=== PATIENT | male | born 1960 | race Caucasian/White ===

== ENCOUNTER 2020-05-15 07:49 | Emergency (ER) | payer BC, SELFPAY ==
[2020-05-15 09:09] VITALS: BP 201/106; PULSE 83; RESP 16; TEMP 37; O2SAT 97; BMI 38.0
--- NOTE | 2020-05-15 09:09 | ED.GENADULT ---
HPI - General Adult General Chief complaint: Extremity Problem <Santa Martínez NP - Last Filed: 05/15/20 09:14> Stated complaint: swollen feet <Santa Martínez NP - Last Filed: 05/15/20 09:14> Time Seen by Provider: 05/15/20 09:08 <Santa Martínez NP - Last Filed: 05/15/20 09:14> Source: patient <SHILA Swan - Last Filed: 05/15/20 12:17> Mode of arrival: ambulatory <SHILA Swan - Last Filed: 05/15/20 12:17> History of Present Illness HPI narrative: 59-year-old male with a past medical history of hypertension, diabetes, peripheral neuropathy presenting to the ED complaining of bilateral LE edema greater on the left since Thursday with left foot wound for unknown period of time. Denies fever, chills, shortness of breath, chest pain, recent travel, smoking, history of blood clots <SHILA Swan - Last Filed: 05/15/20 12:17> Related Data Home medications: Home Medications Medication Instructions Recorded Confirmed atenolol 50 mg tablet 50 mg PO DAILY 05/14/20 insulin glargine 100 unit/mL (3 0 - 20 unit SUBCUT DAILY 05/14/20 mL) subcutaneous pen lisinopril 20 mg tablet 20 mg PO DAILY 05/14/20 Previous Rx's Medication Instructions Recorded atorvastatin 20 mg tablet 20 mg PO QPM 90 Days #90 tab 03/09/20 glipizide 10 mg tablet 10 mg PO BID 90 Days #180 tab 03/09/20 amoxicillin 875 mg-potassium 1 tab PO Q12H 10 Days #20 tab 03/19/20 clavulanate 125 mg tablet gabapentin 300 mg capsule 300 mg PO TID 30 Days #90 cap 04/09/20 metformin 1,000 mg tablet 1,000 mg PO BID 30 Days #60 tab 05/10/20 levofloxacin 750 mg PO DAILY 7 Days #7 tab 05/15/20 <Santa Martínez NP - Last Filed: 05/15/20 09:14> Allergies/adverse reactions: Allergies Allergy/AdvReac Type Severity Reaction Status Date / Time No Known Allergies Allergy Verified 05/14/20 15:53 <Santa Martínez NP - Last Filed: 05/15/20 09:14> Review of Systems Review of Systems: Constitutional: No Weight loss, No Fever, No Chills Cardiovascular: No Chest Pain, No SOB, No Dyspnea on Exertion, No Orthopnea, + Edema> LLE Respiratory: No Cough, No Sputum, No Wheezing, No Smoke Exposure, No Dyspnea Gastrointestinal: No Nausea, No Vomiting, No Diarrhea, No Constipation, No Abdominal pain Musculoskeletal: No joint pain, No Myalgias, No Joint Swelling Skin: + wound, No rash <SHILA Swan - Last Filed: 05/15/20 12:17> Yes all other systems are reviewed and are negative <SHILA Swan - Last Filed: 05/15/20 12:17> FORMERLY [facility] Past Medical History Attestation statement: The following information was validated with the patient. <SHILA Swan - Last Filed: 05/15/20 12:17> Medical History: Medical History (Updated 05/16/20 @ 00:00 by José Barone) Diabetes mellitus, type 2 Hypertension <Santa Martínez NP - Last Filed: 05/15/20 09:14> Surgical History: Surgical History (Updated 05/15/20 @ 09:14 by Reji Pierce) Total knee replacement status <Santa Martínez NP - Last Filed: 05/15/20 09:14> Social History Social History: Social History Advance Directives: No Advance Directives Information Provided: No <Santa Martínez NP - Last Filed: 05/15/20 09:14> Physical Exam Vital Signs: Vital Signs: Last Vital Signs Temp 98.6 F 05/15/20 09:09 Pulse 83 05/15/20 09:09 Resp 16 05/15/20 09:09 BP 201/106 H 05/15/20 09:09 Pulse Ox 97 05/15/20 09:09 Body Mass Index 38.0 <Santa Martínez NP - Last Filed: 05/15/20 09:14> Vital Signs: Last Vital Signs Temp 98.6 F 05/15/20 09:09 Pulse 83 05/15/20 09:09 Resp 16 05/15/20 09:09 BP 201/106 H 05/15/20 09:09 Pulse Ox 97 05/15/20 09:09 Body Mass Index 38.0 <Ghassan Guerrero MD - Last Filed: 05/18/20 15:41> Vital Signs: Last Vital Signs Temp 98.6 F 05/15/20 09:09 Pulse 83 05/15/20 09:09 Resp 16 05/15/20 09:09 BP 201/106 H 05/15/20 09:09 Pulse Ox 97 05/15/20 09:09 Body Mass Index 38.0 <Brook Wang PA - Last Filed: 05/15/20 12:17> Const: General: cooperative and healthy appearing <SHILA Swan - Last Filed: 05/15/20 12:17> Limitations: no limitations <SHILA Swan - Last Filed: 05/15/20 12:17> HENMT: Head: Yes normal to inspection <SHILA Swan - Last Filed: 05/15/20 12:17> Ears: hearing grossly normal bilaterally <SHILA Swan - Last Filed: 05/15/20 12:17> General nose exam: Normal external nose present <Brook Wang PA - Last Filed: 05/15/20 12:17> Face and sinus: Yes normal facial exam <SHILA Swan - Last Filed: 05/15/20 12:17> Eyes: General: appearance normal, both eyes and all related structures <SHILA Swan - Last Filed: 05/15/20 12:17> EOM: EOMs intact bilaterally <SHILA Swan - Last Filed: 05/15/20 12:17> Neck: Neck: Yes normal visual inspection <SHILA Swan - Last Filed: 05/15/20 12:17> Resp: Effort & Inspection: normal respiratory effort <SHILA Swan - Last Filed: 05/15/20 12:17> Auscultation: clear to auscultation bilaterally, no rales, no rhonchi and no wheezes <SHILA Swan - Last Filed: 05/15/20 12:17> Cardio: Rate: regular rate <SHILA Swan - Last Filed: 05/15/20 12:17> Heart sounds: S1 normal heart sound present and S2 normal heart sound present <Brook Wang PA - Last Filed: 05/15/20 12:17> GI: Inspection: Yes normal to inspection <Brook Wang PA - Last Filed: 05/15/20 12:17> Palpation (GI): Soft to palpation <Brook Wang PA - Last Filed: 05/15/20 12:17> Skin: Other: + punctate ulcer noted to plantar aspect of left foot. No surrounding erythema/cellulitis, no fluctuance or induration. No expressible drainage <Brook Adamsbrenton PA - Last Filed: 05/15/20 12:17> Rashes: no rashes <Brook Kathleen PA - Last Filed: 05/15/20 12:17> Neuro: Gait exam (Neuro): Normal gait present <Brook Adamsbrenton PA - Last Filed: 05/15/20 12:17> Extrem: Other: + bilateral LE edema greater on the left. No calf tenderness elicited <Brook SHILA Wang - Last Filed: 05/15/20 12:17> General: Yes normal to inspection <Brook Adamsbrenton PA - Last Filed: 05/15/20 12:17> Course Course Course Narrative: 0900-This serves as rapid medical exam. 59 yo male with a past medical history of IDDM, HTN here with LLE swelling and pain since thursday. Has known wound to the bottom of his left foot. Will need labs including blood cultures, x-ray to eval for osteo, US to r/o DVT. Deferred additional HPI, ROS and PE to primary provider. <Santa Martínez NP - Last Filed: 05/15/20 09:14> I have discussed the case and management with the KRYS <Ghassan Guerrero MD - Last Filed: 05/18/20 15:41> 1158--no leukocytosis, H&H at baseline. Labs notable for elevated lactic acidosis of 3.3 likely from metformin. Low concern for severe sepsis -CXR unremarkable, venous duplex negative for DVT -XR foot LT 2VIMPRESSION: Air in the soft tissues of the plantar foot overlying the toes. No fracture or x-ray evidence of osteomyelitis. Degenerative change at the first MTP joint and plantar calcaneal spur >> results discussed with patient including worrisome signs and symptoms and strict return precautions. Will DC patient with Levaquin, Podiatry, and Wound Clinic follow-up <SHILA Swan - Last Filed: 05/15/20 12:17> Medical Decision Making MDM Narrative Medical decision making narrative: 59-year-old male with a past medical history of hypertension, diabetes, peripheral neuropathy presenting to the ED complaining of bilateral LE edema greater on the left since Thursday with left foot wound for unknown period of time. On exam hypertensive, NAD/nontoxic appearing, lungs CTA. Bilateral LE edema noted greater on the left with diabetic foot ulcer that appears not infected. Concern for CHF versus DVT versus osteo. Exam not consistent with active cellulitis at this time Plan: Labs, CXR, venous duplex, re-evaluate <SHILA Swan - Last Filed: 05/15/20 12:17> Lab Data Result diagrams: : 05/15/20 09:34 05/15/20 09:34 <Santa Martínez NP - Last Filed: 05/15/20 09:14> Labs: Lab Results 05/15/20 05/15/20 05/15/20 Range/Units 09:34 09:34 09:34 WBC 6.9 (4.8-10.8) X10*3/uL RBC 4.33 L (4.60-5.80) X10*6/uL Hgb 11.8 L (14.0-18.0) g/dl Hct 37.2 L (42-52) % MCV 85.9 (80-98) fL MCH 27.3 (27.0-33.0) pg MCHC 31.7 (31.0-36.0) g/dl RDW 13.8 (11.0-16.0) % Plt Count 219 (160-400) X10*3/uL MPV 10.5 (9.4-12.4) fL Immature Gran % (Auto) 0.3 (0.0-0.4) % Neut % (Auto) 63.5 (45-73) % Lymph % (Auto) 26.5 (20-40) % Hooker % (Auto) 7.4 (2-11) % Eos % (Auto) 2.0 (0-4) % Baso % (Auto) 0.3 (0-2) % Lymph # (Auto) 1.8 (1.2-4.9) X10*3/uL Hooker # (Auto) 0.5 (0.1-1.2) X10*3/uL Eos # (Auto) 0.1 (0.0-0.4) X10*3/uL Baso # (Auto) 0.0 (0.0-0.2) X10*3/uL Abs Immat Gran (auto) 0.02 (0.00-0.03) X10*3/uL Absolute Neuts (auto) 4.4 (2.0-8.3) X10*3/uL Absolute Nucleated RBC 0.000 (0.0-0.012) X10*3/uL Nucleated RBC % (auto) 0.0 (0.0-0.2) /100WBC Hold Blue Top SEE NOTE Sodium 135 (135-145) mmol/L Potassium 4.4 (3.3-5.1) mmol/l Chloride 96 (96-108) mmol/L Carbon Dioxide 28 (22-29) mmol/L Anion Gap 15 (12-20) BUN 7 L (9-16) mg/dL Creatinine 0.83 (0.5-1.4) mg/dL Estim Creat Clear Calc 133.5 Estimated GFR > 60 Random Glucose 307 H (60-115) mg/dL Lactic Acid (0.5-2.0) mmol/L Lactic Acid Fup @ 2Hr (0.5-2.0) mmol/L Calcium 9.3 (8.4-10.2) mg/dL Total Bilirubin 0.2 (0.0-1.0) mg/dL Direct Bilirubin 0.2 (0.0-0.5) mg/dL AST 27 (5-37) U/L ALT 18 (0-40) U/L Alkaline Phosphatase 110 (39-117) U/L B-Natriuretic Peptide (<100) pg/mL Total Protein 7.5 (6.5-8.0) g/dL Albumin 4.2 (3.5-5.0) g/dL 05/15/20 05/15/20 05/15/20 Range/Units 09:34 09:34 11:51 WBC (4.8-10.8) X10*3/uL RBC (4.60-5.80) X10*6/uL Hgb (14.0-18.0) g/dl Hct (42-52) % MCV (80-98) fL MCH (27.0-33.0) pg MCHC (31.0-36.0) g/dl RDW (11.0-16.0) % Plt Count (160-400) X10*3/uL MPV (9.4-12.4) fL Immature Gran % (Auto) (0.0-0.4) % Neut % (Auto) (45-73) % Lymph % (Auto) (20-40) % Hooker % (Auto) (2-11) % Eos % (Auto) (0-4) % Baso % (Auto) (0-2) % Lymph # (Auto) (1.2-4.9) X10*3/uL Hooker # (Auto) (0.1-1.2) X10*3/uL Eos # (Auto) (0.0-0.4) X10*3/uL Baso # (Auto) (0.0-0.2) X10*3/uL Abs Immat Gran (auto) (0.00-0.03) X10*3/uL Absolute Neuts (auto) (2.0-8.3) X10*3/uL Absolute Nucleated RBC (0.0-0.012) X10*3/uL Nucleated RBC % (auto) (0.0-0.2) /100WBC Hold Blue Top Sodium (135-145) mmol/L Potassium (3.3-5.1) mmol/l Chloride (96-108) mmol/L Carbon Dioxide (22-29) mmol/L Anion Gap (12-20) BUN (9-16) mg/dL Creatinine (0.5-1.4) mg/dL Estim Creat Clear Calc Estimated GFR Random Glucose (60-115) mg/dL Lactic Acid 3.3 H* (0.5-2.0) mmol/L Lactic Acid Fup @ 2Hr 1.9 (0.5-2.0) mmol/L Calcium (8.4-10.2) mg/dL Total Bilirubin (0.0-1.0) mg/dL Direct Bilirubin (0.0-0.5) mg/dL AST (5-37) U/L ALT (0-40) U/L Alkaline Phosphatase (39-117) U/L B-Natriuretic Peptide 123 H (<100) pg/mL Total Protein (6.5-8.0) g/dL Albumin (3.5-5.0) g/dL <Santa Martínez NP - Last Filed: 05/15/20 09:14> Lab Results 05/15/20 05/15/20 05/15/20 Range/Units 09:34 09:34 09:34 WBC 6.9 (4.8-10.8) X10*3/uL RBC 4.33 L (4.60-5.80) X10*6/uL Hgb 11.8 L (14.0-18.0) g/dl Hct 37.2 L (42-52) % MCV 85.9 (80-98) fL MCH 27.3 (27.0-33.0) pg MCHC 31.7 (31.0-36.0) g/dl RDW 13.8 (11.0-16.0) % Plt Count 219 (160-400) X10*3/uL MPV 10.5 (9.4-12.4) fL Immature Gran % (Auto) 0.3 (0.0-0.4) % Neut % (Auto) 63.5 (45-73) % Lymph % (Auto) 26.5 (20-40) % Hooker % (Auto) 7.4 (2-11) % Eos % (Auto) 2.0 (0-4) % Baso % (Auto) 0.3 (0-2) % Lymph # (Auto) 1.8 (1.2-4.9) X10*3/uL Hooker # (Auto) 0.5 (0.1-1.2) X10*3/uL Eos # (Auto) 0.1 (0.0-0.4) X10*3/uL Baso # (Auto) 0.0 (0.0-0.2) X10*3/uL Abs Immat Gran (auto) 0.02 (0.00-0.03) X10*3/uL Absolute Neuts (auto) 4.4 (2.0-8.3) X10*3/uL Absolute Nucleated RBC 0.000 (0.0-0.012) X10*3/uL Nucleated RBC % (auto) 0.0 (0.0-0.2) /100WBC Hold Blue Top SEE NOTE Sodium 135 (135-145) mmol/L Potassium 4.4 (3.3-5.1) mmol/l Chloride 96 (96-108) mmol/L Carbon Dioxide 28 (22-29) mmol/L Anion Gap 15 (12-20) BUN 7 L (9-16) mg/dL Creatinine 0.83 (0.5-1.4) mg/dL Estim Creat Clear Calc 133.5 Estimated GFR > 60 Random Glucose 307 H (60-115) mg/dL Lactic Acid (0.5-2.0) mmol/L Lactic Acid Fup @ 2Hr (0.5-2.0) mmol/L Calcium 9.3 (8.4-10.2) mg/dL Total Bilirubin 0.2 (0.0-1.0) mg/dL Direct Bilirubin 0.2 (0.0-0.5) mg/dL AST 27 (5-37) U/L ALT 18 (0-40) U/L Alkaline Phosphatase 110 (39-117) U/L B-Natriuretic Peptide (<100) pg/mL Total Protein 7.5 (6.5-8.0) g/dL Albumin 4.2 (3.5-5.0) g/dL 05/15/20 05/15/20 05/15/20 Range/Units 09:34 09:34 11:51 WBC (4.8-10.8) X10*3/uL RBC (4.60-5.80) X10*6/uL Hgb (14.0-18.0) g/dl Hct (42-52) % MCV (80-98) fL MCH (27.0-33.0) pg MCHC (31.0-36.0) g/dl RDW (11.0-16.0) % Plt Count (160-400) X10*3/uL MPV (9.4-12.4) fL Immature Gran % (Auto) (0.0-0.4) % Neut % (Auto) (45-73) % Lymph % (Auto) (20-40) % Hooker % (Auto) (2-11) % Eos % (Auto) (0-4) % Baso % (Auto) (0-2) % Lymph # (Auto) (1.2-4.9) X10*3/uL Hooker # (Auto) (0.1-1.2) X10*3/uL Eos # (Auto) (0.0-0.4) X10*3/uL Baso # (Auto) (0.0-0.2) X10*3/uL Abs Immat Gran (auto) (0.00-0.03) X10*3/uL Absolute Neuts (auto) (2.0-8.3) X10*3/uL Absolute Nucleated RBC (0.0-0.012) X10*3/uL Nucleated RBC % (auto) (0.0-0.2) /100WBC Hold Blue Top Sodium (135-145) mmol/L Potassium (3.3-5.1) mmol/l Chloride (96-108) mmol/L Carbon Dioxide (22-29) mmol/L Anion Gap (12-20) BUN (9-16) mg/dL Creatinine (0.5-1.4) mg/dL Estim Creat Clear Calc Estimated GFR Random Glucose (60-115) mg/dL Lactic Acid 3.3 H* (0.5-2.0) mmol/L Lactic Acid Fup @ 2Hr 1.9 (0.5-2.0) mmol/L Calcium (8.4-10.2) mg/dL Total Bilirubin (0.0-1.0) mg/dL Direct Bilirubin (0.0-0.5) mg/dL AST (5-37) U/L ALT (0-40) U/L Alkaline Phosphatase (39-117) U/L B-Natriuretic Peptide 123 H (<100) pg/mL Total Protein (6.5-8.0) g/dL Albumin (3.5-5.0) g/dL <Ghassan Guerrero MD - Last Filed: 05/18/20 15:41> Lab Results 05/15/20 05/15/20 05/15/20 Range/Units 09:34 09:34 09:34 WBC 6.9 (4.8-10.8) X10*3/uL RBC 4.33 L (4.60-5.80) X10*6/uL Hgb 11.8 L (14.0-18.0) g/dl Hct 37.2 L (42-52) % MCV 85.9 (80-98) fL MCH 27.3 (27.0-33.0) pg MCHC 31.7 (31.0-36.0) g/dl RDW 13.8 (11.0-16.0) % Plt Count 219 (160-400) X10*3/uL MPV 10.5 (9.4-12.4) fL Immature Gran % (Auto) 0.3 (0.0-0.4) % Neut % (Auto) 63.5 (45-73) % Lymph % (Auto) 26.5 (20-40) % Hooker % (Auto) 7.4 (2-11) % Eos % (Auto) 2.0 (0-4) % Baso % (Auto) 0.3 (0-2) % Lymph # (Auto) 1.8 (1.2-4.9) X10*3/uL Hooker # (Auto) 0.5 (0.1-1.2) X10*3/uL Eos # (Auto) 0.1 (0.0-0.4) X10*3/uL Baso # (Auto) 0.0 (0.0-0.2) X10*3/uL Abs Immat Gran (auto) 0.02 (0.00-0.03) X10*3/uL Absolute Neuts (auto) 4.4 (2.0-8.3) X10*3/uL Absolute Nucleated RBC 0.000 (0.0-0.012) X10*3/uL Nucleated RBC % (auto) 0.0 (0.0-0.2) /100WBC Hold Blue Top SEE NOTE Sodium 135 (135-145) mmol/L Potassium 4.4 (3.3-5.1) mmol/l Chloride 96 (96-108) mmol/L Carbon Dioxide 28 (22-29) mmol/L Anion Gap 15 (12-20) BUN 7 L (9-16) mg/dL Creatinine 0.83 (0.5-1.4) mg/dL Estim Creat Clear Calc 133.5 Estimated GFR > 60 Random Glucose 307 H (60-115) mg/dL Lactic Acid (0.5-2.0) mmol/L Lactic Acid Fup @ 2Hr (0.5-2.0) mmol/L Calcium 9.3 (8.4-10.2) mg/dL Total Bilirubin 0.2 (0.0-1.0) mg/dL Direct Bilirubin 0.2 (0.0-0.5) mg/dL AST 27 (5-37) U/L ALT 18 (0-40) U/L Alkaline Phosphatase 110 (39-117) U/L B-Natriuretic Peptide (<100) pg/mL Total Protein 7.5 (6.5-8.0) g/dL Albumin 4.2 (3.5-5.0) g/dL 05/15/20 05/15/20 05/15/20 Range/Units 09:34 09:34 11:51 WBC (4.8-10.8) X10*3/uL RBC (4.60-5.80) X10*6/uL Hgb (14.0-18.0) g/dl Hct (42-52) % MCV (80-98) fL MCH (27.0-33.0) pg MCHC (31.0-36.0) g/dl RDW (11.0-16.0) % Plt Count (160-400) X10*3/uL MPV (9.4-12.4) fL Immature Gran % (Auto) (0.0-0.4) % Neut % (Auto) (45-73) % Lymph % (Auto) (20-40) % Hooker % (Auto) (2-11) % Eos % (Auto) (0-4) % Baso % (Auto) (0-2) % Lymph # (Auto) (1.2-4.9) X10*3/uL Hooker # (Auto) (0.1-1.2) X10*3/uL Eos # (Auto) (0.0-0.4) X10*3/uL Baso # (Auto) (0.0-0.2) X10*3/uL Abs Immat Gran (auto) (0.00-0.03) X10*3/uL Absolute Neuts (auto) (2.0-8.3) X10*3/uL Absolute Nucleated RBC (0.0-0.012) X10*3/uL Nucleated RBC % (auto) (0.0-0.2) /100WBC Hold Blue Top Sodium (135-145) mmol/L Potassium (3.3-5.1) mmol/l Chloride (96-108) mmol/L Carbon Dioxide (22-29) mmol/L Anion Gap (12-20) BUN (9-16) mg/dL Creatinine (0.5-1.4) mg/dL Estim Creat Clear Calc Estimated GFR Random Glucose (60-115) mg/dL Lactic Acid 3.3 H* (0.5-2.0) mmol/L Lactic Acid Fup @ 2Hr 1.9 (0.5-2.0) mmol/L Calcium (8.4-10.2) mg/dL Total Bilirubin (0.0-1.0) mg/dL Direct Bilirubin (0.0-0.5) mg/dL AST (5-37) U/L ALT (0-40) U/L Alkaline Phosphatase (39-117) U/L B-Natriuretic Peptide 123 H (<100) pg/mL Total Protein (6.5-8.0) g/dL Albumin (3.5-5.0) g/dL <SHILA Swan - Last Filed: 05/15/20 12:17> Discharge Plan Discharge Clinical Impression: Diabetic foot ulcer, Bilateral edema of lower extremity <Santa Martínez NP - Last Filed: 05/15/20 09:14> Patient Disposition: Home, Self-Care <Santa Martínez NP - Last Filed: 05/15/20 09:14> Instructions: Diabetic Foot Ulcers (ED) <Santa Martínez NP - Last Filed: 05/15/20 09:14> Additional Instructions: You have a diabetic foot ulcer which shows air in the soft tissues of your foot. Levaquin is an antibiotic, take as prescribed You need to follow-up closely with a employee placement specialist and Wound Clinic Keep a very close eye on the area, if it is growing, looks red or infected, has drainage, you have fever return to the emergency department Of the swelling in her legs worsens return to the ED <Santa Martínez NP - Last Filed: 05/15/20 09:14> Prescriptions: New levofloxacin 750 mg tablet 750 mg PO DAILY 7 Days Qty: 7 RF: 0 No Action glipizide 10 mg tablet 10 mg PO BID 90 Days Qty: 180 RF: 0 atorvastatin 20 mg tablet 20 mg PO QPM 90 Days Qty: 90 RF: 0 amoxicillin-pot clavulanate [Augmentin] 875-125 mg tablet 1 tab PO Q12H 10 Days Qty: 20 RF: 0 gabapentin 300 mg capsule 300 mg PO TID 30 Days Qty: 90 RF: 1 metformin 1,000 mg tablet 1,000 mg PO BID 30 Days Qty: 60 RF: 3 <Santa Martínez NP - Last Filed: 05/15/20 09:14> Referrals: [facility] [place] [facility] [Provider Group] - 2 days Lorenzo Fang [Physician] - 2 days <Santa Martínez NP - Last Filed: 05/15/20 09:14> Interventions: ED Discharge Assessment Last Done: 05/15/20 12:23 <Santa Martínez NP - Last Filed: 05/15/20 09:14> Discharge Date/Time: 05/15/20 12:25 <Santa Martínez NP - Last Filed: 05/15/20 09:14>
--- NOTE | 2020-05-15 09:24 | XR_ITS ---
EXAMINATION: XR FOOT, LEFT CLINICAL INFORMATION: Soft tissue infection. Evaluate for osteomyelitis. COMPARISON: None TECHNIQUE: AP, lateral, and oblique views of the left foot. FINDINGS: No fracture or dislocation is seen. There are mild degenerative changes at the first MTP joint. There is a plantar calcaneal spur. There is air in the soft tissues seen over the plantar foot overlying the toes. On the oblique view this appears to be in between the base of the third and fourth toes. No radiopaque soft tissue foreign body is seen. XR/XR foot LT 2V IMPRESSION: Air in the soft tissues of the plantar foot overlying the toes. No fracture or x-ray evidence of osteomyelitis. Degenerative change at the first MTP joint and plantar calcaneal spur.
--- NOTE | 2020-05-15 09:25 | US_ITS ---
EXAMINATION: US VENOUS ULTRASOUND WITH DOPPLER LOWER EXTREMITY, LEFT CLINICAL INFORMATION: Pain and swelling COMPARISON: None TECHNIQUE: Ultrasound of the deep veins is performed from the hip to the calf with compression sonography and color and pulse Doppler assessment. Spectral analysis with color-flow imaging is performed. FINDINGS: There is normal venous compression and respiratory variation and augmented flow. The visualized common femoral vein, superficial femoral vein, profunda femoral vein, popliteal vein, and the trifurcation region shows no evidence of deep venous thrombosis. There is no significant popliteal fossa cyst. There is is left inguinal lymphadenopathy. The largest lymph node is enlarged measuring 2.3 cm in transverse dimension and demonstrates abnormal ultrasound morphology. This demonstrates cortical thickening and a slitlike hilum. This demonstrates normal hilar flow. Additional smaller left inguinal lymph nodes are seen. US/US venous duplex LE LT IMPRESSION: No DVT demonstrated in the left lower extremity. Left inguinal lymphadenopathy.
[2020-05-15 09:44] LABS: MANUAL DIFF FLAG NO
[2020-05-15 09:45] LABS: Basophils Percent Auto 0.3 % (0-2); Eosinophils Absolute Auto 0.1 X10*3/uL (0.0-0.4); Hematocrit 37.2 % (42-52); Hemoglobin 11.8 g/dl (14.0-18.0); Imm Gran Abs Auto 0.02 X10*3/uL (0.00-0.03); Imm Gran Pct Auto 0.3 % (0.0-0.4); Lymphocytes Absolute Auto 1.8 X10*3/uL (1.2-4.9); Lymphocytes Percent Auto 26.5 % (20-40); Mean Corpuscular HGB Conc 31.7 g/dl (31.0-36.0); Mean Corpuscular Hemoglobin 27.3 pg (27.0-33.0); Mean Corpuscular Volume 85.9 fL (80-98); Mean Platelet Volume 10.5 fL (9.4-12.4); Monocytes Absolute Auto 0.5 X10*3/uL (0.1-1.2); Monocytes Percent Auto 7.4 % (2-11); Neutrophils Absolute Auto 4.4 X10*3/uL (2.0-8.3); Neutrophils Percent Auto 63.5 % (45-73); Platelet Count 219 X10*3/uL (160-400); Red Blood Count 4.33 X10*6/uL (4.60-5.80); Red Cell Distribution Width 13.8 % (11.0-16.0); White Blood Count 6.9 X10*3/uL (4.8-10.8)
--- NOTE | 2020-05-15 10:05 | XR_ITS ---
EXAMINATION: XR CHEST CLINICAL INFORMATION: Chest pain. COMPARISON: Chest 03/02/2018 TECHNIQUE: Frontal view of the chest was obtained. FINDINGS: The lungs are well-expanded and clear of acute process. The heart size and pulmonary vascularity is normal. There is moderate spondylosis throughout dorsal spine. XR/XR chest 1V IMPRESSION: Unremarkable chest exam.
--- NOTE | 2020-05-15 10:12 | ED_ITS ---
HPI - Extremity Problem General Chief complaint: Extremity Problem Stated complaint: swollen feet Time Seen by Provider: 05/15/20 09:08 Source: patient Mode of arrival: ambulatory Related Data Home Medications Medication Instructions Recorded Confirmed atenolol 50 mg tablet 50 mg PO DAILY 05/14/20 insulin glargine 100 unit/mL (3 0 - 20 unit SUBCUT DAILY 05/14/20 mL) subcutaneous pen lisinopril 20 mg tablet 20 mg PO DAILY 05/14/20 Previous Rx's Medication Instructions Recorded atorvastatin 20 mg tablet 20 mg PO QPM 90 Days #90 tab 03/09/20 glipizide 10 mg tablet 10 mg PO BID 90 Days #180 tab 03/09/20 amoxicillin 875 mg-potassium 1 tab PO Q12H 10 Days #20 tab 03/19/20 clavulanate 125 mg tablet gabapentin 300 mg capsule 300 mg PO TID 30 Days #90 cap 04/09/20 metformin 1,000 mg tablet 1,000 mg PO BID 30 Days #60 tab 05/10/20 Allergies Allergy/AdvReac Type Severity Reaction Status Date / Time No Known Allergies Allergy Verified 05/14/20 15:53 [facility] Past Medical History Medical History (Updated 05/15/20 @ 09:14 by Reji Pierce) Diabetes mellitus, type 2 Hypertension Surgical History (Updated 05/15/20 @ 09:14 by Reji Pierce) Total knee replacement status Social History Social History Advance Directives: No Advance Directives Information Provided: No Physical Exam Vital Signs: Vital Signs: Last Vital Signs Temp 98.6 F 05/15/20 09:09 Pulse 83 05/15/20 09:09 Resp 16 05/15/20 09:09 BP 201/106 H 05/15/20 09:09 Pulse Ox 97 05/15/20 09:09 Body Mass Index 38.0 MDM - Extremity (Nontraumatic) Lab Data Result diagrams: 05/15/20 09:34 05/15/20 09:34 Labs: Lab Results 05/15/20 05/15/20 Range/Units 09:34 09:34 WBC 6.9 (4.8-10.8) X10*3/uL RBC 4.33 L (4.60-5.80) X10*6/uL Hgb 11.8 L (14.0-18.0) g/dl Hct 37.2 L (42-52) % MCV 85.9 (80-98) fL MCH 27.3 (27.0-33.0) pg MCHC 31.7 (31.0-36.0) g/dl RDW 13.8 (11.0-16.0) % Plt Count 219 (160-400) X10*3/uL MPV 10.5 (9.4-12.4) fL Immature Gran % (Auto) 0.3 (0.0-0.4) % Neut % (Auto) 63.5 (45-73) % Lymph % (Auto) 26.5 (20-40) % [place] % (Auto) 7.4 (2-11) % Eos % (Auto) 2.0 (0-4) % Baso % (Auto) 0.3 (0-2) % Lymph # (Auto) 1.8 (1.2-4.9) X10*3/uL [place] # (Auto) 0.5 (0.1-1.2) X10*3/uL Eos # (Auto) 0.1 (0.0-0.4) X10*3/uL Baso # (Auto) 0.0 (0.0-0.2) X10*3/uL Abs Immat Gran (auto) 0.02 (0.00-0.03) X10*3/uL Absolute Neuts (auto) 4.4 (2.0-8.3) X10*3/uL Absolute Nucleated RBC 0.000 (0.0-0.012) X10*3/uL Nucleated RBC % (auto) 0.0 (0.0-0.2) /100WBC Hold Blue Top SEE NOTE Discharge Plan Discharge Prescriptions: No Action glipizide 10 mg tablet 10 mg PO BID 90 Days Qty: 180 RF: 0 atorvastatin 20 mg tablet 20 mg PO QPM 90 Days Qty: 90 RF: 0 amoxicillin-pot clavulanate [Augmentin] 875-125 mg tablet 1 tab PO Q12H 10 Days Qty: 20 RF: 0 gabapentin 300 mg capsule 300 mg PO TID 30 Days Qty: 90 RF: 1 metformin 1,000 mg tablet 1,000 mg PO BID 30 Days Qty: 60 RF: 3
[2020-05-15 10:17] LABS: Lactic Acid 3.3 mmol/L (0.5-2.0)
[2020-05-15 10:20] LABS: Alanine Aminotransferase 18 U/L (0-40); Albumin Level 4.2 g/dL (3.5-5.0); Alkaline Phosphatase 110 U/L (39-117); Anion Gap 15 (12-20); Aspartate Amino Transferase 27 U/L (5-37); Bilirubin Direct 0.2 mg/dL (0.0-0.5); Bilirubin Total 0.2 mg/dL (0.0-1.0); Blood Urea Nitrogen 7 mg/dL (9-16); Calcium 9.3 mg/dL (8.4-10.2); Carbon Dioxide 28 mmol/L (22-29); Chloride 96 mmol/L (96-108); Creatinine Clr Calc Pharmacy 133.5; Estimated Glomerular Filt Rate > 60; Glucose Random 307 mg/dL (60-115); Potassium 4.4 mmol/l (3.3-5.1); Sodium 135 mmol/L (135-145); Total Protein 7.5 g/dL (6.5-8.0)
[2020-05-15 11:09] LABS: B Type Natriuretic Peptide 123 pg/mL (<100)
[2020-05-15 11:41] LABS: Reflex Lactate? Lactic Acid Added
[2020-05-15 12:11] LABS: ~Lactic Acid-LAB USE ONLY 1.9 mmol/L (0.5-2.0)
== END 2020-05-15 12:25 | disposition home or self-care (01) ==
PROVIDERS: Nurse Practitioner Family; Emergency Provider Emergency Medicine; PCP Nurse Practitioner Family
DX: E11.621 Type 2 diabetes mellitus with foot ulcer (principal); R60.0 Localized edema; M79.662 Pain in left lower leg; I10 Essential (primary) hypertension; E11.42 Type 2 diabetes mellitus with diabetic polyneuropathy; Z79.4 Long term (current) use of insulin; Z86.718 Personal history of other venous thrombosis and embolism
CPT/HCPCS: 36415; 71045; 73620; 80048; 80076; 83605; 83880; 85025; 87040; 93971; 99283; 99284

== ENCOUNTER 2020-05-28 14:00 | Outpatient (REF) | payer BC, SELFPAY | END 2020-05-28 14:01 | disposition home or self-care (01) | LOC: HO.LNP 14:00 | PROVIDERS: Visit Provider Podiatrist | DX: E11.621 Type 2 diabetes mellitus with foot ulcer (principal); L03.119 Cellulitis of unspecified part of limb | CPT/HCPCS: 87071; 87147; 87186; 87205 ==

== ENCOUNTER 2020-06-04 09:13 | Outpatient (RCR) | payer BC, SELFPAY | END 2021-02-13 13:29 | disposition home or self-care (01) | LOC: HO.WCC 09:13 | PROVIDERS: PCP Nurse Practitioner Family; Visit Provider Physician Assistant | DX: E11.621 Type 2 diabetes mellitus with foot ulcer (principal); L97.525 Non-pressure chronic ulcer of other part of left foot with muscle involvement without evidence of necrosis; L97.512 Non-pressure chronic ulcer of other part of right foot with fat layer exposed; E11.51 Type 2 diabetes mellitus with diabetic peripheral angiopathy without gangrene; Z79.4 Long term (current) use of insulin; Z79.2 Long term (current) use of antibiotics | CPT/HCPCS: 11042; 11043; 29445; 99213 ==

== ENCOUNTER 2020-06-21 09:59 | Outpatient (REF) | payer BC, SELFPAY ==
--- NOTE | ~2020-06-21 | US_ITS ---
EXAMINATION: US LEFT LOWER EXTREMITY DUPLEX ARTERIAL EXAMINATION CLINICAL INFORMATION: PVD. COMPARISON: None TECHNIQUE: Real-time ultrasound and Doppler techniques (integrating B-mode 2D vascular images, Doppler spectral analysis and color flow Doppler imaging) were utilized to interrogate the left lower extremity arterial system. FINDINGS: There are prominent left inguinal lymph nodes present, but which contain fatty clefts. There is some cortical thickening seen up to approximately 4 mm in diameter. Calcified plaque is seen from the common femoral artery to the upper calf. Left Common Femoral Artery: Triphasic waveform with peak systolic velocity of 139 cm/s. Profunda Femoral Artery: Triphasic waveform with peak systolic velocity of 136 cm/s. Proximal Superficial Femoral Artery: Monophasic waveform with peak systolic velocity of 153 cm/s. Mid Superficial Femoral Artery: Monophasic waveform with peak systolic velocity of 177 cm/s. Distal Superficial Femoral Artery: Monophasic waveform with peak systolic velocity of 243 cm/s. Popliteal Artery: Monophasic waveform with peak systolic velocity of 192 cm/s. Distal Posterior Tibial Artery: Monophasic waveform with peak systolic velocity of 107 cm/s. US/US arterial duplex LE LT IMPRESSION: Hemodynamically significant arterial disease within the left lower extremity from proximal superficial femoral artery through popliteal artery with transition to monophasic waveform within the proximal superficial femoral artery and with elevated velocities within the distal superficial femoral artery and popliteal artery.
== END 2020-06-21 10:00 | disposition home or self-care (01) ==
LOC: HO.US 09:59
PROVIDERS: PCP Nurse Practitioner Family; Visit Provider Physician Assistant
DX: I73.9 Peripheral vascular disease, unspecified (principal)
CPT/HCPCS: 93926

== ENCOUNTER → 2020-07-12 09:03 | Outpatient (BNVA) | payer BC, SELFPAY | PROVIDERS: PCP Nurse Practitioner Family; Visit Provider Surgery Vascular Surgery ==

== ENCOUNTER 2020-08-27 07:32 | Outpatient (REF) | payer BC, SELFPAY ==
[2020-08-27 12:02] LABS: Alanine Aminotransferase 22 U/L (0-40); Albumin Level 4.4 g/dL (3.5-5.0); Alkaline Phosphatase 90 U/L (39-117); Anion Gap 16 (12-20); Aspartate Amino Transferase 24 U/L (5-37); Bilirubin Total 0.4 mg/dL (0.0-1.0); Blood Urea Nitrogen 11 mg/dL (9-16); Calcium 9.6 mg/dL (8.4-10.2); Carbon Dioxide 27 mmol/L (22-29); Chloride 98 mmol/L (96-108); Cholesterol 194 mg/dL; Estimated Glomerular Filt Rate > 60; Glucose Fasting 194 mg/dL (60-99); HDL Cholesterol 69 mg/dL; LDL Cholesterol Calculated 105 mg/dl; Potassium 4.8 mmol/L (3.3-5.1); Sodium 136 mmol/L (135-145); Total Protein 7.4 g/dL (6.5-8.0); Triglycerides 103 mg/dL
[2020-08-27 12:07] LABS: TSH reflex Free T4 0.92 uIU/mL (0.32-4.0)
[2020-08-27 12:36] LABS: Estimated Average Glucose 194 mg/dL; Hemoglobin A1c % 8.4 %
[2020-08-27 12:46] LABS: Creatinine Urine 33.19 mg/dL; Microalbumin Urine < 5.0 mg/L
[2020-08-27 15:33] LABS: Prostate Specific Antigen 0.26 ng/mL (<0.05-4.0)
== END 2020-08-27 07:33 | disposition home or self-care (01) ==
LOC: HO.HMGCLDS 07:32
PROVIDERS: PCP Nurse Practitioner Family; Visit Provider Nurse Practitioner Family
DX: E11.9 Type 2 diabetes mellitus without complications (principal); Z12.5 Encounter for screening for malignant neoplasm of prostate
CPT/HCPCS: 36415; 80053; 80061; 82043; 83036; 84153; 84443

== ENCOUNTER 2020-09-11 12:49 | Outpatient (REF) | payer BC, SELFPAY ==
--- NOTE | ~2020-09-11 | XR_ITS ---
EXAMINATION: LEFT RIBS. CHEST. CLINICAL INFORMATION: Unspecified fall. Initial encounter. COMPARISON: None TECHNIQUE: Chest 2 views. Left RIBS 4 views. FINDINGS: CHEST: Both lungs are fairly well-expanded and clear. The heart size and pulmonary vascularity is normal. There is mild spondylosis mid dorsal spine. LEFT RIBS: Multiple views left ribs reveal no visible rib fracture or bony abnormality. The soft tissues are normal. XR/XR ribs LT 2V IMPRESSION: No visible left rib fractures seen. The lungs are well-expanded and clear. There is no evidence of pneumothorax or pleural effusion.
--- NOTE | ~2020-09-11 | XR_ITS ---
EXAMINATION: LEFT RIBS. CHEST. CLINICAL INFORMATION: Unspecified fall. Initial encounter. COMPARISON: None TECHNIQUE: Chest 2 views. Left RIBS 4 views. FINDINGS: CHEST: Both lungs are fairly well-expanded and clear. The heart size and pulmonary vascularity is normal. There is mild spondylosis mid dorsal spine. LEFT RIBS: Multiple views left ribs reveal no visible rib fracture or bony abnormality. The soft tissues are normal. XR/XR chest 2V IMPRESSION: No visible left rib fractures seen. The lungs are well-expanded and clear. There is no evidence of pneumothorax or pleural effusion.
== END 2020-09-11 12:50 | disposition home or self-care (01) ==
LOC: HO.HMGCX 12:49
PROVIDERS: PCP Nurse Practitioner Family; Visit Provider Nurse Practitioner Family
DX: Z91.81 History of falling (principal)
CPT/HCPCS: 71046; 71100

== ENCOUNTER 2020-10-01 14:32 | Outpatient (REF) | payer BC, SELFPAY ==
--- NOTE | ~2020-10-01 | FL_ITS ---
PROCEDURE: XR BARIUM SWALLOW CLINICAL INFORMATION: Dysphagia. COMPARISON: None TECHNIQUE: Routine modified barium swallow was performed in lateral projection under fluoroscopy in presence of speech therapist. FINDINGS: Following oral administration of thin, thick barium, puree, pudding, chicken salad, barium-coated cookie there is normal propagation of bolus from the oral mastication with advancement of the bolus from the oral cavity, pharynx into the upper esophagus without laryngeal aspiration. There is trace laryngeal penetration seen with thin barium not seen subsequently. There is no major retention in the piriform sinuses or the valleculae. Incidentally noted is ventral plate and screws for fusion from C4 through C6 vertebra. FLUOROSCOPY TIME: 1.5 minutes. DOSE AREA PRODUCT: 3.958 uGy-m2 (microgray-meter squared). FL/FL barium swallow modified IMPRESSION: Unremarkable modified barium swallow. Correlate with speech therapy results.
--- NOTE | 2020-10-02 18:21 | MHC.SL.IMP ---
Date of Plan of Treatment: 10/01/20 Onset of Symptoms/Illness: 10/01/18 Date Treatment Started: 10/01/20 Admitting Diagnosis: Primary (admitting) Diagnosis: Diabetes mellitus type 2 Comorbidities: GERD Hypertension Neuropathy Obstructive sleep apnea Past Surgical History: Total knee replacement surgery Primary Speech & Language Diagnosis: R13.12 Oropharyngeal Phase Dysphagia Reason for Today's Visit: 76778 Modified Barium Swallow Study Pre-evaluation Dietary Consistencies: Regular Pre-evaluation Liquid Consistency: Thin Pre-evaluation Medication Administration: Whole with Liquid Medical History: Modified Barium Swallow Study Fluoroscopic Evaluation of Swallowing Function CPT Code 79536 Evaluation Year: 2020 Reason for Study: Patient reports globus sensation. Referring Physician: Lorenzo Roberts NP-BC Evaluating Clinician: Lamar Quintanilla M.A., CCC-ORTHOTIC/PROSTHETIC CLINICIAN Study Number: 1 Patient Name: Colton Saini Status: Outpatient, Ambulatory Age: 60 Gender: Male MEDICAL HISTORY: Primary (admitting) Diagnosis: Diabetes mellitus type 2 Comorbidities: GERD Hypertension Neuropathy Obstructive sleep apnea Past Surgical History: Total knee replacement surgery Current (pre-evaluation) Intake/Diet: Route: PO Diet Grade: Regular Liquid Consistencies: Thin Pre-Study Functional Oral Intake Scale (FOIS): 7- Total oral intake with no restrictions Pain: None reported at time of study Oral Motor Exam Facial Symmetry: Symmetrical Mouth Occlusion: Normal Oral-Facial Teeth Characteristics: Dentures Oral-Facial Lip Pucker Description: Normal Oral-Facial Smile (Lips) Description: Normal Oral-Facial Puff Cheeks Description: Normal Tongue Size: Normal Tongue Frenum Length: Normal Is patient able to manage secretions?: Yes Is patient able to produce volitional cough?: Yes Food and Liquid Trials: Oral Impairment: Lip Closure: Did not test Oral Impairment: Tongue Control During Bolus Hold: 2=Posterior escape of less than half of bolus Oral Impairment: Bolus Preparation/Mastication: 0=Timely and efficient chewing and mashing Oral Impairment: Bolus Transport/Lingual Motion: 2=Slowed tongue motion Oral Impairment: Oral Residue: 2=Residue collection on oral structures Oral Impairment:Initiation of Pharyngeal Swallow: 3=Bolus head in pyriforms Pharyngeal Impairment: Soft Palate Elevation: 0=No bolus between soft palate (SP)/pharyngeal wall (PW) Pharyngeal Impairment: Laryngeal Elevation: 1=Partial thyroid cartilage/arytenoids to epiglottic petiole movement Pharyngeal Impairment: Anterior Hyoid Excursion: 0=Complete anterior movement Pharyngeal Impairment: Epiglottic Movement: 0=Complete inversion Pharyngeal Impairment: Laryngeal Vestibular Closure:: 1=Incomplete: narrow column air/contrast in laryngeal vestibule Pharyngeal Impairment: Pharyngeal Stripping Wave: 0=Present: complete Pharyngeal Impairment: Pharyngeal Contraction: Did not test Pharyngeal Impairment: Pharyngoesophageal Segment Openin=Partial distention/partial duration: partial obstruction of flow Pharyngeal Impairment: Tongue Base (TB) Retraction: 1=Trace column of contrast/air between TB and posterior PW Pharyngeal Impairment: Pharyngeal Residue: 2=Collection of residue within or on pharyngeal structures Pharyngeal Impairment: Esophageal Clearance Upright Position: 0=Complete clearance: esophageal coating Impressions and Recommendations Clinical Observations: OBJECTIVE: Time-out: performed at 02:45 Evaluation Start: 02:30; Stop: 02:40 Patient Positioning: Standing Viewing Planes: LATERAL ONLY Contrast: MBSImP? Standardized Protocol using commercially prepared, standardized Barium viscosities, including: Varibar? THIN LIQUID (40% w/v, <15 cps) , 1/2 Shortbread Cookie (1 x1 x.25 ) [facility]: [id number] [facility] Results: Lip closure for intraoral bolus containment could not be assessed due to logistical reasons not related to physiologic impairment. Tongue control during bolus hold resulted in posterior escape of less than half of the bolus. Bolus preparation and mastication resulted in timely and efficient chewing and mashing. Bolus transport/lingual motion was with slowed tongue motion. Oral residue was a collection on oral structures. Initiation of the pharyngeal swallow occurred when the bolus head was in the pyriform sinuses. Soft palate elevation resulted in no bolus between the soft palate and the pharyngeal wall. Laryngeal elevation was decreased, with partial superior movement of the thyroid cartilage/partial approximation of the arytenoids to the epiglottic petiole. Anterior hyoid excursion demonstrated complete anterior movement. Epiglottic movement resulted in complete inversion. Laryngeal vestibular closure was incomplete, with a narrow column of air/contrast noted within the laryngeal vestibule at the height of the swallow. Pharyngeal stripping wave was present and complete. Pharyngeal contraction could not be determined due to logistical reasons not related to physiologic impairment. Pharyngoesophageal segment opening demonstrated partial distension/partial duration, with partial obstruction of bolus flow. Tongue base retraction allowed a trace column of contrast or air between the retracted tongue base and the posterior pharyngeal wall. Pharyngeal residue was a collection of residue within or on pharyngeal structures. Esophageal clearance in the upright position was complete, with only a coating of contrast, if any. Oral Impairment Score: 9 (absence of score, component 1) Pharyngeal Impairment Score: 5 (absence of score, component 13) Esophageal Impairment Score: 0 Laryngeal Penetration and Aspiration: Penetration was observed in today's study. Thin Contrast entered the airway, remained above the vocal folds, and was ejected from the airway. ASSESSMENT: Clinician Assessment: This exam was conducted by a radiologist and speech language pathologist with patient standing for lateral view only. Patient was able to feed himself without difficulty. He trialed the following liquid and solid consistencies: -5 mL thin liquid barium -bolus hold individual sip thin liquid barium -consecutive sip thin liquid barium -pureed solid (applesauce mixed with barium paste) -ground solid (chicken salad mixed with barium paste) -regular solid (Nancy Doone cookie coated with barium paste) -barium tablet Patient displayed mild oropharyngeal dysphagia characterized by impairments in the following components of swallow physiology: ORAL PHASE: -posterior escape of trace material before initiation of swallow trigger -slowed posterior tongue motion -mild oral residue -delayed pharyngeal swallow trigger when bolus head reached pyriforms PHARYNGEAL PHASE: -partial superior movement of thyroid cartilage -incomplete laryngeal vestibular closure resulting in episode of flash penetration with thin liquid -reduced tongue base retraction -mild pharyngeal retention in valleculae and pyriforms, which cleared with multiple swallow strategy Noted timely and efficient mastication. Posterior escape of bolus. Trace material collected in valleculae and pyriforms before initiation of swallow trigger. Delayed pharyngeal swallow trigger. Partial laryngeal elevation and incomplete laryngeal vestibular closure. Noted one episode of flash penetration during the swallow. Trace amount contrast momentarily entered the airway above the vocal folds and immediately and spontaneously ejected. No evidence of aspiration. Mild pharyngeal residue cleared with dry swallow. noted: ?Incidentally noted is ventral plate and screws for fusion from C4 through C6 vertebra.? Intake Recommendations: Route: PO Diet Grade: Regular Liquid Consistencies: Thin Post-Study Functional Oral Intake Scale (FOIS): 7- Total oral intake with no restrictions Further ST intervention is not warranted. Patient is recommended to resume unmodified diet regular solids/thin liquids. Per preference, patient may consider chopped diet (Please refer to CHOPPED/ADVANCED NATIONAL DYSPHAGIA DIET LEVEL 3), cutting food into bite size pieces and serving with sauce or gravy. Recommend aspiration precautions and strategies to promote oropharyngeal clearance: -small bites -chew food well -double swallow -alternate bite of food with sip of liquid -one sip at a time -upright 90 degree position when eating and/or drinking Liquid Intake Recommendation: Thin Liquid Intake Strategies: Small Sips Dietary Recommendations: Regular Medication Administration: Whole with Liquid Compensatory Strategies Recommended: Upright (90 deg) Double Swallow Small Bites and Sips Alternate Liquids/Solids Rate of Ingestion Change Supervision during eating and or drinking: None Needed Recommended Treatments: Recommendation for Speech Therapy: NA:Typical Evaluation Text Comment: Suggested Referrals: The patient might benefit from a referral to: Gastroenterology Indication for Referral: ongoing care Otolaryngology Indication for Referral: reports of globus sensation Therapy Recommendations: Therapy will be discontinued Clinician - Supplemental, Miscellaneous Communication: It is important to note that MBSS objective studies are snapshots in time and patient function might vary with factors such as time of day or concomitant medical conditions. For this reason, the final treatment plan for this patient should rest with their medical care team. Additional recommendations should be considered with the totality of the patient in mind. Thank you for the opportunity to participate in the care of this patient. If you have any questions about the content of this report, please contact the [facility]. Education: Education regarding findings from today's study and plans for therapy were provided to Patient only through Verbal Instruction. Understanding was expressed by the Patient only. Compliance Field Technician Clinician/Clinical Fellow: No Supervisory Statement: N/A Speech Language Pathologist: Lamar Quintanilla M.A., [facility]-ORTHOTIC/PROSTHETIC CLINICIAN
== END 2020-10-01 14:33 | disposition home or self-care (01) ==
LOC: HO.XRAY 14:32
PROVIDERS: Visit Provider Nurse Practitioner Family
DX: R13.10 Dysphagia, unspecified (principal)
CPT/HCPCS: 74230; 92611

== ENCOUNTER 2020-10-12 14:01 | Outpatient (REF) | payer BC, SELFPAY ==
--- NOTE | ~2020-10-12 | CT_ITS ---
EXAMINATION: CT CHEST SCREENING CLINICAL INFORMATION: Lung cancer screening COMPARISON: None. TECHNIQUE: Multidetector volumetric CT imaging of the chest is performed without contrast using low dose technique. Additional 2D coronal and sagittal reformatted images and axial 3D maximum intensity projection (MIP) images are generated on the CT workstation. This CT examination was performed using dose optimization techniques as appropriate, variously including the following: *Automated exposure control *Adjustment of mA and/or kV according to patient size (this includes techniques or standardized protocols for targeted exams where dose is matched to indication/reason for exam; i.e. extremities or head) *Use of iterative reconstruction technique DLP: 94 mGy-cm FINDINGS: LUNGS: There is a 0.6 x 1.3 cm heterogeneous semisolid peripheral or subpleural left lower lobe nodule axial image 445 series 5. This is not seen on previous chest CT from 2009. There is evidence of mild paraseptal emphysema.. MEDIASTINUM: There is a right precarinal lymph node is a slightly prominent measuring 1.3 cm in short axis. There are other smaller normal size mediastinal lymph nodes. The heart does not appear enlarged. There is mild coronary artery calcification. There is no pericardial thoracic aorta is normal in caliber. PLEURA: There is no pleural effusion. No pleural mass or thickening. AXILLA: There are small bilateral axillary lymph nodes. No enlarged lymph nodes or chest wall mass is seen. UPPER ABDOMEN: There is fatty infiltration of the liver. There is diverticulosis of the colon. There is a 2.5 cm low-attenuation lesion exophytic to the upper pole of the right kidney that is partially visualized. This probably represents a cyst. OSSEOUS STRUCTURES: There are degenerative changes of the thoracic spine. There are postsurgical changes to the cervical spine. CT/CT lung screening IMPRESSION: 0.6 x 1.3 cm heterogeneous or semisolid subpleural left lower lobe nodule. Mild paraseptal emphysema. Prominent right precarinal mediastinal node. Mild coronary artery calcification. ASSESSMENT: Lung-RADS category 4 a: Suspicious RECOMMENDATION: Low-dose chest CT in 3 months recommended.
== END 2020-10-12 14:02 | disposition home or self-care (01) ==
LOC: HO.CT 14:01
PROVIDERS: PCP Nurse Practitioner Family; Visit Provider Physician Assistant Medical
DX: Z12.2 Encounter for screening for malignant neoplasm of respiratory organs (principal); F17.210 Nicotine dependence, cigarettes, uncomplicated
CPT/HCPCS: 71271

== ENCOUNTER → 2020-10-18 14:07 | Outpatient (REF) | payer BC, SELFPAY ==
--- NOTE | 2020-10-18 14:09 | CA_ITS ---
Transthoracic Echocardiogram Patient (Last, First, Middle): Colton Saini C Gender: Male Date of : 1960 Age: 60 Procedure Date: 10/18/2020 Procedure Type: Transthoracic Echocardiogram Location: OP Height: 182.88 cm Weight: 136.08 kg BSA: 2.53 m2 Heart Rate: bpm BP: 150 / 70 mmHg Sole Molder: BELKYS Turner MD: Lorenzo Roberts [facility] Nut Process Helper: Rodney Anderson MD Symptoms: R60.0 - Localized edema Study Quality: Technically Difficult/Contrast ECG Rhythm: Sinus Conclusions: - 1. Normal LV systolic function with mild LVH with grade 1 diastolic dysfunction 2. Moderate left atrial enlargement 3. Normal cardiac valvular Doppler 4. Normal RV systolic pressure 5. No gross pericardial effusion 6. Mildly dilated ascending aorta Findings Procedure Information Contrast agent, definity, is being given per protocol without apparent complications. Left Ventricle Normal left ventricular size and systolic function. There is mildly increased left ventricular wall thickness. The visually estimated ejection fraction is between 65-70%. Spectral Doppler is indicative of an impaired relaxation filling pattern. E/E prime ratio is <8, consistent with normal filling pressures. Evidence suggests grade I (mild) diastolic dysfunction. Right Ventricle There is normal right ventricular systolic function. Atria The left atrium is moderately dilated. Interatrial shunt cannot be excluded. The right atrium was not well visualized. Aortic Valve The aortic valve was not well visualized. There is no aortic valve stenosis. There is no aortic valve regurgitation. Mitral Valve Likely normal mitral valve structure and function. There is trace mitral valve regurgitation. There is no mitral valve stenosis. Pulmonic Valve The pulmonic valve was not well visualized. Tricuspid Valve The tricuspid valve was not well visualized. There is trace tricuspid valve regurgitation. The right ventricular systolic pressure is normal. The right ventricular systolic pressure is 19 mmHg. Normal right atrial pressure. There is no evidence of pulmonary hypertension. Great Vessels The pulmonary artery was not well visualized. There is mild dilatation of the ascending aorta measuring 4.20 cm. Venous The inferior vena cava is normal in size and collapses greater than 50% with inspiration. Pericardium/Pleural There is no evidence of pericardial effusion. Prior Study Comparison Changes noted compared to prior study dated: 09/29/2018. Left atrium is further enlarged. RV systolic pressure measured on this study within normal limits. Right ventricle on certain view appears to be enlarged. Ascending aorta is measured to be mildly dilated at 4.2 cm on this study Measurements 2D Linear Measurements IVSd: 1.27 0.6-0.9/0.6-1.0 cm LVIDd: 5.90 3.9-5.3/4.2-5.9 cm LVIDd Index: 2.33 2.4-3.2/2.2-3.1 cm/m2 LVIDs: 3.92 2.0-3.6 cm LVPWd: 1.22 0.7-1.1 cm Ao Root: 3.80 2.1-3.5 cm LA Diam: 4.80 2.7-3.8/3.0-4.0 cm LAIDs Index: 1.90 1.5-2.3 cm/m2 LV Mass: 447.90 67-162/88-224 g LV Mass Index: 177.04 43-95/49-115 g/m2 LVOT Diam: 2.30 3.0+(-)1.3 cm 2D Systolic Function EF 4C: 78.10 >55% EF 2C: 69.60 >55% EF BiP: 75.90 >55% Mitral Valve MV Pk E: 0.62 MV PK A: 0.71 MV Decel Time: 334.00 E/A: 0.90 E'Lateral: 7.18 E'Medial: 6.09 E/E' Med: 10.10 E/E' Lat: 8.60 PHT: 98.00 MVA PHT: 2.24 Decel Zapata: 1.85 Aortic Valve AoV Pk Aakash: 1.98 AoV Mn Aakash: 1.40 AoV VTI: 0.35 AoV Pk Grad: 16.00 Aov Mn Grad: 9.00 ADALID Cont.VTI: 2.77 LVOT LVOT Pk Aakash: 1.30 LVOT Mn Aakash: 0.99 LVOT VTI: 0.23 LVOT Pk Grad: 7.00 LVOT Mn Grad: 4.00 LVOT Diam: 2.30 LVOT Area: 4.15 Diastolic Function MV Pk E: 0.62 MV Pk A: 0.71 E/A: 0.90 E'Medial: 6.09 E/E' Med: 10.10 E' Laterial: 7.18 E/E' Lat: 8.60 Tricuspid Valve TR Pk Aakash: 2.02 TR Pk Grad: 16.00 RA Press: 3.00 RVSP: 19.00 Great Vessels Aorta Ao Root-2D: 3.80 2.0-3.7 cm Ao Asc: 4.20 2.1-3.4 cm Ao Arch: 3.20 Updated in Other Vendor System with Status of Final Rodney Anderson MD electronically signed on 10/19/2020 12:47:52 PM with status of Final
== END ==
LOC: HO.CARD 14:07
PROVIDERS: Visit Provider Nurse Practitioner Family
DX: R60.0 Localized edema (principal)
CPT/HCPCS: 93306; Q9957

== ENCOUNTER 2020-10-26 15:11 | Outpatient (REF) | payer BC, SELFPAY ==
--- NOTE | ~2020-10-26 | US_ITS ---
EXAMINATION: US THYROID CLINICAL INFORMATION: Dysphagia, unspecified. COMPARISON: None TECHNIQUE: Linear transducer grayscale and color Doppler examination with attention to the region of the thyroid. FINDINGS: SIZE: Measurements of the thyroid lobes and nodules are given in sagittal, anteroposterior and transverse dimensions respectively. Right Thyroid Lobe: 5.5 x 2.4 x 2.5 cm, volume 17.5 mL. Parenchyma: The gland echotexture is homogeneous. Thyroid vascularity is normal. Left Thyroid Lobe: 5.5 x 2.2 x 2.5 cm, volume 15.9 mL. Parenchyma: The gland echotexture is homogeneous. Thyroid vascularity is normal. Isthmus: 0.3 cm in maximum AP dimension. No focal thyroid nodule is seen. NODES: No lymphadenopathy is seen in the tissue surrounding the thyroid gland. US/US thyroid IMPRESSION: Enlarged thyroid gland. No nodule seen.
== END 2020-10-26 15:12 | disposition home or self-care (01) ==
LOC: HO.HMGCX 15:11
PROVIDERS: PCP Nurse Practitioner Family; Visit Provider Nurse Practitioner Family
DX: R13.10 Dysphagia, unspecified (principal); F17.200 Nicotine dependence, unspecified, uncomplicated
CPT/HCPCS: 76536

== ENCOUNTER 2021-01-18 09:25 | Outpatient (REF) | payer BC, SELFPAY ==
--- NOTE | ~2021-01-18 | CT_ITS ---
EXAMINATION: CT CHEST SCREENING CLINICAL INFORMATION: Current smoker. One pack per day for 40 years. COMPARISON: Previous chest CT September 2020 and September 2008. TECHNIQUE: Multidetector volumetric CT imaging of the chest is performed without contrast using low dose technique. Additional 2D coronal and sagittal reformatted images and axial 3D maximum intensity projection (MIP) images are generated on the CT workstation. This CT examination was performed using dose optimization techniques as appropriate, variously including the following: *Automated exposure control *Adjustment of mA and/or kV according to patient size (this includes techniques or standardized protocols for targeted exams where dose is matched to indication/reason for exam; i.e. extremities or head) *Use of iterative reconstruction technique DLP: 94 mGy-cm FINDINGS: LUNGS: There is evidence of mild paraseptal emphysema. The previously identified 0.6 x 1.3 cm heterogeneous or semisolid peripheral or subpleural left lower lobe nodule axial image 460 series 6 is stable from September 2020 exam. Again this is new from older exam from 2008. MEDIASTINUM: Mediastinal lymphadenopathy appears unchanged. There is a right precarinal lymph node that is slightly prominent measuring 1.3 cm in short axis. There are other smaller mediastinal lymph nodes. No hilar adenopathy is seen. The heart does not appear enlarged. There is minimal coronary artery calcification. There is no pericardial effusion. The thoracic aorta is normal in caliber. PLEURA: There is no pleural effusion. No pleural mass or thickening. There is a small left posterior medial diaphragmatic hernia containing fat. AXILLA: No lymphadenopathy. UPPER ABDOMEN: The liver is low in attenuation suggestive of fatty infiltration. There is a 2 cm low-attenuation lesion exophytic to the upper pole of the right kidney that is stable and probably represents a cyst. There may be mild diverticulosis of the colon. OSSEOUS STRUCTURES: There are degenerative changes of the thoracic spine. There are postsurgical changes of the lower cervical spine. CT/CT lung screen follow up IMPRESSION: Mild paraseptal emphysema. Stable 0.6 x 1.3 cm heterogeneous semisolid peripheral or subpleural left lower lobe nodule from September 2020 exam. ASSESSMENT: Lung-RADS category 2: Benign RECOMMENDATION: Annual low-dose chest CT followup recommended.
== END 2021-01-18 09:26 | disposition home or self-care (01) ==
LOC: HO.CT 09:25
PROVIDERS: PCP Nurse Practitioner Family; Visit Provider Physician Assistant Medical
DX: Z12.2 Encounter for screening for malignant neoplasm of respiratory organs (principal); Z87.891 Personal history of nicotine dependence
CPT/HCPCS: 71250

== ENCOUNTER 2021-02-07 10:03 | Outpatient (REF) | payer BC, SELFPAY ==
--- NOTE | ~2021-02-07 | US_ITS ---
EXAMINATION: US VENOUS ULTRASOUND WITH DOPPLER LOWER EXTREMITY, BILATERAL CLINICAL INFORMATION: Bilateral lower extremity swelling. COMPARISON: Left lower extremity venous ultrasound dated 05/15/2020. TECHNIQUE: Ultrasound of the deep veins is performed from the hip to the calf with compression sonography and color and pulse Doppler assessment. Spectral analysis with color-flow imaging is performed. FINDINGS: RIGHT: There is normal venous compression and respiratory variation and augmented flow. The visualized common femoral vein, superficial femoral vein, profunda femoral vein, popliteal vein, and the trifurcation region shows no evidence of deep venous thrombosis. There is no significant popliteal fossa cyst. LEFT: There is normal venous compression and respiratory variation and augmented flow. The visualized common femoral vein, superficial femoral vein, profunda femoral vein, popliteal vein, and the trifurcation region shows no evidence of deep venous thrombosis. There is no significant popliteal fossa cyst. If the patient's symptoms persist, follow-up ultrasound in 5 days 7 days might be of value to exclude proximal propagation from a nonvisualized calf vein. Prominent bilateral inguinal lymph nodes measuring up to 2 cm on the right and 2.7 cm on the left, similar when compared to the prior ultrasound. US/US venous duplex LE BI IMPRESSION: No DVT demonstrated in the bilateral lower extremity. Prominent bilateral inguinal lymph nodes.
== END 2021-02-07 10:04 | disposition home or self-care (01) ==
LOC: HO.HMGCX 10:03
PROVIDERS: PCP Nurse Practitioner Family; Visit Provider Nurse Practitioner Family
DX: M79.89 Other specified soft tissue disorders (principal); E11.9 Type 2 diabetes mellitus without complications
CPT/HCPCS: 93970

== ENCOUNTER → 2021-02-08 09:37 | Outpatient (BNVA) | payer BC, SELFPAY | PROVIDERS: PCP Nurse Practitioner Family; Visit Provider Surgery | DX: R91.1 Solitary pulmonary nodule (principal); G47.33 Obstructive sleep apnea (adult) (pediatric); F17.210 Nicotine dependence, cigarettes, uncomplicated; Z79.84 Long term (current) use of oral hypoglycemic drugs; Z79.4 Long term (current) use of insulin | CPT/HCPCS: 99212 ==

== ENCOUNTER → 2021-02-11 13:41 | Outpatient (BNVA) | payer BC, SELFPAY | PROVIDERS: PCP Nurse Practitioner Family; Visit Provider Internal Medicine Pulmonary Disease ==

== ENCOUNTER 2021-02-28 07:35 | Day surgery (SDC) | payer BC, SELFPAY ==
[2021-02-15 13:10] VITALS: BMI 40.2
--- NOTE | 2021-02-27 11:54 | HO.ANESPROP2 ---
Documented by User: Lety Garcia NP 02/27/21 11:56 HPI - Anesthesia Eval Consult details Narrative: 60yo M for Endoscopic Bronchial Ultrasound PMFSH Active Problems Active Problems: All Active Problems (Updated 02/15/21 @ 12:57 by Ana Rosa Cortez, RN) Diabetes (Acute) Pedal edema (Acute) Foot infection (Acute) Varicose veins of left lower extremity with inflammation (Acute) Foot ulcer, left (Acute) Fall (Acute) Dilatation of aorta (Acute) Enlarged thyroid (Acute) Paresthesia (Acute) Numbness (Acute) Swelling of both lower extremities (Acute) Mediastinal lymphadenopathy (Acute) COPD (chronic obstructive pulmonary disease) (Acute) MAHAD (obstructive sleep apnea) (Acute) Pulmonary nodule (Acute) Personal history of nicotine dependence (Acute) Diabetes mellitus, type 2 (Acute) Essential hypertension (Acute) Dysphagia (Acute) PAD (peripheral artery disease) (Acute) Obesity (Acute) Past Medical History Medical History Diabetes mellitus, type 2 Diabetic foot ulcer Dysphagia Essential hypertension GERD (gastroesophageal reflux disease) History of cervical fracture Neuropathy Obesity On beta roney at home MAHAD (obstructive sleep apnea) PAD (peripheral artery disease) Personal history of nicotine dependence Pulmonary nodule Surgical History Surgical History History of colonoscopy History of endoscopy History of fusion of cervical spine History of left knee surgery History of tonsillectomy History of total left knee replacement History of total right knee replacement (TKR) Social History Social History Housing: House Are you a primary account executive healthcare to a significant other at home: No Do you presently have visiting nurse or other home services: No Alcohol intake: current Alcohol intake frequency: a few times a week Alcohol type: hard liquor Patient Tobacco Use Status: Current everyday Tobacco user Tobacco use type: Cigarette Cigarette Packs Per Day: 1 Cigarettes Per Day: 20 Years Smoked: 25 Smoked in Last 30 Days: Yes e-Cigarette/Vaping Use: Never Used Patient Given Instructions on How to Stop Smoking: Yes (mailed) Date Education Initiated: 02/15/21 Second Hand Smoke Exposure: Yes Use of substances other than those prescribed or required for medical reasons: No Have you been hit, kicked, punched, or otherwise hurt by someone within the past year? If so, by whom?: No Are you DNR?: No Advance Directives: No Advance Directives Information Provided: No Advance Directives on File: No Recently lost weight without trying: No Eating poorly because of decreased appetite: No Nutrition Risks: No Nutritional Risk service: No Current occupational status: employed Current occupation: [employer] Current occupational exposures/hazards: Yes Meds Allergies Allergy/AdvReac Type Severity Reaction Status Date / Time No Known Allergies Allergy Verified 02/28/21 07:45 Home Medications Medication Instructions Recorded Confirmed Last Taken Type insulin glargine 100 unit/mL (3 22 unit SUBCUT QPM 02/15/21 02/15/21 Unknown History mL) subcutaneous pen (Basaglar KwikPen U-100 Insulin) Exam Exam Date and Time: February 27, 2021 1154 Height,Weight and Vital Signs: Height 6 ft Weight 134.717 kg Narrative Narrative: ECHO Conclusions: - ? 1. Normal LV systolic function with mild LVH with grade 1? ? diastolic dysfunction? 2. Moderate left atrial enlargement? 3. Normal cardiac valvular Doppler ? 4. Normal RV systolic pressure ? 5. No gross pericardial effusion ? 6. Mildly dilated ascending aorta? ? Assessment and Plan Assessment Anesthesia Assessment: Chart Reviewed Documented by User: Hong Milton MD 02/28/21 08:20 [facility] Past Medical History Medical History Diabetes mellitus, type 2 Diabetic foot ulcer Dysphagia Essential hypertension GERD (gastroesophageal reflux disease) History of cervical fracture Neuropathy Obesity On beta roney at home MAHAD (obstructive sleep apnea) PAD (peripheral artery disease) Personal history of nicotine dependence Pulmonary nodule Surgical History Surgical History History of colonoscopy History of endoscopy History of fusion of cervical spine History of left knee surgery History of tonsillectomy History of total left knee replacement History of total right knee replacement (TKR) Social History Social History Housing: House Are you a primary account executive healthcare to a significant other at home: No Do you presently have visiting nurse or other home services: No Alcohol intake: current Alcohol intake frequency: a few times a week Alcohol type: hard liquor Patient Tobacco Use Status: Current everyday Tobacco user Tobacco use type: Cigarette Cigarette Packs Per Day: 1 Cigarettes Per Day: 20 Years Smoked: 25 Smoked in Last 30 Days: Yes e-Cigarette/Vaping Use: Never Used Patient Given Instructions on How to Stop Smoking: Yes (mailed) Date Education Initiated: 02/15/21 Second Hand Smoke Exposure: Yes Use of substances other than those prescribed or required for medical reasons: No Have you been hit, kicked, punched, or otherwise hurt by someone within the past year? If so, by whom?: No Are you DNR?: No Advance Directives: No Advance Directives Information Provided: No Advance Directives on File: No Recently lost weight without trying: No Eating poorly because of decreased appetite: No Nutrition Risks: No Nutritional Risk service: No Current occupational status: employed Current occupation: [employer] Current occupational exposures/hazards: Yes Meds Allergies Allergy/AdvReac Type Severity Reaction Status Date / Time No Known Allergies Allergy Verified 02/28/21 07:45 Home Medications Medication Instructions Recorded Confirmed Last Taken Type insulin glargine 100 unit/mL (3 22 unit SUBCUT QPM 02/15/21 02/15/21 Unknown History mL) subcutaneous pen (Basaglar KwikPen U-100 Insulin) Exam Airway Mallampati Class: IV TM Dist: >3cm Neck ROM: Full
[2021-02-28 08:05] VITALS: BP 151/73; PULSE 62; RESP 18; TEMP 36.7; O2SAT 96
[2021-02-28 08:25] LABS: Glucose, Whole Blood 271 mg/dL (60-115)
--- NOTE | 2021-02-28 08:29 | MHC.SHP ---
Pre-Procedural Eval Section A Date of Service: 02/28/21 The patient is an INPATIENT: No The History & Physical has been completed within 30 days and I have reviewed it.: Yes Section B Chief Complaint: pulmonary nodules Allergies: Allergies Allergy/AdvReac Type Severity Reaction Status Date / Time No Known Allergies Allergy Verified 02/28/21 07:45 Plan Diagnosis/Plan: Unchanged I have reviewed the history and physical and performed a pertinent physical examination on my patient. No changes have occurred unless specified.
[2021-02-28] MEDS: Insulin Lispro 100 UNIT/ML 3 ML VIAL SUBCUT (08:32)
[2021-02-28] MEDS: Lactated Ringers 1,000 ML 100 ML IVCONT (08:33)
[2021-02-28] MEDS: Albuterol Sulfate (0.083%) 2.5 MG/3 ML VIAL.NEB INHALE (08:33)
[2021-02-28 09:03] LABS: Glucose, Whole Blood 289 mg/dL (60-115)
[2021-02-28 10:30] VITALS: BP 115/49; PULSE 69; RESP 20; TEMP 36.6; O2SAT 97
[2021-02-28 10:35] VITALS: BP 115/50; PULSE 64; RESP 20; O2SAT 97
[2021-02-28 10:40] VITALS: BP 134/98; PULSE 64; RESP 20; O2SAT 97
[2021-02-28 10:45] VITALS: BP 115/52; PULSE 63; RESP 20; O2SAT 97
[2021-02-28 11:00] VITALS: BP 116/68; PULSE 64; RESP 20; TEMP 36.2; O2SAT 95
--- NOTE | 2021-02-28 12:49 | PM.OP ---
Brief Operative Note Date of Service: 02/28/21 Pre-op diagnosis: Mediastinal lymphadenopathy Post-op diagnosis: same Procedure: EBUS guided biopsy of mediastinal lymph node stations 4R and 7 performed with EBUS bronchoscope advanced through the ET tube with patient intubated for the procedure through the tracheobronchial tree with no endobronchial lesions visualized. Station 4R biopsy with 6 passes an station 7 biopsy with 4 passes per from it with slides/cytology sent for pathology review. Thereafter, endobronchial mucosa reinspected with no active bleeding noted. Patient returned to PACU in stable condition. Surgeon: Eugene Abel MD Anesthesia: GETA Was an Head Sulfide Operator used for this Procedure?: No Estimated blood loss (mL): 0 Pathology: other (Cytology/pathology) Condition: stable Disposition: PACU
--- NOTE | 2021-02-28 13:05 | PC.NURSE ---
NOTE: PT EXTREMELY ANXIOUS AND WORRIED ABOUT HIS RIDE HOME. PATIENT VOICED HIS CONCERNS IN THE DISCHARGE AREA. PT TOLD THAT HIS , NIXON, HAD BEEN CALLED AND THAT SHE WAS SUPPOSED TO GET A HOLD OF HIS FRIEND, PAYAL, WHO WAS COMING TO PICK HIM UP. PT STATES HIS FRIEND PAYAL HAD HIS TRUCK AND THAT HE HAD LEFT HIS CELL PHONE IN THE TRUCK AND DIDN 'T KNOW HIS PHONE NUMBER. PATIENT'S WAS SUPPOSED TO CALL US BACK. PT JUST GOT MORE ANXIOUS, SO THIS RN BROUGHT THE PATIENT DOWN TO THE FRONT HOSIPITAL ENTRANCE TO WATCH FOR HIS FRIEND. THIS RN CALLED HI FIRST TO EXPLAIN WHAT WAS GOING ON. PT GOT MORE ANXIOUS DOWNSTAIRS. THIS RN CALLED HIS , NIXON, AND GOT VOICEMAIL AND LEFT A MESSAGE. PT STATED HE WAS GOING TO LEAVE AND WALK TO ANOTHER FRIENDS HOME DOWN THE STREET. THIS RN RE-EXPLAINED ABOUT THE MEDICATIONS PATIENT RECEIVED FROM ANESTHESIA AND HOW HE SHOULD NOT BE WALKING ABOUT, [place] ON A BUSY STREET AFTER HIS PROCEDURE. THIS RN CALLED HI AGAIN TO UPDATE HER AND ASK HOW TO PROCEED. THIS RN WAS TOLD BY HI TO LET PATIENT GO IF HE INSISTED AND TO DOCUMENT. PT GOT UP TO LEAVE AND WENT OUTSIDE AND FORTUNATELY. THE PATIENT'S FRIEND PAYAL WAS THEIR TO DATA NETWORK ARCHITECT PT, SO PATIENT DID GET A RIDE HOME.
== END 2021-02-28 11:49 | disposition home or self-care (01) ==
PROVIDERS: PCP Nurse Practitioner Family; Visit Provider Internal Medicine Pulmonary Disease
PROC: (CPT 31652; principal; 2021-02-28 09:00)
DX: R91.1 Solitary pulmonary nodule (principal); R59.0 Localized enlarged lymph nodes; J44.9 Chronic obstructive pulmonary disease, unspecified; G47.33 Obstructive sleep apnea (adult) (pediatric); I10 Essential (primary) hypertension; E11.40 Type 2 diabetes mellitus with diabetic neuropathy, unspecified; E11.621 Type 2 diabetes mellitus with foot ulcer; Z79.4 Long term (current) use of insulin; I73.9 Peripheral vascular disease, unspecified; E66.9 Obesity, unspecified; F17.210 Nicotine dependence, cigarettes, uncomplicated
CPT/HCPCS: 31652; 36415; 82947; 88172; 88173; 88177; 88184; 88185; 88300; 88305; J0171; J1100; J2250; J2405; J3010

== ENCOUNTER → 2021-03-04 09:18 | Outpatient (BNVA) | payer BC, SELFPAY | PROVIDERS: PCP Nurse Practitioner Family; Visit Provider Internal Medicine Pulmonary Disease ==

== ENCOUNTER 2021-03-05 08:24 | Outpatient (RCR) | payer BC, SELFPAY | END 2021-05-14 13:34 | disposition home or self-care (01) | LOC: HO.WCC 08:24 | PROVIDERS: PCP Nurse Practitioner Family; Visit Provider Physician Assistant | DX: E11.621 Type 2 diabetes mellitus with foot ulcer (principal); L97.512 Non-pressure chronic ulcer of other part of right foot with fat layer exposed; E11.40 Type 2 diabetes mellitus with diabetic neuropathy, unspecified; R60.0 Localized edema; L84 Corns and callosities; I10 Essential (primary) hypertension; F17.210 Nicotine dependence, cigarettes, uncomplicated; F12.90 Cannabis use, unspecified, uncomplicated; Z71.6 Tobacco abuse counseling | CPT/HCPCS: 11042 ==

== ENCOUNTER 2021-05-14 08:40 | Outpatient (REF) | payer BC, SELFPAY ==
[2021-05-14 11:35] LABS: Appearance Urine CLEAR; Color Urine YELLOW; Glucose Urine UA NEG (NEG); Leukocyte Esterase Urine NEG (NEG); Nitrite Urine NEG (NEG); Specific Gravity - Urine 1.015 (1.005-1.025); Urine Blood NEG (NEG); Urine Ketones NEG (NEG); Urine Protein TRACE MG/DL (NEG-TRACE)
[2021-05-14 11:37] LABS: Estimated Average Glucose 246 mg/dL; Hemoglobin A1c % 10.2 %
[2021-05-14 11:55] LABS: Alanine Aminotransferase 18 U/L (0-40); Albumin Level 3.9 g/dL (3.5-5.0); Alkaline Phosphatase 104 U/L (39-117); Anion Gap 15 (12-20); Aspartate Amino Transferase 29 U/L (5-37); Bilirubin Total 0.5 mg/dL (0.0-1.0); Blood Urea Nitrogen 11 mg/dL (9-16); Calcium 9.6 mg/dL (8.4-10.2); Carbon Dioxide 30 mmol/L (22-29); Chloride 100 mmol/L (96-108); Cholesterol 159 mg/dL; Estimated Glomerular Filt Rate > 60; Glucose Fasting 215 mg/dL (60-99); HDL Cholesterol 45 mg/dL; LDL Cholesterol Calculated 96 mg/dl; Potassium 4.9 mmol/L (3.3-5.1); Sodium 140 mmol/L (135-145); Total Protein 7.1 g/dL (6.5-8.0); Triglycerides 93 mg/dL
[2021-05-14 12:17] LABS: Prostate Specific Antigen Scr 0.17 ng/mL (<0.05-4.0); TSH reflex Free T4 1.41 uIU/mL (0.32-4.0)
== END 2021-05-14 08:41 | disposition home or self-care (01) ==
LOC: HO.HMGCLDS 08:40
PROVIDERS: Visit Provider Nurse Practitioner Family
DX: E11.9 Type 2 diabetes mellitus without complications (principal); Z12.5 Encounter for screening for malignant neoplasm of prostate
CPT/HCPCS: 36415; 80053; 80061; 81003; 83036; 84153; 84443

== ENCOUNTER 2021-06-10 09:57 | Outpatient (RCR) | payer BC, SELFPAY | END 2021-06-27 09:14 | disposition home or self-care (01) | LOC: HO.WCC 09:57 | PROVIDERS: PCP Nurse Practitioner Family; Visit Provider Physician Assistant | DX: E11.40 Type 2 diabetes mellitus with diabetic neuropathy, unspecified (principal); I10 Essential (primary) hypertension; Z79.4 Long term (current) use of insulin; Z79.84 Long term (current) use of oral hypoglycemic drugs; E53.9 Vitamin B deficiency, unspecified | CPT/HCPCS: 99212 ==

== ENCOUNTER 2021-07-04 08:02 | Outpatient (REF) | payer BC, SELFPAY ==
--- NOTE | 2021-07-04 13:21 | PFT_ITS ---
Forced vital capacity 98%, FEV1 101%. FEV1/FVC ratio is 78. FEF 25-75 108% and MVV 84%. Post bronchodilator therapy, there is no significant change. Total lung capacity is 101% and residual volume 108%. Diffusion capacity 61%. CONCLUSION: 1. Normal pulmonary function test and there is no evidence of obstructive or restrictive pulmonary disorder. 2. There is a slight decrease in diffusion capacity. This may be due to technical reason or non-pulmonary factors. 3. Clinical correlation recommended. MD TERI Cunningham/MODL / [id number]
== END 2021-07-04 08:03 | disposition home or self-care (01) ==
LOC: HO.RESP 08:02
PROVIDERS: PCP Nurse Practitioner Family; Visit Provider Internal Medicine Pulmonary Disease
DX: G47.33 Obstructive sleep apnea (adult) (pediatric) (principal); J44.9 Chronic obstructive pulmonary disease, unspecified
CPT/HCPCS: 94060; 94727; 94729; 95806

== ENCOUNTER → 2021-08-15 10:28 | Outpatient (BNVA) | payer BC, SELFPAY | PROVIDERS: PCP Nurse Practitioner Family; Visit Provider Internal Medicine Pulmonary Disease | DX: Z13.89 Encounter for screening for other disorder (principal) ==

== ENCOUNTER → 2022-04-25 13:12 | Outpatient (BNVA) | payer BC, SELFPAY | PROVIDERS: PCP Nurse Practitioner Family; Visit Provider Urology | DX: E11.69 Type 2 diabetes mellitus with other specified complication (principal) ==

== ENCOUNTER 2022-04-30 10:20 | Outpatient (RCR) | payer BC, SELFPAY | END 2022-08-22 13:41 | disposition home or self-care (01) | LOC: HO.WCC 10:20 | PROVIDERS: Visit Provider Surgery | DX: E11.621 Type 2 diabetes mellitus with foot ulcer (principal); L97.522 Non-pressure chronic ulcer of other part of left foot with fat layer exposed; E11.40 Type 2 diabetes mellitus with diabetic neuropathy, unspecified; I10 Essential (primary) hypertension; F17.210 Nicotine dependence, cigarettes, uncomplicated; F12.90 Cannabis use, unspecified, uncomplicated | CPT/HCPCS: 11042; 15275; 99212; Q4187 ==

== ENCOUNTER 2022-05-19 07:30 | Outpatient (REF) | payer BC, SELFPAY ==
--- NOTE | ~2022-05-19 | CT_ITS ---
EXAMINATION: CT CHEST WITHOUT CONTRAST CLINICAL INFORMATION: Solitary pulmonary nodule. COMPARISON: CT chest 01/18/2021 TECHNIQUE: Multidetector volumetric CT imaging of the chest was done. Axial MIP volume rendering provided. Sagittal and coronal reformatted images were obtained. This CT examination was performed using dose optimization techniques as appropriate, variously including the following: *Automated exposure control *Adjustment of mA and/or kV according to patient size (this includes techniques or standardized protocols for targeted exams where dose is matched to indication/reason for exam; i.e. extremities or head) *Use of iterative reconstruction technique DLP: 290 mGy-cm. FINDINGS: GRADES 9 12 TUTOR: Well-expanded lungs. LUNGS: The lungs are hyperinflated with paraseptal emphysema and clear of acute pneumonic process. There is 9 mm subpleural nodule left lower lobe lateral basal segment axial image 581/5. Previously it measured 1.3 x 0.6 cm. No additional appearing nodules seen. MEDIASTINUM: Thyroid lobes are symmetric and normal. The central trachea and the bronchi are widely patent. Numerous small pretracheal and right precarinal lymph node seen. The largest pretracheal lymph node measures 1.7 x 2.3 cm. There is no pericardial effusion. CORONARY ARTERY CALCIFICATION: Mild sclerotic calcification of coronary arteries is noted.. PLEURA: There is no pleural effusion. No pleural mass or thickening. AXILLA: Small shotty lymph nodes are seen in bilateral axilla. UPPER ABDOMEN: Visualized liver, spleen, pancreas and bilateral adrenal glands are unremarkable. There is a 3 cm exophytic cyst upper pole right kidney. OSSEOUS STRUCTURES: Unremarkable. CT/CT chest wo IV con IMPRESSION: Paraseptal emphysema with 9 mm subpleural nodule left lower lobe lateral basal segment is stable however the measurements show improvement. No additional abnormality seen. Fleischner guidelines were followed.
== END 2022-05-19 07:31 | disposition home or self-care (01) ==
LOC: HO.CT 07:30
PROVIDERS: Visit Provider Internal Medicine Pulmonary Disease
DX: R91.1 Solitary pulmonary nodule (principal)
CPT/HCPCS: 71250

== ENCOUNTER 2022-06-23 09:21 | Outpatient (REF) | payer BC, SELFPAY ==
[2022-06-23 11:51] LABS: Appearance Urine Clear; Color Urine Yellow; Glucose Urine UA Negative (Negative); Leukocyte Esterase Urine Negative (Negative); Nitrite Urine Negative (Negative); PH 5.5 (5.0-9.0); Urine Blood Negative (Negative); Urine Ketones Trace mg/dL (Negative); Urine Protein Trace mg/dL (Neg-Trace)
[2022-06-23 11:59] LABS: MANUAL DIFF FLAG NO
[2022-06-23 12:06] LABS: Microalbum/Creatinine Ratio Ur 14.4 ug/mg cr
[2022-06-23 12:10] LABS: Basophils Percent Auto 0.8 % (0-2); Eosinophils Absolute Auto 0.1 X10*3/uL (0.0-0.4); Eosinophils Percent Auto 2.5 % (0-4); Hematocrit 34.3 % (42.0-52.0); Imm Gran Abs Auto 0.01 X10*3/uL (0.00-0.03); Imm Gran Pct Auto 0.3 % (0.0-0.4); Lymphocytes Absolute Auto 1.4 X10*3/uL (1.2-4.9); Lymphocytes Percent Auto 35.3 % (20-40); Mean Corpuscular HGB Conc 32.1 g/dl (31.0-36.0); Mean Corpuscular Hemoglobin 28.1 pg (27.0-33.0); Mean Corpuscular Volume 87.5 fL (80.0-98.0); Mean Platelet Volume 10.5 fL (9.4-12.4); Monocytes Absolute Auto 0.4 X10*3/uL (0.1-1.2); Monocytes Percent Auto 10.3 % (2-11); Neutrophils Percent Auto 50.8 % (45-73); Platelet Count 155 X10*3/uL (160-400); Red Blood Count 3.92 X10*6/uL (4.60-5.80); Red Cell Distribution Width 13.4 % (11.0-16.0)
[2022-06-23 12:40] LABS: Estimated Average Glucose 180 mg/dL; Hemoglobin A1c % 7.9 %
[2022-06-23 12:41] LABS: Alanine Aminotransferase 27 U/L (0-40); Albumin Level 3.8 g/dL (3.5-5.0); Alkaline Phosphatase 131 U/L (39-117); Anion Gap 11 (12-20); Aspartate Amino Transferase 41 U/L (5-37); Bilirubin Total 0.4 mg/dL (0.0-1.0); Blood Urea Nitrogen 11 mg/dL (9-16); Calcium 8.5 mg/dL (8.4-10.2); Carbon Dioxide 26 mmol/L (22-29); Chloride 106 mmol/L (96-108); Cholesterol 163 mg/dL; Estimated Glomerular Filt Rate > 60; Glucose Fasting 218 mg/dL (60-99); HDL Cholesterol 68 mg/dL; LDL Cholesterol Calculated 79 mg/dl; Potassium 3.9 mmol/L (3.3-5.1); Sodium 139 mmol/L (135-145); Total Protein 6.9 g/dL (6.5-8.0); Triglycerides 84 mg/dL
[2022-06-23 12:45] LABS: Prostate Specific Antigen Scr 0.14 ng/mL (<0.05-4.0)
== END 2022-06-23 09:22 | disposition home or self-care (01) ==
LOC: HO.HMGCLDS 09:21
PROVIDERS: PCP Nurse Practitioner Family; Visit Provider Nurse Practitioner Family
DX: Z12.5 Encounter for screening for malignant neoplasm of prostate (principal); E11.40 Type 2 diabetes mellitus with diabetic neuropathy, unspecified
CPT/HCPCS: 36415; 80053; 80061; 81003; 82043; 83036; 84153; 84443; 85025

== ENCOUNTER → 2022-07-25 09:58 | Outpatient (BNVA) | payer BC, SELFPAY | PROVIDERS: PCP Nurse Practitioner Family; Visit Provider Urology | DX: Z13.89 Encounter for screening for other disorder (principal) ==

== ENCOUNTER → 2022-08-01 11:54 | Outpatient (BNVA) | payer BC, SELFPAY | PROVIDERS: PCP Nurse Practitioner Family; Visit Provider Nurse Practitioner Family | DX: Z13.89 Encounter for screening for other disorder (principal) ==

== ENCOUNTER → 2022-08-12 14:02 | Outpatient (BNVA) | payer BC, SELFPAY | PROVIDERS: PCP Nurse Practitioner Family; Visit Provider Physician Assistant | DX: Z13.89 Encounter for screening for other disorder (principal) ==

== ENCOUNTER 2022-10-08 07:27 | Outpatient (REF) | payer BC, SELFPAY ==
[2022-10-08 11:42] LABS: Immature Retic Fraction 20.7 % (2.3-13.4); Retic HGB Equivalent 34.1 pg (30.0-35.0); Reticulocyte Percent 1.7 % (0.5-1.8)
[2022-10-08 11:49] LABS: Estimated Average Glucose 126 mg/dL
[2022-10-08 11:56] LABS: Alanine Aminotransferase 13 U/L (0-40); Albumin Level 3.9 g/dL (3.5-5.0); Alkaline Phosphatase 124 U/L (39-117); Anion Gap 13 (12-20); Aspartate Amino Transferase 26 U/L (5-37); Bilirubin Total 0.6 mg/dL (0.0-1.0); Blood Urea Nitrogen 13 mg/dL (9-16); Calcium 9.3 mg/dL (8.4-10.2); Carbon Dioxide 26 mmol/L (22-29); Chloride 106 mmol/L (96-108); Cholesterol 155 mg/dL; Estimated Glomerular Filt Rate > 60; Gamma Glutamyl Transpeptidase 226 U/L (11-51); Glucose Fasting 99 mg/dL (60-99); HDL Cholesterol 50 mg/dL; Iron 28 mcg/dL (45-160); LDL Cholesterol Calculated 85 mg/dl; Percent Iron Saturation 8 % (15-50); Potassium 4.2 mmol/L (3.3-5.1); Sodium 141 mmol/L (135-145); Total Iron Binding Capacity 341 mcg/dL (228-428); Total Protein 7.5 g/dL (6.5-8.0); Triglycerides 101 mg/dL; Unsaturated Iron Binding 313 ug/dL
[2022-10-08 12:08] LABS: Appearance Urine Clear; Color Urine Yellow; Glucose Urine UA Negative (Negative); Leukocyte Esterase Urine Negative (Negative); Nitrite Urine Negative (Negative); Specific Gravity - Urine 1.015 (1.005-1.025); Urine Blood Negative (Negative); Urine Ketones Negative (Negative); Urine Protein Negative (Neg-Trace)
[2022-10-08 12:18] LABS: Ethanol < 10 mg/dL
[2022-10-08 12:21] LABS: Ferritin 35 ng/mL (20-250); Prostate Specific Antigen Scr 0.15 ng/mL (<0.05-4.0); TSH reflex Free T4 1.28 uIU/mL (0.32-4.0)
[2022-10-08 12:39] LABS: Folate 6.2 ng/mL (> or = 4.0); Vitamin B12 440 pg/mL (200-900)
[2022-10-08 12:52] LABS: Creatinine Urine 114.81 mg/dL
[2022-10-15 05:58] LABS: Alk.Phos Iso. Macrohepatic 0 % (<=0); Alk.Phos Isoenzymes Bone 33 % (28-66); Alk.Phos Isoenzymes Intest 0 % (1-24); Alk.Phos Isoenzymes Liver 67 % (25-69); Alk.Phos Isoenzymes Placental 0 % (<=0); Alk.Phos Isoenzymes Total 116 U/L (35-144)
== END 2022-10-08 07:28 | disposition home or self-care (01) ==
LOC: HO.HMGCLDS 07:27
PROVIDERS: PCP Nurse Practitioner Family; Visit Provider Nurse Practitioner Family
DX: Z12.5 Encounter for screening for malignant neoplasm of prostate (principal); E11.40 Type 2 diabetes mellitus with diabetic neuropathy, unspecified; D64.9 Anemia, unspecified; R74.8 Abnormal levels of other serum enzymes; F10.20 Alcohol dependence, uncomplicated
CPT/HCPCS: 36415; 80053; 80061; 80307; 81003; 82043; 82607; 82728; 82746; 82977; 83036; 83540; 84080; 84153; 84443; 85045

== ENCOUNTER 2022-10-30 10:18 | Outpatient (AMB) | payer BC, SELFPAY ==
--- NOTE | 2022-10-30 08:37 | A.OFFVIS_ITS ---
Intake Intake Visit Reasons: 3m follow up Intake Note: Patient presents today for 3mo follow up Erectile Dysfunction, patient states minimal improvement tadalafil, also states that blood sugars have been high (last A1C 6.0) Meds: Tadalafil Antibiotic: None Blood Thinner: None Mail Distribution Scheme Examiner Required: No Accompanied by: Self / Same As Patient Allergies No Known Allergies Allergy (Verified 12/02/22 22:11) HPI HPI Comments History of Present Illness Details 10/30/22-- Colton is a 62-year-old male who presents to the office for erectile dysfunction follow-up. The patient has been taking tadafil 20 mg without benefits. Discussed trial of injectable treatment option to treat erectile dysfunction with the patient. The patient agreed for the treatment. PSA results reviewed--10/08/22--0.15. OeX0e--7/14/23--6.0. Review of chart: LV?07/25/22--with Dr Montero--Colton is a pleasant male. He is seen for the following urologic conditions.- erectile dysfunction Did have some effect with 5 mg daily in 20 mg on demand Will bump up to 10 mg daily Has considered penile prosthetic If fails to progress on oral medication would like to move to penile prosthetic Erectile Dysfunction in setting of diabetes Progressive Concurrent diagnoses include diabetes with neuropathy, hypertension, dyslipidemia - insulin and glipizide Failed on demand therapy Trial of daily 5 mg tadalafil with 20 mg on demand 3 month follow-up 10/30/22--Plan: Follow-up with nurse practitioner for instructions on injectible meds for ED. [facility] Medical History Diabetes mellitus with neuropathy Diabetes mellitus, type 2 Diabetic foot ulcer Dysphagia Essential hypertension GERD (gastroesophageal reflux disease) History of cervical fracture Neuropathy Obesity On beta roney at home MAHAD (obstructive sleep apnea) PAD (peripheral artery disease) Personal history of nicotine dependence Pulmonary nodule Surgical History History of colonoscopy History of endoscopy History of fusion of cervical spine History of left knee surgery History of tonsillectomy History of total left knee replacement History of total right knee replacement (TKR) Social History Housing: House Are you a primary home care and home health aides teacher to a significant other at home: No Do you presently have visiting nurse or other home services: No Alcohol intake: current Alcohol intake frequency: a few times a week Alcohol type: hard liquor Patient Tobacco Use Status: Current everyday Tobacco user Tobacco use type: Cigarette Cigarette Packs Per Day: 1 Cigarettes Per Day: 20 Years Smoked: 25 e-Cigarette/Vaping Use: Never Used Second Hand Smoke Exposure: Yes service: No Current occupational status: employed Current occupation: [employer], right handed Current occupational exposures/hazards: Yes Cognitive needs: No Hearing needs: No Vision needs: No Review of Systems Const All systems reviewed & are unremarkable except as noted in HPI and below Reports no additional complaints Eyes Reports no additional complaints ENT Reports no additional complaints Card Denies dyspnea Resp Denies cough and Denies dyspnea GI Reports no additional complaints Musc Reports no additional complaints Skin/Breast Denies rash and Denies unusual bruising Neuro Reports no additional complaints Psych Reports no additional complaints Endo Reports no additional complaints Pepito/Lymph Reports no additional complaints Aller/Immun Reports no additional complaints Physical Exam Const General: healthy appearing, no acute distress and well developed Orientation/consciousness: patient oriented x3 HEENT Head: Yes normocephalic and Yes atraumatic Eyes Conjunctivae: conjunctivae normal Neck Neck: Yes normal visual inspection Chest Chest palpation & inspection: normal inspection of the chest Resp Effort & Inspection: normal respiratory effort Cardio Rate: regular rate GI Inspection: Yes normal to inspection Skin General skin exam: no rashes or lesions noted Neuro General: patient oriented x3 Psych Appearance: grossly normal Affect: normal affect Results AMB Urinalysis, Automated UA Leukoctes 0 Kimberley/uL Last Edit by Carlos Lino on 10/30/22 10:47 UA Nitrite Negative Last Edit by GordianTec Zoie on 10/30/22 10:47 UA Urobilinogen 0.2 mg/dL Last Edit by GordianT[employer] Zoie on 10/30/22 10:47 UA Protein 0 mg/dL Last Edit by MentiNovaadrianna Lino on 10/30/22 10:47 UA pH 6.0 Last Edit by [employer] Innovations[employer]ose m Lino on 10/30/22 10:47 UA Blood 0 Rocky/uL Last Edit by Sparksjose m Lino on 10/30/22 10:47 UA Specific [place] 1.015 Last Edit by GordianTec Madhavinoemí on 10/30/22 10:47 UA Ketone Negative Last Edit by Carlos Madhavinoemí on 10/30/22 10:47 UA Bilirubin 0 mg/dL Last Edit by Carlos Madhavinoemí on 10/30/22 10:47 UA Glucose 0 mg/dL Last Edit by Carlos Madhavinoemí on 10/30/22 10:47 Results Reviewed Results Reviewed: Laboratory Last Values Urine pH (Auto) 6.0 10/30/22 10:30 Specific [place] (Auto) 1.015 10/30/22 10:30 Urine Protein (Auto) 0 mg/dL 10/30/22 10:30 Glucose (UA)(Auto) 0 mg/dL 10/30/22 10:30 Urine Ketones (Auto) Negative 10/30/22 10:30 Urine Blood (Auto) 0 Rocky/uL 10/30/22 10:30 Urine Nitrite (Auto) Negative 10/30/22 10:30 Urine Bilirubin (Auto) 0 mg/dL 10/30/22 10:30 Urine Urobilinogen (Auto) 0.2 mg/dL 10/30/22 10:30 Leukocyte Esterase (Auto) 0 Kimberley/uL 10/30/22 10:30 Assessment & Plan Assessment & Plan (1) Erectile dysfunction associated with type 2 diabetes mellitus: Code(s): E11.69 - Type 2 diabetes mellitus with other specified complication; N52.1 - Erectile dysfunction due to diseases classified elsewhere Plan Follow-up with nurse practitioner for instructions on injectible meds for ED. Orders: Orders AMB Urinalysis Automated 10/30/22 Z13.9 - Encounter for screening, unspecified Patient Instructions: The patient had an opportunity to ask questions regarding treatment plan. All questions were answered. Imaging, Laboratory studies and physical exam results were discussed and reviewed in detail. No major barriers to understanding were identified. The patient expressed understanding and agreement with the above treatment plan. The patient is aware they should contact our office by phone for worsening of their current condition or the appearance of new symptoms. Compliance is encouraged with any medications and followup testing that is ordered. It is a privilege to be allowed the opportunity to participate in the urologic care of your patient. If you have any questions or concerns regarding treatment for the above conditions please do not hesitate to contact me. The office telephone contact is [phone]. This note is constructed in part using voice recognition software. While every effort has been made to ensure accuracy polo coach errors may have been inclu ded. Yours sincerely, Hai Jackson MD Coding Level of Care Code Est Pt Level 3 (22135) Diagnoses Erectile dysfunction associated with type 2 diabetes mellitus E11.69; N52.1
== END 2022-10-30 11:06 | disposition home or self-care (01) ==
PROVIDERS: Visit Provider Urology
DX: E11.69 Type 2 diabetes mellitus with other specified complication (principal); N52.1 Erectile dysfunction due to diseases classified elsewhere
CPT/HCPCS: 99213

== ENCOUNTER → 2022-10-30 10:18 | Outpatient (BNVA) | payer BC, SELFPAY | PROVIDERS: Visit Provider Urology ==

== ENCOUNTER 2022-12-02 09:49 | Outpatient (AMB) | payer BC, SELFPAY ==
--- NOTE | 2022-12-02 09:49 | A.OFFVIS_ITS ---
Intake Intake Visit Reasons: follow up injection Intake Note: Patient presents today for follow up Erectile Dysfunction Urology Medications: Tadalafil Blood Thinner: None Stack Yield Engineer Required: No Accompanied by: Self / Same As Patient Allergies No Known Allergies Allergy (Verified 12/02/22 22:11) Medication List - Last Reconciled 12/02/22 by PITO Aguiar amlodipine 10 mg PO DAILY atorvastatin 20 mg PO BEDTIME bisacodyl (Dulcolax (bisacodyl)) 10 mg (2 x 5 mg) PO ONCE 1 day blood sugar diagnostic ([employer] Verio test strips) test blood sugar TID flash glucose scanning reader (TaecanetStyle Michael 2 [place]) tid testing flash glucose sensor (FreeStyle Michael 2 Sensor kit) TID testing gabapentin 600 mg PO QID 30 days glipizide 10 mg PO BID hydrochlorothiazide 12.5 mg PO DAILY insulin glargine (Basaglar KwikPen U-100 Insulin) 25 units (0.25 mL) subcut QPM lisinopril 40 mg PO DAILY metoprolol succinate ER 100 mg PO DAILY 90 days omeprazole 20 mg PO DAILY polyethylene glycol 3350 (Miralax) 238 grams PO ONCE tadalafil 20 mg PO DAILY PRN 30 days tadalafil 10 mg (2 x 5 mg) PO DAILY 90 days vitamin B complex (Vitamins B Complex capsule) 1 cap PO DAILY HPI HPI Comments History of Present Illness Details Colton is a pleasant 62-year-old male patient of Dr. Roberts. He has a past medical history of diabetes mellitus type 2, diabetic foot ulcer, essential hypertension, GERD, neuropathy, obesity, MAAHD, PAD, and history of nicotine dependence. He presents to the office today for follow-up of his erectile dysfunction. In discussion with the patient today he reports to be doing and feeling well. He discusses his upcoming camping trip with his this week. In review of patient's chart it appears patient was seen by Dr. Marmolejo approximately 1 month ago at which time patient was reporting oral agents for erectile dysfunction have not been affective for him. He discusses have trialed daily as well as p.r.n. on demand Cialis with increase in dosage is as prescribed with no improvement. Discussion regarding penile injection verses penile prosthesis were discussed. At this time given patient has failed oral medication for erectile dysfunction he would like to trial injection therapy. This was discussed at length with the patient today. He otherwise denies any urinary issues or concerns at this time. He reports to be happy with current voiding parameters. When asked he denies urinary urgency, urinary frequency, incontinence, nocturia, hematuria, dysuria, foul smelling urine, changes to urinary stream, flank pain, fever, and or chills. PREVIOUS OFFICE VISIT WITH DR. VICTOR Did have some effect with 5 mg daily in 20 mg on demand Will bump up to 10 mg daily Has considered penile prosthetic If fails to progress on oral medication would like to move to penile prosthetic Erectile Dysfunction in setting of diabetes Progressive Concurrent diagnoses include diabetes with neuropathy, hypertension, dyslipidemia - insulin and glipizide Failed on demand therapy Trial of daily 5 mg tadalafil with 20 mg on demand PSA results reviewed--10/08/22--0.15. JeI6v--6/14/23--6.0. [facility] Medical History Diabetes mellitus with neuropathy Diabetes mellitus, type 2 Diabetic foot ulcer Dysphagia Essential hypertension GERD (gastroesophageal reflux disease) History of cervical fracture Neuropathy Obesity On beta roney at home MAHAD (obstructive sleep apnea) PAD (peripheral artery disease) Personal history of nicotine dependence Pulmonary nodule Surgical History History of colonoscopy History of endoscopy History of fusion of cervical spine History of left knee surgery History of tonsillectomy History of total left knee replacement History of total right knee replacement (TKR) Social History Housing: House Are you a primary healthcare administrator to a significant other at home: No Do you presently have visiting nurse or other home services: No Alcohol intake: current Alcohol intake frequency: a few times a week Alcohol type: hard liquor Patient Tobacco Use Status: Current everyday Tobacco user Tobacco use type: Cigarette Cigarette Packs Per Day: 1 Cigarettes Per Day: 20 Years Smoked: 25 e-Cigarette/Vaping Use: Never Used Second Hand Smoke Exposure: Yes service: No Current occupational status: employed Current occupation: [employer]ing, right handed Current occupational exposures/hazards: Yes Cognitive needs: No Hearing needs: No Vision needs: No Review of Systems Const Reports as per HPI Eyes Reports no additional complaints ENT Reports no additional complaints Card Reports as per HPI Resp Reports as per HPI GI Reports as per HPI Reports as per HPI Musc Reports no additional complaints Neuro Reports no additional complaints Psych Reports no additional complaints Endo Reports as per HPI Physical Exam Const General: cooperative, healthy appearing, comfortable, no acute distress, well developed, alert and awake Nutritional Appearance: overweight Orientation/consciousness: patient oriented x3 Limitations: no limitations HEENT Head: Yes normal to inspection, Yes normocephalic and Yes atraumatic Ears: hearing grossly normal bilaterally Eyes General: appearance normal, both eyes and all related structures Neck Neck: Yes normal visual inspection and Yes trachea midline Chest Chest palpation & inspection: normal inspection of the chest Resp Effort & Inspection: normal respiratory effort and able to speak in complete sentences Cardio Rate: regular rate GI Inspection: Yes normal to inspection General: Yes no CVA tenderness Back/Spine/Pelvis Back: no CVA tenderness Skin General skin exam: no rashes or lesions noted Neuro General: patient oriented x3 Extrem General: Yes normal to inspection Psych Appearance: grossly normal and well kempt Mental Status: mental status grossly normal Speech and movement: Normal speech and movement present and Clear speech present Affect: normal affect Attitude: cooperative Thought process: Normal thought process present Thought content: Normal thought content present Insight: Fair insight present (Psych) Judgement: Fair judgement present (Psych) Results AMB Urinalysis, Automated UA Leukoctes 0 Kimberley/uL Last Edit by LAUREN Waters on 12/02/22 09:58 UA Nitrite Negative Last Edit by LAUREN Waters on 12/02/22 09:58 UA Urobilinogen 0.2 mg/dL Last Edit by LAUREN Waters on 12/02/22 09:5 8 UA Protein 0 mg/dL Last Edit by LAUREN Waters on 12/02/22 09:58 UA pH 6.0 Last Edit by Landy Vang A on 12/02/22 09:58 UA Blood 0 Rocky/uL Last Edit by Landy Vang A on 12/02/22 09:58 UA Specific Leonore 1.010 Last Edit by Landy Vang A on 12/02/22 09: 58 UA Ketone Negative Last Edit by Landy Vang A on 12/02/22 09:58 UA Bilirubin 0 mg/dL Last Edit by Landy Vang A on 12/02/22 09:58 UA Glucose 0 mg/dL Last Edit by Landy Vang A on 12/02/22 09:58 Results Reviewed Results Reviewed: Laboratory Last Values Urine pH (Auto) 6.0 12/02/22 09:53 Specific Leonore (Auto) 1.010 12/02/22 09:53 Urine Protein (Auto) 0 mg/dL 12/02/22 09:53 Glucose (UA)(Auto) 0 mg/dL 12/02/22 09:53 Urine Ketones (Auto) Negative 12/02/22 09:53 Urine Blood (Auto) 0 Rocky/uL 12/02/22 09:53 Urine Nitrite (Auto) Negative 12/02/22 09:53 Urine Bilirubin (Auto) 0 mg/dL 12/02/22 09:53 Urine Urobilinogen (Auto) 0.2 mg/dL 12/02/22 09:53 Leukocyte Esterase (Auto) 0 Kimberley/uL 12/02/22 09:53 Assessment & Plan Assessment & Plan (1) Erectile dysfunction associated with type 2 diabetes mellitus: Code(s): E11.69 - Type 2 diabetes mellitus with other specified complication; N52.1 - Erectile dysfunction due to diseases classified elsewhere Plan In office urinalysis results reviewed with the patient today; as noted above. Discussed at length importance of adequate sleep, compliance with sleep apnea machine, managing diabetes, and weight loss to assist with erectile dysfunction as well as overall health and well-being. Prescriptions sent for next injectable therapy Patient denies any bothersome urinary issues or concerns at this time. He is happy with his current voiding parameters. Patient will call office to schedule appointment once he has received medications for injection teaching. Orders: Orders AMB Urinalysis Automated Today Z13.9 - Encounter for screening, unspecified Medications: Refilled tadalafil 10 mg (2 x 5 mg) PO DAILY 90 days 180 tabs 0RF sexual activity E11.69 - Type 2 diabetes mellitus with other specified complication, N52.1 - Erectile dysfunction due to diseases classified elsewhere tadalafil 20 mg PO DAILY 30 days PRN 30 tabs 0RF sexual activity E11.69 - Type 2 diabetes mellitus with other specified complication, N52.1 - Erectile dysfunction due to diseases classified elsewhere Patient Instructions: The patient had an opportunity to ask questions regarding the treatment plan. All questions were answered. Physical exam, labs, and imaging were discussed and reviewed in detail. As well as risks, benefits, and discussion of treatment choices. No major barriers to understanding were identified. The patient expressed understanding and agreement with the above treatment plan. The patient was made aware they should contact our office by phone for worsening of their current condition, the appearance of new symptoms, or with any questions or concerns. Compliance is encouraged with any medications and follow up testing that is ordered. It is a privilege to be allowed the opportunity to participate in? your urological care.? Again, if you have any questions or concerns If you have any questions or concerns please do not hesitate to contact me. The office is [phone]. This note is constructed using voice recognition software. While every effort has been made to ensure accuracy refrigeration mechanic helper errors may have been included. Yours sincerely, PITO Aguiar Coding Level of Care Code Est Pt Level 3 (24479) Diagnoses Erectile dysfunction associated with type 2 diabetes mellitus E11.69; N52.1
== END 2022-12-02 10:37 | disposition home or self-care (01) ==
PROVIDERS: PCP Nurse Practitioner Family; Visit Provider Nurse Practitioner Family
DX: E11.69 Type 2 diabetes mellitus with other specified complication (principal); N52.1 Erectile dysfunction due to diseases classified elsewhere
CPT/HCPCS: 99213

== ENCOUNTER → 2022-12-02 09:49 | Outpatient (BNVA) | payer BC, SELFPAY | PROVIDERS: PCP Nurse Practitioner Family; Visit Provider Nurse Practitioner Family ==

== ENCOUNTER 2023-01-06 12:37 | Outpatient (RCR) | payer BC, SELFPAY ==
--- NOTE | ~2023-01-06 | XR_ITS ---
EXAMINATION: XR FOOT, LEFT CLINICAL INFORMATION: New healing wound in the left foot COMPARISON: April 2020 TECHNIQUE: AP, lateral, and oblique views of the left foot. FINDINGS: There is no evidence of fractures or dislocations. There are changes of osteoarthritis at the first metatarsophalangeal joint with hallux valgus deformity. There is small plantar calcaneal spur. There is soft tissue swelling seen surrounding left foot. XR/XR foot LT min 3V IMPRESSION: No evidence of osteomyelitis. 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
[2023-02-17 09:06] LABS: MANUAL DIFF FLAG NO
[2023-02-17 09:25] LABS: Basophils Percent Auto 0.4 % (0-2); Eosinophils Absolute Auto 0.2 X10*3/uL (0.0-0.4); Hematocrit 39.9 % (42.0-52.0); Imm Gran Abs Auto 0.02 X10*3/uL (0.00-0.03); Imm Gran Pct Auto 0.3 % (0.0-0.4); Lymphocytes Absolute Auto 2.5 X10*3/uL (1.2-4.9); Lymphocytes Percent Auto 33.6 % (20-40); Mean Corpuscular HGB Conc 32.6 g/dl (31.0-36.0); Mean Corpuscular Hemoglobin 29.7 pg (27.0-33.0); Mean Corpuscular Volume 91.3 fL (80.0-98.0); Mean Platelet Volume 9.4 fL (9.4-12.4); Monocytes Percent Auto 13.9 % (2-11); Neutrophils Absolute Auto 3.6 x10*3/uL (2.0-8.3); Neutrophils Percent Auto 48.8 % (45-73); Platelet Count 181 X10*3/uL (160-400); Red Blood Count 4.37 X10*6/uL (4.60-5.80); Red Cell Distribution Width 13.2 % (11.0-16.0); White Blood Count 7.3 X10*3/uL (4.8-10.8)
[2023-02-17 09:56] LABS: Anion Gap 15 (12-20); Blood Urea Nitrogen 14 mg/dL (9-16); C Reactive Protein 1.03 mg/dL (< or = 0.50); Calcium 9.6 mg/dL (8.4-10.2); Carbon Dioxide 25 mmol/L (22-29); Chloride 102 mmol/L (96-108); Estimated Glomerular Filt Rate > 60; Glucose Random 173 mg/dL (60-115); Potassium 4.2 mmol/L (3.3-5.1); Sodium 138 mmol/L (135-145)
[2023-02-17 10:02] LABS: Estimated Average Glucose 131 mg/dL; Hemoglobin A1c % 6.2 % (<6.0)
[2023-02-17 10:05] LABS: Erythrocyte Sedimentation Rate 43 MM/HR (0-15)
== END 2023-04-28 17:00 | disposition home or self-care (01) ==
LOC: HO.WCC 12:37
PROVIDERS: PCP Nurse Practitioner Family; Visit Provider Physician Assistant
DX: E11.621 Type 2 diabetes mellitus with foot ulcer (principal); L97.522 Non-pressure chronic ulcer of other part of left foot with fat layer exposed; E11.69 Type 2 diabetes mellitus with other specified complication; M86.472 Chronic osteomyelitis with draining sinus, left ankle and foot; E11.40 Type 2 diabetes mellitus with diabetic neuropathy, unspecified; L84 Corns and callosities; I10 Essential (primary) hypertension; F17.210 Nicotine dependence, cigarettes, uncomplicated; F12.90 Cannabis use, unspecified, uncomplicated; Z91.199 Patient's noncompliance with other medical treatment and regimen due to unspecified reason
CPT/HCPCS: 11042; 11043; 11044; 36415; 73630; 80048; 83036; 85025; 85652; 86140; 87070; 87073; 87147; 87205; 99212

== ENCOUNTER 2023-01-06 14:20 | Outpatient (AMB) | payer BC, SELFPAY ==
--- NOTE | 2023-01-06 14:44 | MHC.OFFVIS ---
Intake Intake Visit Reasons: Injection teaching Intake Note: Patient presents today for follow up Erectile Dysfunction/injection teaching Urology Medications: Tadalafil Blood Thinner: None Lathe Scalper Operator Required: No Accompanied by: Self / Same As Patient Allergies No Known Allergies Allergy (Verified 01/06/23 20:20) Medication List - Last Reconciled 01/06/23 by JUAN LUIS Aguiar- amlodipine 10 mg PO DAILY atorvastatin 20 mg PO BEDTIME bisacodyl (Dulcolax (bisacodyl)) 10 mg (2 x 5 mg) PO ONCE 1 day blood sugar diagnostic ([employer] Verio test strips) test blood sugar TID flash glucose scanning reader (FreeStyle Michael 2 [place]) tid testing flash glucose sensor (FreeStyle Michael 2 Sensor kit) TID testing gabapentin 600 mg PO QID 30 days glipizide 10 mg PO BID hydrochlorothiazide 12.5 mg PO DAILY insulin glargine (Basaglar KwikPen U-100 Insulin) 25 units (0.25 mL) subcut QPM lisinopril 40 mg PO DAILY metoprolol succinate ER 100 mg PO DAILY 90 days omeprazole 20 mg PO DAILY polyethylene glycol 3350 (Miralax) 238 grams PO ONCE tadalafil 20 mg PO DAILY PRN 30 days tadalafil 10 mg (2 x 5 mg) PO DAILY 90 days vitamin B complex (Vitamins B Complex capsule) 1 cap PO DAILY HPI HPI Comments History of Present Illness Details Colton is a pleasant 62-year-old male patient of Dr. Roberts. He has a past medical history of diabetes mellitus type 2, diabetic foot ulcer, essential hypertension, GERD, neuropathy, obesity, MAHAD, PAD, and history of nicotine dependence. He presents to the office today for follow-up of his erectile dysfunction. Of note, patient was seen approximately 1 month ago at which time prescription was provided for TriMix therapy in injectable medication for erectile dysfunction. The patient presents to the office today for penile injection teaching. Penile injection performed in the office Patient provided medication Good response to TriMix initial 35 units. Suggested 50 units of TriMix initial Sterile technique used Teaching provided for identification of injection sites CPT 47817 Education provided and discussed at length Failed oral therapy He otherwise denies any urinary issues or concerns at this time. He reports to be happy with current voiding parameters. When asked he denies urinary urgency, urinary frequency, incontinence, nocturia, hematuria, dysuria, foul smelling urine, changes to urinary stream, flank pain, fever, and or chills. [facility] Medical History Diabetes mellitus with neuropathy Diabetes mellitus, type 2 Diabetic foot ulcer Dysphagia Essential hypertension GERD (gastroesophageal reflux disease) History of cervical fracture Neuropathy Obesity On beta roney at home MAHAD (obstructive sleep apnea) PAD (peripheral artery disease) Personal history of nicotine dependence Pulmonary nodule Surgical History History of colonoscopy History of endoscopy History of fusion of cervical spine History of left knee surgery History of tonsillectomy History of total left knee replacement History of total right knee replacement (TKR) Social History Housing: House Are you a primary care aid to a significant other at home: No Do you presently have visiting nurse or other home services: No Alcohol intake: current Alcohol intake frequency: a few times a week Alcohol type: hard liquor Patient Tobacco Use Status: Current everyday Tobacco user Tobacco use type: Cigarette Cigarette Packs Per Day: 1 Cigarettes Per Day: 20 Years Smoked: 25 e-Cigarette/Vaping Use: Never Used Second Hand Smoke Exposure: Yes service: No Current occupational status: employed Current occupation: [employer], right handed Current occupational exposures/hazards: Yes Cognitive needs: No Hearing needs: No Vision needs: No Review of Systems Const Reports as per [facility] Eyes Reports no additional complaints ENT Reports no additional complaints Card Reports as per [facility] Resp Reports as per [facility] GI Reports as per [facility] Reports as per HPI Musc Reports no additional complaints Neuro Reports no additional complaints Psych Reports no additional complaints Endo Reports as per HPI Physical Exam Const General: cooperative, healthy appearing, comfortable, no acute distress, well developed, alert and awake Nutritional Appearance: overweight Orientation/consciousness: patient oriented x3 Limitations: no limitations HEENT Head: Yes normal to inspection, Yes normocephalic and Yes atraumatic Ears: hearing grossly normal bilaterally Eyes General: appearance normal, both eyes and all related structures Neck Neck: Yes normal visual inspection and Yes trachea midline Chest Chest palpation & inspection: normal inspection of the chest Resp Effort & Inspection: normal respiratory effort and able to speak in complete sentences Cardio Rate: regular rate GI Inspection: Yes normal to inspection General: Yes no CVA tenderness Penis: normal penis and circumcised Meatus: meatus normal Scrotum: scrotum normal Testes: Testes normal Back/Spine/Pelvis Back: no CVA tenderness Skin General skin exam: no rashes or lesions noted Neuro General: patient oriented x3 Extrem General: Yes normal to inspection Psych Appearance: grossly normal and well kempt Mental Status: mental status grossly normal Speech and movement: Normal speech and movement present and Clear speech present Affect: normal affect Attitude: cooperative Thought process: Normal thought process present Thought content: Normal thought content present Insight: Fair insight present (Psych) Judgement: Fair judgement present (Psych) Assessment & Plan Assessment & Plan (1) Erectile dysfunction associated with type 2 diabetes mellitus: Code(s): E11.69 - Type 2 diabetes mellitus with other specified complication; N52.1 - Erectile dysfunction due to diseases classified elsewhere Plan Penile injection therapy performed in office; as noted above Discussed and educated at length regarding TriMix and injectable therapy for erectile dysfunction. Educational packet provided. Discussed at length importance of continuing to manage diabetes, adequate sleep, weight loss, and daily activity for improvement in erectile dysfunction as well as overall health and well-being. Patient denies any bothersome urinary issues or concerns at this time. Follow-up in 6 months; or sooner with any issues, concerns, and or questions. Patient Instructions: The patient had an opportunity to ask questions regarding the treatment plan. All questions were answered. Physical exam, labs, and imaging were discussed and reviewed in detail. As well as risks, benefits, and discussion of treatment choices. No major barriers to understanding were identified. The patient expressed understanding and agreement with the above treatment plan. The patient was made aware they should contact our office by phone for worsening of their current condition, the appearance of new symptoms, or with any questions or concerns. Compliance is encouraged with any medications and follow up testing that is ordered. It is a privilege to be allowed the opportunity to participate in? your urological care.? Again, if you have any questions or concerns If you have any questions or concerns please do not hesitate to contact me. The office is [phone]. This note is constructed using voice recognition software. While every effort has been made to ensure accuracy business relationship manager errors may have been included. Yours sincerely, PITO Aguiar Coding Level of Care Code Est Pt Level 3 (33431) Diagnoses Erectile dysfunction associated with type 2 diabetes mellitus E11.69; N52.1
== END 2023-01-06 15:48 | disposition home or self-care (01) ==
PROVIDERS: PCP Nurse Practitioner Family; Visit Provider Nurse Practitioner Family
DX: E11.69 Type 2 diabetes mellitus with other specified complication (principal); N52.1 Erectile dysfunction due to diseases classified elsewhere
CPT/HCPCS: 99213

== ENCOUNTER → 2023-01-06 14:20 | Outpatient (BNVA) | payer BC, SELFPAY | PROVIDERS: PCP Nurse Practitioner Family; Visit Provider Nurse Practitioner Family ==

== ENCOUNTER 2023-02-11 07:33 | Day surgery (SDC) | payer BC, SELFPAY ==
[2023-02-09 14:26] VITALS: BMI 38.0
--- NOTE | 2023-02-10 08:30 | P.CONAN_ITS ---
HPI - Anesthesia Eval Consult details Narrative: 62yo M for Colonoscopy [facility] Active Problems Active Problems: All Active Problems (Updated 02/09/23 @ 14:25 by Lenora Sargent RN) Low iron (Acute) HTN (hypertension) (Acute) ETOH abuse (Acute) Olecranon bursitis of right elbow (Acute) Anemia (Acute) Elevated alkaline phosphatase level (Acute) Screen for colon cancer (Acute) Erectile dysfunction associated with type 2 diabetes mellitus (Acute) Foot ulceration (Acute) Screening PSA (prostate specific antigen) (Acute) COPD (chronic obstructive pulmonary disease) (Acute) Mediastinal lymphadenopathy (Acute) Swelling of both lower extremities (Acute) Numbness (Acute) Paresthesia (Acute) Enlarged thyroid (Acute) Dilatation of aorta (Acute) Fall (Acute) Foot ulcer, left (Acute) Varicose veins of left lower extremity with inflammation (Acute) Foot infection (Acute) Pedal edema (Acute) Diabetes (Acute) Diabetes mellitus with neuropathy (Acute) MAHAD (obstructive sleep apnea) (Acute) Pulmonary nodule (Acute) Personal history of nicotine dependence (Acute) Diabetes mellitus, type 2 (Acute) Essential hypertension (Acute) Dysphagia (Acute) PAD (peripheral artery disease) (Acute) Obesity (Acute) Past Medical History Medical History (Updated 02/09/23 @ 14:25 by Lenora Sargent RN) Diabetes mellitus with neuropathy On beta roney at home Pulmonary nodule Diabetic foot ulcer Essential hypertension Obesity History of cervical fracture Personal history of nicotine dependence Dysphagia Neuropathy MAHAD (obstructive sleep apnea) GERD (gastroesophageal reflux disease) PAD (peripheral artery disease) Diabetes mellitus, type 2 Surgical History Surgical History History of tonsillectomy History of total left knee replacement History of fusion of cervical spine History of total right knee replacement (TKR) History of endoscopy History of colonoscopy History of left knee surgery Social History Social History Housing: House Are you a primary healthcare insurance sales agent to a significant other at home: No Do you presently have visiting nurse or other home services: No Alcohol intake: current Alcohol intake frequency: a few times a week Alcohol t ype: hard liquor Patient Tobacco Use Status: Current everyday Tobacco user Tobacco use type: Cigarette Cigarette Packs Per Day: 1 Cigarettes Per Day: 20 Years Smoked: 25 e-Cigarette/Vaping Use: Never Used Second Hand Smoke Exposure: Yes service: No Current occupational status: employed Current occupation: [employer], right handed Current occupational exposures/hazards: Yes Cognitive needs: No Hearing needs: No Vision needs: No Meds Allergies Allergy/AdvReac Type Severity Reaction Status Date / Time No Known Allergies Allergy Verified 01/06/23 20:20 Exam Exam Date and Time: February 10, 2023 0830 Height,Weight and Vital Signs: Height 6 ft Weight 127.006 kg Pertinent Lab Results Pertinent Lab Results: Laboratory Tests 06/23/22 10/08/22 09:30 07:33 WBC 4.0 L Hgb 11.0 L Hct 34.3 L Plt Count 155 L Sodium 141 Potassium 4.2 Chloride 106 Carbon Dioxide 26 BUN 13 Creatinine 0.91 Narrative Narrative: ECHO 2020 Conclusions: - 1. Normal LV systolic function with mild LVH with grade 1 diastolic dysfunction 2. Moderate left atrial enlargement 3. Normal cardiac valvular Doppler 4. Normal RV systolic pressure 5. No gross pericardial effusion 6. Mildly dilated ascending aorta Assessment and Plan Assessment Anesthesia Assessment: Chart Reviewed
[2023-02-11 07:37] VITALS: BP 159/65; PULSE 54; RESP 20; TEMP 36.6; O2SAT 95
--- NOTE | 2023-02-11 07:52 | MHC.SHP ---
Pre-Procedural Eval Section A Date of Service: 02/11/23 Section B Chief Complaint: Encounter for screening for malignant neoplasm Details of Present Illness: GERD Relevant Family History (Specify if Yes): No Relevant Social History: Tobacco Use Present Medications: see Short Stay Collaborative assessment Medical History: Significant History (Diabetes mellitus with neuropathy On beta roney at home Pulmonary nodule Diabetic foot ulcer Essential hypertension Obesity History of cervical fracture Personal history of nicotine dependence Dysphagia Neuropathy MAHAD (obstructive sleep apnea) GERD (gastroesophageal reflux disease) PAD (peripheral) History of Previous Operations: Relevant previous surgery/procedure and date(s) (History of tonsillectomy History of total left knee replacement History of fusion of cervical spine History of total right knee replacement (TKR) History of endoscopy History of colonoscopy History of left knee surgery) Allergies: Allergies Allergy/AdvReac Type Severity Reaction Status Date / Time No Known Allergies Allergy Verified 01/06/23 20:20 Review of Systems Sugical H&P ROS: Negative: Constitution, Cardiovascular, Respiratory, Neurological, Psychiatric, Hem-Onc, Allergic/Immunologic, Gastrointestinal, Genitourinary, Musculoskeletal, Integumentary, Endocrine and Eyes/Ears/Nose/Throat Exam Surgical H&P Exam: Normal: HEENT, Normal: Heart, Normal: Lungs, Normal: Extremities, Normal: Abdomen, Normal: Skin and Normal: Neurological Plan Diagnosis/Plan: Unchanged I have reviewed the history and physical and performed a pertinent physical examination on my patient. No changes have occurred unless specified. Time Spent With Patient Time: Total time managing care of this patient today ____ minutes.
[2023-02-11] MEDS: Lactated Ringers 1,000 ML 100 ML IVCONT (07:58)
--- NOTE | 2023-02-11 08:07 | P.CONAN_ITS ---
[facility] Active Problems Active Problems: All Active Problems (Updated 02/09/23 @ 14:25 by Lenora Sargent RN) Low iron (Acute) HTN (hypertension) (Acute) ETOH abuse (Acute) Olecranon bursitis of right elbow (Acute) Anemia (Acute) Elevated alkaline phosphatase level (Acute) Screen for colon cancer (Acute) Erectile dysfunction associated with type 2 diabetes mellitus (Acute) Foot ulceration (Acute) Screening PSA (prostate specific antigen) (Acute) COPD (chronic obstructive pulmonary disease) (Acute) Mediastinal lymphadenopathy (Acute) Swelling of both lower extremities (Acute) Numbness (Acute) Paresthesia (Acute) Enlarged thyroid (Acute) Dilatation of aorta (Acute) Fall (Acute) Foot ulcer, left (Acute) Varicose veins of left lower extremity with inflammation (Acute) Foot infection (Acute) Pedal edema (Acute) Diabetes (Acute) Diabetes mellitus with neuropathy (Acute) MAHAD (obstructive sleep apnea) (Acute) Pulmonary nodule (Acute) Personal history of nicotine dependence (Acute) Diabetes mellitus, type 2 (Acute) Essential hypertension (Acute) Dysphagia (Acute) PAD (peripheral artery disease) (Acute) Obesity (Acute) Past Medical History Medical History (Updated 02/09/23 @ 14:25 by Lenora Sargent RN) Diabetes mellitus with neuropathy On beta roney at home Pulmonary nodule Diabetic foot ulcer Essential hypertension Obesity History of cervical fracture Personal history of nicotine dependence Dysphagia Neuropathy MAHAD (obstructive sleep apnea) GERD (gastroesophageal reflux disease) PAD (peripheral artery disease) Diabetes mellitus, type 2 Functional capacity: independent ambulation Family History Family history of problems with anesthesia: No Surgical History Surgical History History of tonsillectomy History of total left knee replacement History of fusion of cervical spine History of total right knee replacement (TKR) History of endoscopy History of colonoscopy History of left knee surgery Social History Social History Housing: House Are you a primary housekeeper child care to a significant other at home: No Do you presently have visiting nurse or other home services: No Alcohol intake: current Alcohol intake frequency: holidays/special occasions only Alcohol type: hard liquor Patient Tobacco Use Status: Current everyday Tobacco user Tobacco use type: Cigarette Cigarette Packs Per Day: 1 Cigarettes Per Day: 20 Years Smoked: 25 e-Cigarette/Vaping Use: Never Used Second Hand Smoke Exposure: Yes Are you DNR?: No Advance Directives: No Advance Directives Information Provided: Yes service: No Current occupational status: employed Current occupation: [employer], right handed Current occupational exposures/hazards: Yes Cognitive needs: No Hearing needs: No Vision needs: No Meds Allergies Allergy/AdvReac Type Severity Reaction Status Date / Time No Known Allergies Allergy Verified 01/06/23 20:20 Active Medications: Current Medications Albuterol Sulfate (Albuterol Sulfate (0.083%) 2.5 Mg/3 Ml Vial.Neb) 2.5 mg INHALE ONCE PRN PRN Reason: Shortness of Breath/Wheezing Lactated Ringer's (Lr) 1,000 mls @ 100 mls/hr IVCONT .Q10H LEONOR Last Admin: 02/11/23 07:58 Dose: 100 mls/hr Exam Exam Date and Time: February 11, 2023 0807 Height,Weight and Vital Signs: Height 6 ft Weight 127.006 kg Last Vital Signs Temp 98 F 02/11/23 07:37 Pulse 54 02/11/23 07:37 Resp 20 02/11/23 07:37 BP 159/65 H 02/11/23 07:37 Pulse Ox 95 02/11/23 07:37 O2 Del Method Room Air 02/11/23 07:37 Airway Mallampati Class: IV TM Dist: >3cm Neck ROM: Full Denture: Upper Heart: RRR Lungs: CTA Assessment and Plan Assessment Anesthesia Assessment: Anesthesia Plan Discussed and Smoking Cess. Discussed Final Anesthetic Review Family History of Problems with Anesthesia: No ASA Class: III Final Preanesthetic Review: Meds/Allgs Chart Reviewed, Consent Obtained/Reviewed and Anes Risks/Benef Reviewed Patient Risk: Intermediate Procedure Risk: Low Anesthetic Plan Anesthetic Plan: MAC: Disposition: Standard PACU
[2023-02-11 09:03] LABS: Glucose, Whole Blood 129 mg/dL (60-115)
--- NOTE | 2023-02-11 09:23 | P.OP_ITS ---
Operative Note Operative Note Date of Service: 02/11/23 Narrative: Operative Information Procedure Description: EGD, Colonoscopy Indication: GERD, screening Anesthesia: MAC FLEXIBLE TRANSORAL UPPER GASTROINTESTINAL ENDOSCOPY AND COLONOSCOPY PROCEDURE NOTE UPPER ENDOSCOPY Consent: Indications for the procedure and potential complications of bleeding, perforation, reaction to medications and missed diagnosis were discussed with the patient and informed consent was obtained. Instrument: Olympus GIF H 190 J mid size upper endoscope Monitoring: Vital signs and clinical assessment, continuous EKG monitoring, Pulse oximetry, Carbon Dioxide monitoring and blood pressure monitoring were done throughout the procedure. Procedure: The patient was placed in the left lateral decubitis position and pre-procedure medications were administered and a bite block was placed. The endoscope was inserted into the mouth and advanced under direct vision to the third part of duodenum. A careful inspection was made as the upper endoscope was withdrawn including a retroflexed examination of the proximal stomach; Findings and interventions are described below. Findings: Larynx:normal Esophagus: GE junction at 45 cm, diaphragm hiatus at 45 cm, no varices seen, possible small island of Barretts mucosa, bx taken, with mild esophagitis Stomach: mosaic pattern with erythema and patchy atrophy consistent with portal hypertensive gastropathy. Biopsies were obtained. Grade 2 flap valve on retroflexed examination of the cardia. No gastric varices seen Duodenum: Normal bulb and descending duodenum, Intervention: Biopsies as noted above COLONOSCOPY Instrument: Olympus variable stiffness pediatric scope 190L Colonoscopy Monitoring: Vital signs and clinical assessment, continuous EKG monitoring, Pulse oximetry, Carbon Dioxide monitoring and blood pressure monitoring were done throughout the procedure. Colon withdrawal time was 23 minutes. Procedure: The patient was placed in the left lateral decubitis position and pre-procedure medications were administered. After a digital rectal examination of the ano-rectum, the video colonoscope was inserted into the rectum and advanced through the colon to the cecum/TI. The colonoscope was slowly withdrawn in a retrograde panoramic fashion and the colon mucosa was carefully examined including a retroflexed view of the rectum. Findings and interventions are described below. Procedure Difficulty: moderate Findings: Terminal Ileum-not intubated Cecum: 6-8 mm sessile polyp removed with cold forceps, the colonic mucosa appeared edematous Ascending Colon: x 7 sessile polyps 8-11mm removed with cold snare, one was ret rieved with net. Scattered tics seen Transverse Colon -x3 sessile polyps 6-8 mm removed with cold snare Descending Colon:normal Sigmoid Colon: moderate severe diverticulosis Rectum: Retroflexion with large internal hemorrhoids with skin tags, grade I Anorectum - normal Colon preparation: [place] Bowel Preparation Scale Right colon; 1-2 Transverse colon: 1-2 Left colon; 1-2 (0 = Unprepared colon segment with mucosa not seen due to solid stool that cannot be cleared. 1 = Portion of mucosa of the colon segment seen, but other areas of the colon segment not well seen due to staining, residual stool and/or opaque liquid. 2 = Minor amount of residual staining, small fragments of stool and/or opaque liquid, but mucosa of colon segment seen well. 3 = Entire mucosa of colon segment seen well with no residual staining, small fragments of stool or opaque liquid) Impression and Post Procedure Diagnosis: Endoscopy Findings: portal hypertensive gastropathy esophagitis, gastritis possible barretts Colonoscopy Findings: polyps internal hemorrhoids diverticular disease colonic congestion Plan: Await Pathology results Repeat Colonoscopy in 6-12 months or earlier if clinically indicated High fiber diet leaflet avoid straining at stool, epsom salts and sitz bath, anusol supps or cream consider doppler portal vein and US to check for cirrhosis or PVT. if cirrhosis is confirmed then rept EGD 1-2 yrs Above findings were reviewed with the patient and relevant handouts were provided if indicated.
--- NOTE | 2023-02-11 09:52 | HO.ANESPROP2 ---
[facility] Active Problems Active Problems: All Active Problems (Updated 02/09/23 @ 14:25 by Lenora Sargent RN) Low iron (Acute) HTN (hypertension) (Acute) ETOH abuse (Acute) Olecranon bursitis of right elbow (Acute) Anemia (Acute) Elevated alkaline phosphatase level (Acute) Screen for colon cancer (Acute) Erectile dysfunction associated with type 2 diabetes mellitus (Acute) Foot ulceration (Acute) Screening PSA (prostate specific antigen) (Acute) COPD (chronic obstructive pulmonary disease) (Acute) Mediastinal lymphadenopathy (Acute) Swelling of both lower extremities (Acute) Numbness (Acute) Paresthesia (Acute) Enlarged thyroid (Acute) Dilatation of aorta (Acute) Fall (Acute) Foot ulcer, left (Acute) Varicose veins of left lower extremity with inflammation (Acute) Foot infection (Acute) Pedal edema (Acute) Diabetes (Acute) Diabetes mellitus with neuropathy (Acute) MAHAD (obstructive sleep apnea) (Acute) Pulmonary nodule (Acute) Personal history of nicotine dependence (Acute) Diabetes mellitus, type 2 (Acute) Essential hypertension (Acute) Dysphagia (Acute) PAD (peripheral artery disease) (Acute) Obesity (Acute) Past Medical History Medical History Diabetes mellitus with neuropathy On beta roney at home Pulmonary nodule Diabetic foot ulcer Essential hypertension Obesity History of cervical fracture Personal history of nicotine dependence Dysphagia Neuropathy MAHAD (obstructive sleep apnea) GERD (gastroesophageal reflux disease) PAD (peripheral artery disease) Diabetes mellitus, type 2 Functional capacity: independent ambulation Family History Family history of problems with anesthesia: No Surgical History Surgical History History of tonsillectomy History of total left knee replacement History of fusion of cervical spine History of total right knee replacement (TKR) History of endoscopy History of colonoscopy History of left knee surgery History of Problems with Anesthesia: No Social History Social History Housing: House Are you a primary home child care provider to a significant other at home: No Do you presently have visiting nurse or other home services: No Alcohol intake: current Alcohol intake frequency: holidays/special occasions only Alcohol type: hard liquor Patient Tobacco Use Status: Current everyday Tobacco user Tobacco use type: Cigarette Cigarette Packs Per Day: 1 Cigarettes Per Day: 20 Years Smoked: 25 e-Cigarette/Vaping Use: Never Used Second Hand Smoke Exposure: Yes Are you DNR?: No Advance Directives: No Advance Directives Information Provided: Yes service: No Current occupational status: employed Current occupation: [employer], right handed Current occupational exposures/hazards: Yes Cognitive needs: No Hearing needs: No Vision needs: No Meds Allergies Allergy/AdvReac Type Severity Reaction Status Date / Time No Known Allergies Allergy Verified 01/06/23 20:20 Active Medications: Current Medications Albuterol Sulfate (Albuterol Sulfate (0.083%) 2.5 Mg/3 Ml Vial.Neb) 2.5 mg INHALE ONCE PRN PRN Reason: Shortness of Breath/Wheezing Lactated Ringer's (Lr) 1,000 mls @ 100 mls/hr IVCONT .Q10H LEONOR Last Admin: 02/11/23 07:58 Dose: 100 mls/hr Exam Exam Date and Time: February 11, 2023 0952 Height,Weight and Vital Signs: Height 6 ft Weight 127.006 kg Last Vital Signs Temp 98 F 02/11/23 07:37 Pulse 54 02/11/23 07:37 Resp 20 02/11/23 07:37 BP 159/65 H 02/11/23 07:37 Pulse Ox 95 02/11/23 07:37 O2 Del Method Room Air 02/11/23 07:37 Pertinent Lab Results Pertinent Lab Results: Laboratory Tests 02/11/23 07:54 POC Glucose 129 H Airway Mallampati Class: III TM Dist: >3cm Neck ROM: Full Denture: Upper Heart: RRR Lungs: CTA Assessment and Plan Assessment Anesthesia Assessment: Anesthesia Plan Discussed and Smoking Cess. Discussed Final Anesthetic Review Family History of Problems with Anesthesia: No History of Problems with Anesthesia: No NPO: Yes ASA Class: III Final Preanesthetic Review: Meds/Allgs Chart Reviewed, Consent Obtained/Reviewed and Anes Risks/Benef Reviewed Patient Risk: Intermediate Procedure Risk: Low Anesthetic Plan Anesthetic Plan: MAC: Disposition: Standard PACU
[2023-02-11 10:26] VITALS: BP 107/57; PULSE 69; RESP 16; TEMP 36.2; O2SAT 93
[2023-02-11 10:41] VITALS: BP 116/64; PULSE 48; RESP 16; O2SAT 93
[2023-02-11 10:52] VITALS: BP 121/64; PULSE 56; RESP 18; TEMP 36.4; O2SAT 93
--- NOTE | 2023-02-11 10:58 | HO.POSTANES ---
Post Anesthesia Evaluation Post Anesthesia Evaluation Date of Service: 02/11/23 Vital Signs: Vital Signs Temp Pulse Resp BP Pulse Ox O2 Del Method 02/11/23 10:52 97.6 F 56 18 121/64 93 Room Air 02/11/23 10:41 48 L 16 116/64 93 Room Air 02/11/23 10:26 97.1 F 69 16 107/57 L 93 Room Air 02/11/23 07:37 98 F 54 20 159/65 H 95 Room Air Anesthesia: Monitored Mental Status: Awake Pain Control: Satisfactory Nausea/Vomiting: None Hydration: Adequate Anesthesia-Related Issues: No Anes. Related Issues
== END 2023-02-11 11:18 | disposition home or self-care (01) ==
PROVIDERS: PCP Nurse Practitioner Family; Visit Provider Internal Medicine Gastroenterology
PROC: 0DJD8ZZ Inspection of Lower Intestinal Tract, Via Natural or Artificial Opening Endoscopic (ICD-10-PCS; CPT 45378; principal; 2023-02-11 08:30)
DX: Z12.11 Encounter for screening for malignant neoplasm of colon (principal); D12.0 Benign neoplasm of cecum; D12.2 Benign neoplasm of ascending colon; D12.3 Benign neoplasm of transverse colon; K57.30 Diverticulosis of large intestine without perforation or abscess without bleeding; K64.0 First degree hemorrhoids; K64.4 Residual hemorrhoidal skin tags; K21.9 Gastro-esophageal reflux disease without esophagitis; K76.6 Portal hypertension; K31.89 Other diseases of stomach and duodenum; K29.50 Unspecified chronic gastritis without bleeding; K63.89 Other specified diseases of intestine; K20.80 Other esophagitis without bleeding; K44.9 Diaphragmatic hernia without obstruction or gangrene; I10 Essential (primary) hypertension; E11.40 Type 2 diabetes mellitus with diabetic neuropathy, unspecified; E11.621 Type 2 diabetes mellitus with foot ulcer; L97.509 Non-pressure chronic ulcer of other part of unspecified foot with unspecified severity; G47.33 Obstructive sleep apnea (adult) (pediatric); I73.9 Peripheral vascular disease, unspecified; Z79.899 Other long term (current) drug therapy; Z98.890 Other specified postprocedural states; F17.210 Nicotine dependence, cigarettes, uncomplicated
CPT/HCPCS: 45385; 45380; 43239; 82947; 88305; 88342

== ENCOUNTER → 2023-02-11 07:33 | Outpatient (BNV) | payer BC, SELFPAY | PROVIDERS: PCP Nurse Practitioner Family; Visit Provider Internal Medicine Gastroenterology | DX: Z12.11 Encounter for screening for malignant neoplasm of colon (principal); D12.2 Benign neoplasm of ascending colon; D12.3 Benign neoplasm of transverse colon; K57.90 Diverticulosis of intestine, part unspecified, without perforation or abscess without bleeding; K21.00 Gastro-esophageal reflux disease with esophagitis, without bleeding; K29.70 Gastritis, unspecified, without bleeding; K31.89 Other diseases of stomach and duodenum | CPT/HCPCS: 43239; 45380; 45385 ==

== ENCOUNTER 2023-03-26 13:27 | Outpatient (AMB) | payer BC, SELFPAY ==
--- NOTE | 2023-03-26 13:31 | A.OFFVIS_ITS ---
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 Accompanied by: Self / Same As Patient Allergies No Known Allergies Allergy (Verified 03/26/23 13:37) Medication List - Last Reconciled 03/26/23 by Lorenzo Barakat MD amlodipine 10 mg PO DAILY atorvastatin 20 mg PO BEDTIME blood sugar diagnostic ([employer] Verio test strips) test blood sugar TID doxycycline monohydrate 100 mg PO BID flash glucose scanning reader ([employer] PrepStyle Michael 2 [place]) tid testing flash glucose sensor (FreeStyle Michael 2 Sensor kit) TID testing gabapentin 600 mg PO QID 30 days glipizide 10 mg PO BID hydrochlorothiazide 12.5 mg PO DAILY insulin glargine (Basaglar KwikPen U-100 Insulin) 25 units (0.25 mL) subcut QPM lisinopril 40 mg PO DAILY metoprolol succinate ER 100 mg PO DAILY 90 days omeprazole 20 mg PO DAILY HPI HPI Comments History of Present Illness Details 62-year-old male patient with history of diabetes presenting with a left 2nd toe ulcer located at the metatarsal head plantar surface. This was present for several months and he has been [facility]. 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 He denies any particular injury that started the ulceration. Recent workup with an MRI of the foot revealed osteomyelitis involving the distal metatarsal head and distal metatarsal corresponding to the site of ulceration. He presents today to discuss possible amputation of the 2nd toe. [facility] Medical History Diabetes mellitus with neuropathy On beta roney at home Pulmonary nodule Diabetic foot ulcer Essential hypertension Obesity History of cervical fracture Personal history of nicotine dependence Dysphagia Neuropathy MAHAD (obstructive sleep apnea) GERD (gastroesophageal reflux disease) PAD (peripheral artery disease) Diabetes mellitus, type 2 Surgical History History of tonsillectomy History of total left knee replacement History of fusion of cervical spine History of total right knee replacement (TKR) History of endoscopy History of colonoscopy History of left knee surgery Social History Housing: House Are you a primary housekeeper child care to a significant other at home: No Do you presently have visiting nurse or other home services: No Alcohol intake: current Alcohol intake frequency: holidays/special occasions only Alcohol type: hard liquor Patient Tobacco Use Status: Current everyday Tobacco user Tobacco use type: Cigarette Cigarette Packs Per Day: 1 Cigarettes Per Day: 20 Years Smoked: 25 e-Cigarette/Vaping Use: Never Used Second Hand Smoke Exposure: Yes service: No Current occupational status: employed Current occupation: [employer], right handed Current occupational exposures/hazards: Yes Cognitive needs: No Hearing needs: No Vision needs: No Review of Systems Const All systems reviewed & are unremarkable except as noted in HPI and below Denies chills, Denies fever(s), Denies headache(s), Denies poor appetite and Denies weakness ENT Denies headache(s) Card Denies chest pain, Denies irregular heart rhythm, Denies palpitations and Denies dyspnea Resp Denies cough, Denies excessive phlegm production and Denies dyspnea GI Denies abdominal pain, Denies bloating, Denies change in bowel habits, Denies constipation, Denies heartburn, Denies diarrhea, Denies nausea and Denies vomiting Denies difficulty urinating and Denies urinary frequency Musc Reports as per HPI, Denies back pain, Denies muscle weakness and Reports numbness Skin/Breast Denies changing lesions and Denies unusual bruising Neuro Denies headache(s), Reports numbness, Denies paresthesias and Denies weakness Psych Denies anxiety and Denies depression Endo Denies palpitations Pepito/Lymph Denies lymphadenopathy Physical Exam Const General: cooperative and no acute distress Nutritional Appearance: well nourished Orientation/consciousness: patient oriented x3 Limitations: no limitations HEENT Head: Yes normocephalic and Yes atraumatic Ears: hearing grossly normal bilaterally Resp Effort & Inspection: normal respiratory effort, no audible wheezes, no cough and no respiratory distress Cardio Jugular venous distension: no JVD GI Inspection: Yes normal to inspection Skin Other: Warm, dry, no rash Neuro General: patient oriented x3 Extrem Other: Left 2nd toe is markedly swollen with yellowish discoloration along the medial surface. plantar surface is marked by an ulceration at the distal metatarsal head measuring approximately 1.5 cm in diameter extending down to the metatarsal. There is no apparent erythema or fluctuance. Wounds were covered with dry sterile dressings. General: Yes no clubbing, cyanosis or edema Assessment & Plan Assessment & Plan (1) Foot ulcer, left: Code(s): L97.529 - Non-pressure chronic ulcer of other part of left foot with unspecified severity Qualifiers: Non-pressure ulcer stage: with necrosis of bone Qualified Code(s): L97.524 - Non-pressure chronic ulcer of other part of left foot with necrosis of bone (2) Osteomyelitis of foot: Code(s): M86.9 - Osteomyelitis, unspecified Qualifiers: Laterality: left Osteomyelitis type: chronic, with draining sinus Qualified Code(s): M86.472 - Chronic osteomyelitis with draining sinus, left ankle and foot Plan 62-year-old male patient with history of diabetes mellitus, peripheral vascul ar disease, hypertension and high cholesterol presenting with a nonhealing ulceration of the left 2nd toe found to have underlying osteomyelitis of the metatarsal. He is currently on antibiotics but may benefit from amputation of the left 2nd toe down to the metatarsal. After discussion of the procedure, risks, and alternatives, he consents to the surgery. He will be scheduled as a short-stay surgery at his earliest convenience. Coding Level of Care Code New Pt Level 4 (89286) Diagnoses Ulcer of left foot with necrosis of bone L97.524 Non-pressure ulcer stage: with necrosis of bone Chronic osteomyelitis of left foot with draining sinus M86.472 Laterality: left Osteomyelitis type: chronic, with draining sinus
[2023-03-26 13:40] VITALS: BP 120/80; BMI 39.1
== END 2023-03-26 13:58 | disposition home or self-care (01) ==
PROVIDERS: PCP Nurse Practitioner Family; Referring Provider Physician Assistant; Visit Provider Surgery
DX: L97.524 Non-pressure chronic ulcer of other part of left foot with necrosis of bone (principal); M86.472 Chronic osteomyelitis with draining sinus, left ankle and foot
CPT/HCPCS: 99204

== ENCOUNTER → 2023-03-26 13:27 | Outpatient (BNVA) | payer BC, SELFPAY | PROVIDERS: PCP Nurse Practitioner Family; Referring Provider Physician Assistant; Visit Provider Surgery ==

== ENCOUNTER → 2023-03-30 12:42 | Outpatient (REF) | payer BC, SELFPAY ==
--- NOTE | 2023-03-30 12:46 | CA_ITS ---
Transthoracic Echocardiogram Patient (Last, First, Middle): Colton Saini C Gender: Male Date of : 1960 Age: 62 Procedure Date: 03/30/2023 Procedure Type: Transthoracic Echocardiogram Location: OP Height: 182.88 cm Weight: 127.01 kg BSA: 2.46 m2 Heart Rate: 60 bpm BP: 120 / 80 mmHg Continuous Improvement Black Belt: SB Referring MD: Lorenzo Roberts [facility]- Symptoms: I77.819 - Aortic ectasia, unspecified site Study Quality: Adequate w contrast ECG Rhythm: Sinus Conclusions: - The left ventricular systolic function is normal. The calculated ejection fraction is 68% by biplane method. - Evidence suggests grade III (severe) diastolic dysfunction. - Right ventricular size moderate to severely increased. - Severe biatrial enlargement. - No obvious valvular pathology seen on this study. - Mild pulmonary hypertension is present. - There is mild dilatation of the ascending aorta measuring 4.30 cm. Findings Procedure Information Contrast agent, definity, is being given per protocol without apparent complications. The quality of the study was technically difficult. The study quality is limited by patients body habitus. Left Ventricle Normal left ventricular cavity size. The left ventricular systolic function is normal. The calculated ejection fraction is 68% by biplane method. There is no evidence of regional wall motion abnormalities. Evidence suggests grade III (severe) diastolic dysfunction. There is mild septal asymmetric hypertrophy. Right Ventricle There is normal right ventricular systolic function. Right ventricular size moderate to severely increased. Atria Severe biatrial enlargement. Aortic Valve There is mild calcification of the aortic valve. There is no aortic valve stenosis. There is no aortic valve regurgitation. Mitral Valve The mitral valve appears normal. There is trace mitral valve regurgitation. There is no mitral valve stenosis. Pulmonic Valve The pulmonic valve is likely normal. Tricuspid Valve There is mild tricuspid valve regurgitation. Mild pulmonary hypertension is present. Great Vessels There is mild dilatation of the ascending aorta measuring 4.30 cm. Venous The inferior vena cava is normal in size and collapses greater than 50% with inspiration. Pericardium/Pleural There is no evidence of pericardial effusion. Prior Study Comparison Changes noted compared to prior study dated: 10/18/2020. Diastolic function appears worse. Prior images reviewed. Recommendations, Care & Conclusions No obvious valvular pathology seen on this study. Measurements 2D Linear Measurements IVSd: 1.11 0.6-0.9/0.6-1.0 cm LVIDd: 7.12 3.9-5.3/4.2-5.9 cm LVIDd Index: 2.89 2.4-3.2/2.2-3.1 cm/m2 LVIDs: 4.73 2.0-3.6 cm LVPWd: 0.81 0.7-1.1 cm LA Diam: 5.80 2.7-3.8/3.0-4.0 cm LAIDs Index: 2.36 1.5-2.3 cm/m2 LV Mass: 392.42 67-162/88-224 g LV Mass Index: 159.52 43-95/49-115 g/m2 LVOT Diam: 2.40 3.0+(-)1.3 cm 2D Systolic Function EF 4C: 70.00 >55% EF 2C: 66.90 >55% EF BiP: 68.40 >55% Mitral Valve MV Pk E: 0.93 MV PK A: 0.19 MV Decel Time: 273.00 E/A: 4.80 E'Lateral: 13.60 E'Medial: 4.81 E/E' Med: 19.40 E/E' Lat: 6.90 PHT: 80.00 MVA PHT: 2.75 Decel [place]: 3.39 Aortic Valve AoV Pk Aakash: 1.91 AoV Pk Grad: 15.00 ADALID: 2.80 LVOT LVOT Pk Aakash: 1.22 LVOT Mn Aakash: 0.91 LVOT VTI: 0.28 LVOT Pk Grad: 6.00 LVOT Mn Grad: 4.00 LVOT Diam: 2.40 LVOT Area: 4.52 Diastolic Function MV Pk E: 0.93 MV Pk A: 0.19 E/A: 4.80 E'Medial: 4.81 E/E' Med: 19.40 E' Laterial: 13.60 E/E' Lat: 6.90 Right Ventricle TAPSE (mm): 22.60 TVS' Aakash: 15.20 Tricuspid Valve TR Pk Aakash: 3.03 TR Pk Grad: 37.00 RA Press: 3.00 RVSP: 40.00 Great Vessels Aorta Sinus of Valsalva: 3.50 2.0-3.5 cm Ao Asc: 4.30 2.1-3.4 cm Ao Arch: 3.40 Pulmonary Veins Pulm Vein S/D 0.50 Pulmonary Valve PV Pk Aakash: 1.02 Peak PV Grad: 4.00 Updated in Other Vendor System with Status of Final Tushar Blevins MD electronically signed on 03/30/2023 1:57:25 PM with status of Final
== END ==
LOC: HO.CARD 12:42
PROVIDERS: PCP Nurse Practitioner Family; Visit Provider Nurse Practitioner Family
DX: Z01.818 Encounter for other preprocedural examination (principal); I77.819 Aortic ectasia, unspecified site
CPT/HCPCS: 93306; Q9957

== ENCOUNTER → 2023-03-30 12:46 | Outpatient (BNV) | payer BC, SELFPAY | PROVIDERS: PCP Nurse Practitioner Family; Visit Provider Internal Medicine | DX: I35.8 Other nonrheumatic aortic valve disorders (principal); I36.1 Nonrheumatic tricuspid (valve) insufficiency | CPT/HCPCS: 93306 ==

== ENCOUNTER 2023-04-02 10:17 | Outpatient (AMB) | payer BC, SELFPAY ==
--- NOTE | 2023-04-02 10:36 | MHC.PC.OV ---
Vital Signs 04/02/23 10:38 Height 6 ft Weight 283 lb BMI 38.4 BP 130/72 Blood Pressure Location Rt brachial Position Sitting Pulse 55 Pulse Source Pulse Oximeter Pulse Oximetry (%) 98 Oxygen Delivery Method Room Air Intake Visit Reasons: discuss toe amputation Allergies No Known Allergies Allergy (Verified 04/02/23 10:38) Tobacco use date assessed: 07/08/22 HPI discuss toe amputation HPI Details Pt is here for a pre-op evaluation. He is scheduled for a right 2nd toe amputation on 04/06. Pt had a recent echo, compared to prior study dated 10/18/2020 diastolic function appears worse. Pt will need cardiac clearance prior to surgery. Contacted cardiology office, he has an appointment today at 1:00. Pt is clear for surgery from my standpoint as long as he is cleared by cardiology. [facility] Medical History Diabetes mellitus with neuropathy On beta roney at home Pulmonary nodule Diabetic foot ulcer Essential hypertension Obesity History of cervical fracture Personal history of nicotine dependence Dysphagia Neuropathy MAHAD (obstructive sleep apnea) GERD (gastroesophageal reflux disease) PAD (peripheral artery disease) Diabetes mellitus, type 2 Surgical History History of tonsillectomy History of total left knee replacement History of fusion of cervical spine History of total right knee replacement (TKR) History of endoscopy History of colonoscopy History of left knee surgery Social History Housing: House Are you a primary clinical care manager to a significant other at home: No Do you presently have visiting nurse or other home services: No Alcohol intake: current Alcohol intake frequency: holidays/special occasions only Alcohol type: hard liquor Patient Tobacco Use Status: Current everyday Tobacco user Tobacco use type: Cigarette Cigarette Packs Per Day: 1 Cigarettes Per Day: 20 Years Smoked: 25 e-Cigarette/Vaping Use: Never Used Second Hand Smoke Exposure: Yes service: No Current occupational status: employed Current occupation: [employer], right handed Current occupational exposures/hazards: Yes Cognitive needs: No Hearing needs: No Vision needs: No Questionnaire Thrive Questionnaire Date Thrive assessed: 05/07/21 LIO-7 AMB Questionnaire LIO-7 Date LIO - 7 assessed: 05/07/21 Source: Developed by Drs. Milton Flores, Jillian Pickard, Fazal Rubalcava and colleagues, with an educational jones from [employer]. Review of Systems Const Denies chills and Denies fever(s) Eyes Denies blurry vision ENT Denies vertigo, Denies dizziness and Denies sore throat Card Denies chest pain at rest, Denies chest pain with activity, Denies diaphoresis, Denies dyspnea and Denies dyspnea on exertion Resp Denies cough, Denies dyspnea, Denies dyspnea on exertion and Denies wheezing GI Denies abdominal pain, Denies melena, Denies hematochezia, Denies constipation, Denies diarrhea and Denies loose stools Denies hematuria Musc Denies numbness and Denies tingling Skin/Breast Denies lesions Neuro Denies vertigo, Denies dizziness, Denies numbness and Denies tingling Psych Denies anxiety, Denies depression, Denies homicidal ideation, Denies suicidal ideation and Denies other (substance abuse) Aller/Immun Denies wheezing Physical exam (Primary Care) Vital Signs: Last Vital Signs Pulse 55 04/02/23 10:38 BP 130/72 04/02/23 10:38 Pulse Ox 98 04/02/23 10:38 Oxygen Delivery Method Room Air 04/02/23 10:38 BMI result Body Mass Index 38.4 Tobacco/Smoking Status: Tobacco use Status Tobacco use date assessed 07/08/22 04/02/23 10:37 Patient Tobacco Use Status Current everyday Tobacco 04/02/23 10:37 Tobacco use type Cigarette 04/02/23 10:37 e-Cigarette/Vaping Use Never Used 04/02/23 10:37 Thrive Assessment: Date of Thrive Assessment Date Thrive assessed 05/07/21 04/02/23 10:37 Const General: cooperative Nutritional Appearance: obese Orientation/consciousness: patient oriented x3 Neck Neck: Yes no lymphadenopathy Resp Effort & Inspection: normal respiratory effort Auscultation: clear to auscultation bilaterally Cardio Rate: regular rate Rhythm: regular rhythm Heart sounds: S1 normal heart sound present, S2 normal heart sound present and Murmur heart sound present systolic (faint) Neuro General: patient oriented x3 Extrem Left lower extremity: edema Details: pitting and 1+ Psych Appearance: grossly normal Mental Status: mental status grossly normal Speech and movement: Normal speech and movement present Affect: normal affect Attitude: cooperative Thought process: Normal thought process present Thought content: Normal thought content present Insight: Good insight present (Psych) Judgement: Good judgement present (Psych) Assessment and Plan Assessment & Plan (1) Grade III diastolic dysfunction: Code(s): I51.89 - Other ill-defined heart diseases (2) Preop testing: Code(s): Z01.818 - Encounter for other preprocedural examination Plan: referred to cardiology Plan The patient agreed to the use of a medical accountant for this encounter. Scribed for JUAN LUIS Amanda-ANGIE by Brittnee Torres medical accountant, on 04/02/2023 at 10:45 EST. Coding Level of Care Code Est Pt Prev Care 40-64y(83482) Diagnoses Grade III diastolic dysfunction I51.89 Preop testing Z01.818
[2023-04-02 10:38] VITALS: BP 130/72; PULSE 55; O2SAT 98; BMI 38.4
== END 2023-04-02 11:54 | disposition home or self-care (01) ==
PROVIDERS: PCP Nurse Practitioner Family; Visit Provider Nurse Practitioner Family
DX: I51.89 Other ill-defined heart diseases (principal); Z01.818 Encounter for other preprocedural examination
CPT/HCPCS: 99213

== ENCOUNTER 2023-04-02 13:00 | Outpatient (AMB) | payer BC, SELFPAY ==
[2023-04-02 13:04] VITALS: BP 124/76; PULSE 56; BMI 38.3
--- NOTE | 2023-04-02 13:04 | A.OFFVIS_ITS ---
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/ abn echo- toe amputation Intake Note: NPV w/ EKG Lockstitch Pocket Setter Required: No Accompanied by: Self / Same As Patient Allergies No Known Allergies Allergy (Verified 04/02/23 13:05) Medication List - Last Reconciled 04/02/23 by Tushar Blevins MD amlodipine 10 mg PO DAILY atorvastatin 20 mg PO BEDTIME blood sugar diagnostic (Quotient Biodiagnosticsuch Verio test strips) test blood sugar TID doxycycline monohydrate 100 mg PO BID flash glucose scanning reader (FightersStyle Michael 2 Maddock) tid testing flash glucose sensor (FreeStyle Michael 2 Sensor kit) TID testing gabapentin 600 mg PO QID 30 days glipizide 10 mg PO BID hydrochlorothiazide 12.5 mg PO DAILY insulin glargine (Basaglar KwikPen U-100 Insulin) 25 units (0.25 mL) subcut QPM lisinopril 40 mg PO DAILY metoprolol succinate ER 100 mg PO DAILY 90 days omeprazole 20 mg PO DAILY HPI HPI Comments History of Present Illness Details Colton is here for consultation regarding preoperative risk stratification for toe surgery. He apparently has infection in the toes including osteomyelitis and hence that needs to amputation. Patient himself does not have any known cardiac disease including coronary disease or myocardial infarction or cardiomyopathy. 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 He is essentially doing something physical all day including lifting heavy things as much as 100 lb or so and he gets no symptoms like angina. However, has multiple cardiovascular risk factors including diabetes, hypertension, dyslipidemia and smoking. [facility] Medical History Diabetes mellitus with neuropathy On beta roney at home Pulmonary nodule Diabetic foot ulcer Essential hypertension Obesity History of cervical fracture Personal history of nicotine dependence Dysphagia Neuropathy MAHAD (obstructive sleep apnea) GERD (gastroesophageal reflux disease) PAD (peripheral artery disease) Diabetes mellitus, type 2 Surgical History History of tonsillectomy History of total left knee replacement History of fusion of cervical spine History of total right knee replacement (TKR) History of endoscopy History of colonoscopy History of left knee surgery Family History (Updated 04/02/23 @ 13:05 by Stephanie Ahumada) Mother No problems noted. Father No problems noted. Social History Housing: House Are you a primary senior care assistant to a significant other at home: No Do you presently have visiting nurse or other home services: No Alcohol intake: current Alcohol intake frequency: holidays/special occasions only Alcohol type: hard liquor Patient Tobacco Use Status: Current everyday Tobacco user Tobacco use type: Cigarette Cigarette Packs Per Day: 1 Cigarettes Per Day: 20 Years Smoked: 25 e-Cigarette/Vaping Use: Never Used Second Hand Smoke Exposure: Yes service: No Current occupational status: employed Current occupation: [employer], right handed Current occupational exposures/hazards: Yes Cognitive needs: No Hearing needs: No Vision needs: No Review of Systems Const Denies chills, Denies daytime sleepiness, Denies fatigue, Denies fever(s), Denies frequent falls, Denies night sweats, Denies snoring, Denies weakness, Denies weight gain and Denies weight loss Eyes Denies loss of vision ENT Denies dizziness and Denies hearing loss Card Denies chest pain, Denies chest pain with activity, Denies syncope, Denies rapid heart rate, Denies edema, Denies claudication, Denies leg edema, Denies lightheadedness, Denies palpitations, Denies dyspnea, Denies dyspnea on exertion and Denies orthopnea Resp Denies cough, Denies excessive phlegm production, Denies dyspnea, Denies dyspnea on exertion, Denies snoring and Denies wheezing GI Denies abdominal pain, Denies hematochezia, Denies change in bowel habits, Denies change in stool character, Denies heartburn, Denies nausea and Denies vomiting Denies hematuria, Denies dysuria and Denies urinary frequency Musc Denies arthralgias, Denies muscle weakness, Denies numbness and Denies tingling Skin/Breast Denies nail changes and Denies rash Neuro Denies Abnormal speech present, Denies dizziness, Denies syncope, Denies frequent falls, Denies loss of vision, Denies memory loss, Denies numbness, Denies tingling and Denies weakness Psych Denies depression and Denies memory loss Endo Denies fatigue and Denies palpitations Aller/Immun Denies wheezing Physical Exam Vital Signs: Last Vital Signs Pulse 56 04/02/23 13:04 BP 124/76 04/02/23 13:04 BMI result Body Mass Index 38.3 Const General: comfortable and no acute distress Orientation/consciousness: patient oriented x3 HEENT Other: Unremarkable Head: Yes normal to inspection Neck Neck: Yes normal visual inspection Chest Chest palpation & inspection: normal inspection of the chest Resp Auscultation: clear to auscultation bilaterally Cardio Palpation: normal PMI Heart sounds: S1 normal heart sound present, S2 normal heart sound present, no gallops, Murmur heart sound present systolic II/ and no rubs GI Palpation (GI): Soft to palpation Back/Spine/Pelvis Other: unremarkable Skin General skin exam: no rashes or lesions noted Neuro General: patient oriented x3 Speech: No Abnormal speech present Extrem General: Yes normal to inspection Psych Mental Status: mental status grossly normal Office Procedures EKG Details: EKG with sinus bradycardia at 56/Min; [place] prolongation to 218 millisecond; nonspecific ST-T changes. [id number], Complete Assessment & Plan Assessment & Plan (1) Preoperative cardiovascular examination: Code(s): Z01.810 - Encounter for preprocedural cardiovascular examination (2) HTN (hypertension): Code(s): I10 - Essential (primary) hypertension (3) Diabetes: Comment: (with neuropathy, last A1C 8.4 on 08/27/20, referred for eye exam 08/2020) Code(s): E11.9 - Type 2 diabetes mellitus without complications (4) Other and unspecified hyperlipidemia: Code(s): E78.5 - Hyperlipidemia, unspecified (5) Diastolic dysfunction: Code(s): I51.89 - Other ill-defined heart diseases (6) Ascending aorta dilatation: Code(s): I77.810 - Thoracic aortic ectasia Plan Echocardiogram reviewed. LVEF 68%. No wall motion abnormalities. Advanced diastolic dysfunction. Increased right ventricular size. Severe biatrial enlargement. Mild pulmonary hypertension. Ascending aortic size 4.3 cm, mildly enlarged but he also has a large body surface area. Echocardiogram findings discussed with patient. He understands. Overall, he does have a lot of cardiac risk factors but seems to have a high level of physical activity as his job involves strenuous physical work in concrete. He reports absolutely no symptoms from cardiac. Hence we can plan to proceed with toe amputation scheduled for Thursday. Intermediate cardiac risk. If able, try MAC/local but if not then general. Discussed with Dr. Gray. Once he is able to walk, then we can plan an elective stress perfusion study. Follow-up will be arranged. Coding Level of Care Code New Pt Level 4 (56819) Diagnoses Preoperative cardiovascular examination Z01.810 HTN (hypertension) I10 Diabetes E11.9 Other and unspecified hyperlipidemia E78.5 Diastolic dysfunction I51.89 Ascending aorta dilatation I77.810 CPT Codes EKG - CPT: [id number], Complete ([id number])
== END 2023-04-02 16:44 | disposition home or self-care (01) ==
PROVIDERS: PCP Nurse Practitioner Family; Visit Provider Internal Medicine
DX: Z01.810 Encounter for preprocedural cardiovascular examination (principal); I10 Essential (primary) hypertension; E11.9 Type 2 diabetes mellitus without complications; E78.5 Hyperlipidemia, unspecified; I51.89 Other ill-defined heart diseases; I77.810 Thoracic aortic ectasia
CPT/HCPCS: 93010; 99214

== ENCOUNTER → 2023-04-02 13:00 | Outpatient (BNVA) | payer BC, SELFPAY | PROVIDERS: PCP Nurse Practitioner Family; Visit Provider Internal Medicine | DX: Z01.810 Encounter for preprocedural cardiovascular examination (principal); I11.0 Hypertensive heart disease with heart failure; I77.810 Thoracic aortic ectasia | CPT/HCPCS: 93005 ==

== ENCOUNTER 2023-04-06 08:55 | Day surgery (SDC) | payer BC, SELFPAY ==
[2023-04-02 10:02] VITALS: BMI 39.1
--- NOTE | 2023-04-03 09:11 | HO.ANESPROP2 ---
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 He reports absolutely no symptoms from cardiac. Hence we can plan to proceed with toe amputation scheduled for Thursday. Intermediate cardiac risk. If able, try MAC/local but if not then general. Discussed with Dr. Gray. Once he is able to walk, then we can plan an elective stress perfusion study. Medically cleared s/p colo 01/2023 with [facility] PMFSH Active Problems Active Problems: All Active Problems (Updated 04/02/23 @ 13:36 by Tushar Blevins MD) Ascending aorta dilatation (Acute) Diastolic dysfunction (Acute) Other and unspecified hyperlipidemia (Acute) Preoperative cardiovascular examination (Acute) Grade III diastolic dysfunction (Acute) Preop testing (Acute) Osteomyelitis of foot (Acute) Low iron (Acute) HTN (hypertension) (Acute) ETOH abuse (Acute) Olecranon bursitis of right elbow (Acute) Anemia (Acute) Elevated alkaline phosphatase level (Acute) Screen for colon cancer (Acute) Erectile dysfunction associated with type 2 diabetes mellitus (Acute) Foot ulceration (Acute) Screening PSA (prostate specific antigen) (Acute) COPD (chronic obstructive pulmonary disease) (Acute) Mediastinal lymphadenopathy (Acute) Swelling of both lower extremities (Acute) Numbness (Acute) Paresthesia (Acute) Enlarged thyroid (Acute) Dilatation of aorta (Acute) Fall (Acute) Foot ulcer, left (Acute) Varicose veins of left lower extremity with inflammation (Acute) Foot infection (Acute) Pedal edema (Acute) Diabetes (Acute) Diabetes mellitus with neuropathy (Acute) MAHAD (obstructive sleep apnea) (Acute) Pulmonary nodule (Acute) Personal history of nicotine dependence (Acute) Diabetes mellitus, type 2 (Acute) Essential hypertension (Acute) Dysphagia (Acute) PAD (peripheral artery disease) (Acute) Obesity (Acute) Past Medical History Medical History Diabetes mellitus with neuropathy On beta roney at home Pulmonary nodule Diabetic foot ulcer Essential hypertension Obesity History of cervical fracture Personal history of nicotine dependence Dysphagia Neuropathy MAHAD (obstructive sleep apnea) GERD (gastroesophageal reflux disease) PAD (peripheral artery disease) Diabetes mellitus, type 2 Family History Family History (Updated 04/02/23 @ 13:05 by Stephanie Ahumada) Mother No problems noted. Father No problems noted. Family history of problems with anesthesia: No Surgical History Surgical History History of tonsillectomy History of total left knee replacement History of fusion of cervical spine History of total right knee replacement (TKR) History of endoscopy History of colonoscopy History of left knee surgery History of Problems with Anesthesia: No Social History Social History Housing: House Are you a primary healthcare administration internship to a significant other at home: No Do you presently have visiting nurse or other home services: No Alcohol intake: current Alcohol intake frequency: 0-2 drinks per day Alcohol type: hard liquor Patient Tobacco Use Status: Current everyday Tobacco user Tobacco use type: Cigarette Cigarette Packs Per Day: 1 Cigarettes Per Day: 20.0 Years Smoked: 25 e-Cigarette/Vaping Use: Never Used Second Hand Smoke Exposure: No Use of substances other than those prescribed or required for medical reasons: Yes Substance Use Frequency: Occasionally Are you DNR?: No Advance Directives: No Advance Directives Information Provided: Yes Advance Directives on File: No service: No Current occupational status: employed Current occupation: [employer], right handed Current occupational exposures/hazards: Yes Cognitive needs: No Hearing needs: No Vision needs: No Meds Allergies Allergy/AdvReac Type Severity Reaction Status Date / Time No Known Allergies Allergy Verified 04/02/23 13:05 Home Medications Medication Instructions Recorded Confirmed Last Taken Type doxycycline monohydrate 100 mg 100 mg PO BID 03/26/23 04/02/23 Unknown History capsule Exam Height,Weight and Vital Signs: Height 6 ft Weight 130.635 kg Pertinent Lab Results Pertinent Lab Results: Laboratory Tests 02/17/23 09:05 WBC 7.3 Hgb 13.0 L Hct 39.9 L Plt Count 181 Sodium 138 Potassium 4.2 Chloride 102 Carbon Dioxide 25 BUN 14 Creatinine 0.81 Narrative Narrative: EKG 03/2023 sinus bradycardia at 56/Min; [place] prolongation to 218 millisecond; nonspecific ST-T changes ECHO 2022 Conclusions: - The left ventricular systolic function is normal. The calculated ejection fraction is 68% by biplane method. - Evidence suggests grade III (severe) diastolic dysfunction. - Right ventricular size moderate to severely increased. - Severe biatrial enlargement. - No obvious valvular pathology seen on this study. - Mild pulmonary hypertension is present. - There is mild dilatation of the ascending aorta measuring 4.30 cm. Assessment and Plan Assessment Anesthesia Assessment: Chart Reviewed Final Anesthetic Review Family History of Problems with Anesthesia: No History of Problems with Anesthesia: No Documented by User: Perla Mendez MD 04/06/23 09:46 [facility] Past Medical History Medical History Diabetes mellitus with neuropathy On beta roney at home Pulmonary nodule Diabetic foot ulcer Essential hypertension Obesity History of cervical fracture Personal history of nicotine dependence Dysphagia Neuropathy MAHAD (obstructive sleep apnea) GERD (gastroesophageal reflux disease) PAD (peripheral artery disease) Diabetes mellitus, type 2 Family History Family History (Updated 04/02/23 @ 13:05 by Stephanie Ahumada) Mother No problems noted. Father No problems noted. Surgical History Surgical History History of tonsillectomy History of total left knee replacement History of fusion of cervical spine History of total right knee replacement (TKR) History of endoscopy History of colonoscopy History of left knee surgery Social History Social History Housing: House Are you a primary healthcare administration internship to a significant other at home: No Do you presently have visiting nurse or other home services: No Alcohol intake: current Alcohol intake frequency: 0-2 drinks per day Alcohol type: hard liquor Patient Tobacco Use Status: Current everyday Tobacco user Tobacco use type: Cigarette Cigarette Packs Per Day: 1 Cigarettes Per Day: 20.0 Years Smoked: 25 e-Cigarette/Vaping Use: Never Used Second Hand Smoke Exposure: No Use of substances other than those prescribed or required for medical reasons: Yes Substance Use Frequency: Occasionally Are you DNR?: No Advance Directives: No Advance Directives Information Provided: Yes Advance Directives on File: No service: No Current occupational status: employed Current occupation: [employer], right handed Current occupational exposures/hazards: Yes Cognitive needs: No Hearing needs: No Vision needs: No Meds Allergies Allergy/AdvReac Type Severity Reaction Status Date / Time No Known Allergies Allergy Verified 04/02/23 13:05 Home Medications Medication Instructions Recorded Confirmed Last Taken Type doxycycline monohydrate 100 mg 100 mg PO BID 03/26/23 04/02/23 Unknown History capsule Exam Airway Mallampati Class: II TM Dist: >3cm Neck ROM: Full Denture: Upper Heart: rrr Lungs: cta Assessment and Plan Assessment Anesthesia Assessment: Anesthesia Plan Discussed Final Anesthetic Review NPO: Yes ASA Class: III Final Preanesthetic Review: No Changes in Pt Med Stat, Meds/Allgs Chart Reviewed and Consent Obtained/Reviewed Patient Risk: Intermediate Procedure Risk: Intermediate Anesthetic Plan Anesthetic Plan: MAC: Disposition: Standard PACU
[2023-04-06] VITALS (8 sets, daily range): BP systolic 126–166; BP diastolic 63–91; PULSE 47–58; RESP 14–17; TEMP 36.3–36.7; O2SAT 94–97; BMI 39.0
[2023-04-06] MEDS: Lactated Ringers 1,000 ML 50 ML IVCONT (09:35)
[2023-04-06 09:36] LABS: Glucose, Whole Blood 146 mg/dL (60-115)
--- NOTE | 2023-04-06 09:52 | MHC.SHP ---
Pre-Procedural Eval Section A Date of Service: 04/06/23 The patient is an INPATIENT: No Changes since office visit: Yes Patient answered all questions; No Cold of Flu in the past 2 weeks, No New Medical Problems and No Changes in Medication The History & Physical has been completed within 30 days and I have reviewed it.: Yes Section B Chief Complaint: Chronic osteomyelitis with draining sinus, left an Allergies: Allergies Allergy/AdvReac Type Severity Reaction Status Date / Time No Known Allergies Allergy Verified 04/02/23 13:05 Plan Diagnosis/Plan: Unchanged I have reviewed the history and physical and performed a pertinent physical examination on my patient. No changes have occurred unless specified. Time Spent With Patient Time: Total time managing care of this patient today ____ minutes.
--- NOTE | 2023-04-06 11:26 | P.OP_ITS ---
Operative Note Operative Note Date of Service: 04/06/23 Narrative: Preoperative diagnosis: Osteomyelitis left 2nd toe Postoperative diagnosis: same Procedure: amputation left 2nd toe including metatarsal head Surgeon: Lorenzo Barakat MD Mechanic General Operational Test: none Anesthesia: mac plus local block Indications for procedure: 62-year-old male patient found on MRI to have osteomyelitis of the left 2nd toe with a nonhealing ulcer at the plantar surface. Operative findings: obvious osteomyelitis left 2nd toe at the distal metatarsal head Specimen: left 2nd toe Estimated blood loss: 30 mL Complications: none Procedure details: patient was brought to the OR placed in a supine position. The patient was administered light anesthesia and a ankle block performed by Anesthesia. Patient's left foot was then prepped with Betadine and draped in a fashion. A surgical time-out was called the consent confirmed. Patient received preoperative antibiotics and Venodyne boots were not in place. Additional local was placed as a digital block By the surgeon. An elliptical incision was then created around the left 2nd toe using a scalpel. This carried out through subcutaneous tissue down to the digit. Electrocautery was used to maintain hemostasis and dissect down to metatarsal head. Obvious osteomyelitis was noted at the distal metatarsal head. the toe was completely amputated and sent to pathology for further examination. Rongeur was then used to further trim the distal metatarsal further proximally. Wounds were then checked for hemostasis. Wounds were irrigated with saline solution and suctioned dry. Deep subcutaneous tissue was then reapproximated using interrupted 3-0 Polysorb sutures. Skin was then closed using interrupted 2-0 nylon sutures in a mattress formation. Sterile dressings consisting of fluff gauze between the toes, ABD pad, Kaylin wrap, and Tomasz bandage was then applied. The patient tolerated the procedure well. Sponge, instrument, needle counts reported as correct. The patient was transferred to PACU in stable condition.
== END 2023-04-06 13:01 | disposition home or self-care (01) ==
PROVIDERS: PCP Nurse Practitioner Family; Visit Provider Surgery
PROC: (CPT 28810; principal; 2023-04-06 10:20)
DX: E11.51 Type 2 diabetes mellitus with diabetic peripheral angiopathy without gangrene (principal); E11.69 Type 2 diabetes mellitus with other specified complication; L97.524 Non-pressure chronic ulcer of other part of left foot with necrosis of bone; M86.472 Chronic osteomyelitis with draining sinus, left ankle and foot; E11.40 Type 2 diabetes mellitus with diabetic neuropathy, unspecified; I10 Essential (primary) hypertension; E78.00 Pure hypercholesterolemia, unspecified; G47.33 Obstructive sleep apnea (adult) (pediatric); Z79.4 Long term (current) use of insulin; Z79.84 Long term (current) use of oral hypoglycemic drugs; Z79.899 Other long term (current) drug therapy; F17.210 Nicotine dependence, cigarettes, uncomplicated; Z96.653 Presence of artificial knee joint, bilateral
CPT/HCPCS: 28810; 82947; 88305; 88311; J0665; J0690; J2250; J2704

== ENCOUNTER → 2023-04-06 08:55 | Outpatient (BNV) | payer BC, SELFPAY | PROVIDERS: PCP Nurse Practitioner Family; Visit Provider Surgery | DX: M86.472 Chronic osteomyelitis with draining sinus, left ankle and foot (principal) | CPT/HCPCS: 28810 ==

== ENCOUNTER → 2023-04-07 13:38 | Outpatient (BNVA) | payer BC, SELFPAY | PROVIDERS: PCP Nurse Practitioner Family; Visit Provider Surgery | DX: Z48.01 Encounter for change or removal of surgical wound dressing (principal) | CPT/HCPCS: 99211 ==

== ENCOUNTER → 2023-04-09 10:53 | Outpatient (BNVA) | payer BC, SELFPAY | PROVIDERS: PCP Nurse Practitioner Family; Visit Provider Surgery ==

== ENCOUNTER → 2023-04-13 14:04 | Outpatient (BNVA) | payer BC, SELFPAY | PROVIDERS: PCP Nurse Practitioner Family; Visit Provider Surgery | DX: Z48.00 Encounter for change or removal of nonsurgical wound dressing (principal) | CPT/HCPCS: 99211 ==

== ENCOUNTER → 2023-04-15 09:10 | Outpatient (BNVA) | payer BC, SELFPAY | PROVIDERS: PCP Nurse Practitioner Family; Visit Provider Surgery | DX: Z48.00 Encounter for change or removal of nonsurgical wound dressing (principal) | CPT/HCPCS: 99211 ==

== ENCOUNTER 2023-04-16 11:24 | Outpatient (AMB) | payer BC, SELFPAY ==
--- NOTE | 2023-04-16 11:24 | A.OFFVIS_ITS ---
Intake Intake Visit Reasons: S/p left 2nd toe amputation (Damian pt) Intake Note: This patient presents for a post-op assessment status post amputation left second toe including metatarsal head. *JJM Pt * 04/06/2023 Patient c/o; reports no changes at this time. 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 Barakat for osteomyelitis last 04/06/2023. He tolerated the procedure well. He currently denies significant complaints. [facility] Medical History Diabetes mellitus with neuropathy On beta roney at home Pulmonary nodule Diabetic foot ulcer Essential hypertension Obesity History of cervical fracture Personal history of nicotine dependence Dysphagia Neuropathy MAHAD (obstructive sleep apnea) GERD (gastroesophageal reflux disease) PAD (peripheral artery disease) Diabetes mellitus, type 2 Surgical History History of tonsillectomy History of total left knee replacement History of fusion of cervical spine History of total right knee replacement (TKR) History of endoscopy History of colonoscopy History of left knee surgery Family History Mother No problems noted. Father No problems noted. Social History Housing: House Are you a primary animal care technician to a significant other at home: No Do you presently have visiting nurse or other home services: No Alcohol intake: current Alcohol intake frequency: 0-2 drinks per day Alcohol type: hard liquor Patient Tobacco Use Status: Current everyday Tobacco user Tobacco use type: Cigarette Cigarette Packs Per Day: 1 Cigarettes Per Day: 20.0 Years Smoked: 25 e-Cigarette/Vaping Use: Never Used Second Hand Smoke Exposure: No service: No Current occupational status: employed Current occupation: [employer], right handed Current occupational exposures/hazards: Yes Cognitive needs: No Hearing needs: No Vision needs: No Review of Systems Const Denies chills and Denies fever(s) Resp Denies cough GI Denies abdominal pain Physical Exam Const General: comfortable and no acute distress Resp Effort & Inspection: normal respiratory effort Extrem Other: Amputation site on the 2nd toe on the left is healing well, not infected, sutures intact, some redness Assessment & Plan Assessment & Plan (1) Osteomyelitis of foot: Code(s): M86.9 - Osteomyelitis, unspecified Qualifiers: Osteomyelitis type: chronic, with draining sinus Laterality: left Qualified Code(s): M86.472 - Chronic osteomyelitis with draining sinus, left ankle and foot Plan: Status post amputation, 2nd toe on the left. The incision is healing well. His path report shows acute on chronic osteomyelitis and osteonecrosis. I removed his sutures. The wound edges remained post although not fully reepithelialized. I will therefore set him up for another wound check with Dr. Barakat in about 2-3 weeks. He was instructed on continuing with good wound care. He had been instructed to avoid putting weight on this area of the appetite mar, and he still has his offloading shoe. I changed dressings with gauze, Kerlix, and Tomasz bandage. Coding Level of Care Code Global (49137) Diagnoses Chronic osteomyelitis of left foot with draining sinus M86.472 Osteomyelitis type: chronic, with draining sinus Laterality: left
== END 2023-04-16 11:48 | disposition home or self-care (01) ==
PROVIDERS: PCP Nurse Practitioner Family; Visit Provider Surgery
DX: M86.472 Chronic osteomyelitis with draining sinus, left ankle and foot (principal)
CPT/HCPCS: 99024

== ENCOUNTER → 2023-04-16 11:24 | Outpatient (BNVA) | payer BC, SELFPAY | PROVIDERS: PCP Nurse Practitioner Family; Visit Provider Surgery ==

== ENCOUNTER 2023-05-05 09:49 | Outpatient (AMB) | payer BC, SELFPAY ==
--- NOTE | 2023-05-05 09:57 | A.OFFVIS_ITS ---
Intake Vital Signs 05/05/23 10:00 Height 6 ft Weight 282 lb BMI 38.2 BP 183/81 H Blood Pressure Location Lt brachial Position Sitting Pulse 58 Intake Visit Reasons: S/p left 2nd toe amputation, follow up Intake Note: Patient is seen in office for post op assessment post amputation left 2nd toe including metatarsal head. 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 Accompanied by: Self / Same As Patient Allergies No Known Allergies Allergy (Verified 05/05/23 10:00) Medication List - Last Reconciled 05/05/23 by Lorenzo Barakat MD [4x4 gauze As directed] [6x6 kerlix fluffs As directed] amlodipine 10 mg PO DAILY atorvastatin 20 mg PO BEDTIME blood sugar diagnostic (Petcouch Verio test strips) test blood sugar TID doxycycline monohydrate 100 mg PO BID flash glucose scanning reader (ProprietárioDiretoStyle Michael 2 [place]) tid testing flash glucose sensor (FreeStyle Michael 2 Sensor kit) TID testing gabapentin 600 mg PO QID 30 days glipizide 10 mg PO BID hydrochlorothiazide 12.5 mg PO DAILY insulin glargine (Basaglar KwikPen U-100 Insulin) 25 units (0.25 mL) subcut QPM [kerlix rolls As directed] lisinopril 40 mg PO DAILY metoprolol succinate ER 100 mg PO DAILY 90 days omeprazole 20 mg PO DAILY oxycodone 5 mg PO Q6H PRN HPI HPI Comments History of Present Illness0 Details 62-year-old male patient returning [facility] 1 month following amputation of a left 2nd toe. He was previously seen by Dr. Shah for suture removal several weeks ago. He feels well and denies any ongoing foot problems. Continues to wrap his foot on a daily basis. [facility] Medical History Diabetes mellitus with neuropathy On beta roney at home Pulmonary nodule Diabetic foot ulcer Essential hypertension Obesity History of cervical fracture Personal history of nicotine dependence Dysphagia Neuropathy MAHAD (obstructive sleep apnea) GERD (gastroesophageal reflux disease) PAD (peripheral artery disease) Diabetes mellitus, type 2 Surgical History History of amputation of toe (04/06/23) History of tonsillectomy History of total left knee replacement History of fusion of cervical spine History of total right knee replacement (TKR) History of endoscopy History of colonoscopy History of left knee surgery Family History Mother No problems noted. Father No problems noted. Social History Housing: House Are you a primary care services manager to a significant other at home: No Do you presently have visiting nurse or other home services: No Alcohol intake: current Alcohol intake frequency: 0-2 drinks per day Alcohol type: hard liquor Patient Tobacco Use Status: Current everyday Tobacco user Tobacco use type: Cigarette Cigarette Packs Per Day: 1 Cigarettes Per Day: 20.0 Years Smoked: 25 e-Cigarette/Vaping Use: Never Used Second Hand Smoke Exposure: No service: No Current occupational status: employed Current occupation: [employer], right handed Current occupational exposures/hazards: Yes Cognitive needs: No Hearing needs: No Vision needs: No Physical Exam Const General: comfortable and no acute distress Extrem Other: Left foot dressings changed. Small area of skin separation in the inferior portion of the is base of 2nd toe. Callus debrided in the surrounding skin. Dry sterile applied with paper tape. Assessment & Plan Assessment & Plan (1) Osteomyelitis of foot: Code(s): M86.9 - Osteomyelitis, unspecified Qualifiers: Osteomyelitis type: chronic, with draining sinus Laterality: left Qualified Code(s): M86.472 - Chronic osteomyelitis with draining sinus, left ankle and foot Plan 62-year-old male patient status post amputation of left 2nd toe on 04/06/2023. He tolerated the procedure well his wounds are healing nicely. He should continue to keep the wounds covered. He may shower and get his feet wet but should dry carefully. He should follow up as needed. Coding Level of Care Code Global (05146) Diagnoses Chronic osteomyelitis of left foot with draining sinus M86.472 Osteomyelitis type: chronic, with draining sinus Laterality: left
[2023-05-05 10:00] VITALS: BP 183/81; PULSE 58; BMI 38.2
== END 2023-05-05 10:17 | disposition home or self-care (01) ==
PROVIDERS: PCP Nurse Practitioner Family; Visit Provider Surgery
DX: M86.472 Chronic osteomyelitis with draining sinus, left ankle and foot (principal)
CPT/HCPCS: 99024

== ENCOUNTER → 2023-05-05 09:49 | Outpatient (BNVA) | payer BC, SELFPAY | PROVIDERS: PCP Nurse Practitioner Family; Visit Provider Surgery ==

== ENCOUNTER 2023-05-27 09:01 | Outpatient (REF) | payer BC, SELFPAY ==
[2023-05-27 12:00] LABS: Estimated Average Glucose 128 mg/dL; Hemoglobin A1c % 6.1 % (<6.0)
[2023-06-01 21:03] LABS: Testosterone, Free 20.9 pg/mL (35.0-155.0); Testosterone, Total 163 ng/dL (250-1100)
== END 2023-05-27 09:02 | disposition home or self-care (01) ==
LOC: HO.HMGCLDS 09:01
PROVIDERS: PCP Nurse Practitioner Family; Visit Provider Nurse Practitioner Family
DX: E11.69 Type 2 diabetes mellitus with other specified complication (principal); N52.1 Erectile dysfunction due to diseases classified elsewhere
CPT/HCPCS: 36415; 83036; 84402; 84403

== ENCOUNTER 2023-05-28 09:10 | Outpatient (AMB) | payer BC, SELFPAY ==
--- NOTE | 2023-05-28 09:13 | MHC.OFFVIS ---
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 Accompanied by: self Allergies No Known Allergies Allergy (Verified 05/28/23 09:13) Medication List - Last Reconciled 05/28/23 by Tushar Blevins MD [4x4 gauze As directed] [6x6 kerlix fluffs As directed] amlodipine 10 mg PO DAILY atorvastatin 20 mg PO BEDTIME blood sugar diagnostic (Newsblur Verio test strips) test blood sugar TID doxycycline monohydrate 100 mg PO BID flash glucose scanning reader (FreeStyle Michael 2 [place]) tid testing flash glucose sensor (FreeStyle Michael 2 Sensor kit) TID testing gabapentin 600 mg PO QID 30 days glipizide 10 mg PO BID hydrochlorothiazide 12.5 mg PO DAILY insulin glargine (Basaglar KwikPen U-100 Insulin) 25 units (0.25 mL) subcut QPM [kerlix rolls As directed] lisinopril 40 mg PO DAILY metoprolol succinate ER 100 mg PO DAILY 90 days omeprazole 20 mg PO DAILY oxycodone 5 mg PO Q6H PRN HPI HPI Comments History of Present Illness Details Colton returns for follow-up. He was recently seen in consultation regarding preoperative risk stratification for toe surgery. It seems that that has been completed and he did have any problems. Otherwise, no known coronary disease or myocardial infarction or cardiomyopathy. 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 However, has multiple cardiovascular risk factors including diabetes, hypertension, dyslipidemia and smoking. [facility] Medical History Diabetes mellitus with neuropathy On beta roney at home Pulmonary nodule Diabetic foot ulcer Essential hypertension Obesity History of cervical fracture Personal history of nicotine dependence Dysphagia Neuropathy MAHAD (obstructive sleep apnea) GERD (gastroesophageal reflux disease) PAD (peripheral artery disease) Diabetes mellitus, type 2 Surgical History History of amputation of toe (04/06/23) History of tonsillectomy History of total left knee replacement History of fusion of cervical spine History of total right knee replacement (TKR) History of endoscopy History of colonoscopy History of left knee surgery Family History Mother No problems noted. Father No problems noted. Social History Housing: House Are you a primary care assistant to a significant other at home: No Do you presently have visiting nurse or other home services: No Alcohol intake: current Alcohol intake frequency: 0-2 drinks per day Alcohol type: hard liquor Patient Tobacco Use Status: Current everyday Tobacco user Tobacco use type: Cigarette Cigarette Packs Per Day: 1 Cigarettes Per Day: 20.0 Years Smoked: 25 e-Cigarette/Vaping Use: Never Used Second Hand Smoke Exposure: No service: No Current occupational status: employed Current occupation: [employer], right handed Current occupational exposures/hazards: Yes Cognitive needs: No Hearing needs: No Vision needs: No Review of Systems Const Denies weakness ENT Denies dizziness Card Denies chest pain, Denies chest pain with activity, Denies syncope, Denies rapid heart rate, Denies pedal edema, Denies edema, Denies leg edema, Denies lightheadedness, Denies palpitations, Denies dyspnea, Denies dyspnea on exertion and Denies orthopnea Resp Denies cough, Denies dyspnea and Denies dyspnea on exertion GI Denies hematochezia and Denies change in stool character Musc Denies abnormal gait, Denies muscle cramps, Denies muscle weakness, Denies numbness, Denies radiating pain into limb and Denies tingling Neuro Denies abnormal gait, Denies dizziness, Denies syncope, Denies numbness, Denies tingling and Denies weakness Endo Denies palpitations Physical Exam Vital Signs: Last Vital Signs Pulse 62 05/28/23 09:14 BP 140/68 H 05/28/23 09:14 BMI result Body Mass Index 38.3 Const General: comfortable and no acute distress Orientation/consciousness: patient oriented x3 HEENT Other: Unremarkable Head: Yes normal to inspection Neck Neck: Yes normal visual inspection Chest Chest palpation & inspection: normal inspection of the chest Resp Auscultation: clear to auscultation bilaterally Cardio Palpation: normal PMI Heart sounds: S1 normal heart sound present, S2 normal heart sound present, no gallops, no murmurs and no rubs GI Palpation (GI): Soft to palpation Back/Spine/Pelvis Other: unremarkable Skin General skin exam: no rashes or lesions noted Neuro General: patient oriented x3 Extrem General: Yes normal to inspection Psych Mental Status: mental status grossly normal Assessment & Plan Assessment & Plan (1) HTN (hypertension): Code(s): I10 - Essential (primary) hypertension (2) Diabetes: Comment: (with neuropathy, last A1C 8.4 on 08/27/20, referred for eye exam 08/2020) Code(s): E11.9 - Type 2 diabetes mellitus without complications (3) Other and unspecified hyperlipidemia: Code(s): E78.5 - Hyperlipidemia, unspecified (4) Diastolic dysfunction: Code(s): I51.89 - Other ill-defined heart diseases (5) Ascending aorta dilatation: Code(s): I77.810 - Thoracic aortic ectasia Plan Echocardiogram reviewed. LVEF 68%. No wall motion abnormalities. Advanced diastolic dysfunction. Increased right ventricular size. Severe biatrial enlargement. Mild pulmonary hypertension. Ascending aortic size 4.3 cm, mildly enlarged but he also has a large body surface area. Clinically, he has got a lot of risk factors for coronary disease but no overt symptoms. We had requested a myocardial perfusion imaging study but not yet completed. Due to be done in the next few days. If any high-risk findings, may need invasive studies as well. Will follow-up after the above. Otherwise, mainly aggressive risk factor modification. Coding Level of Care Code Est Pt Level 3 (74063) Diagnoses HTN (hypertension) I10 Diabetes E11.9 Other and unspecified hyperlipidemia E78.5 Diastolic dysfunction I51.89 Ascending aorta dilatation I77.810
[2023-05-28 09:14] VITALS: BP 140/68; PULSE 62; BMI 38.3
== END 2023-05-28 09:26 | disposition home or self-care (01) ==
PROVIDERS: PCP Nurse Practitioner Family; Visit Provider Internal Medicine
DX: I10 Essential (primary) hypertension (principal); E11.9 Type 2 diabetes mellitus without complications; E78.5 Hyperlipidemia, unspecified; I51.89 Other ill-defined heart diseases; I77.810 Thoracic aortic ectasia
CPT/HCPCS: 99213

== ENCOUNTER → 2023-05-28 09:10 | Outpatient (BNVA) | payer BC, SELFPAY | PROVIDERS: PCP Nurse Practitioner Family; Visit Provider Internal Medicine ==

== ENCOUNTER → 2023-06-09 08:35 | Outpatient (REF) | payer BC, SELFPAY ==
--- NOTE | ~2023-06-09 | NM_ITS ---
Lexiscan Myocardial perfusion study Indication: Coronary artery disease, assess for ischemia Technique: The patient was brought in for a Lexiscan perfusion study on 06/09/2023 and was injected 0.4 mg of Lexiscan intravenously. Within a minute of this injection 40 mCi of sestamibi was given intravenously. Images were obtained using the SPECT gamma camera interlaced with the gating device. Images were obtained in supine position. Resting perfusion study was performed on 06/10/2023. Patient was administered 40 mCi of sestamibi intravenously at rest. Images were then obtained in supine position. Images were processed with the software and compared side to side in short axis, horizontal long axis and vertical long axis views. Total DLP 143mGy-cm. Findings: Raw acquisition reviewed. Study quality is suboptimal. The stress perfusion study showed diminished tracer uptake along the inferior wall but difficult to assess. There is improvement with CT attenuation correction and hence could be components of diaphragmatic attenuation artifact. The gated study shows diminished LV systolic function with calculated LVEF of 47%. LV cavity is normal in size. The gated study shows normal wall thickening and contraction of segments. Resting study shows diminished tracer uptake in the basal part of inferior wall. Gating at rest reveals normal wall motion with ejection fraction at 49%. The findings are consistent with mild reversible basal inferior defect, possibly from diaphragmatic attenuation artifact. Cardiac silhouette mild degree of ischemia MO/NM cardiolite stress test Impression: 1. Myocardial perfusion imaging study shows mild reversible inferior defect which could indicate mild degree of ischemia versus diaphragmatic attenuation artifact. 2. Gated LVEF is 47% during stress and 49% during rest. Correlate with echocardiogram. 3. Transient ischemic dilatation not present. EKG component of the test reported separately.
--- NOTE | 2023-06-09 09:54 | CA_ITS ---
Acquisition Time: 2023-06-09 08:41:53 Total Exercise Time: 00:05:51 Test Indications: ABN ECHO, SOB Medications: SEE H Protocol: KHOI Max HR: 109 BPM 68% of Pred: 159 BPM Max BP: 160/068 mmHG Max Work Load: 7.0 METS Exercise stress test exercise 5 min 51 sec of Khoi protocol achieving 68% MPHR, with moderate SOB, no chest discomfort, with isolated PVCs, ventricular bigeminy, ventricular cuplet (reports did not feel ectopy), with normotensive response to exercise, without EKG changes at achieved workload. Test terminated and patient assisted to chair and breathing returned to normal. Pharmacological stress test with Lexiscan injection while sitting and kicking his legs, without anginal symptoms, with isolated PVCs, with normoteneive response to injection, with nondiagnoisitic EKGs. Aminophylline 75mg IVP given to reverse Lexiscan. Nuclear images pending Test reviewed with Dr. Osorio. Referred By: Tushar Blevins Overread By: Consuelo Mcbride
== END ==
LOC: HO.CARD 08:35
PROVIDERS: PCP Nurse Practitioner Family; Visit Provider Internal Medicine
DX: R07.2 Precordial pain (principal); I25.10 Atherosclerotic heart disease of native coronary artery without angina pectoris
CPT/HCPCS: 78452; 93017; A9500; J0280; J2785

== ENCOUNTER → 2023-06-09 09:54 | Outpatient (BNV) | payer BC, SELFPAY | PROVIDERS: PCP Nurse Practitioner Family; Visit Provider Nurse Practitioner | DX: I51.89 Other ill-defined heart diseases (principal); R93.1 Abnormal findings on diagnostic imaging of heart and coronary circulation; R06.02 Shortness of breath | CPT/HCPCS: 78452; 93016; 93018 ==

== ENCOUNTER 2023-06-15 09:38 | Outpatient (AMB) | payer BC, SELFPAY ==
[2023-06-15 09:44] VITALS: BP 128/72; PULSE 62; O2SAT 98; BMI 38.0
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
== END 2023-06-15 10:20 | disposition home or self-care (01) ==
LOC: HO.HMGC 09:38
PROVIDERS: PCP Nurse Practitioner Family; Visit Provider Nurse Practitioner Family
DX: E11.40 Type 2 diabetes mellitus with diabetic neuropathy, unspecified (principal); T30.0 Burn of unspecified body region, unspecified degree
CPT/HCPCS: 99213

== ENCOUNTER 2023-07-08 09:29 | Outpatient (REF) | payer BC, SELFPAY ==
[2023-07-08 17:35] LABS: Urine Cytology See Pathology rpt
== END 2023-07-08 09:30 | disposition home or self-care (01) ==
LOC: HO.LNP 09:29
PROVIDERS: PCP Nurse Practitioner Family; Visit Provider Nurse Practitioner Family
DX: R31.29 Other microscopic hematuria (principal); E11.69 Type 2 diabetes mellitus with other specified complication; N52.1 Erectile dysfunction due to diseases classified elsewhere
CPT/HCPCS: 81003; 88112

== ENCOUNTER 2023-07-08 09:29 | Outpatient (AMB) | payer BC, SELFPAY ==
--- NOTE | 2023-07-08 09:54 | MHC.OFFVIS ---
Intake Intake Visit Reasons: 6m follow up Intake Note: Patient presents today for follow up Erectile Dysfunction/low testosterone. Urology Medications: Tadalafil Blood Thinner: None Client Relations Representative Required: No Accompanied by: Self / Same As Patient Allergies No Known Allergies Allergy (Verified 07/08/23 19:56) Medication List - Last Reconciled 07/08/23 by PITO Aguiar [4x4 gauze As directed] [6x6 kerlix fluffs As directed] amlodipine 10 mg PO DAILY atorvastatin 20 mg PO BEDTIME blood sugar diagnostic (Incipientuch Verio test strips) test blood sugar TID flash glucose scanning reader (WazeTripStyle Michael 2 [place]) tid testing flash glucose sensor (FreeStyle Michael 2 Sensor kit) TID testing gabapentin 600 mg PO QID 30 days glipizide 10 mg PO BID hydrochlorothiazide 12.5 mg PO DAILY insulin glargine (Basaglar KwikPen U-100 Insulin) 25 units (0.25 mL) subcut QPM [kerlix rolls As directed] lisinopril 40 mg PO DAILY metoprolol succinate ER 100 mg PO DAILY 90 days omeprazole 20 mg PO DAILY tadalafil 20 mg PO DAILY PRN HPI HPI Comments History of Present Illness Details Colton is a pleasant 63-year-old male patient of Dr. Roberts. He has a past medical history of diabetes mellitus type 2, diabetic foot ulcer, essential hypertension, GERD, neuropathy, obesity, MAHAD, PAD, and history of nicotine dependence. He presents to the office today for follow-up of his erectile dysfunction and hypogonadism. In discussion with the patient today he reports feeling significantly frustrated with his erectile dysfunction. He reports noting despite injectable therapy with multiple increases in dosing he continues with erectile dysfunction. Recent testosterone results reviewed with the patient today testosterone 05/20--163 and free testosterone 06/20 20.9. Discussed at length potential causes for hypogonadism as well as for erectile dysfunction. Discussed at length risks and benefits of penile prosthesis. This was discussed at length. A1c 05/20--6.1. PSAs are as follows: 05/18 0.2, 06/19 0.1, 10/17 0.2. He otherwise denies any urinary issues or concerns at this time. He reports to be happy with current voiding parameters. When asked he denies urinary urgency, urinary frequency, incontinence, nocturia, hematuria, dysuria, foul smelling urine, changes to urinary stream, flank pain, fever, and or chills. [facility] Medical History Diabetes mellitus with neuropathy On beta roney at home Pulmonary nodule Diabetic foot ulcer Essential hypertension Obesity History of cervical fracture Personal history of nicotine dependence Dysphagia Neuropathy MAHAD (obstructive sleep apnea) GERD (gastroesophageal reflux disease) PAD (peripheral artery disease) Diabetes mellitus, type 2 Surgical History History of amputation of toe (04/06/23) History of tonsillectomy History of total left knee replacement History of fusion of cervical spine History of total right knee replacement (TKR) History of endoscopy History of colonoscopy History of left knee surgery Family History Mother No problems noted. Father No problems noted. Social History Housing: House Are you a primary healthcare financial analyst to a significant other at home: No Do you presently have visiting nurse or other home services: No Alcohol intake: current Alcohol intake frequency: 0-2 drinks per day Alcohol type: hard liquor Patient Tobacco Use Status: Current everyday Tobacco user Tobacco use type: Cigarette Cigarette Packs Per Day: 1 Cigarettes Per Day: 20.0 Years Smoked: 25 e-Cigarette/Vaping Use: Never Used Second Hand Smoke Exposure: No service: No Current occupational status: employed Current occupation: [employer], right handed Current occupational exposures/hazards: Yes Cognitive needs: No Hearing needs: No Vision needs: No Review of Systems Const Reports as per HPI Eyes Reports no additional complaints ENT Reports no additional complaints Card Reports as per HPI Resp Reports as per HPI GI Reports as per HPI Reports as per HPI Musc Reports no additional complaints Neuro Reports no additional complaints Psych Reports no additional complaints Endo Reports as per HPI Physical Exam Const General: cooperative, healthy appearing, comfortable, no acute distress, well developed, alert and awake Nutritional Appearance: overweight Orientation/consciousness: patient oriented x3 Limitations: no limitations HEENT Head: Yes normal to inspection, Yes normocephalic and Yes atraumatic Ears: hearing grossly normal bilaterally Eyes General: appearance normal, both eyes and all related structures Neck Neck: Yes normal visual inspection and Yes trachea midline Chest Chest palpation & inspection: normal inspection of the chest Resp Effort & Inspection: normal respiratory effort and able to speak in complete sentences Cardio Rate: regular rate GI Inspection: Yes normal to inspection General: Yes no CVA tenderness Penis: normal penis and circumcised Meatus: meatus normal Scrotum: scrotum normal Testes: Testes normal Back/Spine/Pelvis Back: no CVA tenderness Skin General skin exam: no rashes or lesions noted Neuro General: patient oriented x3 Extrem General: Yes normal to inspection Psych Appearance: grossly normal and well kempt Mental Status: mental status grossly normal Speech and movement: Normal speech and movement present and Clear speech present Affect: normal affect Attitude: cooperative Thought process: Normal thought process present Thought content: Normal thought content present Insight: Fair insight present (Psych) Judgement: Fair judgement present (Psych) Results AMB Urinalysis, Automated UA Leukoctes 0 Kimberley/uL Last Edit by [employer] on 07/08/23 10:19 UA Nitrite Negative Last Edit by [employer] on 07/08/23 10:19 UA Urobilinogen 0.2 mg/dL Last Edit by [employer] on 07/08/23 10:19 UA Protein 0 mg/dL Last Edit by [employer] on 07/08/23 10:19 UA pH 6.0 Last Edit by [employer] on 07/08/23 10:19 UA Blood 10 Rocky/uL Last Edit by [employer] on 07/08/23 10:19 UA Specific [place] 1.015 Last Edit by [employer] on 07/08/23 10:19 UA Ketone Negative Last Edit by [employer] on 07/08/23 10:19 UA Bilirubin 0 mg/dL Last Edit by [employer] on 07/08/23 10:19 UA Glucose 0 mg/dL Last Edit by [employer] on 07/08/23 10:19 Results Reviewed Results Reviewed: Laboratory Last Values Urine pH (Auto) 6.0 07/08/23 09:58 Specific [place] (Auto) 1.015 07/08/23 09:58 Urine Protein (Auto) 0 mg/dL 07/08/23 09:58 Glucose (UA)(Auto) 0 mg/dL 07/08/23 09:58 Urine Ketones (Auto) Negative 07/08/23 09:58 Urine Blood (Auto) 10 Rocky/uL 07/08/23 09:58 Urine Nitrite (Auto) Negative 07/08/23 09:58 Urine Bilirubin (Auto) 0 mg/dL 07/08/23 09:58 Urine Urobilinogen (Auto) 0.2 mg/dL 07/08/23 09:58 Leukocyte Esterase (Auto) 0 Kimberley/uL 07/08/23 09:58 Assessment & Plan Assessment & Plan (1) Erectile dysfunction associated with type 2 diabetes mellitus: Code(s): E11.69 - Type 2 diabetes mellitus with other specified complication; N52.1 - Erectile dysfunction due to diseases classified elsewhere (2) Hypogonadism in male: Code(s): E29.1 - Testicular hypofunction Plan: Risks, benefits and alternatives to therapy were discussed. These include but are not limited to infection, bleeding, damage to local organs and tissues, need for further interventions. ? Anesthetic risks regarding cardiac arrhythmia, blood clots, and potential mortality were discussed. The patient understands the typical recovery time and the outpatient nature of the procedure. After consideration of these risks the patient gives full informed consent and they wish to move ahead with the procedure. Plan In office urinalysis results reviewed with the patient today; as noted above. Discussed at length further treatment options for erectile dysfunction given patient with a history of failed oral medications as well as injectable therapy. He has also previously trialed penile pump and penile rings. Discussed risks and benefits of penile prosthesis; this was discussed at length Recent testosterone results reviewed with the patient today; as noted above. Will obtain redraw of testosterone free and total. Discussed at length lifestyle modifications to assist with hypogonadism as well as erectile dysfunction Will obtain redraw of testosterone free and total for further assessment evaluation. Will arrange for penile prosthesis with Dr. Montero as discussed; discussed possibility of clearance given multiple comorbidities. Follow-up in 1 month with labs to be completed prior; or sooner with any issues, concerns, and or questions. Orders: Orders AMB Urinalysis Automated Today Z13.9 - Encounter for screening, unspecified Testosterone, Free/Total Today E11.69 - Type 2 diabetes mellitus with other specified complication, N52.1 - Erectile dysfunction due to diseases classified elsewhere Urine Cytology Today R31.29 - Other microscopic hematuria Prostate Specific Antigen Today N40.0 - Benign prostatic hyperplasia without lower urinary tract symptoms Patient Instructions: The patient had an opportunity to ask questions regarding the treatment plan. All questions were answered. Physical exam, labs, and imaging were discussed and reviewed in detail. As well as risks, benefits, and discussion of treatment choices. No major barriers to understanding were identified. The patient expressed understanding and agreement with the above treatment plan. The patient was made aware they should contact our office by phone for worsening of their current condition, the appearance of new symptoms, or with any questions or concerns. Compliance is encouraged with any medications and follow up testing that is ordered. It is a privilege to be allowed the opportunity to participate in? your urological care.? Again, if you have any questions or concerns If you have any questions or concerns please do not hesitate to contact me. The office is [phone]. This note is constructed using voice recognition software. While every effort has been made to ensure accuracy office system analyst errors may have been included. Yours sincerely, PITO Aguiar Coding Level of Care Code Est Pt Level 4 (98707) Diagnoses Erectile dysfunction associated with type 2 diabetes mellitus E11.69; N52.1 Hypogonadism in male E29.1
== END 2023-07-08 10:41 | disposition home or self-care (01) ==
PROVIDERS: PCP Nurse Practitioner Family; Visit Provider Nurse Practitioner Family
DX: E11.69 Type 2 diabetes mellitus with other specified complication (principal); N52.1 Erectile dysfunction due to diseases classified elsewhere; E29.1 Testicular hypofunction; Z13.9 Encounter for screening, unspecified
CPT/HCPCS: 99214

== ENCOUNTER 2023-07-15 09:43 | Outpatient (REF) | payer BC, SELFPAY ==
[2023-07-15 13:29] LABS: MANUAL DIFF FLAG NO
[2023-07-15 13:30] LABS: Basophils Percent Auto 0.8 % (0-2); Eosinophils Absolute Auto 0.1 X10*3/uL (0.0-0.4); Eosinophils Percent Auto 2.3 % (0-4); Hematocrit 40.6 % (42.0-52.0); Hemoglobin 13.5 g/dl (14.0-18.0); Imm Gran Abs Auto 0.01 X10*3/uL (0.00-0.03); Imm Gran Pct Auto 0.2 % (0.0-0.4); Lymphocytes Absolute Auto 1.7 X10*3/uL (1.2-4.9); Lymphocytes Percent Auto 31.5 % (20-40); Mean Corpuscular HGB Conc 33.3 g/dl (31.0-36.0); Mean Corpuscular Volume 90.2 fL (80.0-98.0); Mean Platelet Volume 10.7 fL (9.4-12.4); Monocytes Absolute Auto 0.5 X10*3/uL (0.1-1.2); Monocytes Percent Auto 10.2 % (2-11); Neutrophils Absolute Auto 2.9 x10*3/uL (2.0-8.3); Platelet Count 164 X10*3/uL (160-400); Red Cell Distribution Width 13.9 % (11.0-16.0); Retic HGB Equivalent 34.3 pg (30.0-35.0); Reticulocyte Percent 1.5 % (0.5-1.8); Reticulocytes Absolute 0.068 X10*6/uL (0.026-0.095); White Blood Count 5.3 X10*3/uL (4.8-10.8)
[2023-07-15 13:38] LABS: Appearance Urine Clear; Color Urine Yellow; Glucose Urine UA Negative (Negative); Leukocyte Esterase Urine Negative (Negative); Nitrite Urine Negative (Negative); PH 5.5 (5.0-9.0); Specific Gravity - Urine 1.015 (1.005-1.025); Urine Blood Negative (Negative); Urine Ketones Negative (Negative); Urine Protein Trace mg/dL (Neg-Trace)
[2023-07-15 13:41] LABS: Estimated Average Glucose 128 mg/dL; Hemoglobin A1c % 6.1 % (<6.0)
[2023-07-15 14:02] LABS: Alanine Aminotransferase 10 U/L (0-40); Albumin Level 4.1 g/dL (3.5-5.0); Alkaline Phosphatase 124 U/L (39-117); Anion Gap 13 (12-20); Aspartate Amino Transferase 17 U/L (5-37); Bilirubin Total 0.4 mg/dL (0.0-1.0); Blood Urea Nitrogen 20 mg/dL (9-16); Calcium 9.4 mg/dL (8.4-10.2); Carbon Dioxide 27 mmol/L (22-29); Chloride 104 mmol/L (96-108); Cholesterol 170 mg/dL (<200); Estimated Glomerular Filt Rate > 60; Glucose Fasting 183 mg/dL (60-99); HDL Cholesterol 59 mg/dL (>40); Iron 63 mcg/dL (45-160); LDL Cholesterol Calculated 85 mg/dL (<100); Percent Iron Saturation 23 % (15-50); Potassium 4.1 mmol/L (3.3-5.1); Sodium 140 mmol/L (135-145); Total Iron Binding Capacity 275 mcg/dL (228-428); Total Protein 7.5 g/dL (6.5-8.0); Triglycerides 133 mg/dL (<150); Unsaturated Iron Binding 212 ug/dL
[2023-07-15 14:05] LABS: Ferritin 43 ng/mL (20-250)
[2023-07-15 14:07] LABS: Prostate Specific Antigen 0.23 ng/mL (<0.05-4.0)
[2023-07-22 16:17] LABS: Testosterone, Free 18.8 pg/mL (35.0-155.0); Testosterone, Total 128 ng/dL (250-1100)
== END 2023-07-15 09:44 | disposition home or self-care (01) ==
LOC: HO.HMGCLDS 09:43
PROVIDERS: PCP Nurse Practitioner Family; Visit Provider Nurse Practitioner Family
DX: Z12.5 Encounter for screening for malignant neoplasm of prostate (principal); E11.40 Type 2 diabetes mellitus with diabetic neuropathy, unspecified; E11.69 Type 2 diabetes mellitus with other specified complication; N52.1 Erectile dysfunction due to diseases classified elsewhere; N40.0 Benign prostatic hyperplasia without lower urinary tract symptoms; E61.1 Iron deficiency
CPT/HCPCS: 36415; 80053; 80061; 81003; 82728; 83036; 83540; 84153; 84402; 84403; 85025; 85045

== ENCOUNTER 2023-08-26 09:12 | Outpatient (AMB) | payer BC, SELFPAY ==
--- NOTE | 2023-08-26 09:19 | MHC.OFFVIS ---
Intake Visit Reasons: 1m/Labs/H&P Penile Prosthesis(set) Intake Note: Patient presents today for tele visit follow up Erectile Dysfunction/low testosterone. Urology Medications: Tadalafil Blood Thinner: None Public Health Informatician Required: No Accompanied by: Self / Same As Patient Allergies No Known Allergies Allergy (Verified 08/26/23 09:21) Medication List - Last Reconciled 08/26/23 by JUAN LUIS Aguiar-BC [4x4 gauze As directed] [6x6 kerlix fluffs As directed] amlodipine 10 mg PO DAILY atorvastatin 20 mg PO BEDTIME blood sugar diagnostic (UpTouch Verio test strips) test blood sugar TID flash glucose scanning reader (FreeStyle Michael 2 [place]) tid testing flash glucose sensor (FreeStyle Michael 2 Sensor kit) TID testing gabapentin 600 mg PO QID 30 days glipizide 10 mg PO BID hydrochlorothiazide 12.5 mg PO DAILY insulin glargine (Basaglar KwikPen U-100 Insulin) 25 units (0.25 mL) subcut QPM [kerlix rolls As directed] lisinopril 40 mg PO DAILY metoprolol succinate ER 100 mg PO DAILY 90 days omeprazole 20 mg PO DAILY tadalafil 20 mg PO DAILY PRN HPI Comments Details: Colton is a pleasant 63-year-old male patient of Dr. Roberts. He has a past medical history of diabetes mellitus type 2, diabetic foot ulcer, essential hypertension, GERD, neuropathy, obesity, MAHAD, PAD, and history of nicotine dependence. He is being follow-up on today via telehealth for his erectile dysfunction and hypogonadism. In discussion with the patient today he reports to be doing and feeling well. He discusses having received surgical information for upcoming penile prosthesis with Dr. Montero. Discussed at length procedure. Discussed risks and benefits. All questions were answered. Review of testosterone labs were also discussed. These are as follows. Testosterone 05/20 163. 07/18 128 Free testosterone 05/20 20.9, 07/18 18.8 PSA: 05/18 0.3, 06/19 0.1, 10/17 0.2, 07/18 0.2 In discussion with the patient today he reports feeling significantly frustrated with his erectile dysfunction. He reports noting despite injectable therapy with multiple increases in dosing he continues with erectile dysfunction. He otherwise denies any urinary issues or concerns at this time. He reports to be happy with current voiding parameters. When asked he denies urinary urgency, urinary frequency, incontinence, nocturia, hematuria, dysuria, foul smelling urine, changes to urinary stream, flank pain, fever, and or chills. [facility] Medical History Diabetes mellitus with neuropathy On beta roney at home Pulmonary nodule Diabetic foot ulcer Essential hypertension Obesity History of cervical fracture Personal history of nicotine dependence Dysphagia Neuropathy MAHAD (obstructive sleep apnea) GERD (gastroesophageal reflux disease) PAD (peripheral artery disease) Diabetes mellitus, type 2 Surgical History History of amputation of toe (04/06/23) History of tonsillectomy History of total left knee replacement History of fusion of cervical spine History of total right knee replacement (TKR) History of endoscopy History of colonoscopy History of left knee surgery Family History Mother No problems noted. Father No problems noted. Social History Housing: House Are you a primary home health care physician to a significant other at home: No Do you presently have visiting nurse or other home services: No Alcohol intake: current Alcohol intake frequency: 0-2 drinks per day Alcohol type: hard liquor Patient Tobacco Use Status: Current everyday Tobacco user Tobacco use type: Cigarette Cigarette Packs Per Day: 1 Cigarettes Per Day: 20.0 Years Smoked: 25 e-Cigarette/Vaping Use: Never Used Second Hand Smoke Exposure: No service: No Current occupational status: employed Current occupation: [employer], right handed Current occupational exposures/hazards: Yes Cognitive needs: No Hearing needs: No Vision needs: No Review of Systems Const Reports as per HPI Eyes Reports no additional complaints ENT Reports no additional complaints Card Reports as per HPI Resp Reports as per HPI GI Reports as per HPI Reports as per HPI Musc Reports no additional complaints Neuro Reports no additional complaints Psych Reports no additional complaints Endo Reports as per HPI Physical Exam Const General: cooperative Resp Effort & Inspection: able to speak in complete sentences Psych Speech and movement: Clear speech present Thought process: Normal thought process present Thought content: Normal thought content present Insight: Fair insight present (Psych) Judgement: Fair judgement present (Psych) Telehealth Telehealth Telehealth Platform: Telephone Location of provider rendering services: practice address Location of patient: address on file Patient Identification confirmed using: Name, : Yes Telehealth method: voice only Patient verbally consented to treatment: Yes Patient verbally consented to billing insurance company: Yes Patient informed of any privacy concerns related to visit: Yes Minutes spent on Phone/Video with Pt.: 20 Assessment & Plan Assessment & Plan (1) Hypogonadism in male: Code(s): E29.1 - Testicular hypofunction Category: Medical Plan: Risks, benefits and alternatives to therapy were discussed. These include but are not limited to infection, bleeding, damage to local organs and tissues, need for further interventions. ? Anesthetic risks regarding cardiac arrhythmia, blood clots, and potential mortality were discussed. The patient understands the typical recovery time and the outpatient nature of the procedure. After consideration of these risks the patient gives full informed consent and they wish to move ahead with the procedure. (2) Erectile dysfunction associated with type 2 diabetes mellitus: Code(s): E11.69 - Type 2 diabetes mellitus with other specified complication; N52.1 - Erectile dysfunction due to diseases classified elsewhere Category: Medical Plan Discussed risks and benefits of penile prosthesis; this was discussed at length Recent testosterone results reviewed with the patient today; as noted above. Discussed at length lifestyle modifications to assist with hypogonadism as well as erectile dysfunction Discussed at length potential causes for hypogonadism as well as erectile dysfunction. Start testosterone as discussed and prescribed. Discussed lifestyle modifications to assist with erectile dysfunction as well as hypogonadism. Patient scheduled for penile prosthesis with Dr. Montero; all questions were answered Will obtain CBC, testosterone free and total, and PSA in 3 months Follow-up per doctor's orders or sooner with any issues, concerns, and or questions. Orders: Orders Testosterone, Free/Total 3 Months E29.1 - Testicular hypofunction Prostate Specific Antigen 3 Months E29.1 - Testicular hypofunction Complete Blood Count no Diff 3 Months E29.1 - Testicular hypofunction Medications: New testosterone apply 2 pumps over max area - alternate shoulders on alternate days 2 pumps topical DAILY 30 days 75 grams 3RF E29.1 - Testicular hypofunction, R79.89 - Other specified abnormal findings of blood chemistry Patient Instructions: The patient had an opportunity to ask questions regarding the treatment plan. All questions were answered. Physical exam, labs, and imaging were discussed and reviewed in detail. As well as risks, benefits, and discussion of treatment choices. No major barriers to understanding were identified. The patient expressed understanding and agreement with the above treatment plan. The patient was made aware they should contact our office by phone for worsening of their current condition, the appearance of new symptoms, or with any questions or concerns. Compliance is encouraged with any medications and follow up testing that is ordered. It is a privilege to be allowed the opportunity to participate in? your urological care.? Again, if you have any questions or concerns If you have any questions or concerns please do not hesitate to contact me. The office is [phone]. This note is constructed using voice recognition software. While every effort has been made to ensure accuracy soap drier tender errors may have been included. Yours sincerely, PITO Aguiar Coding Level of Care Code Tele Est Pt Level 4 (67076) Diagnoses Hypogonadism in male E29.1 Erectile dysfunction associated with type 2 diabetes mellitus E11.69; N52.1
== END 2023-08-26 09:25 | disposition home or self-care (01) ==
LOC: HO.HUSH 09:12
PROVIDERS: PCP Nurse Practitioner Family; Visit Provider Nurse Practitioner Family
DX: E29.1 Testicular hypofunction (principal); E11.69 Type 2 diabetes mellitus with other specified complication; N52.1 Erectile dysfunction due to diseases classified elsewhere
CPT/HCPCS: 99442

== ENCOUNTER → 2023-08-26 09:12 | Outpatient (BNVA) | payer BC, SELFPAY | PROVIDERS: PCP Nurse Practitioner Family; Visit Provider Nurse Practitioner Family ==

== ENCOUNTER 2023-09-15 08:16 | Outpatient (AMB) | payer BC, SELFPAY ==
--- NOTE | 2023-09-15 08:19 | A.OFFPC_ITS ---
Vital Signs 09/15/23 08:22 09/15/23 08:48 Height 6 ft Weight 280 lb BMI 38.0 BP 140/80 H 130/80 Blood Pressure Location Rt brachial Rt brachial Position Sitting Sitting Pulse 60 Pulse Source Pulse Oximeter Pulse Oximetry (%) 97 Oxygen Delivery Method Room Air Intake Visit Reasons: 3 month f/u Intake Note: Patient here for diabetes follow up Allergies No Known Allergies Allergy (Verified 09/15/23 08:49) Medication List - Last Reconciled 09/15/23 by PITO Sanders [4x4 gauze As directed] [6x6 kerlix fluffs As directed] amlodipine 10 mg PO DAILY atorvastatin 20 mg PO BEDTIME blood sugar diagnostic (Cable-Senseuch Verio test strips) test blood sugar TID flash glucose scanning reader (ParudiStyle Michael 2 [place]) tid testing flash glucose sensor (FreeStyle Michael 2 Sensor kit) TID testing gabapentin 600 mg PO QID 30 days glipizide 10 mg PO BID hydrochlorothiazide 12.5 mg PO DAILY insulin glargine (Basaglar KwikPen U-100 Insulin) 25 units (0.25 mL) subcut QPM [kerlix rolls As directed] lisinopril 40 mg PO DAILY metoprolol succinate ER 100 mg PO DAILY 90 days omeprazole 20 mg PO DAILY tadalafil 20 mg PO DAILY PRN testosterone 2 pumps topical DAILY 30 days Tobacco use date assessed: 06/15/23 Dental Screening Dental Screen Date: 06/15/23 HPI 3 month f/u HPI Details Pt is a diabetic, on an SREEKANTH and a statin. Last A1C was 6.1. Due for microalbumin in the near future, will order. Denies polyuria, polydipsia, does report neuropathy. Pt denies any signs and symptoms of hypoglycemia and does know how to correct it. Pt reports that his blood sugar has been well- controlled. Eye exam is up to date. Pt has a wound to the base of his right 1st toe. Pt's will keep an eye on this for signs of infection. Will have pt use bacitracin. [facility] Medical History Diabetes mellitus with neuropathy On beta roney at home Pulmonary nodule Diabetic foot ulcer Essential hypertension Obesity History of cervical fracture Personal history of nicotine dependence Dysphagia Neuropathy MAHAD (obstructive sleep apnea) GERD (gastroesophageal reflux disease) PAD (peripheral artery disease) Diabetes mellitus, type 2 Surgical History History of amputation of toe (04/06/23) History of tonsillectomy History of total left knee replacement History of fusion of cervical spine History of total right knee replacement (TKR) History of endoscopy History of colonoscopy History of left knee surgery Family History Mother No problems noted. Father No problems noted. Social History Housing: House Are you a primary healthcare business analyst to a significant other at home: No Do you presently have visiting nurse or other home services: No Alcohol intake: current Alcohol intake frequency: 0-2 drinks per day Alcohol type: hard liquor Patient Tobacco Use Status: Current everyday Tobacco user Tobacco use type: Cigarette Cigarette Packs Per Day: 1 Cigarettes Per Day: 20.0 Years Smoked: 25 e-Cigarette/Vaping Use: Never Used Second Hand Smoke Exposure: No service: No Current occupational status: employed Current occupation: [employer], right handed Current occupational exposures/hazards: Yes Cognitive needs: No Hearing needs: No Vision needs: No Questionnaire PHQ-9 Over the last 2 weeks, how often have you been bothered by any of the following problems? 29741 - PHQ-9 Billing: Patient declined-do not bill Source: Developed by Drs. Milton Flores, Jillian Pickard, Fazal Rubalcava and colleagues, with an educational jones from [employer]. Thrive Questionnaire Date Thrive assessed: 06/15/23 LIO-7 AMB Questionnaire LIO-7 Date LIO - 7 assessed: 06/15/23 Source: Developed by Drs. Milton Flores, Jillian Pickard, Fazal Rubalcava and colleagues, with an educational jones from [employer]. LIO-7 Assessment Billing LIO-7 Assessment Tool: pt declined-do not bill Review of Systems Const Reports as per HPI Physical exam (Primary Care) Vital Signs: Last Vital Signs Pulse 60 09/15/23 08:22 BP 140/80 H 09/15/23 08:22 Pulse Ox 97 09/15/23 08:22 Oxygen Delivery Method Room Air 09/15/23 08:22 BMI result Body Mass Index 38.0 Tobacco/Smoking Status: Tobacco use Status Tobacco use date assessed 06/15/23 09/15/23 08:19 Patient Tobacco Use Status Current everyday Tobacco 09/15/23 08:19 Tobacco use type Cigarette 09/15/23 08:19 e-Cigarette/Vaping Use Never Used 09/15/23 08:19 Thrive Assessment: Date of Thrive Assessment Date Thrive assessed 06/15/23 09/15/23 08:19 Const General: cooperative Nutritional Appearance: obese Orientation/consciousness: patient oriented x3 Resp Effort & Inspection: normal respiratory effort Auscultation: clear to auscultation bilaterally Cardio Rate: regular rate Rhythm: regular rhythm Heart sounds: S1 normal heart sound present, S2 normal heart sound present and Murmur heart sound present systolic Skin Other: left lateral upper breast, protruding/raised darker pinkish lesion Neuro General: patient oriented x3 Extrem Other: left foot, second toe amputated, first toe with large bunion, toe pointing lateral. no sensation with use of monfilament. Right foot, base of first toe, linear open wound (found to crease noted to base of first toe, toe is plantar flexed). No signs of infection. no sensation with use of monofilament, onychomycosis noted bilat Psych Appearance: grossly normal Mental Status: mental status grossly normal Speech and movement: Normal speech and movement present Affect: normal affect Attitude: cooperative Thought process: Normal thought process present Thought content: Normal thought content present Insight: Good insight present (Psych) Judgement: Good judgement present (Psych) Assessment and Plan Assessment & Plan (1) Erectile dysfunction associated with type 2 diabetes mellitus: Code(s): E11.69 - Type 2 diabetes mellitus with other specified complication; N52.1 - Erectile dysfunction due to diseases classified elsewhere Plan: Labs ordered (2) Lesion of skin of breast: Code(s): L98.8 - Other specified disorders of the skin and subcutaneous tissue Plan: referred to derm (3) Wound of foot: Code(s): S91.309A - Unspecified open wound, unspecified foot, initial encounter Plan: bacitracin to be used, pt reports his will keep an eye on this, referring to podiatry for more input on both feet (4) Bunion: Code(s): M21.619 - Bunion of unspecified foot Plan: referred to podiatry Plan The patient agreed to the use of a medical service technician for this encounter. Scribed for LESLIE Amanda by Brittnee Torres medical service technician, on 09/15/2023 at 08:30 EST. Orders: Orders Comprehensive Lohman. Panel Fast Today E11.69 - Type 2 diabetes mellitus with other specified complication, N52.1 - Erectile dysfunction due to diseases classified elsewhere Lipid Panel Today E11.69 - Type 2 diabetes mellitus with other specified complication, N52.1 - Erectile dysfunction due to diseases classified elsewhere Complete Blood Count Auto Diff Today E11.69 - Type 2 diabetes mellitus with other specified complication, N52.1 - Erectile dysfunction due to diseases cl assified elsewhere TSH reflex Free T4 Today E11. - Type 2 diabetes mellitus with other specified complication, N52.1 - Erectile dysfunction due to diseases classified elsewhere UA CC w/rflx Micro + Cult Today E11. - Type 2 diabetes mellitus with other specified complication, N52.1 - Erectile dysfunction due to diseases classified elsewhere Microalbumin, Random (w Creat) Today E11.69 - Type 2 diabetes mellitus with other specified complication, N52.1 - Erectile dysfunction due to diseases classified elsewhere Hemoglobin A1c Today E11.69 - Type 2 diabetes mellitus with other specified complication, N52.1 - Erectile dysfunction due to diseases classified elsewhere Referrals Dermatology Referral L98.8 - Other specified disorders of the skin and subcutaneous tissue Podiatry Referral M21.619 - Bunion of unspecified foot, S91.309A - Unspecified open wound, unspecified foot, initial encounter Coding Level of Care Code Est Pt Level 3 (08226) Diagnoses Erectile dysfunction associated with type 2 diabetes mellitus E11.; N52.1 Lesion of skin of breast L98.8 Wound of foot S91.309A Bunion M21.619
[2023-09-15 08:22] VITALS: BP 140/80; PULSE 60; O2SAT 97; BMI 38.0
[2023-09-15 08:48] VITALS: BP 130/80
== END 2023-09-15 10:46 | disposition home or self-care (01) ==
PROVIDERS: PCP Nurse Practitioner Family; Visit Provider Nurse Practitioner Family
DX: E11.69 Type 2 diabetes mellitus with other specified complication (principal); N52.1 Erectile dysfunction due to diseases classified elsewhere; L98.8 Other specified disorders of the skin and subcutaneous tissue; S91.309A Unspecified open wound, unspecified foot, initial encounter; M21.619 Bunion of unspecified foot
CPT/HCPCS: 99213

== ENCOUNTER 2023-10-12 08:23 | Day surgery (SDC) | payer BC, SELFPAY ==
[2023-10-08 15:31] VITALS: BMI 37.3
[2023-10-12] VITALS (11 sets, daily range): BP systolic 146–169; BP diastolic 73–92; PULSE 41–52; RESP 16–18; TEMP 36.2–36.7; O2SAT 96–100; BMI 37.3
--- NOTE | 2023-10-12 11:47 | P.OP_ITS ---
Operative Note Operative Note Date of Service: 10/12/23 Narrative: PreOperative Diagnosis: Erectile dysfunction in setting of diabetes Post Operative Diagnosis: Erectile dysfunction in setting of diabetes Procedure: Placement of inflatable penile prosthetic Surgeon: Dr Tomás Montero Anesthesia: General Indications for procedure: Progressive erectile dysfunction in setting of diabetes Non responsive to oral or injectable medications. Maximum doses have been trialled. Has completed minimum of 6 weeks with penile vacuum pump in order to maximize potential placement. Is aware of the risks and benefits particularly related to mechanical failure, infection, loss of sensation. Procedure: After informed consent was verified the patient was brought to the operating room and placed in a supine position. Anesthesia was administered per protocol. The patient was shaved with clippers, and prepped with cholhexidine based solution. He was draped in a sterile fashion. Safety pause time-out performed. Since he is a diabetic he was given triple coverage with IV vancomycin, Pip-Tazo and fluconazole per modified guideline. 16 Martiniquais Hogue catheter was placed on the field. Bladder was drained. [place] retractor with penile support was placed. Local anesthetic infiltrated horizontally 1.5cm proximal from the penoscrotal junction. Dorsal nerve block was placed inferior to the symphsis pubis in the midline and perineal/crural block was placed 1 fingerbreadth lateral to the midline angled at 45 degrees. The penis was placed in a cephalad position using the glans hook on the [place]. A horizontal scrotal incision was made at the penoscrotal junction and taken down to the tunica. Dissection was performed 1st on the left side and then on the right side to fully expose the proximal tunica of the corpora. Midline dissection was required to lift off the median attachments. At this point stay hooks were placed in a star shaped pattern. A double row of 3-0 Vicryl stay sutures were placed through the proximal corporal tunica with 1cm spacing and labeled and marked bilaterally. Colored vicryl was placed medial and plain vicryl lateral. Blue towels were used to isolate left from right. The same procedure was performed first on the left and then on the right side. The next step was an incision was made between the 2 rows of stay sutures through the tunica using a 15 Blade. This was approximately 2.5 cm in length. The left was completed and then the right side. Minimal bleeding was seen supporting the finding of developing corporal fibrosis. The stay hooks were removed from the [place]. The penile support was removed. Hegar dilators were used in stepwise increasing size to dilate the corporal b odies in a proximal and distal fashion until it could accept a 13 Hegar dilator. Care was taken to reach the sacrum on the posterior dilation and the mid-glans position on the distal dilation. Dilation was performed on the left-hand side followed by the right-hand side. Once complete the 12 Hegar dilator was placed up the left distal corporal body and the 13 Hegar dilator placed up the right distal corporal body. Neither dilator touched each other demonstrating cross over had not occurred. After dilation each corporal body were washed with antibiotic normal saline. At this point the elmer measuring device was introduced. On the left side the proximal dilation measured at 10 cm and the distal dilation measured approximately 12 cm on the left. On the right side 10 cm and 12 cm r espectively. Based on the considerations from dilatation and an assessment of the penile base girth a decision was made regarding penile prosthetic choice. Given length of prosthetic a Figure 8 Surgical CX was used for maximizing girth rigidity and stability. Prior to prosthetic preparation placement of the reservoir was performed. The 100cc concealed reservoir was chosen. Surgical gloves were changed at this point in the procedure prior to handling the prosthetic. The right inguinal canal was palpated and finger dissection plus the blue hook retractor were used to expose the floor of the canal and palpate the medial edge adjacent to the rectur abdominis tendon insertion. A Metzenbaum scissors were used to punch a small hole in the posterior wall of the medial aspect of the inguinal canal. This was enlarged with the tip of the index finger. The concealed reservoir was then placed through this hole into the preperitoneal, retro body wall space. This was filled with 100 cc injectable normal saline and minimal back pressure was noted. Shod clamps were placed. Preparation of the corporal cylinders and integrated pump were complete. Rear tip extenders had been attached. An introducer Aleksandr needle was used to thread the distal tip thread from left side corporal prosthetic. The threaded needle was loaded into the elmer device and placed through the corporal defect to the mid glans position. The needle was advanced out through the glans of the penis. The prosthetic was then placed into the corporal defect. The proximal portion, with attached rear tip research fellow, was advanced and placed using the enclosed pusher device. Once the proximal portion was properly seated the distal component was introduced and brought out to the distal portion of the corpora by retracting the glans suture. A similar procedure was repeated on the right side. Tubing covering was stripped. The penis was elevated by grasping the distal glans sutures. The prosthetic was then inflated with approximately 80 cc of normal saline. No defects were seen. The prosthetic remained midline and the distal tips could be palpated in the mid penile gland indicating correct placement. The penile prosthetic was deflated. The parallel stay sutures were then secured in a horizontal fashion. The proximal pair of sutures were tied first. The proximal suture ends were tied in an air knot. The distal suture ends were lifted tightening the proximal knot onto tissue and closing the corporotomy. This was repeated with the second pair of distal sutures. The left side was completed first followed by the right. The scrotum was irrigated. Blunt dissection was performed to create a scrotal pocket. The pump was placed into the scrotal pocket and held using a clamp. The excess tubing from the pump and reservoir was isolated using rubber shod clamps. Excess tubing was cut with scissors leaving a 1 inch length. The tubing ends were spiritzed with saline. Compression fittings were placed and locked using the compression clamp. The penile prosthetic was then refilled to ensure proper function and adequate flow between the reservoir and the prosthetic. A 3-0 Vicryl was then used to secure tissue so the pump was kept in the dependent position using a purse string suture. Tissue was reapproximated with 3-0 Vicryl in a horizontal fashion. At least 2 layers were created Skin was closed using a running 4.0 monocryl suture. The wounds were cleaned and dried. Dermal glue was used to cover the incision. Once the incision was dry and modified mummy / broccoli stalk dressing was applied. This consisted of a layer of rose followed by Coban. Two-three pumps had been placed into the prosthetic so as to keep the prosthetic partially filled. A cap was left on the Hogue catheter to allow drainage for the next 48 hours. He tolerated the procedure well was extubated in operating room transferred in stable condition to the recovery area. Drains: Sixteen Martiniquais Hogue catheter Pathology: None
--- NOTE | 2023-10-12 11:47 | P.HPSUR_ITS ---
Pre-Procedural Eval Section A - 24 Hr Update-Section A only Date of Service: 10/12/23 The patient is an INPATIENT: No Changes since office visit: No Cold of Flu in the past 2 weeks, No New Medical Problems, No Changes in Medication and No Patient answered all questions The patient has been examined within 24 hours of the surgical procedure. The History & Physical has been completed within 30 days and I have reviewed it.: Yes Section B - Complete if H&P > 30 days Chief Complaint: Type 2 diabetes mellitus with other specified comp Allergies: Allergies Allergy/AdvReac Type Severity Reaction Status Date / Time No Known Allergies Allergy Verified 10/08/23 15:28 Review of Systems Sugical H&P ROS: Negative: Constitution, Cardiovascular, Respiratory, Neurological, Psychiatric, Hem-Onc, Allergic/Immunologic, Gastrointestinal, Genitourinary, Musculoskeletal, Integumentary, Endocrine and Eyes/Ears/Nose/Th roat Exam Surgical H&P Exam: Normal: HEENT, Normal: Heart, Normal: Lungs, Normal: Extremities, Normal: Abdomen, Normal: Skin and Normal: Neurological Plan Diagnosis/Plan: Unchanged (penile prosthetic) I have reviewed the history and physical and performed a pertinent physical examination on my patient. No changes have occurred unless specified. Time Spent With Patient Time: Total time managing care of this patient today ____ minutes.
[2023-10-12] MEDS: Piperacillin Sodium/Tazobactam 3.375 GM in 0.9 % Sodium Chloride 50 ML IV (12:49)
[2023-10-12] MEDS: Lactated Ringers 1,000 ML 80 ML IVCONT (12:49)
[2023-10-12 13:09] LABS: Glucose, Whole Blood 125 mg/dL (60-115)
[2023-10-12] MEDS: vancomycin/NS 2,000 MG/500 ML PLAST..BAG 250 MG IV (13:23)
--- NOTE | 2023-10-12 13:28 | PC.NURSE ---
per dr. carmona no preop labs required.
--- NOTE | 2023-10-12 13:30 | PC.NURSE ---
report given to jose montejo rn at this time - aware to hang Diflucan when arrives from pharmacy prior to going into OR.
[2023-10-12] MEDS: Fluconazole in NaCl,Iso-Osm 100 MG in Container,Empty 0 ML 50 MG IV (13:47)
--- NOTE | 2023-10-12 13:50 | HO.ANESPROP2 ---
HPI - Anesthesia Eval Consult details Narrative: for penile prosthesis PMFSH Active Problems Active Problems: All Active Problems Bunion (Acute) Wound of foot (Acute) Lesion of skin of breast (Acute) Hypogonadism in male (Acute) Burn (Acute) Ascending aorta dilatation (Acute) Diastolic dysfunction (Acute) Other and unspecified hyperlipidemia (Acute) Preoperative cardiovascular examination (Acute) Grade III diastolic dysfunction (Acute) Preop testing (Acute) Osteomyelitis of foot (Acute) Low iron (Acute) HTN (hypertension) (Acute) ETOH abuse (Acute) Olecranon bursitis of right elbow (Acute) Anemia (Acute) Elevated alkaline phosphatase level (Acute) Screen for colon cancer (Acute) Erectile dysfunction associated with type 2 diabetes mellitus (Acute) Foot ulceration (Acute) Screening PSA (prostate specific antigen) (Acute) COPD (chronic obstructive pulmonary disease) (Acute) Mediastinal lymphadenopathy (Acute) Swelling of both lower extremities (Acute) Numbness (Acute) Paresthesia (Acute) Enlarged thyroid (Acute) Dilatation of aorta (Acute) Fall (Acute) Foot ulcer, left (Acute) Varicose veins of left lower extremity with inflammation (Acute) Foot infection (Acute) Pedal edema (Acute) Diabetes (Acute) Diabetes mellitus with neuropathy (Acute) MAHAD (obstructive sleep apnea) (Acute) Pulmonary nodule (Acute) Personal history of nicotine dependence (Acute) Diabetes mellitus, type 2 (Acute) Essential hypertension (Acute) Dysphagia (Acute) PAD (peripheral artery disease) (Acute) Obesity (Acute) Past Medical History Medical History Diabetes mellitus with neuropathy On beta roney at home Pulmonary nodule Diabetic foot ulcer Essential hypertension Obesity History of cervical fracture Personal history of nicotine dependence Dysphagia Neuropathy MAHAD (obstructive sleep apnea) GERD (gastroesophageal reflux disease) PAD (peripheral artery disease) Diabetes mellitus, type 2 Family History Family History Mother No problems noted. Father No problems noted. Family history of problems with anesthesia: No Surgical History Surgical History History of amputation of toe (04/06/23) History of tonsillectomy History of total left knee replacement History of fusion of cervical spine History of total right knee replacement (TKR) History of endoscopy History of colonoscopy History of left knee surgery History of Problems with Anesthesia: No Social History Social History Housing: House Are you a primary healthcare specialist to a significant other at home: No Do you presently have visiting nurse or other home services: No Alcohol intake: current Alcohol intake frequency: 0-2 drinks per day Alcohol type: hard liquor Patient Tobacco Use Status: Current everyday Tobacco user Tobacco use type: Cigarette Cigarette Packs Per Day: 1 Cigarettes Per Day: 10 Years Smoked: 25 Smoked in Last 30 Days: Yes e-Cigarette/Vaping Use: Never Used Second Hand Smoke Exposure: No Use of substances other than those prescribed or required for medical reasons: No Have you been hit, kicked, punched, or otherwise hurt by someone within the past year? If so, by whom?: No Are you DNR?: No Advance Directives: No Advance Directives Information Provided: Yes Advance Directives on File: No Recently lost weight without trying: No Nutrition Risks: No Nutritional Risk service: No Current occupational status: employed Current occupation: [employer], right handed Current occupational exposures/hazards: Yes Cognitive needs: No Hearing needs: No Vision needs: No Meds Allergies Allergy/AdvReac Type Severity Reaction Status Date / Time No Known Allergies Allergy Verified 10/12/23 13:00 Active Medications: Current Medications Lactated Ringer's (Lr) 1,000 mls @ 80 mls/hr IVCONT .[id number] [facility] Last Admin: 10/12/23 12:49 Dose: 80 mls/hr Fluconazole 100 mg/ IV (Miscellaneous Supplies) 50 mls @ 50 mls/hr IV Q24H [facility] Last Admin: 10/12/23 13:47 Dose: 50 mls/hr Vancomycin HCl (Vancomycin/Ns) 2,000 mg in 500 mls @ 250 mls/hr IV PREOP ONE Stop: 10/12/23 14:44 Last Admin: 10/12/23 13:23 Dose: 250 mls/hr Exam Height,Weight and Vital Signs: Height 6 ft Weight 124.738 kg Last Vital Signs Temp 98.0 F 10/12/23 12:58 Pulse 52 10/12/23 12:58 Resp 18 10/12/23 12:58 BP 169/92 H 10/12/23 12:58 Pulse Ox 96 10/12/23 12:58 O2 Del Method Room Air 10/12/23 12:58 Pertinent Lab Results Pertinent Lab Results: Laboratory Tests 10/12/23 12:41 POC Glucose 125 H Airway Mallampati Class: I TM Dist: >3cm Neck ROM: Full Denture: Upper and Lower Heart: ok Lungs: ok Assessment and Plan Assessment Anesthesia Assessment: Anesthesia Plan Discussed and Chart Reviewed Final Anesthetic Review Family History of Problems with Anesthesia: No History of Problems with Anesthesia: No NPO: Yes ASA Class: III Final Preanesthetic Review: No Changes in Pt Med Stat, Meds/Allgs Chart Reviewed, Consent Obtained/Reviewed and Anes Risks/Benef Reviewed Patient Risk: Intermediate Procedure Risk: Low Anesthetic Plan Anesthetic Plan: GA and Agree w/ Assess. and Plan Disposition: Standard PACU
[2023-10-12] MEDS: fentaNYL citrate/PF 100 MCG/2 ML VIAL 50 MCG IVPUSH ×2 (16:36→16:45)
[2023-10-12] MEDS: oxyCODONE HCl Immed Release 5 MG TABLET 10 MG PO (16:36)
== END 2023-10-12 17:43 | disposition home or self-care (01) ==
PROVIDERS: PCP Nurse Practitioner Family; Visit Provider Urology
PROC: (CPT 54405; principal; 2023-10-12 13:40)
DX: E11.69 Type 2 diabetes mellitus with other specified complication (principal); N52.1 Erectile dysfunction due to diseases classified elsewhere; E29.1 Testicular hypofunction; E11.40 Type 2 diabetes mellitus with diabetic neuropathy, unspecified; I10 Essential (primary) hypertension; I73.9 Peripheral vascular disease, unspecified; G47.33 Obstructive sleep apnea (adult) (pediatric); Z99.89 Dependence on other enabling machines and devices; Z79.4 Long term (current) use of insulin; Z79.84 Long term (current) use of oral hypoglycemic drugs; Z79.899 Other long term (current) drug therapy; F17.210 Nicotine dependence, cigarettes, uncomplicated; Z98.890 Other specified postprocedural states
CPT/HCPCS: 54405; 82947; C1813; J0131; J1450; J1580; J2543; J2704; J2795; J3010; J3370

== ENCOUNTER → 2023-10-12 08:23 | Outpatient (BNV) | payer BC, SELFPAY | PROVIDERS: PCP Nurse Practitioner Family; Visit Provider Urology | DX: E11.69 Type 2 diabetes mellitus with other specified complication (principal); N52.1 Erectile dysfunction due to diseases classified elsewhere | CPT/HCPCS: 54405 ==

== ENCOUNTER 2023-10-13 08:32 | Outpatient (AMB) | payer BC, SELFPAY ==
--- NOTE | 2023-10-13 08:40 | MHC.OFFVIS ---
Intake Visit Reasons: follow up/Penile Prosthesis Intake Note: Patient is present for Catheter removal Allergies No Known Allergies Allergy (Verified 10/12/23 13:00) HPI Comments Details: Postop day 1 from penile implant Difficulty with urination and dealing with indwelling catheter Swollen testicles Dressing Has been taken down Incision looks clean dry and intact Does have testicular bruising consistent with placement of penile prosthetic Reassurance provided Should manipulate bulb pump in shower Two week follow-up for pump activation [facility] Medical History (Updated 10/13/23 @ 08:56 by Tomás Montero MD) Erectile dysfunction associated with type 2 diabetes mellitus Diabetes mellitus with neuropathy On beta roney at home Pulmonary nodule Diabetic foot ulcer Essential hypertension Obesity History of cervical fracture Personal history of nicotine dependence Dysphagia Neuropathy MAHAD (obstructive sleep apnea) GERD (gastroesophageal reflux disease) PAD (peripheral artery disease) Diabetes mellitus, type 2 Surgical History History of amputation of toe (04/06/23) History of tonsillectomy History of total left knee replacement History of fusion of cervical spine History of total right knee replacement (TKR) History of endoscopy History of colonoscopy History of left knee surgery Family History Mother No problems noted. Father No problems noted. Social History Housing: House Are you a primary mall plant caretaker to a significant other at home: No Do you presently have visiting nurse or other home services: No Alcohol intake: current Alcohol intake frequency: 0-2 drinks per day Alcohol type: hard liquor Patient Tobacco Use Status: Current everyday Tobacco user Tobacco use type: Cigarette Cigarette Packs Per Day: 1 Cigarettes Per Day: 10 Years Smoked: 25 e-Cigarette/Vaping Use: Never Used Second Hand Smoke Exposure: No service: No Current occupational status: employed Current occupation: [employer], right handed Current occupational exposures/hazards: Yes Cognitive needs: No Hearing needs: No Vision needs: No Review of Systems Const Reports as per HPI and Reports no additional complaints Card Reports as per HPI and Reports no additional complaints Resp Reports as per HPI and Reports no additional complaints GI Reports as per HPI and Reports no additional complaints Reports as per HPI Musc Reports no additional complaints and Reports as per HPI Neuro Reports no additional complaints and Reports as per HPI Physical Exam Const General: cooperative, healthy appearing, comfortable and no acute distress Orientation/consciousness: patient oriented x3 HEENT Face and sinus: Yes normal facial exam Mouth: moist mucous membranes Neck Neck: Yes normal visual inspection, Yes full ROM and Yes trachea midline Chest Chest palpation & inspection: normal inspection of the chest Resp Effort & Inspection: normal respiratory effort, able to speak in complete sentences and no respiratory distress GI Inspection: Yes normal to inspection Back/Spine/Pelvis Cervical Spine: normal cervical lordosis Thoracic/Lumbar Spine: thoracic and lumbar spine normal to inspection Skin General skin exam: no rashes or lesions noted Neuro General: patient oriented x3, tone normal and moves all extremities Extrem General: Yes normal to inspection and Yes capillary refill normal Assessment & Plan Assessment & Plan (1) Hypogonadism in male: Code(s): E29.1 - Testicular hypofunction Category: Medical (2) Erectile dysfunction associated with type 2 diabetes mellitus: Code(s): E11.69 - Type 2 diabetes mellitus with other specified complication; N52.1 - Erectile dysfunction due to diseases classified elsewhere Category: Medical Plan Two week follow-up Patient Instructions: Imaging studies, laboratory and physical exam results were discussed and reviewed in detail. No major barriers to patient understanding were identified. An opportunity to ask questions regarding the treatment plan was provided. All questions were answered. The patient expressed understanding and agreement with the above treatment plan. The patient is aware they should contact our office by phone for worsening of their current condition or the appearance of new urologic symptoms. Compliance is encouraged with any medications and followup testing that is ordered. It is a privilege to participate in the urologic care of your patient. If you have any questions or concerns regarding treatment for the above conditions, or other urologic issues, please do not hesitate to contact me. The office telephone contact is [phone]. This note is constructed using voice recognition software. While every effort has been made to ensure accuracy meteorology teacher errors may have been included. Yours sincerely, Dr Tomás Montero MD, [facility] - Urology Providers of Expert, Compassionate Care for the Genitourinary System Coding Level of Care Code Global (57437) Diagnoses Hypogonadism in male E29.1 Erectile dysfunction associated with type 2 diabetes mellitus E11.69; N52.1
== END 2023-10-13 09:17 | disposition home or self-care (01) ==
LOC: HO.HUSH 08:32
PROVIDERS: PCP Nurse Practitioner Family; Visit Provider Urology
DX: E29.1 Testicular hypofunction (principal); E11.69 Type 2 diabetes mellitus with other specified complication; N52.1 Erectile dysfunction due to diseases classified elsewhere
CPT/HCPCS: 99024

== ENCOUNTER → 2023-10-13 08:32 | Outpatient (BNVA) | payer BC, SELFPAY | PROVIDERS: PCP Nurse Practitioner Family; Visit Provider Urology ==

== ENCOUNTER 2023-10-27 14:48 | Outpatient (AMB) | payer BC, SELFPAY ==
--- NOTE | 2023-10-27 14:50 | MHC.OFFVIS ---
Intake Visit Reasons: Penile Prosthesis- 2wk follow up Intake Note: Patient is Present for Follow Up Penile Prosthesis Urology Medication: Testosterone Antibiotic Allergies:None Blood Thinners: None Philosophy Professor Required: No Allergies No Known Allergies Allergy (Verified 10/12/23 13:00) Medication List - Last Reconciled 10/27/23 by Tomás Montero MD [4x4 gauze As directed] [6x6 kerlix fluffs As directed] amlodipine 10 mg PO DAILY atorvastatin 20 mg PO BEDTIME blood sugar diagnostic (RobArtuch Verio test strips) test blood sugar TID flash glucose scanning reader (ForsevaStyle Michael 2 Mystic) tid testing flash glucose sensor (FreeStyle Michael 2 Sensor kit) TID testing gabapentin 600 mg PO QID 30 days glipizide 10 mg PO BID hydrochlorothiazide 12.5 mg PO DAILY insulin glargine (Basaglar KwikPen U-100 Insulin) 25 units (0.25 mL) subcut QPM [kerlix rolls As directed] lisinopril 40 mg PO DAILY metoprolol succinate ER 100 mg PO DAILY 90 days omeprazole 20 mg PO DAILY oxycodone 5 mg PO Q8H PRN 5 days sulfamethoxazole-trimethoprim 400-80 mg (Bactrim) 1 tab PO DAILY sulfamethoxazole-trimethoprim 800-160 mg (Bactrim DS) 1 tab PO BID 14 days testosterone 2 pumps topical DAILY 30 days HPI Comments Details: Colton is a pleasant male. He is a patient of Dr Shoemaker. He is seen for the following urologic conditions. - erectile dysfunction - hypogonadism 2 week follow-up penile prosthetic Had returned to work and noted some blood in his underwent On examination has superficial wound incision. The wound is approximately half a cm open in a superficial fashion. No evidence of infection. Decision made to reapproximate wound edges and prescribed 2 weeks of antibiotics. Hypogonadism Inital labs 05/20 163, 07/18 T 123, FT 18 Started on testosterone gel 2 pumps daily Erectile Dysfunction in setting of diabetes Progressive Concurrent diagnoses include diabetes with neuropathy, hypertension, dyslipidemia - insulin and glipizide Failed on demand therapy Penile prosthetic 10/18 [facility] Medical History (Updated 10/27/23 @ 17:00 by Tomás Montero MD) Erectile dysfunction associated with type 2 diabetes mellitus Diabetes mellitus with neuropathy On beta roney at home Pulmonary nodule Diabetic foot ulcer Essential hypertension Obesity History of cervical fracture Personal history of nicotine dependence Dysphagia Neuropathy MAHAD (obstructive sleep apnea) GERD (gastroesophageal reflux disease) PAD (peripheral artery disease) Diabetes mellitus, type 2 Surgical History History of amputation of toe (04/06/23) History of tonsillectomy History of total left knee replacement History of fusion of cervical spine History of total right knee replacement (TKR) History of endoscopy History of colonoscopy History of left knee surgery Family History Mother No problems noted. Father No problems noted. Social History Housing: House Are you a primary career information specialist to a significant other at home: No Do you presently have visiting nurse or other home services: No Alcohol intake: current Alcohol intake frequency: 0-2 drinks per day Alcohol type: hard liquor Patient Tobacco Use Status: Current everyday Tobacco user Tobacco use type: Cigarette Cigarette Packs Per Day: 1 Cigarettes Per Day: 10 Years Smoked: 25 e-Cigarette/Vaping Use: Never Used Second Hand Smoke Exposure: No service: No Current occupational status: employed Current occupation: [employer], right handed Current occupational exposures/hazards: Yes Cognitive needs: No Hearing needs: No Vision needs: No Review of Systems Const Denies chills and Denies fever(s) Card Reports no additional complaints and Denies syncope Resp Denies cough GI Denies abdominal pain and Denies heartburn Reports as per HPI and Denies change in libido Neuro Denies syncope Psych Denies change in libido Endo Denies change in libido Physical Exam Const General: cooperative, healthy appearing, comfortable and no acute distress Orientation/consciousness: patient oriented x3 HEENT Face and sinus: Yes normal facial exam Mouth: moist mucous membranes Neck Neck: Yes normal visual inspection, Yes full ROM and Yes trachea midline Chest Chest palpation & inspection: normal inspection of the chest Resp Effort & Inspection: normal respiratory effort, able to speak in complete sentences and no respiratory distress GI Inspection: Yes normal to inspection Back/Spine/Pelvis Cervical Spine: normal cervical lordosis Thoracic/Lumbar Spine: thoracic and lumbar spine normal to inspection Skin General skin exam: no rashes or lesions noted Neuro General: patient oriented x3, gait normal, tone normal and moves all extremities Extrem General: Yes normal to inspection and Yes capillary refill normal Office Procedures Incision Repair Details: Superficial Wound Dehisence Base of penis Area cleaned with betadine Local anesthetic injected Interrupted 3.0 chromic surtures used for closure - 7 sutures placed Dressing placed CPT: 58231 - Incision Repair Assessment & Plan Assessment & Plan (1) Hypogonadism in male: Code(s): E29.1 - Testicular hypofunction Category: Medical (2) Erectile dysfunction associated with type 2 diabetes mellitus: Code(s): E11.69 - Type 2 diabetes mellitus with other specified complication; N52.1 - Erectile dysfunction due to diseases classified elsewhere Category: Medical (3) Wound dehiscence: Code(s): T81.30XA - Disruption of wound, unspecified, initial encounter Category: Medical Plan Two week follow-up office Medications: New sulfamethoxazole-trimethoprim 800-160 mg (Bactrim DS) 1 tab PO BID 14 days 28 tabs 0RF N39.0 - Urinary tract infection, site not specified Patient Instructions: Imaging studies, laboratory and physical exam results were discussed and reviewed in detail. No major barriers to patient understanding were identified. An opportunity to ask questions regarding the treatment plan was provided. All questions were answered. The patient expressed understanding and agreement with the above treatment plan. The patient is aware they should contact our office by phone for worsening of their current condition or the appearance of new urologic symptoms. Compliance is encouraged with any medications and followup testing that is ordered. It is a privilege to participate in the urologic care of your patient. If you have any questions or concerns regarding treatment for the above conditions, or other urologic issues, please do not hesitate to contact me. The office telephone contact is [phone]. This note is constructed using voice recognition software. While every effort has been made to ensure accuracy coffee shop aide errors may have been included. Yours sincerely, Dr Tomás Montero MD, [facility] - Urology Providers of Expert, Compassionate Care for the Genitourinary System Coding Level of Care Code Est Pt Level 3 (26039) Diagnoses Hypogonadism in male E29.1 Erectile dysfunction associated with type 2 diabetes mellitus E11.69; N52.1 Wound dehiscence T81.30XA CPT Codes Incision Repair ([id number])
== END 2023-10-27 15:32 | disposition home or self-care (01) ==
PROVIDERS: PCP Nurse Practitioner Family; Visit Provider Urology
DX: E29.1 Testicular hypofunction (principal); E11.69 Type 2 diabetes mellitus with other specified complication; N52.1 Erectile dysfunction due to diseases classified elsewhere; T81.30XA Disruption of wound, unspecified, initial encounter
CPT/HCPCS: 99024

== ENCOUNTER → 2023-10-27 14:48 | Outpatient (BNVA) | payer BC, SELFPAY | PROVIDERS: PCP Nurse Practitioner Family; Visit Provider Urology ==

== ENCOUNTER → 2023-11-02 10:19 | Outpatient (BNVA) | payer BC, SELFPAY | PROVIDERS: PCP Nurse Practitioner Family; Visit Provider Urology ==

== ENCOUNTER 2023-11-02 14:03 | Outpatient (AMB) | payer BC, SELFPAY ==
--- NOTE | 2023-11-02 14:14 | A.OFFVIS_ITS ---
Intake Visit Reasons: Penile Prosthesis/incision issues Intake Note: Patient is present for penile prosthesis/incision issues Urology Medication:oxycodone,bactrim,testosterone Antibiotic Allergy:none Blood Thinner:none Movie Critic Required: No Allergies No Known Allergies Allergy (Verified 12/09/23 09:54) HPI Comments Details: Colton is a pleasant male. He is a patient of Dr Shoemaker. He is seen for the following urologic conditions. - erectile dysfunction - hypogonadism 2 week follow-up penile prosthetic Had returned to work and noted some blood in his underwent Chromic sutures tore Nylon sutures placed reinforced with 8 No infections Hypogonadism Inital labs 05/20 163, 07/18 T 123, FT 18 Started on testosterone gel 2 pumps daily Erectile Dysfunction in setting of diabetes Progressive Concurrent diagnoses include diabetes with neuropathy, hypertension, dyslipidemia - insulin and glipizide Failed on demand therapy Penile prosthetic 10/18 [facility] Medical History Erectile dysfunction associated with type 2 diabetes mellitus Diabetes mellitus with neuropathy On beta roney at home Pulmonary nodule Diabetic foot ulcer Essential hypertension Obesity History of cervical fracture Personal history of nicotine dependence Dysphagia Neuropathy MAHAD (obstructive sleep apnea) GERD (gastroesophageal reflux disease) PAD (peripheral artery disease) Diabetes mellitus, type 2 Surgical History History of amputation of toe (04/06/23) History of tonsillectomy History of total left knee replacement History of fusion of cervical spine History of total right knee replacement (TKR) History of endoscopy History of colonoscopy History of left knee surgery Family History Mother No problems noted. Father No problems noted. Social History Housing: House Are you a primary animal care supervisor to a significant other at home: No Do you presently have visiting nurse or other home services: No Alcohol intake: current Alcohol intake frequency: 0-2 drinks per day Alcohol type: hard liquor Patient Tobacco Use Status: Current everyday Tobacco user Tobacco use type: Cigarette Cigarette Packs Per Day: 1 Cigarettes Per Day: 10 Years Smoked: 25 e-Cigarette/Vaping Use: Never Used Second Hand Smoke Exposure: No service: No Current occupational status: employed Current occupation: [employer], right handed Current occupational exposures/hazards: Yes Cognitive needs: No Hearing needs: No Vision needs: No Review of Systems Const Denies chills and Denies fever(s) Card Reports no additional complaints and Denies syncope Resp Denies cough GI Denies abdominal pain and Denies heartburn Reports as per HPI and Denies change in libido Neuro Denies syncope Psych Denies change in libido Endo Denies change in libido Physical Exam Const General: cooperative, healthy appearing, comfortable and no acute distress Orientation/consciousness: patient oriented x3 HEENT Face and sinus: Yes normal facial exam Mouth: moist mucous membranes Neck Neck: Yes normal visual inspection, Yes full ROM and Yes trachea midline Chest Chest palpation & inspection: normal inspection of the chest Resp Effort & Inspection: normal respiratory effort, able to speak in complete sentences and no respiratory distress GI Inspection: Yes normal to inspection Back/Spine/Pelvis Cervical Spine: normal cervical lordosis Thoracic/Lumbar Spine: thoracic and lumbar spine normal to inspection Skin General skin exam: no rashes or lesions noted Neuro General: patient oriented x3, gait normal, tone normal and moves all extremities Extrem General: Yes normal to inspection and Yes capillary refill normal Assessment & Plan Assessment & Plan (1) Wound dehiscence: Code(s): T81.30XA - Disruption of wound, unspecified, initial encounter Category: Medical Plan Keep f/u Patient Instructions: Imaging studies, laboratory and physical exam results were discussed and reviewed in detail. No major barriers to patient understanding were identified. An opportunity to ask questions regarding the treatment plan was provided. All questions were answered. The patient expressed understanding and agreement with the above treatment plan. The patient is aware they should contact our office by phone for worsening of their current condition or the appearance of new urologic symptoms. Compliance is encouraged with any medications and followup testing that is ordered. It is a privilege to participate in the urologic care of your patient. If you have any questions or concerns regarding treatment for the above conditions, or other urologic issues, please do not hesitate to contact me. The office telephone contact is [phone]. This note is constructed using voice recognition software. While every effort has been made to ensure accuracy pattern puncher errors may have been included. Yours sincerely, Dr Tomás Montero MD, [facility] - Urology Providers of Expert, Compassionate Care for the Genitourinary System Coding Level of Care Code Est Pt Level 3 (91249) Diagnoses Wound dehiscence T81.30XA
== END 2023-11-02 14:50 | disposition home or self-care (01) ==
LOC: HO.HUSH 14:03
PROVIDERS: PCP Nurse Practitioner Family; Visit Provider Urology
DX: T81.30XA Disruption of wound, unspecified, initial encounter (principal)
CPT/HCPCS: 99024

== ENCOUNTER → 2023-11-17 13:11 | Outpatient (BNVA) | payer BC, SELFPAY | PROVIDERS: PCP Nurse Practitioner Family; Visit Provider Urology ==

== ENCOUNTER → 2023-11-24 13:57 | Outpatient (BNVA) | payer BC, SELFPAY | PROVIDERS: PCP Nurse Practitioner Family; Visit Provider Urology ==

== ENCOUNTER 2023-12-09 09:34 | Outpatient (AMB) | payer BC, SELFPAY ==
--- NOTE | 2023-12-09 09:52 | MHC.OFFVIS ---
Intake Visit Reasons: 6w Penile Prosthesis Intake Note: Patient is Present for Follow Up Penile Prothesis Urology Medication: Testosterone Antibiotic Allergies: None Blood Thinners:none Hone Operator Required: No Accompanied by: Self / Same As Patient Allergies No Known Allergies Allergy (Verified 12/09/23 09:54) Medication List - Last Reconciled 12/09/23 by Tomás Montero MD [4x4 gauze As directed] [6x6 kerlix fluffs As directed] amlodipine 10 mg PO DAILY atorvastatin 20 mg PO BEDTIME blood sugar diagnostic (Service RouteTouch Verio test strips) test blood sugar TID flash glucose scanning reader (Sentric MusicStyle Michael 2 [place]) tid testing flash glucose sensor (FreeStyle Michael 2 Sensor kit) TID testing gabapentin 600 mg PO QID 30 days glipizide 10 mg PO BID hydrochlorothiazide 12.5 mg PO DAILY insulin glargine (Basaglar KwikPen U-100 Insulin) 25 units (0.25 mL) subcut QPM [kerlix rolls As directed] lisinopril 40 mg PO DAILY metoprolol succinate ER 100 mg PO DAILY 90 days omeprazole 20 mg PO DAILY oxycodone 5 mg PO Q8H PRN 5 days sulfamethoxazole-trimethoprim 400-80 mg (Bactrim) 1 tab PO DAILY sulfamethoxazole-trimethoprim 800-160 mg (Bactrim DS) 1 tab PO BID 14 days testosterone 2 pumps topical DAILY 30 days HPI Comments Details: Colton is a pleasant male. He is a patient of Dr Shoemaker. He is seen for the following urologic conditions. - erectile dysfunction - hypogonadism Six week follow-up penile prosthetic Has not done blood work for testosterone Well healed Clearance for full use Encourage to continue manipulating ball Plan to repeat testosterone labs with 4 week tele visit Hypogonadism Inital labs 05/20 163, 07/18 T 123, FT 18 Started on testosterone gel 2 pumps daily Erectile Dysfunction in setting of diabetes Progressive Concurrent diagnoses include diabetes with neuropathy, hypertension, dyslipidemia - insulin and glipizide Failed on demand therapy Penile prosthetic 10/18 PFSH Medical History Erectile dysfunction associated with type 2 diabetes mellitus Diabetes mellitus with neuropathy On beta roney at home Pulmonary nodule Diabetic foot ulcer Essential hypertension Obesity History of cervical fracture Personal history of nicotine dependence Dysphagia Neuropathy MAHAD (obstructive sleep apnea) GERD (gastroesophageal reflux disease) PAD (peripheral artery disease) Diabetes mellitus, type 2 Surgical History History of amputation of toe (04/06/23) History of tonsillectomy History of total left knee replacement History of fusion of cervical spine History of total right knee replacement (TKR) History of endoscopy History of colonoscopy History of left knee surgery Family History Mother No problems noted. Father No problems noted. 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 Current occupational exposures/hazards: Yes Cognitive needs: No Hearing needs: No Vision needs: No Review of Systems Const Denies chills and Denies fever(s) Card Reports no additional complaints and Denies syncope Resp Denies cough GI Denies abdominal pain and Denies heartburn Reports as per HPI and Denies change in libido Neuro Denies syncope Psych Denies change in libido Endo Denies change in libido Physical Exam Const General: cooperative, healthy appearing, comfortable and no acute distress Orientation/consciousness: patient oriented x3 HEENT Face and sinus: Yes normal facial exam Mouth: moist mucous membranes Neck Neck: Yes normal visual inspection, Yes full ROM and Yes trachea midline Chest Chest palpation & inspection: normal inspection of the chest Resp Effort & Inspection: normal respiratory effort, able to speak in complete sentences and no respiratory distress GI Inspection: Yes normal to inspection Back/Spine/Pelvis Cervical Spine: normal cervical lordosis Thoracic/Lumbar Spine: thoracic and lumbar spine normal to inspection Skin General skin exam: no rashes or lesions noted Neuro General: patient oriented x3, gait normal, tone normal and moves all extremities Extrem General: Yes normal to inspection and Yes capillary refill normal Assessment & Plan Assessment & Plan (1) Hypogonadism in male: Code(s): E29.1 - Testicular hypofunction Category: Medical Plan Continue gel Lab work 4 week follow-up Orders: Orders Testosterone, Free/Total Today E29.1 - Testicular hypofunction Prostate Specific Antigen Today E29.1 - Testicular hypofunction Medications: Refilled testosterone apply 2 pumps over max area - alternate shoulders on alternate days 2 pumps topical DAILY 30 days 75 grams 3RF E29.1 - Testicular hypofunction, R79.89 - Other specified abnormal findings of blood chemistry Patient Instructions: Imaging studies, laboratory and physical exam results were discussed and reviewed in detail. No major barriers to patient understanding were identified. An opportunity to ask questions regarding the treatment plan was provided. All questions were answered. The patient expressed understanding and agreement with the above treatment plan. The patient is aware they should contact our office by phone for worsening of their current condition or the appearance of new urologic symptoms. Compliance is encouraged with any medications and followup testing that is ordered. It is a privilege to participate in the urologic care of your patient. If you have any questions or concerns regarding treatment for the above conditions, or other urologic issues, please do not hesitate to contact me. The office telephone contact is [phone]. This note is constructed using voice recognition software. While every effort has been made to ensure accuracy embossing tool setter errors may have been included. Yours sincerely, Dr Tomás Montero MD, [facility] - Urology Providers of Expert, Compassionate Care for the Genitourinary System Coding Level of Care Code Est Pt Level 3 (72910) Diagnoses Hypogonadism in male E29.1
== END 2023-12-09 10:34 | disposition home or self-care (01) ==
PROVIDERS: PCP Nurse Practitioner Family; Visit Provider Urology
DX: E29.1 Testicular hypofunction (principal)
CPT/HCPCS: 99024

== ENCOUNTER → 2023-12-09 09:34 | Outpatient (BNVA) | payer BC, SELFPAY | PROVIDERS: PCP Nurse Practitioner Family; Visit Provider Urology ==

== ENCOUNTER 2023-12-21 09:20 | Outpatient (REF) | payer BC, SELFPAY ==
[2023-12-21 10:18] LABS: Hematocrit 40.4 % (42.0-52.0); Hemoglobin 12.7 g/dl (14.0-18.0); Mean Corpuscular HGB Conc 31.4 g/dl (31.0-36.0); Mean Corpuscular Hemoglobin 28.5 pg (27.0-33.0); Mean Corpuscular Volume 90.8 fL (80.0-98.0); Mean Platelet Volume 11.1 fL (9.4-12.4); Platelet Count 174 X10*3/uL (160-400); Red Blood Count 4.45 X10*6/uL (4.60-5.80); Red Cell Distribution Width 14.3 % (11.0-16.0); White Blood Count 6.2 X10*3/uL (4.8-10.8)
[2023-12-21 11:23] LABS: Prostate Specific Antigen 0.46 ng/mL (<0.05-4.0)
[2023-12-27 13:53] LABS: Testosterone, Free 39.7 pg/mL (35.0-155.0); Testosterone, Total 263 ng/dL (250-1100)
== END 2023-12-21 09:21 | disposition home or self-care (01) ==
LOC: HO.HMGCLDS 09:20
PROVIDERS: PCP Nurse Practitioner Family; Referring Provider Nurse Practitioner Family; Visit Provider Urology
DX: E29.1 Testicular hypofunction (principal); Z12.5 Encounter for screening for malignant neoplasm of prostate
CPT/HCPCS: 36415; 84153; 84402; 84403; 85027

== ENCOUNTER → 2024-01-08 10:01 | Outpatient (BNVA) | payer BC, SELFPAY | PROVIDERS: PCP Nurse Practitioner Family; Visit Provider Urology ==

== ENCOUNTER 2024-01-13 12:59 | Outpatient (AMB) | payer BC, SELFPAY ==
[2024-01-13 13:04] VITALS: BP 150/82; PULSE 78; O2SAT 97; BMI 36.1
--- NOTE | 2024-01-13 13:04 | MHC.PC.OV ---
Vital Signs 01/13/24 13:04 Height 6 ft Weight 266 lb BMI 36.1 BP 150/82 H Blood Pressure Location Rt brachial Position Sitting Pulse 78 Pulse Source Pulse Oximeter Pulse Oximetry (%) 97 Intake Visit Reasons: PE Intake Note: pt is here for PE Allergies No Known Allergies Allergy (Verified 01/13/24 16:28) Medication List - Last Reconciled 01/13/24 by PITO Sanders [4x4 gauze As directed] [6x6 kerlix fluffs As directed] amlodipine 10 mg PO DAILY atorvastatin 20 mg PO BEDTIME blood sugar diagnostic (Venvy Interactive Videouch Verio test strips) test blood sugar TID flash glucose scanning reader ([employer] InnovationsStyle Michael 2 [place]) tid testing flash glucose sensor (FreeStyle Michael 2 Sensor kit) TID testing gabapentin 600 mg PO QID 30 days glipizide 10 mg PO BID hydrochlorothiazide 12.5 mg PO DAILY insulin glargine (Basaglar KwikPen U-100 Insulin) 25 units (0.25 mL) subcut QPM [kerlix rolls As directed] lisinopril 40 mg PO DAILY metoprolol succinate ER 100 mg PO DAILY 90 days omeprazole 20 mg PO DAILY oxycodone 5 mg PO Q8H PRN 5 days testosterone 2 pumps topical DAILY 30 days Tobacco use date assessed: 06/15/23 Dental Screening Dental Screen Date: 06/15/23 HPI PE HPI Details Pt is here for a PE. Will order labs. Due for colon screen, will refer to GI. PSA is up to date, sees urology. Denies dribbling with urination, weak stream, and frequent nocturia. Pt is a diabetic, on an SREEKANTH and a statin. A1C in office today is 5.9. Due for microalbumin. Denies polyuria, polydipsia, does report neuropathy. Pt denies any signs and symptoms of hypoglycemia and does know how to correct it. Due for eye exam, will refer. Pt will start checking his blood pressure more at home. He is under a lot of stress. Pt does see a hotel front office manager [facility] Medical History (Updated 01/13/24 @ 16:35 by PITO Sanders) Erectile dysfunction associated with type 2 diabetes mellitus Diabetes mellitus with neuropathy On beta roney at home Pulmonary nodule Diabetic foot ulcer Essential hypertension Obesity History of cervical fracture Personal history of nicotine dependence Dysphagia Neuropathy MAHAD (obstructive sleep apnea) GERD (gastroesophageal reflux disease) PAD (peripheral artery disease) Diabetes mellitus, type 2 Surgical History (Reviewed 01/13/24 @ 16:30 by JUAN LUIS [facility] History of amputation of toe (04/06/23) History of tonsillectomy History of total left knee replacement History of fusion of cervical spine History of total right knee replacement (TKR) History of endoscopy History of colonoscopy History of left knee surgery Family History Mother No problems noted. Father No problems noted. Social History Housing: House Are you a primary skin care technician to a significant other at home: No Do you presently have visiting nurse or other home services: No Alcohol intake: current Alcohol intake frequency: 0-2 drinks per day Alcohol type: hard liquor Patient Tobacco Use Status: Current everyday Tobacco user Tobacco use type: Cigarette Cigarette Packs Per Day: 1 Cigarettes Per Day: 10 Years Smoked: 25 Packs Per Year: 25 Packs per year/per ci.50 e-Cigarette/Vaping Use: Never Used Second Hand Smoke Exposure: No service: No Current occupational status: employed Current occupation: [employer], right handed Current occupational exposures/hazards: Yes Cognitive needs: No Hearing needs: No Vision needs: No Questionnaire PHQ-9 Over the last 2 weeks, how often have you been bothered by any of the following problems? 1. Little interest or pleasure in doing things: not at all 2. Feeling down, depressed, or hopeless: not at all 3. Trouble falling or staying asleep, or sleeping too much: not at all 4. Feeling tired or having little energy: several days 5. Poor appetite or overeating: several days 6. Feeling bad about yourself - or that you are a failure or have let yourself or your family down: not at all 7. Trouble concentrating on things, such as reading the newspaper or watching television: not at all 8. Moving or speaking so slowly that other people could have noticed. Or the opposite - being so fidgety or restless that you have been moving around a lot more than usual: not at all 9. Thoughts that you would be better off or of hurting yourself in some way: not at all Total score: 2 Depression Screening Interpretation: Negative Depression Screening Done: Yes 81109 - PHQ-9 Billing: Yes Source: Developed by Drs. Milton Flores, Jillian Pickard, Fazal Rubalcava and colleagues, with an educational jones from [employer]. Thrive Questionnaire Date Thrive assessed: 01/13/24 I am a: Patient What is your living situation today?: I have a steady place to live Within the past 12 months, did the food you bought not last and you didn't have the money to get more?: Never true Within the past 12 months, did you worry whether your food would run out before you got money to buy more?: Never true Do you have trouble paying for medicines?: I choose not to answer this question Do you have trouble getting transportation to medical appointments?: No Do you have trouble paying your heating and electricity bill?: I choose not to answer this question Do you have trouble taking care of your child, family member or friend?: No Do you have trouble with day-to-day activities such as bathing, preparing meals, shopping, managing finances, etc.?: No Are you currently unemployed and looking for a job?: No Are you interested in more education?: No Please select the resources that you would like help with: None Currently or been in a relationship where the following occur: No concerns reported THRIVE Score: 0 AUDIT C Alcohol Use Questionnaire (AUDIT-C) 1. How often do you have a drink containing alcohol?: 2-3 times a week 2. How many drinks containing alcohol do you have on a typical day when you are drinking?: 3 or 4 3. How often do you have six or more drinks on one occasion?: Weekly Total Score: 7 Score Reviewed/Action Taken: Yes LIO-7 AMB Questionnaire LIO-7 Date LIO - 7 assessed: 01/13/24 Feeling nervous, anxious, or on edge: 0 = Not at all Not being able to stop or control worryin = Several days Worrying too much about different things: 1 = Several days Trouble relaxin = Several days Being so restless that it is hard to sit still: 1 = Several days Becoming easily annoyed or irritable: 0 = Not at all Feeling afraid as if something awful might happen: 0 = Not at all Total LIO-7 score (0-4 normal; 5-9 mild; 10-14 moderate; 15-21 severe): 4 Source: Developed by Drs. Milton Flores, Jillian Pickard, Fazal Rubalcava and colleagues, with an educational jones from [employer]. LIO-7 Assessment Billing LIO-7 Assessment Tool: LIO-7 Assessment 59515 Review of Systems Const Denies chills and Denies fever(s) Eyes Denies blurry vision ENT Denies vertigo, Denies dizziness and Denies sore throat Card Denies chest pain at rest, Denies chest pain with activity, Denies diaphoresis, Denies dyspnea and Denies dyspnea on exertion Resp Denies cough, Denies dyspnea, Denies dyspnea on exertion and Denies wheezing GI Denies abdominal pain, Denies melena, Denies hematochezia, Denies constipation, Denies diarrhea and Denies loose stools Denies hematuria Musc Denies numbness and Denies tingling Skin/Breast Denies lesions Neuro Denies vertigo, Denies dizziness, Denies numbness and Denies tingling Psych Denies anxiety, Denies depression, Denies homicidal ideation, Denies suicidal ideation and Denies other (substance abuse) Aller/Immun Denies wheezing Physical exam (Primary Care) Vital Signs: Last Vital Signs Pulse 78 01/13/24 13:04 BP 150/82 H 01/13/24 13:04 Pulse Ox 97 01/13/24 13:04 BMI result Body Mass Index 36.1 Tobacco/Smoking Status: Tobacco use Status Tobacco use date assessed 06/15/23 01/13/24 13:05 Patient Tobacco Use Status Current everyday Tobacco 01/13/24 13:05 Tobacco use type Cigarette 01/13/24 13:05 e-Cigarette/Vaping Use Never Used 01/13/24 13:05 PHQ-9: PHQ-9 Score PHQ-9: Total score 2 01/13/24 16:32 Depression Screening Interpretation: Negative Thrive Assessment: Date of Thrive Assessment Date Thrive assessed 01/13/24 01/13/24 13:05 Currently or been in a relationship where the following occur: No concerns reported Const General: cooperative Nutritional Appearance: well nourished Orientation/consciousness: patient oriented x3 HENMT Head: Yes normal to inspection, Yes normocephalic and Yes atraumatic Ears: TM's normal bilaterally Eyes General: appearance normal, both eyes and all related structures Alignment and Position: alignment normal and position normal Neck Neck: Yes normal visual inspection, Yes no lymphadenopathy and Yes supple Resp Other: lungs fairly clear Effort & Inspection: normal respiratory effort Cardio Rate: regular rate Rhythm: regular rhythm Heart sounds: S1 normal heart sound present, S2 normal heart sound present and Murmur heart sound present systolic GI Palpation (GI): Soft to palpation and nontender Auscultation: normal bowel sounds Skin Rashes: no rashes Neuro General: patient oriented x3, moves all extremities, no focal motor deficits and deep tendon reflexes 2+ bilaterally Romberg Test: Negative Extrem Other: bilat feet: no sensation with use of monofilament, left first toe with extensive lateral deviation, left 2nd toe amputated, no open lesions or wounds bilat, onychomycosis noted bilat Psych Appearance: grossly normal Mental Status: mental status grossly normal Speech and movement: Normal speech and movement present Affect: normal affect Attitude: cooperative Thought process: Normal thought process present Thought content: Normal thought content present Insight: Good insight present (Psych) Judgement: Good judgement present (Psych) Assessment and Plan Assessment & Plan (1) Erectile dysfunction associated with type 2 diabetes mellitus: Code(s): E11.69 - Type 2 diabetes mellitus with other specified complication; N52.1 - Erectile dysfunction due to diseases classified elsewhere Plan: Labs ordered (2) Screen for colon cancer: Code(s): Z12.11 - Encounter for screening for malignant neoplasm of colon Plan: Referred to GI (3) Pulmonary nodule: Comment: was doing LDCTs (part of lung screening program) Code(s): R91.1 - Solitary pulmonary nodule Plan The patient agreed to the use of a nurses medical assistants phlebotomists for this encounter. Scribed for PITO Amanda by Brittnee Torres nurses medical assistants phlebotomists, on 01/13/2024 at 13:20 EST. Orders: Orders Complete Blood Count Auto Diff Today E11.69 - Type 2 diabetes mellitus with other specified complication, N52.1 - Erectile dysfunction due to diseases classified elsewhere Comprehensive [place]. Panel Fast Today E11.69 - Type 2 diabetes mellitus with other specified complication, N52.1 - Erectile dysfunction due to diseases classified elsewhere TSH reflex Free T4 Today E11. - Type 2 diabetes mellitus with other specified complication, N52.1 - Erectile dysfunction due to diseases classified elsewhere Microalbumin, Random (w Creat) Today E11. - Type 2 diabetes mellitus with other specified complication, N52.1 - Erectile dysfunction due to diseases classified elsewhere UA CC w/rflx Micro + Cult Today E11. - Type 2 diabetes mellitus with other specified complication, N52.1 - Erectile dysfunction due to diseases classified elsewhere Lipid Panel Today E11. - Type 2 diabetes mellitus with other specified complication, N52.1 - Erectile dysfunction due to diseases classified elsewhere CT chest wo IV con Today R91.1 - Solitary pulmonary nodule Referrals Ophthalmology Referral E11. - Type 2 diabetes mellitus with other specified complication, N52.1 - Erectile dysfunction due to diseases classified elsewhere Gastroenterology Referral Z12.11 - Encounter for screening for malignant neoplasm of colon Coding Level of Care Code Est Pt Prev Care 40-64y(95019) Diagnoses Erectile dysfunction associated with type 2 diabetes mellitus E11; N52.1 Screen for colon cancer Z12.11 Pulmonary nodule R91.1 Additional Codes LIO-7 Assessment Billing - LIO-7 Assessment Tool: LIO-7 Assessment 98943 ([id number])
== END 2024-01-13 14:35 | disposition home or self-care (01) ==
PROVIDERS: PCP Nurse Practitioner Family; Visit Provider Nurse Practitioner Family
DX: Z00.00 Encounter for general adult medical examination without abnormal findings (principal); E11.69 Type 2 diabetes mellitus with other specified complication; N52.1 Erectile dysfunction due to diseases classified elsewhere; Z12.11 Encounter for screening for malignant neoplasm of colon; R91.1 Solitary pulmonary nodule

== ENCOUNTER → 2024-01-13 12:59 | Outpatient (BNVA) | payer BC, SELFPAY | PROVIDERS: PCP Nurse Practitioner Family; Visit Provider Nurse Practitioner Family | DX: Z00.00 Encounter for general adult medical examination without abnormal findings (principal); E11.69 Type 2 diabetes mellitus with other specified complication; N52.1 Erectile dysfunction due to diseases classified elsewhere; R91.1 Solitary pulmonary nodule | CPT/HCPCS: 96127 ==

== ENCOUNTER 2024-03-02 08:48 | Outpatient (REF) | payer BC, SELFPAY | END 2024-03-02 08:49 | disposition home or self-care (01) | LOC: HO.CT 08:48 | PROVIDERS: PCP Nurse Practitioner Family; Visit Provider Nurse Practitioner Family | DX: R91.1 Solitary pulmonary nodule (principal) | CPT/HCPCS: 71250 ==

== ENCOUNTER → 2024-03-02 08:50 | Outpatient (BNV) | payer BC, SELFPAY | PROVIDERS: PCP Nurse Practitioner Family; Visit Provider Radiology Diagnostic Radiology | DX: R91.1 Solitary pulmonary nodule (principal) | CPT/HCPCS: 71250 ==

== ENCOUNTER 2024-03-21 13:54 | Outpatient (AMB) | payer BC, SELFPAY ==
--- NOTE | 2024-03-21 14:54 | AM.OFFWIN_ITS ---
Intake Vital Signs 03/21/24 14:57 Height 6 ft Weight 266 lb BMI 36.1 BP 130/88 Blood Pressure Location Rt brachial Position Sitting Pulse 42 L Pulse Source Pulse Oximeter Temp 98.4 F Temp Source Oral Pulse Oximetry (%) 98 Oxygen Delivery Method Room Air Intake Visit Reasons: EP-sore throat, breathing problem,headaches,sinus Intake Note: Patient here for sob,sore throat, headaches and sinus pressure which has been present for about 2-3 days. Patient Tobacco Use Status: Current everyday Tobacco user Allergies No Known Allergies Allergy (Verified 03/21/24 14:57) Do you need a note to return to daycare/school/sports/work: No HPI HPI Comments History of Present Illness Details This is a 63-year-old male with a past medical history of insulin- dependent diabetes, hypertension and gastroesophageal reflux disease presenting for evaluation of nasal congestion, headache, sore throat and cough that has been ongoing for the past 3 days. Patient denies having any fevers or chills and denies any knowledge of hyperglycemia however he does not check his blood glucose regularly. Patient has been taking Mucinex only without relief of his symptoms. [facility] Medical History (Updated 03/21/24 @ 15:20 by Perla Hunter PA-C) Erectile dysfunction associated with type 2 diabetes mellitus Diabetes mellitus with neuropathy On beta roney at home Pulmonary nodule Diabetic foot ulcer Essential hypertension Obesity History of cervical fracture Personal history of nicotine dependence Dysphagia Neuropathy MAHAD (obstructive sleep apnea) GERD (gastroesophageal reflux disease) PAD (peripheral artery disease) Diabetes mellitus, type 2 Surgical History History of amputation of toe (04/06/23) History of tonsillectomy History of total left knee replacement History of fusion of cervical spine History of total right knee replacement (TKR) History of endoscopy History of colonoscopy History of left knee surgery Family History Mother No problems noted. Father No problems noted. Social History Housing: House Are you a primary farm or ranch animal caretaker to a significant other at home: No Do you presently have visiting nurse or other home services: No Alcohol intake: current Alcohol intake frequency: 0-2 drinks per day Alcohol type: hard liquor Patient Tobacco Use Status: Current everyday Tobacco user Tobacco use type: Cigarette Cigarette Packs Per Day: 1 Cigarettes Per Day: 10 Years Smoked: 25 e-Cigarette/Vaping Use: Never Used Second Hand Smoke Exposure: No service: No Current occupational status: employed Current occupation: [employer], right handed Current occupational exposures/hazards: Yes Cognitive needs: No Hearing needs: No Vision needs: No Review of Systems Const All systems reviewed & are unremarkable except as noted in HPI and below Eyes Reports no additional complaints ENT Reports no additional complaints, Denies otalgia, Denies facial pain, Reports nasal discharge, Reports sinus pressure and Reports sore throat Card Reports no additional complaints, Denies chest pain and Denies dyspnea Resp Reports chest congestion, Reports cough and Denies dyspnea GI Reports no additional complaints Reports no additional complaints Musc Reports no additional complaints Skin/Breast Reports system reviewed and no additional complaints, except as documented Neuro Reports no additional complaints Psych Reports no additional complaints Endo Reports no additional complaints Pepito/Lymph Reports no additional complaints Aller/Immun Reports no additional complaints Physical Exam Vital Signs: Last Vital Signs Temp 98.4 F 03/21/24 14:57 Pulse 42 L 03/21/24 14:57 BP 130/88 03/21/24 14:57 Pulse Ox 98 03/21/24 14:57 Oxygen Delivery Method Room Air 03/21/24 14:57 BMI result Body Mass Index 36.1 Patient is afebrile. Const General: cooperative, healthy appearing, comfortable, no acute distress, well developed, alert, awake and Physically active Nutritional Appearance: overweight Orientation/consciousness: patient oriented x3 Limitations: no limitations HEENT Head: Yes normal to inspection and Yes normocephalic Ears: hearing grossly normal bilaterally, external ears normal, TM's normal bilaterally and EAC's normal General nose exam: Normal external nose present Face and sinus: Yes sinuses nontender Mouth: abnormal oral mucosae (dry mucous membranes) and mucous membranes dry Throat: Yes posterior oropharynx normal (There is no edema, erythema or exudates of the posterior oropharynx) and No postnasal drainage Eyes General: appearance normal, both eyes and all related structures Visual Kapoor: normal visual kapoor by confrontation Conjunctivae: conjunctivae normal EOM: EOMs intact bilaterally Neck Lymphatic: no lymphadenopathy noted Resp Effort & Inspection: normal respiratory effort, able to speak in complete sentences, no audible wheezes, no cough and no respiratory distress Auscultation: clear to auscultation bilaterally, no wheezes and lung sounds not diminished Cardio Rate: regular rate Rhythm: regular rhythm Skin General skin exam: no rashes or lesions noted Neuro General: patient oriented x3 Psych Appearance: grossly normal Mental Status: mental status grossly normal Insight: Good insight present (Psych) Judgement: Good judgement present (Psych) Results AMB Random Glucose (hemocue) AMB Random Glucose (hemocue) 83 mg/dL Last Edit by BEL Schwartz o n 03/21/24 15:21 AMB Rapid Strep AMB Rapid Strep Negative Last Edit by BEL Schwartz on 03/21/24 15:23 Results Reviewed Results Reviewed: Laboratory Last Values Random Glu (Clinic) 83 mg/dL 03/21/24 15:20 Strep Scn Rapid Clinic Negative 03/21/24 15:21 Random blood glucose 83mg/dL; rapid strep is negative. Assessment & Plan Assessment & Plan (1) Acute upper respiratory infection: Comment: SARS panel is ordered and pending Code(s): J06.9 - Acute upper respiratory infection, unspecified Plan: Ibuprofen or Tylenol as needed for discomfort, increase fluids daily and follow up with PCP within 10-14 days if symptoms have not improved. Orders: Orders AMB Rapid Strep Screen 03/21/24 Z13.9 - Encounter for screening, unspecified SARS-CoV2/FLU/RSV 03/21/24 J06.9 - Acute upper respiratory infection, unspecified AMB Random Glucose (hemocue) 03/21/24 Z13.9 - Encounter for screening, unspecified Coding Level of Care Code Est Pt Level 3 (46602) Diagnoses Acute upper respiratory infection J06.9 Time Spent (min) 20
[2024-03-21 14:57] VITALS: BP 130/88; PULSE 42; TEMP 36.9; O2SAT 98; BMI 36.1
== END 2024-03-21 15:39 | disposition home or self-care (01) ==
PROVIDERS: PCP Nurse Practitioner Family; Visit Provider Physician Assistant
DX: J06.9 Acute upper respiratory infection, unspecified (principal)

== ENCOUNTER 2024-03-21 13:54 | Outpatient (REF) | payer BC, SELFPAY ==
[2024-03-21 16:52] LABS: Influenza A PCR NEGATIVE (Negative); Influenza B PCR NEGATIVE (Negative); Resp Syncy Virus RNA Qual PCR NEGATIVE (Negative); SARS COV2 PCR INHOUSE NEGATIVE (Negative)
== END 2024-03-21 13:55 | disposition home or self-care (01) ==
LOC: HO.CHCLNP 13:54
PROVIDERS: PCP Nurse Practitioner Family; Visit Provider Physician Assistant
DX: J06.9 Acute upper respiratory infection, unspecified (principal); E11.9 Type 2 diabetes mellitus without complications
CPT/HCPCS: 0241U; 82948; 87880

== ENCOUNTER 2024-05-23 09:22 | Outpatient (AMB) | payer BC, SELFPAY ==
[2024-05-23 09:26] VITALS: BP 162/90; PULSE 54; O2SAT 98; BMI 36.5
--- NOTE | 2024-05-23 09:26 | MHC.OFFVIS ---
Vital Signs 05/23/24 09:26 Height 6 ft Weight 268 lb 15.423 oz BMI 36.5 BP 162/90 H Blood Pressure Location Rt brachial Position Sitting Pulse 54 Pulse Source Pulse Oximeter Pulse Oximetry (%) 98 Oxygen Delivery Method Room Air Comment NO BP MEDS THIS AM Intake Visit Reasons: Colonoscopy screening Intake Note: ESTABLISHED PATIENT Reason; Screening Changes/concerns? Pt is feeling more regular and having more consistent BMs as of the last few months. Allergies No Known Allergies Allergy (Verified 05/23/24 09:26) HPI HPI Colonoscopy screening: Details: LAST VISIT 08/01/2022 GERD (gastroesophageal reflux disease) Patient is on PPI. Currently his symptoms are suppressed. Patient also is a diabetic and drinks every day. Patient should have upper endoscopy to evaluate for esophagitis, Cortes's, gastritis, H pylori.. Patient had last endoscopy in 2014. Discussed with patient avoiding dietary triggers a late night snacking. Staying upright for minimal 3 hours after meals discussed with patient Screen for colon cancer Patient denies any GI, cardiac symptoms.? Occasional SOB with excertion hx of COPD, still smokig, no chest pain or pressure. Denies any issues with anesthesia in the past.? Denies any history of sleep apnea.? Uses CPAP every night. No history infectious diseases in the past or present.? Not on any anticoagulation therapy.? No family or personal history of colon cancer or polyps.? Patient father has had gastric cancer. Patient is on omeprazole currently his symptoms of acid reflux are suppressed. Patient denies melena, hematochezia, unintentional weight loss or ribbon like stools.? Discussed at length the pre-procedure,? prep, diet & medications as well as what to expect prior, during and after the procedure.?? Stressed the importance of good bowel prep. ?Recommended the use of Vaseline or Calmoseptine OTC & baby wipes with bowel movements to promote comfort.? ?Patient verbalizes understanding and agrees to plan of care.? He was given the opportunity to ask questions and all questions answered.? We will see him after the procedure.? Plan Medications New bisacodyl (Dulcolax (bisacodyl)) take 2 tabs at noon the day before your colonoscopy 10 mg (2 x 5 mg) PO ONCE 1 day 2 tabs 0RF Z12.11 - Encounter for screening for malignant neoplasm of colon polyethylene glycol 3350 (Miralax) As directed by gastroenterology department at [facility] 238 grams PO ONCE 238 grams 0RF Z12.11 - Encounter for screening for malignant neoplasm of colon UPPER ENDOSCOPY AND COLONOSCOPY 02/11/2023 Findings: Larynx:normal Esophagus: GE junction at 45 cm, diaphragm hiatus at 45 cm, no varices seen, possible small island of Barretts mucosa, bx taken, with mild esophagitis Stomach: mosaic pattern with erythema and patchy atrophy consistent with portal hypertensive gastropathy. Biopsies were obtained. Grade 2 flap valve on retroflexed examination of the cardia. No gastric varices seen Duodenum: Normal bulb and descending duodenum, Intervention: Biopsies as noted above COLONOSCOPY Instrument: Olympus variable stiffness pediatric scope 190L Colonoscopy Monitoring: Vital signs and clinical assessment, continuous EKG monitoring, Pulse oximetry, Carbon Dioxide monitoring and blood pressure monitoring were done throughout the procedure. Colon withdrawal time was 23 minutes. Procedure: The patient was placed in the left lateral decubitis position and pre-procedure medications were administered. After a digital rectal examination of the ano-rectum, the video colonoscope was inserted into the rectum and advanced through the colon to the cecum/TI. The colonoscope was slowly withdrawn in a retrograde panoramic fashion and the colon mucosa was carefully examined including a retroflexed view of the rectum. Findings and interventions are described below. Procedure Difficulty: moderate Findings: Terminal Ileum-not intubated Cecum: 6-8 mm sessile polyp removed with cold forceps, the colonic mucosa appeared edematous Ascending Colon: x 7 sessile polyps 8-11mm removed with cold snare, one was retrieved with net. Scattered tics seen Transverse Colon -x3 sessile polyps 6-8 mm removed with cold snare Descending Colon:normal Sigmoid Colon: moderate severe diverticulosis Rectum: Retroflexion with large internal hemorrhoids with skin tags, grade I Anorectum - normal Colon preparation: Lincoln Bowel Preparation Scale Right colon; 1-2 Transverse colon: 1-2 Left colon; 1-2 (0 = Unprepared colon segment with mucosa not seen due to solid stool that cannot be cleared. 1 = Portion of mucosa of the colon segment seen, but other areas of the colon segment not well seen due to staining, residual stool and/or opaque liquid. 2 = Minor amount of residual staining, small fragments of stool and/or opaque liquid, but mucosa of colon segment seen well. 3 = Entire mucosa of colon segment seen well with no residual staining, small fragments of stool or opaque liquid) Impression and Post Procedure Diagnosis: Endoscopy Findings: portal hypertensive gastropathy esophagitis, gastritis possible barretts Colonoscopy Findings: polyps internal hemorrhoids diverticular disease colonic congestion Plan: Await Pathology results Repeat Colonoscopy in 6-12 months or earlier if clinically indicated High fiber diet leaflet avoid straining at stool, epsom salts and sitz bath, anusol supps or cream consider doppler portal vein and US to check for cirrhosis or PVT. if cirrhosis is confirmed then rept EGD 1-2 yrs PATHOLOGY: Addendum #1 (C): Immunostain for H pylori is negative with appropriate control. Electronically Signed By: Corrine Westbrook 02/19/23 0921 Diagnosis A. Colon, transverse, 3 polyps: Tubular adenomas, three; negative for high-grade dysplasia and carcinoma. B. Colon, cecum and ascending, multiple polyps ( 7 ?): Tubular adenomas, multiple; negative for high- grade dysplasia and carcinoma. C. Stomach, biopsy: Gastric body mucosa with focal minimal chronic inactive inflammation; negative for intestinal metaplasia and dysplasia (see comment). D. Gastroesophageal junction, biopsy: Squamocolumnar mucosa with mild chronic active inflammation; negative for intestinal metaplasia and dysplasia. Comment: (C): H pylori stain pending; addendum to follow TODAY'S VISIT: Patient is here today for follow-up and to discuss going for colonoscopy and upper endoscopy. Patient has not followed up after his last procedure. Multiple sessile serrated polyps, tubular adenoma, negative for high-grade dysplasia or carcinoma. Portal hypertensive gastropathy also found. 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 Patient reports shortness of breath, denies chest pain. Continues to smoke cigarettes. He was diagnosed with sleep apnea no longer uses CPAP machine. Patient is not on any anticoagulation medication. Reports that he is using omeprazole, however he continues to have acid reflux. He has been on omeprazole for a long time. Patient reports that he continues to drink daily 1-2 drinks. Denies melena, hematochezia, unintentional weight loss or ribbon like stools. No family history of CRC. Denies any dyspepsia, dysphagia or odynophagia. [facility] Medical History Erectile dysfunction associated with type 2 diabetes mellitus Diabetes mellitus with neuropathy On beta roney at home Pulmonary nodule Diabetic foot ulcer Essential hypertension Obesity History of cervical fracture Personal history of nicotine dependence Dysphagia Neuropathy MAHAD (obstructive sleep apnea) GERD (gastroesophageal reflux disease) PAD (peripheral artery disease) Diabetes mellitus, type 2 Surgical History History of amputation of toe (04/06/23) History of tonsillectomy History of total left knee replacement History of fusion of cervical spine History of total right knee replacement (TKR) History of endoscopy History of colonoscopy History of left knee surgery Family History Mother No problems noted. Father No problems noted. Social History Housing: House Are you a primary child care team lead to a significant other at home: No Do you presently have visiting nurse or other home services: No Alcohol intake: current Alcohol intake frequency: 0-2 drinks per day Alcohol type: hard liquor Patient Tobacco Use Status: Current everyday Tobacco user Tobacco use type: Cigarette Cigarette Packs Per Day: 1 Cigarettes Per Day: 10 Years Smoked: 25 e-Cigarette/Vaping Use: Never Used Second Hand Smoke Exposure: No service: No Current occupational status: employed Current occupation: [employer], right handed Current occupational exposures/hazards: Yes Cognitive needs: No Hearing needs: No Vision needs: No Review of Systems Const Denies weight gain and Denies weight loss ENT Reports no additional complaints, Denies dysphagia and Denies odynophagia Card Reports no additional complaints Resp Reports no additional complaints GI Denies abdominal pain, Denies belching, Denies melena, Denies bloating, Denies change in bowel habits, Denies dysphagia, Denies excessive flatus, Denies dyspepsia, Reports heartburn, Denies diarrhea, Denies loose stools, Denies nausea, Denies odynophagia and Denies vomiting Reports no additional complaints Musc Reports no additional complaints Neuro Reports no additional complaints Psych Reports no additional complaints Endo Reports no additional complaints Physical Exam Const General: healthy appearing, no acute distress and well developed Nutritional Appearance: well nourished Orientation/consciousness: patient oriented x3 Resp Effort & Inspection: normal respiratory effort, able to speak in complete sentences, no tracheal deviation and symmetric chest movement Auscultation: clear to auscultation bilaterally Cardio Rate: regular rate GI Inspection: Yes normal to inspection and No distended Palpation (GI): Soft to palpation, not firm, nontender and No hepatosplenomegaly present Auscultation: normal bowel sounds General: Yes no CVA tenderness Back/Spine/Pelvis Back: no CVA tenderness Skin General skin exam: elasticity normal, turgor normal and dry skin Neuro General: patient oriented x3 Psych Appearance: grossly normal Mental Status: mental status grossly normal Speech and movement: Normal speech and movement present Affect: normal affect Attitude: cooperative Assessment & Plan Assessment & Plan (1) Screen for colon cancer: Code(s): Z12.11 - Encounter for screening for malignant neoplasm of colon Category: Medical (2) GERD (gastroesophageal reflux disease): Code(s): K21.9 - Gastro-esophageal reflux disease without esophagitis Qualifiers: Esophagitis presence: esophagitis presence not specified Qualified Code(s): K21.9 - Gastro-esophageal reflux disease without esophagitis Plan Portal hypertensive gastropathy found. Patient will be sent for ultrasound to evaluate portal vein and for cirrhosis. What to expect before during and after procedure discussed with patient. Stressed the importance of clear liquid diet and good bowel prep day before procedure. Patient is on insulin. Please remind patient to take half of his insulin 2 nights and 1 night before procedure. Patient will need to make an appointment with Cardiology as he has not followed up after his stress test. He will also need to be cleared to go for the procedure. Occasional shortness of breath, however patient continues to smoke cigarettes. Denies any chest pain or chest pressure. Patient will follow-up after the procedure, sooner on as needed basis. He is agreeable to this plan and verbalizes understanding of instructions. He was given the opportunity to ask questions and all questions answered. Thank you for allowing me to participate in his care Orders: Orders US abdomen complete Today R10.9 - Unspecified abdominal pain Medications: New polyethylene glycol 3350 (Miralax) As directed by gastroenterology department at [facility] 238 grams PO ONCE 238 grams 0RF Z12.11 - Encounter for screening for malignant neoplasm of colon bisacodyl (Dulcolax (bisacodyl)) take 4 tabs at noon the day before your colonoscopy 20 mg (4 x 5 mg) PO ONCE 1 day 4 tabs 0RF Z12.11 - Encounter for screening for malignant neoplasm of colon pantoprazole take one tablet half an hour before breakfast 40 mg PO DAILY 90 tabs 2RF K21.9 - Gastro-esophageal reflux disease without esophagitis Discontinued omeprazole Discontinued Reason: Doctor's Order 20 mg PO DAILY 90 tabs 0RF Coding Level of Care Code Est Pt Level 3 (25707) Diagnoses Screen for colon cancer Z12.11 Gastroesophageal reflux disease, unspecified whether esophagitis present K21.9 Esophagitis presence: esophagitis presence not specified Time Spent (min) 30 Comment 20 minutes spent with patient and additional 10 minutes spent reviewing his records
== END 2024-05-23 11:17 | disposition home or self-care (01) ==
PROVIDERS: PCP Nurse Practitioner Family; Visit Provider Nurse Practitioner Family
DX: Z01.818 Encounter for other preprocedural examination (principal); Z12.11 Encounter for screening for malignant neoplasm of colon; Z86.0101 Personal history of adenomatous and serrated colon polyps; K21.9 Gastro-esophageal reflux disease without esophagitis
CPT/HCPCS: S0285

== ENCOUNTER 2024-05-30 14:21 | Outpatient (AMB) | payer BC, SELFPAY ==
--- NOTE | 2024-05-30 14:28 | MHC.OFFVIS ---
Vital Signs 05/30/24 14:29 Height 6 ft Weight 275 lb 9.245 oz BMI 37.4 BP 160/86 H Blood Pressure Location Lt brachial Position Sitting Pulse 47 L Pulse Source Monitor Intake Visit Reasons: overdue follow up/cardiac clearance colonoscopy Allergies No Known Allergies Allergy (Verified 05/23/24 09:26) Medication List - Last Reconciled 05/30/24 by Tushar Blevins MD [4x4 gauze As directed] [6x6 kerlix fluffs As directed] amlodipine 10 mg PO DAILY atorvastatin 20 mg PO BEDTIME bisacodyl (Dulcolax (bisacodyl)) 20 mg (4 x 5 mg) PO ONCE 1 day blood sugar diagnostic (BandApp Verio test strips) test blood sugar TID flash glucose scanning reader (FreeStyle Michael 2 [place]) tid testing flash glucose sensor (FreeStyle Michael 2 Sensor kit) TID testing gabapentin 600 mg PO QID 30 days glipizide 10 mg PO BID hydrochlorothiazide 12.5 mg PO DAILY insulin glargine (Basaglar KwikPen U-100 Insulin) 25 units (0.25 mL) subcut QPM [kerlix rolls As directed] lisinopril 40 mg PO DAILY metoprolol succinate ER 100 mg PO DAILY 90 days pantoprazole 40 mg PO DAILY pen needle, diabetic use to inject insulin once a day polyethylene glycol 3350 (Miralax) 238 grams PO ONCE HPI Comments Details: Colton returns for follow-up. Multiple cardiovascular risk factors including hypertension, diabetes, dyslipidemia, smoking. No known coronary disease myocardial infarction but a prior echocardiogram had shown significant diastolic dysfunction. He states that recently he is much more short of breath than usual. Not having any clear-cut anginal-type chest pains. Not clear if there shortness of breath is cardiac or pulmonary. [facility] Medical History Erectile dysfunction associated with type 2 diabetes mellitus Diabetes mellitus with neuropathy On beta roney at home Pulmonary nodule Diabetic foot ulcer Essential hypertension Obesity History of cervical fracture Personal history of nicotine dependence Dysphagia Neuropathy MAHAD (obstructive sleep apnea) GERD (gastroesophageal reflux disease) PAD (peripheral artery disease) Diabetes mellitus, type 2 Surgical History History of amputation of toe (12/11/23) History of tonsillectomy History of total left knee replacement History of fusion of cervical spine History of total right knee replacement (TKR) History of endoscopy History of colonoscopy History of left knee surgery Family History Mother No problems noted. Father No problems noted. Social History Housing: House Are you a primary family day carer to a significant other at home: No Do you presently have visiting nurse or other home services: No Alcohol intake: current Alcohol intake frequency: 0-2 drinks per day Alcohol type: hard liquor Patient Tobacco Use Status: Current everyday Tobacco user Tobacco use type: Cigarette Cigarette Packs Per Day: 1 Cigarettes Per Day: 10 Years Smoked: 25 e-Cigarette/Vaping Use: Never Used Second Hand Smoke Exposure: No service: No Current occupational status: employed Current occupation: [employer], right handed Current occupational exposures/hazards: Yes Cognitive needs: No Hearing needs: No Vision needs: No Review of Systems Const Denies weakness ENT Denies dizziness Card Denies chest pain, Denies chest pain with activity, Denies syncope, Denies rapid heart rate, Denies pedal edema, Denies edema, Denies leg edema, Denies lightheadedness, Denies palpitations, Reports dyspnea, Reports dyspnea on exertion and Denies orthopnea Resp Denies cough, Reports dyspnea and Reports dyspnea on exertion GI Denies hematochezia and Denies change in stool character Musc Denies abnormal gait, Denies muscle cramps, Denies muscle weakness, Denies numbness, Denies radiating pain into limb and Denies tingling Neuro Denies abnormal gait, Denies dizziness, Denies syncope, Denies numbness, Denies tingling and Denies weakness Endo Denies palpitations Physical Exam Vital Signs: Last Vital Signs Pulse 47 L 05/30/24 14:29 BP 160/86 H 05/30/24 14:29 BMI result Body Mass Index 37.4 Const General: comfortable and no acute distress Orientation/consciousness: patient oriented x3 HEENT Other: Unremarkable Head: Yes normal to inspection Neck Neck: Yes normal visual inspection Chest Chest palpation & inspection: normal inspection of the chest Resp Auscultation: clear to auscultation bilaterally Cardio Palpation: normal PMI Heart sounds: S1 normal heart sound present, S2 normal heart sound present, no gallops, no murmurs and no rubs GI Palpation (GI): Soft to palpation Back/Spine/Pelvis Other: unremarkable Skin General skin exam: no rashes or lesions noted Neuro General: patient oriented x3 Extrem General: Yes normal to inspection Psych Mental Status: mental status grossly normal Office Procedures EKG Details: EKG with sinus bradycardia at 47/Min; mild SC prolongation; can not exclude old septal infarct; slight ST depressions/T inversion anterior/lateral leads. [id number], Complete Assessment & Plan Assessment & Plan (1) Diastolic dysfunction: Code(s): I51.89 - Other ill-defined heart diseases Category: Medical (2) HTN (hypertension): Code(s): I10 - Essential (primary) hypertension Category: Medical (3) Diabetes: Comment: (with neuropathy, last A1C 8.4 on 08/27/20, referred for eye exam 08/2020) Code(s): E11.9 - Type 2 diabetes mellitus without complications Category: Medical (4) Other and unspecified hyperlipidemia: Code(s): E78.5 - Hyperlipidemia, unspecified Category: Medical (5) Ascending aorta dilatation: Code(s): I77.810 - Thoracic aortic ectasia Category: Medical Plan Cardiac studies reviewed. Echocardiogram 2022- LVEF 68%. No wall motion abnormalities. Advanced diastolic dysfunction. Increased right ventricular size. Severe biatrial enlargement. Mild pulmonary hypertension. Ascending aortic size 4.3 cm, mildly enlarged but he also has a large body surface area. Myocardial perfusion imaging study 06/16/2023-mild reversible inferior defect-mild ischemia versus artifact. Due to complaints of progressive shortness of breath, we will get further workup. Repeat echocardiogram. Coronary CTA can be completed. Symptoms can also be related to continue smoking and any COPD. Uncontrolled blood pressure may also play a role. He is already on lot of medications. Not much room to increase anything and hence we can add hydralazine. Follow-up after the above. Orders: Orders CA echo transthoracic complete Today I25.10 - Atherosclerotic heart disease of [place] coronary artery without angina pectoris CT Cardiac Coronary Angio Today I25.10 - Atherosclerotic heart disease of [place] coronary artery without angina pectoris Basic Metabolic Panel Today I51.89 - Other ill-defined heart diseases Medications: New hydralazine 25 mg PO TID 90 days 270 tabs 1RF Coding Level of Care Code Est Pt Level 4 (77212) Diagnoses Diastolic dysfunction I51.89 HTN (hypertension) I10 Diabetes E11.9 Other and unspecified hyperlipidemia E78.5 Ascending aorta dilatation I77.810 CPT Codes EKG - CPT: 41947-[id number], Complete ([id number])
[2024-05-30 14:29] VITALS: BP 160/86; PULSE 47; BMI 37.4
== END 2024-05-30 15:07 | disposition home or self-care (01) ==
PROVIDERS: PCP Nurse Practitioner Family; Visit Provider Internal Medicine
DX: I51.89 Other ill-defined heart diseases (principal); I10 Essential (primary) hypertension; E11.9 Type 2 diabetes mellitus without complications; E78.5 Hyperlipidemia, unspecified; I77.810 Thoracic aortic ectasia
CPT/HCPCS: 93010; 99214

== ENCOUNTER → 2024-05-30 14:21 | Outpatient (BNVA) | payer BC, SELFPAY | PROVIDERS: PCP Nurse Practitioner Family; Visit Provider Internal Medicine | DX: I11.9 Hypertensive heart disease without heart failure (principal); I77.810 Thoracic aortic ectasia; E11.9 Type 2 diabetes mellitus without complications; E78.5 Hyperlipidemia, unspecified; F17.210 Nicotine dependence, cigarettes, uncomplicated | CPT/HCPCS: 93005 ==

== ENCOUNTER 2024-05-31 14:40 | Outpatient (AMB) | payer BC, SELFPAY ==
--- NOTE | 2024-05-31 14:57 | MHC.OFFWIV ---
Intake Vital Signs 05/31/24 14:58 Height 6 ft Weight 275 lb BMI 37.3 BP 146/86 H Blood Pressure Location Lt brachial Position Sitting Respiration 20 Pulse 56 Pulse Source Pulse Oximeter Temp 98.2 F Temp Source Oral Pulse Oximetry (%) 98 Oxygen Delivery Method Room Air Intake Visit Reasons: EP SOB, sore throat Intake Note: Pt is here today for a walk in visit. Pt c/o sore throat, SOB, cough congestion. Patient Tobacco Use Status: Current everyday Tobacco user Allergies No Known Allergies Allergy (Verified 05/31/24 15:01) Do you need a note to return to daycare/school/sports/work: No HPI HPI Comments History of Present Illness Details This is a 63-year-old male with past medical history of hypertension, hyperlipidemia, gastroesophageal reflux disease and insulin-dependent diabetes presenting for evaluation of shortness for breath. Patient states starting at the beginning of April he has noted shortness of breath with exertion. Patient gives an example of picking up wood in his yard resulting in shortness for breath, which is new for him. Patient does endorse having intermittent chest pressure but denies any chest pain at this time. Patient denies having any fevers, chills, nausea, vomiting, abdominal pain or back pain. Patient states he has not been checking his blood glucose levels at home. [facility] Medical History Erectile dysfunction associated with type 2 diabetes mellitus Diabetes mellitus with neuropathy On beta roney at home Pulmonary nodule Diabetic foot ulcer Essential hypertension Obesity History of cervical fracture Personal history of nicotine dependence Dysphagia Neuropathy MAHAD (obstructive sleep apnea) GERD (gastroesophageal reflux disease) PAD (peripheral artery disease) Diabetes mellitus, type 2 Surgical History History of amputation of toe (04/06/23) History of tonsillectomy History of total left knee replacement History of fusion of cervical spine History of total right knee replacement (TKR) History of endoscopy History of colonoscopy History of left knee surgery Family History Mother No problems noted. Father No problems noted. Social History Housing: House Are you a primary healthcare administration intern to a significant other at home: No Do you presently have visiting nurse or other home services: No Alcohol intake: current Alcohol intake frequency: 0-2 drinks per day Alcohol type: hard liquor Patient Tobacco Use Status: Current everyday Tobacco user Tobacco use type: Cigarette Cigarette Packs Per Day: 1 Cigarettes Per Day: 10 Years Smoked: 25 e-Cigarette/Vaping Use: Never Used Second Hand Smoke Exposure: No service: No Current occupational status: employed Current occupation: [employer], right handed Current occupational exposures/hazards: Yes Cognitive needs: No Hearing needs: No Vision needs: No Review of Systems Const All systems reviewed & are unremarkable except as noted in HPI and below Denies body aches, Denies chills, Reports fatigue, Denies fever(s) and Denies headache(s) Eyes Reports no additional complaints ENT Reports no additional complaints and Denies headache(s) Card Reports no additional complaints, Reports chest pain ( pressure ), Denies syncope, Denies pedal edema, Denies edema, Denies claudication, Reports dyspnea and Reports dyspnea on exertion Resp Reports no additional complaints, Reports dyspnea and Reports dyspnea on exertion GI Reports no additional complaints Reports no additional complaints Musc Reports no additional complaints Neuro Reports no additional complaints, Denies syncope and Denies headache(s) Psych Reports no additional complaints Endo Reports no additional complaints and Reports fatigue Pepito/Lymph Reports no additional complaints Physical Exam Vital Signs: Last Vital Signs Temp 98.2 F 05/31/24 14:58 Pulse 56 05/31/24 14:58 Resp 20 05/31/24 14:58 BP 146/86 H 05/31/24 14:58 Pulse Ox 98 05/31/24 14:58 Oxygen Delivery Method Room Air 05/31/24 14:58 BMI result Body Mass Index 37.3 Const General: cooperative, no acute distress, alert, awake, Physically active and ill appearing Nutritional Appearance: obese Orientation/consciousness: patient oriented x3 Limitations: no limitations HEENT Head: Yes normal to inspection and Yes normocephalic Ears: hearing grossly normal bilaterally, external ears normal, TM's normal bilaterally and EAC's normal General nose exam: Normal external nose present Face and sinus: Yes normal facial exam Mouth: moist mucous membranes abnormal (dry mucous membranes) Throat: Yes posterior oropharynx normal Resp Effort & Inspection: normal respiratory effort, able to speak in complete sentences, audible wheezes, no cough, respiratory effort not decreased and no respiratory distress Auscultation: rhonchi, wheezes and diminished lung sounds bilateral Cardio Rate: regular rate Rhythm: regular rhythm Heart sounds: Murmur heart sound present Neuro General: patient oriented x3 Psych Appearance: grossly normal Mental Status: mental status grossly normal Insight: Good insight present (Psych) Judgement: Good judgement present (Psych) Results AMB Rapid Strep AMB Rapid Strep Negative Last Edit by LAUREN Mosley on 05/31/24 15:19 AMB Random Glucose (hemocue) AMB Random Glucose (hemocue) 200 mg/dL Last Edit by BEL Schwartz on 05/31/24 16:09 Results Reviewed Results Reviewed: Laboratory Last Values Strep Scn [facility] Negative 05/31/24 15:19 Assessment & Plan Assessment & Plan (1) Dyspnea on exertion: Comment: Patient reports worsening dyspnea on exertion over the past 1 month. Patient's blood glucose is checked and is 200 mg/dL. Patient will be sent to the emergency department for further cardiac workup. Code(s): R06.09 - Other forms of dyspnea Plan: Patient will go by private car to [facility] Emergency Department. Expect is called to TASHA Brown at [phone]. Orders: Orders AMB Rapid Strep Screen Today Z13.9 - Encounter for screening, unspecified AMB Random Glucose (hemocue) Today Z13.9 - Encounter for screening, unspecified Coding Level of Care Code Est Pt Level 3 (12969) Diagnoses Dyspnea on exertion R06.09 Time Spent (min) 25
[2024-05-31 14:58] VITALS: BP 146/86; PULSE 56; RESP 20; TEMP 36.8; O2SAT 98; BMI 37.3
== END 2024-05-31 16:37 | disposition home or self-care (01) ==
PROVIDERS: PCP Nurse Practitioner Family; Visit Provider Physician Assistant
DX: Z13.9 Encounter for screening, unspecified (principal); R06.09 Other forms of dyspnea

== ENCOUNTER → 2024-05-31 14:40 | Outpatient (BNVA) | payer BC, SELFPAY | PROVIDERS: PCP Nurse Practitioner Family | DX: R06.09 Other forms of dyspnea (principal); I10 Essential (primary) hypertension; E78.5 Hyperlipidemia, unspecified; E11.9 Type 2 diabetes mellitus without complications | CPT/HCPCS: 82948; 87880 ==

== ENCOUNTER 2024-05-31 16:59 | Emergency (ER) | payer BC, SELFPAY ==
--- NOTE | ~2024-05-31 | XR_ITS ---
CLINICAL HISTORY: DYSPNEA ON EXERTION 2 view chest x-ray Comparison: CT/REG/[place]/SR - CT CHEST WO IV CON - 05/19/22 07:35 EST CR - XR CHEST 2V - 09/11/20 13:13 EDT CR - XR CHEST 1V - 05/15/20 10:43 EST Findings: No consolidation or effusion. Cardiomegaly. No acute fracture. IMPRESSION: 1. No acute findings. 2. Cardiomegaly. This document has been electronically signed by: Diamante Ramirez MD on 05/31/2024 19:25:23
[2024-05-31 17:42] VITALS: BP 188/90; PULSE 50; RESP 22; TEMP 36.4; O2SAT 97; BMI 37.0
--- NOTE | 2024-05-31 17:45 | ECG_ITS ---
Test Reason : DYSPNEA Blood Pressure : */* mmHG Vent. Rate : 48 BPM Atrial Rate : 48 BPM P-R Int : 230 ms QRS Dur : 112 ms QT Int : 504 ms P-R-T Axes : 73 -44 107 degrees QTcB Int : 450 ms Sinus bradycardia with 1st degree A-V block Possible Left atrial enlargement Left axis deviation Pulmonary disease pattern Inferior infarct (cited on or before 16-Jul-2014) ST & T wave abnormality, consider lateral ischemia Abnormal ECG When compared with ECG of 16-Jul-2014 14:16, NM interval has increased Vent. rate has decreased by 31 bpm T wave inversion now evident in Lateral leads Referred By: Stephanie Keene Electronically Signed By: Christoph Osorio
--- NOTE | 2024-05-31 17:46 | ED_ITS ---
HPI - SOB/Dyspnea General Chief Complaint: Dyspnea Stated Complaint: Difficulty breathing Time Seen by Provider: 05/31/24 18:55 Source: patient Mode of arrival: EMS Limitations: no limitations History of Present Illness ED Provider: HPI Narrative: Patient's history of hypertension diabetes obstructive sleep apnea peripheral artery disease advanced diastolic heart failure comes here for increased shortness a breath for last 3 months gradually getting worse patient was seen by Front Attendant yesterday on hydrochlorothiazide 12.5 mg daily patient has gained about more than 20 lb in last few months with increased leg swelling has exertional dyspnea with chest having patient does drink alcohol and is smoker Related Data Home Medications ?Medication ?Instructions ?Recorded ?Confirmed gabapentin 600 mg tablet 1,200 mg PO BID 05/31/24 05/31/24 insulin glargine 100 unit/mL (3 24 unit subcut BEDTIME 05/31/24 05/31/24 mL) subcutaneous pen (Basaglar KwikPen U-100 Insulin) Previous Rx's ?Medication ?Instructions ?Recorded flash glucose scanning reader #1 ea 09/02/21 (FreeStyle Michael 2 Erath) flash glucose sensor (FreeStyle #1 ea 09/02/21 Michael 2 Sensor kit) blood sugar diagnostic (OneTouch #300 ea 09/07/21 Verio test strips) 4x4 gauze #1 ea 04/07/23 6x6 kerlix fluffs #1 ea 04/07/23 kerlix rolls #1 ea 04/07/23 hydrochlorothiazide 12.5 mg tablet 12.5 mg PO DAILY #90 tabs 01/02/24 metoprolol succinate 100 mg 100 mg PO DAILY 90 days #90 tabs 01/02/24 tablet,extended release 24 hr lisinopril 40 mg tablet 40 mg PO DAILY #90 tabs 01/26/24 atorvastatin 20 mg tablet 20 mg PO BEDTIME #90 tabs 03/21/24 glipizide 10 mg tablet 10 mg PO BID #180 tabs 03/21/24 pen needle, diabetic 32 gauge x #100 ea 04/14/24 1 pantoprazole 40 mg tablet,delayed 40 mg PO DAILY #90 tabs 05/23/24 release hydralazine 25 mg tablet 25 mg PO TID 90 days #270 tabs 05/30/24 furosemide 40 mg tablet (Lasix) 40 mg PO QAM #30 tabs 05/31/24 Allergies Allergy/AdvReac Type Severity Reaction Status Date / Time No Known Allergies Allergy Verified 05/31/24 17:46 Review of Systems 2 Review of Systems: Yes all other systems are reviewed and are negative [facility], [facility] Past Medical History Medical History Erectile dysfunction associated with type 2 diabetes mellitus Diabetes mellitus with neuropathy On beta roney at home Pulmonary nodule Diabetic foot ulcer Essential hypertension Obesity History of cervical fracture Personal history of nicotine dependence Dysphagia Neuropathy MAHAD (obstructive sleep apnea) GERD (gastroesophageal reflux disease) PAD (peripheral artery disease) Diabetes mellitus, type 2 Surgical History History of amputation of toe (04/06/23) History of tonsillectomy History of total left knee replacement History of fusion of cervical spine History of total right knee replacement (TKR) History of endoscopy History of colonoscopy History of left knee surgery Family History Family History Mother No problems noted. Father No problems noted. Social History Social History Housing: House Are you a primary palliative care nurse to a significant other at home: No Do you presently have visiting nurse or other home services: No Alcohol intake: current Alcohol intake frequency: 3 or more drinks per day Alcohol type: hard liquor Patient Tobacco Use Status: Current everyday Tobacco user Tobacco use type: Cigarette Cigarette Packs Per Day: 1 Cigarettes Per Day: 10 Years Smoked: 25 Smoked in Last 30 Days: Yes e-Cigarette/Vaping Use: Never Used Second Hand Smoke Exposure: No Use of substances other than those prescribed or required for medical reasons: No Advance Directives: No Advance Directives Information Provided: No service: No Current occupational status: employed 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 Oriented X3. No acute distress. Eyes: No pallor or icterus ENT: Pharynx normal. Oral Mucosa moist Neck: Normal inspection. Neck supple. CVS: Normal heart rate and rhythm. Pulses normal. Respiratory: No respiratory distress. Equal air entry bilateral, no wheezing/rales/rhonchi decreased air entry at Bases Abdomen: Soft and nontender. Bowel sounds are present, no mass palpable, no CVA tenderness Skin: Skin warm and dry. Normal skin color. Normal skin turgor. Extremities: 2 +lower extremity edema. No calf tenderness Neuro: Oriented X 3. Course Course Course Narrative: This is a Rapid Medical Examination (RME) performed by Jose Guadalupe Keene PA-C in triage. Full HPI, ROS, assessment and treatment plan per primary provider in the Main ED. 63 yo male hx of T2DM, PAD, HTN, MAHAD on CPAP, pulmonary nodules, current tobacco smoker (1/2 PPD), neuropathy here from for eval of dyspnea on exertion x1 month, worsening. Associated bilateral pitting edema to lower extremities. Admits to intermittent sharp left-sided chest pain that radiates to left shoulder. Plan: labs, ekg, cxr Medications Administered Discontinued Medications Generic Name Dose Route Start Last Admin Trade Name Freq PRN Reason Stop Dose Admin Furosemide 40 mg 05/31/24 19:36 05/31/24 19:44 Furosemide 40 Mg/4 Ml Vial IVPUSH 05/31/24 19:37 40 mg ONCE ONE Administration Protocol Medical Decision Making Medical Decision Making 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 comes here for increased exertional dyspnea with elevated BNP in 2400 with elevated blood pressure saturating 95% at room air on oral diuretics will check oxygen on ambulation plan for admission for IV diuresis Patient is feeling much better after IV diuresis saturating 95% on ambulation chest x-ray negative for CHF patient has a follow up plan with elevator erector helper will discharge patient home on Lasix 40 mg daily advised to follow with elevator erector helper Differential Diagnosis Differential Diagnoses: The differential diagnosis associated with the presentation includes CHF/ACS/alcoholic cardiomyopathy/myocarditis Admission/Observation Consideration of admission/observation: Escalation of care including admission/observation considered Lab Data MDM Lab Attestation statement: I reviewed the patient's lab results. 05/31/24 17:58 05/31/24 17:58 Labs: Lab Results 05/31/24 05/31/24 Range/Units 17:58 21:36 WBC 7.6 (4.8-10.8) X10*3/uL RBC 4.73 (4.60-5.80) X10*6/uL Hgb 12.3 L (14.0-18.0) g/dl Hct 39.8 L (42.0-52.0) % MCV 84.1 (80.0-98.0) fL MCH 26.0 L (27.0-33.0) pg MCHC 30.9 L (31.0-36.0) g/dl RDW 15.0 (11.0-16.0) % Plt Count 213 (160-400) X10*3/uL MPV 9.9 (9.4-12.4) fL Immature Gran % (Auto) 0.1 (0.0-0.4) % Neut % (Auto) 66.0 (45-73) % Lymph % (Auto) 20.7 (20-40) % [place] % (Auto) 10.6 (2-11) % Eos % (Auto) 2.1 (0-4) % Baso % (Auto) 0.5 (0-2) % Lymph # (Auto) 1.6 (1.2-4.9) X10*3/uL [place] # (Auto) 0.8 (0.1-1.2) X10*3/uL Eos # (Auto) 0.2 (0.0-0.4) X10*3/uL Baso # (Auto) 0.0 (0.0-0.2) X10*3/uL Abs Immat Gran (auto) 0.01 (0.00-0.03) X10*3/uL Absolute Neuts (auto) 5.0 (2.0-8.3) x10*3/uL Absolute Nucleated RBC 0.000 (0.0-0.012) X10*3/uL Nucleated RBC % (auto) 0.0 (0.0-0.2) /100WBC PT 14.3 H (10.9-12.4) SEC INR 1.2 H (0.9-1.1) Sodium 142 (135-145) mmol/L Potassium 4.4 (3.3-5.1) mmol/L Chloride 106 (96-108) mmol/L Carbon Dioxide 25 (22-29) mmol/L Anion Gap 15 (12-20) BUN 18 H (9-16) mg/dL Creatinine 0.93 (0.5-1.4) mg/dL Estim Creat Clear Calc 111.9 Estimated GFR > 60 Random Glucose 126 H (60-115) mg/dL Calcium 9.1 (8.4-10.2) mg/dL Magnesium 2.0 (1.6-2.6) mg/dL Total Bilirubin 0.5 (0.0-1.0) mg/dL AST 19 (5-37) U/L ALT 9 (0-40) U/L Alkaline Phosphatase 139 H (39-117) U/L Troponin I High Sens 14.5 15.2 (<3.5-35.0) ng/L B-Natriuretic Peptide 2421 H (<100) pg/mL Total Protein 7.6 (6.5-8.0) g/dL Albumin 3.9 (3.5-5.0) g/dL Lipase 27 (8-78) U/L Influenza Type A (PCR) NEGATIVE (Negative) Influenza Type B (PCR) NEGATIVE (Negative) RSV RNA Qual (PCR) NEGATIVE (Negative) SARS-CoV-2 RNA (RT-PCR) NEGATIVE (Negative) Independent Interpretation I performed an independent interpretation of an: EKG and Plain X-Ray Interpretation: sinus rhythm bradycardia with heart rate of [address] depression in lateral leads left axis deviation no acute STT wave changes no acute ischemia Radiology Impression Discussion of test interpretation with radiology: I have reviewed the radiologist's reading. Radiologist Impression: [address] [address] XRay Report Signed Patient: Colton Saini MR#: [id number] : 1960 Acct:[id number] Age/Sex: 63 / M ADM Date: 05/31/24 Loc: .ED Attending Dr: Ordering Physician: Stephanie Keene Date of Service: 05/31/24 Procedure(s): XR chest 2V Accession Number(s): [id number] cc: Lorenzo Roberts-; Stephanie Keene~ CLINICAL HISTORY: DYSPNEA ON EXERTION 2 view chest x-ray Comparison: CT/REG/NE/SR - CT CHEST WO IV CON - 05/19/22 07:35 EST CR - XR CHEST 2V - 09/11/20 13:13 EDT CR - XR CHEST 1V - 05/15/20 10:43 EST Findings: No consolidation or effusion. Cardiomegaly. No acute fracture. IMPRESSION: 1. No acute findings. 2. Cardiomegaly. This document has been electronically signed by: Diamante Ramirez MD on 05/31/2024 19:25:23 Discharge Plan Discharge Clinical Impression: Congestive heart failure (CHF) Patient Disposition: Home, Self-Care Instructions: Heart Failure (ED) Additional Instructions: Continue medications as prescribed by elevator erector helper Will start you on 40 mg of Lasix daily Follow with your elevator erector helper Have extra bananas daily as lasix will decrease your potassium level Prescriptions: New furosemide [Lasix] 40 mg tablet 40 mg PO QAM Qty: 30 0RF No Action (DME) OneTouch Verio test strips Strip See Rx Instructions .Route Qty: 300 0RF Rx Instructions: test blood sugar TID metoprolol succinate 100 mg tablet extended release 24 hr 100 mg PO DAILY 90 Days Qty: 90 1RF hydrochlorothiazide 12.5 mg tablet 12.5 mg PO DAILY Qty: 90 1RF lisinopril 40 mg tablet 40 mg PO DAILY Qty: 90 1RF glipizide 10 mg tablet 10 mg PO BID Qty: 180 1RF atorvastatin 20 mg tablet 20 mg PO BEDTIME Qty: 90 1RF (DME) pen needle, diabetic 32 gauge x 1/4 needle See Rx Instructions .Route Qty: 100 1RF Rx Instructions: use to inject insulin once a day gabapentin 600 mg tablet 1,200 mg PO BID insulin glargine [Basaglar KwikPen U-100 Insulin] 100 unit/mL (3 mL) insulin pen 24 unit subcut BEDTIME (DME) FreeStyle Michael 2 Erath Misc See Rx Instructions .Route Qty: 1 8RF Rx Instructions: tid testing (DME) FreeStyle Michael 2 Sensor Kit See Rx Instructions .Route Qty: 1 8RF Rx Instructions: TID testing (DME) 4x4 gauze 1 box See Rx Instructions .Route .MEDSUPPLY Qty: 1 2RF Rx Instructions: As directed (DME) 6x6 kerlix fluffs 1 box See Rx Instructions .Route .MEDSUPPLY Qty: 1 2RF Rx Instructions: As directed (DME) kerlix rolls 20 rolls See Rx Instructions .Route .MEDSUPPLY Qty: 1 2RF Rx Instructions: As directed pantoprazole 40 mg tablet,delayed release (DR/EC) 40 mg PO DAILY Qty: 90 2RF Rx Instructions: take one tablet half an hour before breakfast hydralazine 25 mg tablet 25 mg PO TID 90 Days Qty: 270 1RF Print Language: Chadian
[2024-05-31 18:02] LABS: MANUAL DIFF FLAG NO
[2024-05-31 18:04] LABS: Basophils Percent Auto 0.5 % (0-2); Eosinophils Absolute Auto 0.2 X10*3/uL (0.0-0.4); Eosinophils Percent Auto 2.1 % (0-4); Hematocrit 39.8 % (42.0-52.0); Hemoglobin 12.3 g/dl (14.0-18.0); Imm Gran Abs Auto 0.01 X10*3/uL (0.00-0.03); Imm Gran Pct Auto 0.1 % (0.0-0.4); Lymphocytes Absolute Auto 1.6 X10*3/uL (1.2-4.9); Lymphocytes Percent Auto 20.7 % (20-40); Mean Corpuscular HGB Conc 30.9 g/dl (31.0-36.0); Mean Corpuscular Volume 84.1 fL (80.0-98.0); Mean Platelet Volume 9.9 fL (9.4-12.4); Monocytes Absolute Auto 0.8 X10*3/uL (0.1-1.2); Monocytes Percent Auto 10.6 % (2-11); Platelet Count 213 X10*3/uL (160-400); Red Blood Count 4.73 X10*6/uL (4.60-5.80); White Blood Count 7.6 X10*3/uL (4.8-10.8)
[2024-05-31 18:11] LABS: INTERNATIONAL NORM RATIO 1.2 (0.9-1.1); Prothrombin Time 14.3 SEC (10.9-12.4)
[2024-05-31 18:26] LABS: B Type Natriuretic Peptide 2421 pg/mL (<100)
[2024-05-31 18:28] LABS: Troponin-I High Sensitivity 14.5 ng/L (<3.5-35.0)
[2024-05-31 18:29] LABS: Alanine Aminotransferase 9 U/L (0-40); Albumin Level 3.9 g/dL (3.5-5.0); Alkaline Phosphatase 139 U/L (39-117); Anion Gap 15 (12-20); Aspartate Amino Transferase 19 U/L (5-37); Bilirubin Total 0.5 mg/dL (0.0-1.0); Blood Urea Nitrogen 18 mg/dL (9-16); Calcium 9.1 mg/dL (8.4-10.2); Carbon Dioxide 25 mmol/L (22-29); Chloride 106 mmol/L (96-108); Creatinine Clr Calc Pharmacy 111.9; Estimated Glomerular Filt Rate > 60; Glucose Random 126 mg/dL (60-115); Lipase 27 U/L (8-78); Potassium 4.4 mmol/L (3.3-5.1); Sodium 142 mmol/L (135-145); Total Protein 7.6 g/dL (6.5-8.0)
[2024-05-31 18:46] LABS: Influenza A PCR NEGATIVE (Negative); Influenza B PCR NEGATIVE (Negative); Resp Syncy Virus RNA Qual PCR NEGATIVE (Negative); SARS COV2 PCR INHOUSE NEGATIVE (Negative)
[2024-05-31 19:44] VITALS: BP 181/91
[2024-05-31] MEDS: Furosemide 40 MG/4 ML VIAL IVPUSH (19:44)
[2024-05-31 19:57] VITALS: BP 181/91; PULSE 47; RESP 12; TEMP 36.8; O2SAT 95
--- NOTE | 2024-05-31 21:20 | ECG_ITS ---
Test Reason : chf Blood Pressure : */* mmHG Vent. Rate : 50 BPM Atrial Rate : 50 BPM P-R Int : 234 ms QRS Dur : 104 ms QT Int : 490 ms P-R-T Axes : 34 -41 101 degrees QTcB Int : 446 ms Sinus bradycardia with 1st degree A-V block Left axis deviation Septal infarct , age undetermined Inferior infarct (cited on or before 16-Jul-2014) ST & T wave abnormality, consider lateral ischemia Abnormal ECG When compared with ECG of 31-May-2024 17:53, T wave inversion more evident in Lateral leads Referred By: Kieran Chang Electronically Signed By: Christoph Osorio
[2024-05-31 22:01] VITALS: O2SAT 92
--- NOTE | 2024-05-31 22:02 | PHA.MEDREC ---
Addendum entered by Ton Krishnamurthy RPh 05/31/24 22:14: Med rec was reviewed by Nate. Original Note: Pharmacy Consult ? Medication Reconciliation Pharmacy has completed the medication reconciliation. Spoke with patient and he confirmed his medications. He confirmed he is taking his Gabapentin 600mg tab 2 tabs in the morning and 2 tabs at bedtime. He confirmed his Basaglar KwikPen U-100 Insulin and confirmed he is injecting 24 units at bedtime. He states he took his medications this morning.
[2024-05-31 22:05] LABS: Troponin-I High Sensitivity 15.2 ng/L (<3.5-35.0)
[2024-05-31 23:28] VITALS: BP 210/104
[2024-05-31] MEDS: hydrALAZINE HCl 20 MG/ML VIAL 10 MG IVPUSH (23:28)
[2024-05-31] MEDS: lisinopriL 40 MG TABLET PO (23:28)
[2024-05-31 23:59] VITALS: BP 176/87; PULSE 53; RESP 18; TEMP 36.9; O2SAT 97
== END 2024-06-01 00:08 | disposition home or self-care (01) ==
PROVIDERS: Physician Assistant Medical; Emergency Provider Internal Medicine; PCP Nurse Practitioner Family
DX: I50.9 Heart failure, unspecified (principal); R06.02 Shortness of breath; I73.9 Peripheral vascular disease, unspecified; R60.0 Localized edema; F17.210 Nicotine dependence, cigarettes, uncomplicated; Z03.818 Encounter for observation for suspected exposure to other biological agents ruled out; Z79.899 Other long term (current) drug therapy
CPT/HCPCS: 0241U; 36415; 71046; 80053; 83690; 83735; 83880; 84484; 85025; 85610; 93005; 96374; 96375; 99284; 99285; J0360; J1940

== ENCOUNTER → 2024-05-31 17:45 | Outpatient (BNV) | payer BC, SELFPAY | PROVIDERS: Emergency Provider Internal Medicine; PCP Nurse Practitioner Family; Visit Provider Radiology Diagnostic Radiology | DX: I51.7 Cardiomegaly (principal) | CPT/HCPCS: 71046 ==

== ENCOUNTER 2024-07-01 09:02 | Outpatient (REF) | payer BC, SELFPAY ==
--- NOTE | ~2024-07-01 | US_ITS ---
EXAMINATION: US ABDOMEN COMPLETE CLINICAL INFORMATION: Unspecified abdominal pain. COMPARISON: CT chest 03/02/2024 TECHNIQUE: Real-time imaging of the abdominal viscera. FINDINGS: PANCREAS: Visualized portions are unremarkable. ABDOMINAL AORTA: There is mild abdominal aortic aneurysm measuring 0.1 x 3.1 cm.. INFERIOR VENA CAVA: Visualized portions are normal. LIVER: The liver is normal in size. The liver contour is normal. Parenchymal echogenicity is slightly increased. No focal hepatic lesion. There is no intrahepatic biliary duct dilatation seen. GALLBLADDER: The gallbladder is physiologically distended without evidence of stones, sludge, polyps, wall thickening or pericholecystic fluid. COMMON BILE DUCT: Normal in caliber measuring 0.8 cm in diameter. RIGHT KIDNEY: No hydronephrosis. No renal calculi or focal parenchymal lesions. The kidney measures 9.9 cm in maximum dimension. LEFT KIDNEY: No hydronephrosis. There is anechoic cyst with peripheral calcification in mid to lower pole measuring 1.0 x 0.9 x 1.0 cm.. The kidney measures 12.6 cm in maximum dimension. SPLEEN: The spleen measures 15.3 cm in maximum dimension. FREE FLUID: None. US/US abdomen complete IMPRESSION: Mild splenomegaly without focal lesion. Mildly increased liver echogenicity but no focal lesion seen. Aneurysmal dilatation of proximal abdominal aorta measuring 3.1 x 3.1 cm. Electronically signed by: Sukhwinder Swain MD 07/01/2024 10:06 AM [facility]
--- OUTSIDE RECORDS SUMMARY | 2024-07-01 09:44 | XMS_ITS | Patient Health Record ---
Author Organization [facility] Corrine lopez [place] Address [address] [place] [address] Care Team Providers Care Crib Clerk Name Role Phone Lorenzo Huber Primary Care Provider Unav ailable Aurelia Otoole Unavailable [phone] Allergies No Known Allergies Results Component Value Reference Range Notes HEMOGLOBIN A1C (GLYCOHEMOGLO BIN) Reviewed date:01/27/2024 09:54:51 AM Interpretation: Performing Lab: Notes/Report: TOTAL HEMOGLOBIN (HGBA1C) 6.0 Reason For Referral Diagnosis 1 Type 2 diabetes river itus with foot ulcer (E11.621) Diagnosis 2 Type 2 diabetes river itus with diabetic polyneuropathy (E11.42) Diagnosis 3 Type 1 diabetes river itus with diabetic polyneuropathy (E10.42) Diagnosis 4 Non-pressure ulcer o f left lower extremity, limited to breakdown of skin (L97.921) Diagnosis 5 Hammer toe of left f oot (M20.42) Diagnosis 6 Non-pressure ulcer o f left lower extremity with fat layer exposed (L97.922) Referring Provider First Name Marlena Referring Provider Last Name Thalia [facility] [place] Referred Provider Aurelia Otoole Referred Address [address] [place],[address], Referred Provider Specialty Podiatry Referral Priority Routine Diagnosis 1 Type 2 diabetes river itus with foot ulcer (E11.621) Diagnosis 2 Type 2 diabetes river itus with diabetic polyneuropathy (E11.42) Diagnosis 3 Smoker (F17.200) Diagnosis 4 Type 1 diabetes river itus with diabetic polyneuropathy (E10.42) Diagnosis 5 Non-pressure ulcer o f left lower extremity, limited to breakdown of skin (L97.921) Diagnosis 6 Hammer toe of left f oot (M20.42) Diagnosis 7 Non-pressure ulcer o f left lower extremity with fat layer exposed (L97.922) Diagnosis 8 Other hammer toe(s) (acquired), right foot (M20.41) Referring Provider First Name Marlena Referring Provider Last Name Thalia Referred [facility] Referred Provider Aurelia Otoole Referred Address [address] [place], [place],[address],[place] Referred Provider Specialty Podiatry Referral Priority Routine Medications Medication SIG (Take, Route, Frequency, Duration) Notes Start Date End Date Status Lisinopril 20 MG 1 tablet Orally Once a day for 30 day(s) Active Lantus SoloStar 100 UNIT/ML as directed Subcutaneous Not -Taking Insulin Pen Needle 31G X 5 MM as directed Not-Taking Augmentin 500-125 MG 1 tablet Orally lamin ry 8 hrs for 7 day(s) 05/28/2020 Not-Taking Clindamycin HCl 300 MG 2 capsules Orally every 8 hrs for 10 day(s) 05/31/2020 Not-Taking metFORMIN HCl 1000 MG 1 tablet with a me al Orally Once a day for 30 day(s) Active Extra Depth Orthopedic Shoes (1 Pair) with Customized Heat Molded Multidensity Innersoles (3 Pair) as directed Amputation left 2nd toe, needs filler left Dx: NIDDM/Polyneuropathy (E11.42), Hammertoe Foot Deformity (M20.41,M20.42), Preulcerative Skin Lesion(s) (L85.1 01/27/2024 Active Atorvastatin Calcium 20 MG 1 tablet Orally Once a day for 30 day(s) Active glipiZIDE 10 MG 1 tablet 30 minutes before breakfast Orally Twice a day Active Atenolol 50 MG 1 tablet Orally Once a day for 30 day(s) Active Minoxidil 2.5 MG 1 tablet Orally Once a day for 30 day(s) Not-Taking Gabapentin 300 MG 1 capsule Orally Onc e a day Active OneTouch Verio w/Device as directed Not-Taking Immunizations Vaccine Route Administration Date Status Comme nts Influenza Unknown 03/07/2022 Administered Social History Tobacco Use: Social History Observation Description Date Details (start date - stop date) Current Smoker NA - NA Tobacco Use/Smoking Question Answer Notes Are you a: current smoker How often do you smoke cigarettes? every day How many cigarettes a day do you smoke? 11-20 How soon after you wake up do you smoke your fir st cigarette? 6-30 minutes Alcohol Screen Question Answer Notes Did you have a drink contain ing alcohol in the past year? Yes How often did you have a dri nk containing alcohol in the past year? Monthly or less (1 point) Points 1 Interpretation Negative Tobacco use other than smoking: Question Answer Notes Are you an other tobacco user? Yes C igars Problems Problem Type SNOMED Code ICD Code Onset Dates Problem Status W/U Status Risk Notes Problem Acquired hammer toe of right foot (7267488023203055 ) Other hammer toe(s) (acquired), right foot (M20.41) Active confirmed Problem Acquired hammer toe of left foot (8552061196855659 ) Other hammer toe(s) (acquired), left foot (M20.42) Active confirmed Problem Polyneuropathy due to type 2 diabetes mellitus (250414503) Type 2 diabetes mellitus with diabetic polyneuropathy (E11.42) Active confirmed Problem Polyneuropathy due to type 2 diabetes mellitus (044756650) Type 2 diabetes mellitus with diabetic polyneuropathy (E11.42) Active confirmed Problem Polyneuropathy due to diabetes mellitus type I (615880029) Type 1 diabetes mellitus with diabetic polyneuropathy (E10.42) Active confirmed Problem 76640323 Non-pressure ulcer of left lower extremity, limited to breakdown of skin (L97.921) Active confirmed Problem 780825542 Hammer toe of left foot (M20.42) Active confirmed Problem 1465241689 Hallux valgus of left foot (M20.12) Active confirmed Problem Foot ulcer due to type 2 diabetes mellitus (9305897523022) Type 2 diabetes mellitus with foot ulcer (E11.621) Active confirmed Problem 25750570 Non-pressure ulcer of left lower extremity with fat layer exposed (L97.922) Active confirmed Problem 32116730 Smoker (F17.200) Active confirmed Problem 811648733 Amputated toe of left foot (S98.132A) Active confirmed Vital Signs Height 6 ft 0 in in 01/27/2024 Weight 252 lbs 01/27/2024 BMI 34.17 kg/m2 01/27/2024 Encounters Encounter Location Date Provider Diagnosis [address] [address] 01/27/2024 Aurelia Otoole Type 2 diabetes mellitus with diabetic polyneuropathy E11.42 ; Other hammer toe(s) (acquired), left foot M20.42 ; Tinea unguium B35.1 ; Other hammer toe(s) (acquired), right foot M20.41 ; Amputated toe of left foot S98.132A and Hallux valgus of left foot M20.[address] [address] [facility]/17[facility]20[facility] [address] [address] 04/13/2024 Aurelia Otoole [address] [address] 05/02/2024 Aurelia Otoole [address] [address] 05/25/2024 Aurelia Otoole Assessments Encounter Date Diagnosis (ICD Code) Assessment Notes Treatment Notes Treatment Clinical Notes Section Notes 01/27/2024 Other hammer toe(s) (acquired), left foot (ICD-10 - M20.42) 01/27/2024 Type 2 diabetes mellitus with diabetic polyneuropathy (ICD-10 - E11.42) 01/27/2024 Tinea unguium (ICD-10 - B35.1) 01/27/2024 Other hammer toe(s) (acquired), right foot (ICD-10 - M20.41) Patient Educated with: DIABETIC FOOT CARE INSTRUCTIONS. pdf (DIABETIC FOOT CARE INSTRUCTIONS. pdf) 01/27/2024 Amputated toe of left foot (ICD-10 - S98.132A) 01/27/2024 Hallux valgus of left foot (ICD-10 - M20.12) Plan Of Treatment Pending Test Test Name Order Date X ray : Foot, left 3V 06/11/2021 [id number] NAIL, 6 OR MORE 06/28/2020 [id number] SKIN LESIONS, 2 TO 4 03/04/20 21 Next Appt Details Provider Name:Aurelia Yesenia patterson, 07/11/2024 03:00:00 PM, [address] [facility], [place], [address], Insurance Providers Payer Name Payer Address Payer Phone Subscriber Number Group Number Insured Name Patient Relationship to Insured Coverage Start Date Coverage End Date [facility] [address] [place] [address] [id number] Colton Saini Self - patient is the insured Medical (General) History Medical History History ICD Code type II diabetes Reflux ( GERD) Back,Hip,and Knee pain High blood pressure Neuropathy Measles Joint implants/screws Surgical History Surgery Date(Month/Year) knee replacement 2015,2017 neck surgery amputation 2nd , toe 03/2023 Hospitalization History Reason Date(Month/Year) [place] clinic [place] [facility] -diabetic ulcer
--- OUTSIDE RECORDS SUMMARY | 2024-07-01 09:44 | XMS_ITS ---
Author Organization [facility] Corrine [place] Address [address] [facility] [place] [address] Care Team Providers Care Radiology Interventional Physician Name Role Phone Lorenzo Huber Primary Care Provider Unav ailable Aurelia Otoole [phone] REASON FOR VISIT rs 05/02/24 Encounters Encounter Location Date Provider Diagnosis [facility] [place] [facility] [place] [address] 05/25/2024 Aurelia Otoole Plan Of Treatment Next Appt Details Provider Name:Aurelia patterson, 07/11/2024 03:00:00 PM, [address] [facility], [place], [address], Progress Notes * Colton DUNN CDOB:[birth year] (63 yo M)Acc No.[id number]:05/25/2024 Patient:?Colton DUNN :1960???Age:63 Y???Sex:Male Address:[address] [place], [address] * true * Date:? Generated for Printi ng/Faanicetog/eTransmitting on:?07/01/2024 09:44 AM EST
--- OUTSIDE RECORDS SUMMARY | 2024-07-01 09:45 | XMS_ITS ---
Author Organization [facility] Corrine [place] Address [address] [facility] [place] [address] Care Team Providers Care Brand Engineer Name Role Phone Lorenzo Huber Primary Care Provider Unav ailable Aurelia Otoole [phone] REASON FOR VISIT cx 05/02 Encounters Encounter Location Date Provider Diagnosis [facility] [place] [address] [facility] [address] 05/02/2024 Aurelia Otoole Plan Of Treatment Next Appt Details Provider Name:Aurelia patterson, 07/11/2024 03:00:00 PM, [address] [facility], [place], [address], Progress Notes * Colton DUNN CDOB:[birth year] (63 yo M)Acc No.[id number]:05/02/2024 Patient:?Colton DUNN :1960???Age:63 Y???Sex:Male Address:[address] [place], [address] * true * Date:? Generated for Printi ng/Faxing/eTransmitting on:?07/01/2024 09:44 AM EST
--- OUTSIDE RECORDS SUMMARY | 2024-07-01 09:45 | XMS_ITS ---
Author Organization [facility] [address] Address [address] [place] [address] Care Team Providers Care Line Crewman Name Role Phone Armando ALMEIDA, Lorenzo Primary Care Provider Unav ailable Aurelia Otoole [phone] Encounters Encounter Location Date Provider Diagnosis [address] [address] 05/02/2024 Aurelia Otoole Plan Of Treatment Next Appt Details Provider Name:Aurelia patterson, 07/11/2024 03:00:00 PM, [address] [place] [address], [phone], Progress Notes * Colton DUNN CDOB:[birth year] (64 yo M)Acc No.[id number]:05/02/2024 Progress Note Patient:?Colton DUNN Provider:?Aurelia Otoole DPM :1960???Age:63 Y???Sex:Male Davon e:05/02/2024 Address:[address] [place]-[id number] Pcp:ELLE Amanda Subjective: * Chief Complaints: * ??? * Medical History:? Objective: * Vitals:? Assessment: Plan: * Treatment: * Images: * The named appointment provid er may or may not be the originator of this progress note, and it is not deemed complete until electronically signed by the appointment provider. Sign off status: Pending * Provider:?Aurelia Otoole DPM Date:?09/2024 Generated for Bev horowitz/Adali/Sandeep on:?07/01/2024 09:44 AM EST
--- NOTE | 2024-07-01 09:55 | CA_ITS ---
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 Study Quality: Adequate w contrast ECG Rhythm: Bradycardia Conclusions: - 1. Moderately dilated left ventricle with mildly reduced LV ejection fraction at 45-50% with grade 2 diastolic dysfunction 2. Severe biatrial enlargement as well as severely dilated right ventricle 3. Mild mitral regurgitation 4. Moderately elevated right ventricular systolic pressure mildly elevated right atrial pressures 5. No gross pericardial effusion Findings Procedure Information Contrast agent, definity, is being given per protocol without apparent complications. Left Ventricle Moderately increased left ventricular cavity size. The left ventricular systolic function is mildly decreased. The visually estimated ejection fraction is between 45-50%. Spectral Doppler is indicative of a pseudonormal filling pattern. E/E prime ratio is >15, consistent with elevated filling pressures. Evidence suggests grade II (moderate) diastolic dysfunction. Right Ventricle Severely increased right ventricular cavity size. Atria Severe biatrial enlargement. Interatrial shunt cannot be excluded. Aortic Valve Normal aortic valve structure and function. There is no aortic valve stenosis. There is no aortic valve regurgitation. Mitral Valve There is mild anterior and posterior mitral leaflet thickening. There is mild mitral valve regurgitation. There is no mitral valve stenosis. Pulmonic Valve The pulmonic valve was not well visualized. Tricuspid Valve Likely normal tricuspid valve structure and function. There is mild tricuspid valve regurgitation. Mildly elevated right atrial pressure. Moderate pulmonary hypertension is present. Great Vessels The pulmonary artery was not well visualized. There is mild dilatation of the ascending aorta measuring 4.20 cm. Venous The inferior vena cava is mildly dilated and collapses greater than 50% with inspiration. Pericardium/Pleural There is no evidence of pericardial effusion. Prior Study Comparison Changes noted compared to prior study dated: 03/30/2023. LV systolic function is reduced Measurements 2D Linear Measurements IVSd: 1.13 0.6-0.9/0.6-1.0 cm LVIDd: 6.75 3.9-5.3/4.2-5.9 cm LVIDd Index: 2.88 2.4-3.2/2.2-3.1 cm/m2 LVIDs: 5.01 2.0-3.6 cm LVPWd: 0.98 0.7-1.1 cm LA Diam: 6.00 2.7-3.8/3.0-4.0 cm LAIDs Index: 2.56 1.5-2.3 cm/m2 LV Mass: 402.25 67-162/88-224 g LV Mass Index: 171.90 43-95/49-115 g/m2 LVOT Diam: 2.40 3.0+(-)1.3 cm 2D Systolic Function EF 4C: 43.30 >55% EF 2C: 49.00 >55% EF BiP: 47.40 >55% Mitral Valve MV Pk E: 0.68 MV PK A: 0.23 MV Decel Time: 309.00 E/A: 2.90 E'Lateral: 7.40 E'Medial: 3.59 E/E' Med: 19.00 E/E' Lat: 9.20 PHT: 90.00 MVA PHT: 2.44 Decel Elliott: 2.21 Aortic Valve AoV Pk Aakash: 1.84 AoV Mn Aakash: 1.35 AoV VTI: 0.40 AoV Pk Grad: 14.00 Aov Mn Grad: 8.00 ADALID Cont.VTI: 2.32 LVOT LVOT Pk Aakash: 0.89 LVOT Mn Aakash: 0.57 LVOT VTI: 0.21 LVOT Pk Grad: 3.00 LVOT Mn Grad: 2.00 LVOT Diam: 2.40 LVOT Area: 4.52 Diastolic Function MV Pk E: 0.68 MV Pk A: 0.23 E/A: 2.90 E'Medial: 3.59 E/E' Med: 19.00 E' Laterial: 7.40 E/E' Lat: 9.20 Tricuspid Valve TR Pk Aakash: 3.33 TR Pk Grad: 44.00 RA Press: 8.00 RVSP: 52.00 Great Vessels Aorta Sinus of Valsalva: 3.67 2.0-3.5 cm Ao Asc: 4.20 2.1-3.4 cm Ao Arch: 3.40 Updated in Other Vendor System with Status of Final Rodney Anderson MD electronically signed on 07/02/2024 1:26:19 PM with status of Final
[2024-07-01 12:37] LABS: Anion Gap 13 (12-20); Blood Urea Nitrogen 24 mg/dL (9-16); Calcium 9.8 mg/dL (8.4-10.2); Carbon Dioxide 29 mmol/L (22-29); Chloride 104 mmol/L (96-108); Estimated Glomerular Filt Rate > 60; Glucose Random 119 mg/dL (60-115); Sodium 141 mmol/L (135-145)
== END 2024-07-01 09:03 | disposition home or self-care (01) ==
LOC: HO.US 09:02
PROVIDERS: PCP Nurse Practitioner Family; Referring Provider Internal Medicine; Visit Provider Nurse Practitioner Family
DX: R10.9 Unspecified abdominal pain (principal); I51.89 Other ill-defined heart diseases
CPT/HCPCS: 36415; 76700; 80048; 93306; Q9957

== ENCOUNTER → 2024-07-01 09:04 | Outpatient (BNV) | payer BC, SELFPAY | PROVIDERS: PCP Nurse Practitioner Family; Referring Provider Internal Medicine; Visit Provider Radiology Diagnostic Radiology | DX: R10.9 Unspecified abdominal pain (principal) | CPT/HCPCS: 76700 ==

== ENCOUNTER → 2024-07-01 09:55 | Outpatient (BNV) | payer BC, SELFPAY | PROVIDERS: PCP Nurse Practitioner Family; Referring Provider Internal Medicine; Visit Provider Internal Medicine Cardiovascular Disease | DX: I25.10 Atherosclerotic heart disease of native coronary artery without angina pectoris (principal); I51.7 Cardiomegaly; I34.0 Nonrheumatic mitral (valve) insufficiency; I36.1 Nonrheumatic tricuspid (valve) insufficiency | CPT/HCPCS: 93306 ==

== ENCOUNTER 2024-09-05 09:19 | Outpatient (AMB) | payer BC, SELFPAY ==
--- NOTE | 2024-09-05 09:22 | A.OFFVIS_ITS ---
Vital Signs 09/05/24 09:23 Height 6 ft Weight 260 lb 2.327 oz BMI 35.3 BP 170/70 H Blood Pressure Location Lt brachial Position Sitting Pulse 78 Pulse Source Pulse Oximeter Intake Visit Reasons: pre-op upper endoscopy colonoscopy/ cta Allergies No Known Allergies Allergy (Verified 05/31/24 17:46) Medication List - Last Reconciled 09/05/24 by Tushar Blevins MD [4x4 gauze As directed] [6x6 kerlix fluffs As directed] atorvastatin 20 mg PO BEDTIME blood sugar diagnostic ([employer] BrandsTouch Verio test strips) test blood sugar TID flash glucose scanning reader (FreeStyle Michael 2 [place]) tid testing flash glucose sensor (FreeStyle Michael 2 Sensor kit) TID testing furosemide (Lasix) 40 mg PO QAM gabapentin 1,200 mg PO BID glipizide 10 mg PO BID hydralazine 25 mg PO TID 90 days hydrochlorothiazide 12.5 mg PO DAILY insulin glargine (Basaglar KwikPen U-100 Insulin) 24 units (0.24 mL) subcut BEDTIME [kerlix rolls As directed] lisinopril 40 mg PO DAILY metoprolol succinate ER 100 mg PO DAILY 90 days pantoprazole 40 mg PO DAILY pen needle, diabetic use to inject insulin once a day HPI Comments Details: Colton returns for follow-up. Multiple cardiovascular risk factors including hypertension, diabetes, dyslipidemia, smoking, alcohol excess, untreated sleep apnea. It seems that he was seen in the emergency room few weeks back for increasing shortness of breath and diagnosed with congestive heart failure. Currently, he states much improved. With regard to medications, he cannot remember any of the names. Hence we will need to call the pharmacy. The patient works in the [employer] industry, a physically demanding occupation, contributing to his cardiovascular strain. His lifestyle includes cigarette smoking and daily alcohol consumption. Though he has a CPAP machine for sleep apnea, it is not used due to functional difficulties. Planning for jail, he intends to relocate to [place] to engage in less demanding activities. The patient understands the need to manage his cardiovascular health actively and expresses a willingness to modify certain lifestyle habits. [facility] Medical History Erectile dysfunction associated with type 2 diabetes mellitus Diabetes mellitus with neuropathy On beta roney at home Pulmonary nodule Diabetic foot ulcer Essential hypertension Obesity History of cervical fracture Personal history of nicotine dependence Dysphagia Neuropathy MAHAD (obstructive sleep apnea) GERD (gastroesophageal reflux disease) PAD (peripheral artery disease) Diabetes mellitus, type 2 Surgical History History of amputation of toe (04/06/23) History of tonsillectomy History of total left knee replacement History of fusion of cervical spine History of total right knee replacement (TKR) History of endoscopy History of colonoscopy History of left knee surgery Family History Mother No problems noted. Father No problems noted. Social History Housing: House Are you a primary managed care provider to a significant other at home: No Do you presently have visiting nurse or other home services: No Alcohol intake: current Alcohol intake frequency: 3 or more drinks per day Alcohol type: hard liquor Patient Tobacco Use Status: Current everyday Tobacco user Tobacco use type: Cigarette Cigarette Packs Per Day: 1 Cigarettes Per Day: 10 Years Smoked: 25 e-Cigarette/Vaping Use: Never Used Second Hand Smoke Exposure: No service: No Current occupational status: employed Current occupation: [employer], right handed Current occupational exposures/hazards: Yes Cognitive needs: No Hearing needs: No Vision needs: No Review of Systems Const Denies weakness ENT Denies dizziness Card Denies chest pain, Denies chest pain with activity, Denies syncope, Denies rapid heart rate, Denies pedal edema, Denies edema, Denies leg edema, Denies lightheadedness, Denies palpitations, Denies dyspnea, Denies dyspnea on exertion and Denies orthopnea Resp Denies cough, Denies dyspnea and Denies dyspnea on exertion GI Denies hematochezia and Denies change in stool character Musc Denies abnormal gait, Denies muscle cramps, Denies muscle weakness, Denies numbness, Denies radiating pain into limb and Denies tingling Neuro Denies abnormal gait, Denies dizziness, Denies syncope, Denies numbness, Denies tingling and Denies weakness Endo Denies palpitations Physical Exam Vital Signs: Last Vital Signs Pulse 78 09/05/24 09:23 BP 170/70 H 09/05/24 09:23 BMI result Body Mass Index 35.3 Const General: comfortable and no acute distress Orientation/consciousness: patient oriented x3 HEENT Other: Unremarkable Head: Yes normal to inspection Neck Neck: Yes normal visual inspection Chest Chest palpation & inspection: normal inspection of the chest Resp Auscultation: clear to auscultation bilaterally Cardio Palpation: normal PMI Heart sounds: S1 normal heart sound present, S2 normal heart sound present, no gallops, no murmurs and no rubs GI Palpation (GI): Soft to palpation Back/Spine/Pelvis Other: unremarkable Skin General skin exam: no rashes or lesions noted Neuro General: patient oriented x3 Extrem General: Yes normal to inspection Psych Mental Status: mental status grossly normal Assessment & Plan Assessment & Plan (1) Chronic heart failure with preserved ejection fraction: Code(s): I50.32 - Chronic diastolic (congestive) heart failure Category: Medical (2) Diastolic dysfunction: Code(s): I51.89 - Other ill-defined heart diseases Category: Medical (3) Ascending aorta dilatation: Code(s): I77.810 - Thoracic aortic ectasia Category: Medical (4) HTN (hypertension): Code(s): I10 - Essential (primary) hypertension Category: Medical (5) Diabetes: Comment: (with neuropathy, last A1C 8.4 on 08/27/20, referred for eye exam 08/2020) Code(s): E11.9 - Type 2 diabetes mellitus without complications Category: Medical (6) Other and unspecified hyperlipidemia: Code(s): E78.5 - Hyperlipidemia, unspecified Category: Medical Plan Cardiac studies reviewed. [id number] increased left ventricular size; LVEF 45-50%; moderate diastolic dysfunction with filling pressure with elevated filling pressures; increased right ventricular size; severe biatrial enlargement; moderate pulmonary hypertension. In 2022, LVEF was 68%. There was still evidence of diastolic dysfunction/increased right ventricular size as well as atrial enlargement. Mild pulmonary hypertension. Myocardial perfusion imaging study 2023-mild reversible inferior defect-mild ischemia versus artifact. Coronary CTA-2024-no evidence of hemodynamically significant coronary disease. Mild coronary artery calcification. Possible thickening of basal/mid ventricular septum. Patent foramina ovale. Ascending aortic size 4.1 cm. Overall, likely all uncontrolled hypertension contributing to diastolic heart failure and shortness of breath. He could have some COPD related to smoking. He cannot accurately state his medications and hence willing to call the pharmacy. Possible changes could be changing the beta-blockers from metoprolol to carvedilol. We could add amlodipine. Spironolactone. Going up on the hydralazine. In some combination, we can make the above changes. Otherwise, discussed about smoking cessation, cutting back on alcohol and using CPAP. I am not entirely clear if he is going to comply or not. Discussion Notes During our discussion, we reviewed the patient's history of congestive heart failure and hypertension. The current medication regimen was addressed; however, due to the patient's difficulty recalling the names, nursing staff will contact the pharmacy to confirm and potentially adjust medications. We discussed the significance of maintaining optimal blood pressure and reducing cardiac workload through medication management and lifestyle interventions, including smoking cessation and alcohol reduction. The patient was informed of the necessity to address the functional issues with his CPAP machine to manage sleep apnea. Follow-up arrangements were discussed to monitor these changes, with emphasis on discontinuing smoking and managing hypertension. Patient was informed and verbally consented to the use of an ambient scribe for clinic note documentation during this visit. Patient Instructions: - Confirm medication list with your pharmacy. - Work with the nurse to ensure all medications are correct. - Reduce smoking and alcohol consumption for better heart health. - Address any issues with your CPAP machine to manage sleep apnea. - Consider lifestyle changes to support cardiovascular health. - Plan for a follow-up appointment in three months. Coding Level of Care Code Est Pt Level 4 (37529) Complex EM visit Add On G2211 Diagnoses Chronic heart failure with preserved ejection fraction I50.32 Diastolic dysfunction I51.89 Ascending aorta dilatation I77.810 HTN (hypertension) I10 Diabetes E11.9 Other and unspecified hyperlipidemia E78.5
[2024-09-05 09:23] VITALS: BP 170/70; PULSE 78; BMI 35.3
--- OUTSIDE RECORDS SUMMARY | 2024-09-05 09:25 | XMS_ITS ---
Author Organization [facility] Corrine [place] Address [address] [facility] [place] [address] Care Team Providers Care Visual Merchandising Specialist Name Role Phone Lorenzo Huber Primary Care Provider Unav ailable Aurelia Otoole [phone] REASON FOR VISIT [facility] wound care Encounters Encounter Location Date Provider Diagnosis [facility] [address] [place] [address] 07/12/2024 Aurelia Otoole Plan Of Treatment Next Appt Details Provider Name:Aurelia patterson, 09/20/2024 11:00:00 AM, [address] [place], [address], Progress Notes * Colton DUNN CDOB:[birth year] (64 yo M)Acc No.[id number]:07/12/2024 Patient:?Colton DUNN :1960???Age:64 Y???Sex:Male Address:[address] [place], [address] * true * Date:? Generated for Printi ng/Faxing/eTransmitting on:?09/05/2024 09:25 AM EDT
--- OUTSIDE RECORDS SUMMARY | 2024-09-05 09:25 | XMS_ITS ---
[facility] Address [address] [place] [address] Care Team Providers Care Campus Coordinator Name Role Phone Lorenzo Huber Primary Care Provider Unav ailable Aurelia Otoole [phone] Otoole Encounters Encounter Location Date Provider Diagnosis [address] [address] 07/26/2024 Aurelia Otoole Plan Of Treatment Next Appt Details Provider Name:Aurelia patterson, 09/20/2024 11:00:00 AM, [address] [place] [address], [address], Progress Notes * Colton DUNN CDOB:[birth year] (64 yo M)Acc No.[id number]:07/26/2024 Progress Notes Patient:?Colton DUNN Provider:?Aurelia Otoole DPM :1960???Age:64 Y???Sex:Male Davon e:07/26/2024 Address:[address] [place] Pcp:ELLE Amanda Subjective: * Chief Complaints: * [...] Otoole DPM Date:?04/2024 Generated for Bev horowitz/Adali/Sandeep on:?09/05/2024 09:25 AM EDT
--- OUTSIDE RECORDS SUMMARY | 2024-09-05 09:25 | XMS_ITS ---
Author Organization [facility] Corrine john VillalbaJuvenc[place] Address [address] [facility] [place] [address] Care Team Providers Care Linotype Worker Name Role Phone Lorenzo Huber Primary Care Provider Unav ailable Aurelia Otoole [phone] REASON FOR VISIT [facility] Medications Medication SIG (Take, Route, Fr equency, Duration) Notes Start Date End Date Status Clindamycin HCl 300 MG 1 capsule Orally every 8 hrs for 7 days 07/14/2024 Active Encounters Encounter Location Date Provider Diagnosis [facility] [address] [place] [address] 07/11/2024 Aurelia Otoole Plan Of Treatment Medication Medication Name Sig Start Date Stop Date Notes Clindamycin HCl 300 MG 1 capsule Orally every 8 hrs for 7 days 07/14/2024 Next Appt Details Provider Name:Aurelia patterson, 09/20/2024 11:00:00 AM, [address] [place], [address], Progress Notes * Colton DUNN CDOB:[birth year] (64 yo M)Acc No.[id number]:07/11/2024 Patient:?Colton DUNN :1960???Age:64 Y???Sex:Male Address:[address] [place], [address] * Refills? Start Clindamycin HCl Capsule, 300 MG, Orally, 21 Capsule, 1 capsule, every 8 hrs, 7 days, Refills=0 * true * Date:? Generated for Bev horowitz/Adali/Sandeep on:?09/05/2024 09:24 AM EDT
--- OUTSIDE RECORDS SUMMARY | 2024-09-05 09:25 | XMS_ITS | Patient Health Record ---
Author Organization [facility] Corrine lopez [place] Address [address] [facility] [place] [address] Care Team Providers Care Visual Basic Programmer Name Role Phone Lorenzo Huber Primary Care Provider Unav ailable Aurelia Otoole Unavailable [phone] Allergies No Known Allergies Results Component Value [...] Referring Provider Last Name Thalia [facility] [place] Referred Provider Aurelia Otoole Referred Address [address] [place],[address], Referred Provider Specialty Podiatry Referral Priority Routine [...] Marlena Referring Provider Last Name Thalia Referred [facility] Referred Provider Aurelia Otoole Referred Address [address] [place], [place],[address],[place] Referred Provider Specialty Podiatry Referral Priority Routine [...] Problem Acquired hammer toe of right foot (8547619754608435) Other hammer toe(s) (acquired), right foot (M20.41) Active confirmed Problem Acquired hammer toe of left foot (0611352913411890) Other hammer toe(s) (acquired), left foot (M20.42) Active confirmed Problem Polyneuropathy due to type 2 diabetes mellitus (187575705) Type 2 diabetes mellitus with diabetic polyneuropathy (E11.42) Active confirmed Problem Polyneuropathy due to type 2 diabetes mellitus (552460032) Type 2 diabetes mellitus with diabetic polyneuropathy (E11.42) Active confirmed Problem Polyneuropathy due to diabetes mellitus type I (575972489) Type 1 diabetes mellitus with diabetic polyneuropathy (E10.42) Active confirmed Problem 48089234 Non-pressure ulcer of left lower extremity, limited to breakdown of skin (L97.921) Active confirmed Problem 075519178 Hammer toe of left foot (M20.42) Active confirmed Problem 1499183611 Hallux valgus of left foot (M20.12) Active confirmed Problem Foot ulcer due to type 2 diabetes mellitus (6565817325182) Type 2 diabetes mellitus with foot ulcer (E11.621) Active confirmed Problem 12255923 Non-pressure ulcer of left lower extremity with fat layer exposed (L97.922) Active confirmed Problem 57580583 Smoker (F17.200) Active confirmed Problem [id number] Neuropathic ul cer of left foot with fat layer exposed (L97.522) Active confirmed Problem 035274878 Amputated toe of left foot (S98.132A) Active confirmed Vital Signs Heart Rate 51 /min 07/11/2024 Blood pressure diastolic 70 mm Hg 07/11/2024 Height 6ft in 07/11/2024 Blood pressure systolic 157 mm Hg 07/11/2024 Weight 270 lbs 07/11/2024 BMI 36.61 kg/m2 07/11/2024 Encounters Encounter Location Date Provider Diagnosis [facility] [address] [place] [address] 01/27/2024 Aurelia Otoole Type 2 diabetes mellitus with diabetic polyneuropathy E11.42 ; Other hammer toe(s) (acquired), left foot M20.42 ; Tinea unguium B35.1 ; Other hammer toe(s) (acquired), right foot M20.41 ; Amputated toe of left foot S98.132A and Hallux valgus of left foot M20.12 [facility] [address] 07/11/2024 Aurelia Otoole Other hammer toe(s) (acquired), left foot M20.42 ; Cellulitis of foot, left L03.116 ; Type 2 diabetes mellitus with diabetic polyneuropathy E11.42 ; Tinea unguium B35.1 ; Other hammer toe(s) (acquired), right foot M20.41 ; Amputated toe of left foot S98.132A ; Hallux valgus of left foot M20.12 and Neuropathic ulcer of left foot with fat layer exposed L97.522 [facility] [address] [place] [address] 11/17/2023 Aurelia [facility] [address] [place] [address] 04/13/2024 Aurelia [facility] [address] [place] [address] 05/02/2024 Aurelia [facility] [address] [place] [address] 05/25/2024 Aurelia [facility] [address] [place] [address] 07/11/2024 Aure[facility] [address] [place] [address] 07/11/2024 Aurelia [facility] [address] [address] 07/12/2024 Aurelia Otoole Assessments Encounter Date Diagnosis [...] X ray : Foot, left 3V 07/11/2024 [id number] NAIL, 6 OR MORE 06/28/2020 [id number]-VMVQ SKIN LESIONS, 2 TO 4 06/29/19 21 Next Appt Details Provider Name:Aurelia patterson, 09/20/2024 11:00:00 AM, [address] [place], [address], Insurance Providers Payer Name Payer Address Payer Phone Subscriber Number Group Number Insured Name Patient Relationship to Insured Coverage Start Date Coverage End Date [facility] [address] [place] [address] [id number] Candelaria Saini Spouse - patient is the spouse of the insured Medical (General) History Medical History History ICD Code type II diabetes Reflux ( GERD) Back,Hip,and Knee pain High blood pressure Neuropathy Measles Joint implants/screws Surgical History Surgery Date(Month/Year) knee replacement 2015,2016 neck surgery amputation 2nd , toe 03/2023 [place] History Reason Date([place] [facility] [place] clinic every [place] [facility] [place] -diabetic ulcer
== END 2024-09-05 09:36 | disposition home or self-care (01) ==
LOC: HO.HCS 09:19
PROVIDERS: PCP Nurse Practitioner Family; Visit Provider Internal Medicine
DX: I50.32 Chronic diastolic (congestive) heart failure (principal); I51.89 Other ill-defined heart diseases; I77.810 Thoracic aortic ectasia; I10 Essential (primary) hypertension; E11.9 Type 2 diabetes mellitus without complications; E78.5 Hyperlipidemia, unspecified
CPT/HCPCS: 99214

== ENCOUNTER 2024-09-07 10:10 | Outpatient (REF) | payer BC, SELFPAY ==
--- NOTE | ~2024-09-07 | XR_ITS ---
EXAMINATION: XR TIBIA FIBULA 2 VIEWS RIGHT HISTORY: L03.90 - Cellulitis, unspecified COMPARISON: There are no prior studies available for comparison. FINDINGS: AP and lateral views of the right tibia and fibula are submitted. Osseous mineralization is normal. There is no fracture or dislocation. The patient is status post total knee arthroplasty. The ankle joint is maintained. There is diffuse soft tissue edema. XR/XR tibia fibula RT 2V IMPRESSION: Diffuse soft tissue edema. No osseous abnormality is identified. Electronically signed by: Milton Conway MD 09/07/2024 12:31 PM EDT
== END 2024-09-07 10:11 | disposition home or self-care (01) ==
LOC: HO.HMGCX 10:10
PROVIDERS: PCP Nurse Practitioner Family; Visit Provider Physician Assistant
DX: Z23 Encounter for immunization (principal); L03.115 Cellulitis of right lower limb
CPT/HCPCS: 73590; 87070; 87073; 87077; 87186; 87205; 90471; 90715

== ENCOUNTER 2024-09-07 10:10 | Outpatient (AMB) | payer BC, SELFPAY ==
--- NOTE | 2024-09-07 10:14 | MHC.OFFWIV ---
Intake Vital Signs 09/07/24 10:17 Height 6 ft BMI Reason not done Patient refused/unable BP 152/90 H Blood Pressure Location Rt brachial Position Sitting Pulse 93 Pulse Source Pulse Oximeter Temp 98.1 F Temp Source Oral Pulse Oximetry (%) 96 Oxygen Delivery Method Room Air Intake Visit Reasons: EP RT Leg ?Screw, infection Patient Tobacco Use Status: Current everyday Tobacco user Allergies No Known Allergies Allergy (Verified 09/07/24 10:17) Do you need a note to return to daycare/school/sports/work: No HPI HPI Comments History of Present Illness Details Patient is a 64yo diabetic male who presents with R lateral leg infection 1 week-10 days ago occured He was on job site and a screw cut his R leg He is unsure if he has FB in R leg He does not feel the pain much due to neuropathy He has noticed swelling and redness No fever or chills He said unsure about drainage from wound/bandage Has been keeping area clean and bandaging Has chronic wound on L foot which he sees woundcare at [place] for PCP carlos eduardo Shoemaker [facility] Medical History Erectile dysfunction associated with type 2 diabetes mellitus Diabetes mellitus with neuropathy On beta roney at home Pulmonary nodule Diabetic foot ulcer Essential hypertension Obesity History of cervical fracture Personal history of nicotine dependence Dysphagia Neuropathy MAHAD (obstructive sleep apnea) GERD (gastroesophageal reflux disease) PAD (peripheral artery disease) Diabetes mellitus, type 2 Surgical History History of amputation of toe (04/06/23) History of tonsillectomy History of total left knee replacement History of fusion of cervical spine History of total right knee replacement (TKR) History of endoscopy History of colonoscopy History of left knee surgery Family History Mother No problems noted. Father No problems noted. Social History Housing: House Are you a primary director of patient care to a significant other at home: No Do you presently have visiting nurse or other home services: No Alcohol intake: current Alcohol intake frequency: 3 or more drinks per day Alcohol type: hard liquor Patient Tobacco Use Status: Current everyday Tobacco user Tobacco use type: Cigarette Cigarette Packs Per Day: 1 Cigarettes Per Day: 10 Years Smoked: 25 e-Cigarette/Vaping Use: Never Used Second Hand Smoke Exposure: No service: No Current occupational status: employed Current occupation: [employer], right handed Current occupational exposures/hazards: Yes Cognitive needs: No Hearing needs: No Vision needs: No Review of Systems Const Denies chills and Denies fever(s) Musc Reports deformity and Denies stiffness Skin/Breast Reports wounds Neuro Reports paresthesias (diabetic neuropathy) Physical Exam Vital Signs: Last Vital Signs Temp 98.1 F 09/07/24 10:17 Pulse 93 09/07/24 10:17 BP 152/90 H 09/07/24 10:17 Pulse Ox 96 09/07/24 10:17 Oxygen Delivery Method Room Air 09/07/24 10:17 General: Non-toxic, NAD. Speaking full sentences. Skin: Warm dry throughout Sock and boot placed LLE; not examined RLE lateral calf imaged here. Pt has open approx 3cm x 2cm oval shaped wound with central yellow discharge. There is a dark circular scab to superior aspect of wound. No palpable FB. Eye: EOMI Respiratory: No tachypnea MSK: Tissues soft R calf region and he has full ROM at R knee and ankle. Neurology: Alert. No aphasia or facial droop. Psych: Good mood and affect Assessment & Plan Assessment & Plan (1) Cellulitis: Code(s): L03.90 - Cellulitis, unspecified Qualifiers: Laterality: right Site of cellulitis: extremity Site of cellulitis of extremity: lower extremity Qualified Code(s): L03.115 - Cellulitis of right lower limb Plan: Patient seen and evaluated. XRay R leg: I viewed no FB or osteo. TDAP given Wound culture obtained and sent Antibiotics initiated; doxy; take with food, avoid sun exposure He sees the wound care clinic so referral given for monitoring R leg infection Discussed worsening s/s and he understands and will call with any concerns Patient gave verbal understanding and had no additional questions or concerns at time of discharge All questions answered Orders: Orders XR tibia fibula RT 2V Today L03.90 - Cellulitis, unspecified Anaerobic Culture (incl CULT) Today L03.90 - Cellulitis, unspecified Referrals Wound Care Referral L03.115 - Cellulitis of right lower limb Medications: New doxycycline hyclate 100 mg PO BID 20 tabs 0RF Coding Level of Care Code Est Pt Level 3 (77382) Diagnoses Cellulitis of right lower extremity L03.115 Laterality: right Site of cellulitis: extremity Site of cellulitis of extremity: lower extremity
[2024-09-07 10:17] VITALS: BP 152/90; PULSE 93; TEMP 36.7; O2SAT 96
--- OUTSIDE RECORDS SUMMARY | 2024-09-07 11:06 | XMS_ITS ---
Author Organization [facility] Corrine john VillalbaJuvenc[place] Address [address] [facility] [place] [address] Care Team Providers Care Data Communications Technician Name Role Phone Lorenzo Huber Primary Care Provider Unav ailable Aurelia Otoole [phone] REASON FOR VISIT [facility] Medications Medication SIG (Take, Route, Fr equency, Duration) Notes Start Date End Date Status Clindamycin HCl 300 MG 1 capsule Orally every 8 hrs for 7 days 07/14/2024 Active Encounters Encounter Location Date Provider Diagnosis [facility] [address] [place] [address] 07/11/2024 Aurelia Otoole Plan Of Treatment Medication Medication Name Sig Start Date Stop Date Notes Clindamycin HCl 300 MG 1 capsule Orally every 8 hrs for 7 days 07/14/2024 Next Appt Details Provider Name:Aurelia patterson, 09/20/2024 11:00:00 AM, [address] [place], [address], Progress Notes * Colton DUNN CDOB:[birth year] (64 yo M)Acc No.[id number]:07/11/2024 Patient:?Colton DUNN :1960???Age:64 Y???Sex:Male Address:[address] [place], [address] * Refills? Start Clindamycin HCl Capsule, 300 MG, Orally, 21 Capsule, 1 capsule, every 8 hrs, 7 days, Refills=0 * true * Date:? Generated for Bev horowitz/Adali/Sandeep on:?09/07/2024 11:06 AM EDT
--- OUTSIDE RECORDS SUMMARY | 2024-09-07 11:06 | XMS_ITS | Patient Health Record ---
Author Organization [facility] Corrine lopez [place] Address [address] [facility] [place] [place] [address] Care Team Providers Care Acoustic Warfare Analyst Name Role Phone Lorenzo Huber Primary Care Provider Unav ailable Aurelia Otoole Unavailable [phone] Allergies No Known Allergies Results Component Value [...] Referring Provider Last Name Thalia [facility] [place] Referred Provider Aurelia Otoole Referred Address [address] [place],[address], Referred Provider Specialty Podiatry Referral Priority Routine [...] Marlena Referring Provider Last Name Thalia Referred [facility] Referred Provider Aurelia Otoole Referred Address [address] [place], [place],[address],[place] Referred Provider Specialty Podiatry Referral Priority Routine [...] Problem Status W/U Status Risk Notes Problem Other hammer toe(s) (acquired), right foot (M20.41) Active confirmed Problem Acquired hammer toe of left foot (3336883422045600) Other hammer toe(s) (acquired), left foot (M20.42) Active confirmed Problem Polyneuropathy due to type 2 diabetes mellitus (845375892) Type 2 diabetes mellitus with diabetic polyneuropathy (E11.42) Active confirmed Problem Polyneuropathy due to type 2 diabetes mellitus (508649699) Type 2 diabetes mellitus with diabetic polyneuropathy (E11.42) Active confirmed Problem Polyneuropathy due to diabetes mellitus type I (244253037) Type 1 diabetes mellitus with diabetic polyneuropathy (E10.42) Active confirmed Problem 46913746 Non-pressure ulcer of left lower extremity, limited to breakdown of skin (L97.921) Active confirmed Problem 531277023 Hammer toe of left foot (M20.42) Active confirmed Problem 3715463128 Hallux valgus of left foot (M20.12) Active confirmed Problem Foot ulcer due to type 2 diabetes mellitus (9642394456396) Type 2 diabetes mellitus with foot ulcer (E11.621) Active confirmed Problem 01696118 Non-pressure ulcer of left lower extremity with fat layer exposed (L97.922) Active confirmed Problem 92617342 Smoker (F17.200) Active confirmed Problem 78178778085152799 Neuropathic ul cer of left foot with fat layer exposed (L97.522) Active confirmed Problem 081567932 Amputated toe of left foot (S98.132A) Active confirmed Vital Signs Heart Rate 51 /min 07/11/2024 Blood pressure diastolic 70 mm Hg 07/11/2024 Height 6ft in 07/11/2024 Blood pressure systolic 157 mm Hg 07/11/2024 Weight 270 lbs 07/11/2024 BMI 36.61 kg/m2 07/11/2024 Encounters Encounter Location Date Provider Diagnosis [address] [address] 01/27/2024 Aurelia Otoole Type 2 diabetes mellitus with diabetic polyneuropathy E11.42 ; Other hammer toe(s) (acquired), left foot M20.42 ; Tinea unguium B35.1 ; Other hammer toe(s) (acquired), right foot M20.41 ; Amputated toe of left foot S98.132A and Hallux valgus of left foot M20.[address] [address] 07/11/2024 Aurelia Otoole Other hammer toe(s) (acquired), left foot M20.42 ; Cellulitis of foot, left L03.116 ; Type 2 diabetes mellitus with diabetic polyneuropathy E11.42 ; Tinea unguium B35.1 ; Other hammer toe(s) (acquired), right foot M20.41 ; Amputated toe of left foot S98.132A ; Hallux valgus of left foot M20.12 and Neuropathic ulcer of left foot with fat layer exposed L97.[address] [address] 11/17/2023 Aurelia [facility] [place] [address] [place] [address] 04/13/2024 Aurelia [facility] [place] [address] [place] [address] 05/02/2024 Aurelia [facility] [place] [address] [place] [address] 05/25/2024 Aurelia [facility] [place] [address] [place] [address] 07/11/2024 Aurelia [facility] [place] [address] [place] [address] 07/11/2024 Aurelia [facility] [address] [address] 07/12/2024 Aurelia Mendeza Assessments Encounter Date Diagnosis (ICD Code) Assessment [...] X ray : Foot, left 3V 07/11/2024 [id number] NAIL, 6 OR MORE 06/28/2020 [id number] SKIN LESIONS, 2 TO 4 06/29/19 21 Next Appt Details Provider Name:Aurelia patterson, 09/20/2024 11:00:00 AM, [address] [place], [address], Insurance Providers Payer Name Payer Address Payer Phone Subscriber Number Group Number Insured Name Patient Relationship to Insured Coverage Start Date Coverage End Date [facility] [address] [place] [address] [id number] Candelaria Saini Spouse - patient is the spouse of the insured Medical (General) History Medical History History ICD Code type II diabetes Reflux ( GERD) Back,Hip,and Knee pain High blood pressure Neuropathy Measles Joint implants/screws Surgical History Surgery Date(Month/Year) knee replacement 2015,2017 neck surgery amputation 2nd , toe 03/2023 Hospitalization History Reason Date(Month/Year[place] [facility] [place] Fluid [place] heart 05/21 wound clinic every week [facility] [place]- feet swollen -diabetic ulcer
--- OUTSIDE RECORDS SUMMARY | 2024-09-07 11:07 | XMS_ITS ---
Author Organization [facility] Corrine [place] Address [address] [facility] [place] [address] Care Team Providers Care Pit Steward Name Role Phone Lorenzo Huber Primary Care Provider Unav ailable Aurelia Otoole [phone] REASON FOR VISIT [facility] Encounters Encounter Location Date Provider Diagnosis [facility] [place] [address] [place] [address] 07/12/2024 Aurelia Otoole Plan Of Treatment Next Appt Details Provider Name:Aurelia patterson, 09/20/2024 11:00:00 AM, [address] [place], [address], Progress Notes * Colton DUNN CDOB:[birth year] (64 yo M)Acc No.[id number]:07/12/2024 Patient:?Colton DUNN :1960???Age:64 Y???Sex:Male Address:[address] [place], [address] * true * Date:? Generated for Printi ng/Faxing/eTransmitting on:?09/07/2024 11:06 AM EDT
--- OUTSIDE RECORDS SUMMARY | 2024-09-07 11:07 | XMS_ITS ---
Author Organization [facility] Address [address] [place] [address] Care Team Providers Care Dermatology Sales Representative Name Role Phone Lorenzo Huber Primary Care Provider Unav ailable Aurelia Otoole [phone] Otoole Encounters Encounter Location Date Provider Diagnosis [address] [address] 07/26/2024 Aurelia Otoole Plan Of Treatment Next Appt Details Provider Name:Aurelia patterson, 09/20/2024 11:00:00 AM, [address] [place] [address], [address], Progress Notes * Colton DUNN CDOB:[birth year] (64 yo M)Acc No.[id number]:07/26/2024 Progress Notes Patient:?Colton DUNN Provider:?Aurelia Otoole DPM :1960???Age:64 Y???Sex:Male Davon e:07/26/2024 Address:[address] [place] Pcp:ELLE Amanda Subjective: * Chief Complaints: * [...] Otoole DPM Date:?04/2024 Generated for Bev horowitz/Adali/Sandeep on:?09/07/2024 11:06 AM EDT
== END 2024-09-07 12:23 | disposition home or self-care (01) ==
PROVIDERS: PCP Nurse Practitioner Family; Visit Provider Physician Assistant
DX: L03.115 Cellulitis of right lower limb (principal); Z23 Encounter for immunization

== ENCOUNTER → 2024-09-07 10:42 | Outpatient (BNV) | payer BC, SELFPAY | PROVIDERS: PCP Nurse Practitioner Family; Visit Provider Radiology Diagnostic Radiology | DX: R60.0 Localized edema (principal) | CPT/HCPCS: 73590 ==

== ENCOUNTER 2024-09-13 12:55 | Day surgery (SDC) | payer BC, SELFPAY ==
--- OUTSIDE RECORDS SUMMARY | 2024-09-02 12:25 | XMS_ITS ---
Author Organization [facility] [place] Address [address] [facility] [place] [address] Care Team Providers Care Musical Performer Name Role Phone Lorenzo Huber Primary Care Provider Unav ailable Aurelia Otoole [phone] REASON FOR VISIT [place] Medications Medication SIG (Take, Route, Fr equency, Duration) Notes Start Date End Date Status Clindamycin HCl 300 MG 1 capsule Orally every 8 hrs for 7 days 07/14/2024 Active Encounters Encounter Location Date Provider Diagnosis [facility] [address] [place] [address] 07/11/2024 Aurelia Otoole Plan Of Treatment Medication Medication Name Sig Start Date Stop Date Notes Clindamycin HCl 300 MG 1 capsule Orally every 8 hrs for 7 days 07/14/2024 Next Appt Details Provider Name:Aurelia patterson, 09/20/2024 11:00:00 AM, [address] [place], [address], Progress Notes * Colton DUNN CDOB:[birth year] (64 yo M)Acc No.[id number]:07/11/2024 Patient:?Colton DUNN :1960???Age:64 Y???Sex:Male Address:[address] [place], [address] * Refills? Start Clindamycin HCl Capsule, 300 MG, Orally, 21 Capsule, 1 capsule, every 8 hrs, 7 days, Refills=0 * true * Date:? Generated for Bev horowitz/Adali/Sandeep on:?09/02/2024 12:25 PM EDT
--- OUTSIDE RECORDS SUMMARY | 2024-09-02 12:25 | XMS_ITS ---
[facility] Address [address] [place] [address] Care Team Providers Care Sample Mounter Name Role Phone Lorenzo Huber Primary Care Provider Unav ailable Aurelia Otoole [phone] REASON FOR VISIT per Dr Otoole Encounters Encounter Location Date Provider Diagnosis [address] [address] 07/26/2024 Aurelia Otoole Plan Of Treatment Next Appt Details Provider Name:Aurelia patterson, 09/20/2024 11:00:00 AM, [address] [place] [address], [phone], Progress Notes * Colton DUNN CDOB:[birth year] (64 yo M)Acc No.[id number]:07/26/2024 Progress Notes Patient:?Colton DUNN Provider:?Aurelia Otoole DPM :1960???Age:64 Y???Sex:Male Davon e:07/26/2024 Address:[address] [id number] Pcp:ELLE Amanda Subjective: * Chief Complaints: * ???1. per Dr Otoole. * Medical History:? Objective: * Vitals:? Assessment: Plan: * Treatment: * Images: * The named appointment provid er may or may not be the originator of this progress note, and it is not deemed complete until electronically signed by the appointment provider. Sign off status: Pending * Provider:Sivakumar Otoole DPM Date:?04/2024 Generated for Bev horowitz/Adali/Sandeep on:?09/02/2024 12:25 PM EDT
--- OUTSIDE RECORDS SUMMARY | 2024-09-02 12:25 | XMS_ITS | Patient Health Record ---
Author Organization [facility] Corrine lopez [place] Address [address] [facility] [address] Care Team Providers Care Drawer Upfitter Name Role Phone Lorenzo Huber Primary Care Provider Unav ailable Aurelia Otoole Unavailable [phone] Allergies No Known Allergies Results Component Value [...] Referring Provider Last Name Thalia [facility] [place] Referred Provider Aurelia Otoole Referred Address [address] [place],[address], Referred Provider Specialty Podiatry Referral Priority Routine [...] Marlena Referring Provider Last Name Thalia Referred [facility] Referred Provider Aurelia Otoole Referred Address [address] [place],[address],[place] Referred Provider Specialty Podiatry Referral Priority Routine Medications Medication SIG (Take, Route, Frequency, Duration) Notes Start Date End Date Status Extra Depth Orthopedic Shoes (1 Pair) with Customized Heat Molded Multidensity Innersoles (3 Pair) as directed; Amputation left 2nd toe, needs filler 2nd toe LEFT Dx: NIDDM/Polyneuropathy (E11.42), Hammertoe Foot Deformity (M20.41,M20.42), Preulcerative Skin Lesion(s) (L85.1 Active Augmentin 500-125 MG 1 tablet Orally lamin ry 8 hrs for 7 day(s) 05/28/2020 Not-Taking Lisinopril 20 MG 1 tablet Orally Once a day for 30 day(s) Active Clindamycin HCl 300 MG 2 capsules Orally every 8 hrs for 10 day(s) 05/31/2020 Not-Taking Cephalexin 500 MG 1 capsule Orally Three times a day for 10 days Active Atenolol 50 MG 1 tablet Orally Once a day for 30 day(s) Active Lantus SoloStar 100 UNIT/ML as directed Subcutaneous Not-Taking Gabapentin 600 MG 1 capsule Orally Onc e a day Active Insulin Pen Needle 31G X 5 MM as directed Not-Taking Atorvastatin Calcium 20 MG 1 tablet Oral ly Once a day for 30 day(s) Active OneTouch Verio w/Device as directed Not-Taking glipiZIDE 10 MG 1 tablet 30 minutes before breakfast Orally Twice a day Active Minoxidil 2.5 MG 1 tablet Orally Once a day for 30 day(s) Not-Taking metFORMIN HCl 1000 MG 1 tablet with a me al Orally Once a day for 30 day(s) Active hydroCHLOROthiazide 12.5 MG Oral for 90 Days Active Metoprolol Succinate ER 100 MG Oral for 90 Days Active Basaglar KwikPen 100 UNIT/ML INJECT 25 UNIT (0.25 ML) SUBCUTANEOUSLY EVERY EVENING Subcutaneous for 30 Days Active Clindamycin HCl 300 MG 1 capsule Orally every 8 hrs for 7 days 07/14/2024 Active Immunizations Vaccine Route Administration Date Status Comme nts Influenza Unknown 03/07/2022 Administered Social History Tobacco Use: Social History Observation Description Date Details (start date - stop date) Current Smoker NA - NA Tobacco use other than smoking: Question Answer Notes Are you an other tobacco user? Yes C igars Tobacco Control (Standard) Question Answer Notes Tobacco use: Current smoker How often do you smoke cigarettes? Every day How many cigarettes a day do you smoke? 11-20 How soon after you wake up d o you smoke your first cigarette? 6-30 minutes Are you interested in quitting? Thinking about q uitting AUDIT-C (Standard) Question Answer Notes Did you have a drink contain ing alcohol in the past year? Yes How often did you have a dri nk containing alcohol in the past year? Daily or almost daily (4 points) How many drinks did you have on a typical day when you were drinking in the past year? 1 or 2 drinks (0 point) How often did you have six o r more drinks on one occasion in the past year? 2 to 4 times a month (2 points) Points 6 Interpretation Positive Problems Problem Type SNOMED Code ICD Code Onset Dates Problem Status W/U Status Risk Notes Problem Acquired hammer toe of right foot (3747898332101540) Other hammer toe(s) (acquired), right foot (M20.41) Active confirmed Problem Acquired hammer toe of left foot (1993795274430168) Other hammer toe(s) (acquired), left foot (M20.42) Active confirmed Problem Polyneuropathy due to type 2 diabetes mellitus (686009335) Type 2 diabetes mellitus with diabetic polyneuropathy (E11.42) Active confirmed Problem Polyneuropathy due to type 2 diabetes mellitus (365339491) Type 2 diabetes mellitus with diabetic polyneuropathy (E11.42) Active confirmed Problem Polyneuropathy due to diabetes mellitus type I (782102933) Type 1 diabetes mellitus with diabetic polyneuropathy (E10.42) Active confirmed Problem 10337827 Non-pressure ulcer of left lower extremity, limited to breakdown of skin (L97.921) Active confirmed Problem 022655216 Hammer toe of left foot (M20.42) Active confirmed Problem 2735816948 Hallux valgus of left foot (M20.12) Active confirmed Problem Foot ulcer due to type 2 diabetes mellitus (6159812674745) Type 2 diabetes mellitus with foot ulcer (E11.621) Active confirmed Problem 90804645 Non-pressure ulcer of left lower extremity with fat layer exposed (L97.922) Active confirmed Problem 01807531 Smoker (F17.200) Active confirmed Problem 09293968828704003 Neuropathic ul cer of left foot with fat layer exposed (L97.522) Active confirmed Problem 404809565 Amputated toe of left foot (S98.132A) Active confirmed Vital Signs Heart Rate 51 /min 07/11/2024 Blood pressure diastolic 70 mm Hg 07/11/2024 Height 6ft in 07/11/2024 Blood pressure systolic 157 mm Hg 07/11/2024 Weight 270 lbs 07/11/2024 BMI 36.61 kg/m2 07/11/2024 Encounters Encounter Location Date Provider Diagnosis [facility] [address] [place] [address] 01/27/2024 Aurelia Otoole Type 2 diabetes mellitus with diabetic polyneuropathy E11.42 ; Other hammer toe(s) (acquired), left foot M20.42 ; Tinea unguium B35.1 ; Other hammer toe(s) (acquired), right foot M20.41 ; Amputated toe of left foot S98.132A and Hallux valgus of left foot M20.12 [facility] [address] 07/11/2024 Aurelia Otoole Other hammer toe(s) (acquired), left foot M20.42 ; Cellulitis of foot, left L03.116 ; Type 2 diabetes mellitus with diabetic polyneuropathy E11.42 ; Tinea unguium B35.1 ; Other hammer toe(s) (acquired), right foot M20.41 ; Amputated toe of left foot S98.132A ; Hallux valgus of left foot M20.12 and Neuropathic ulcer of left foot with fat layer exposed L97.522 [facility] [address] [place] [address] 11/17/2023 Aurelia [facility] [place] [address] [place] [address] 04/13/2024 Aurelia [facility] [place] [address] [place] [address] 05/02/2024 Aurelia [facility] [place] [place] [address] [place] [address] 05/25/2024 Aurelia [facility] [place] [address] [place] [address] 07/11/2024 Aurelia [facility] [address] [place] [address] 07/11/2024 Aurelia [facility] [address] [address] 07/12/2024 Aurelia Otoole Assessments Encounter Date Diagnosis (ICD Code) Assessment Notes Treatment Notes Treatment Clinical Notes Section Notes 01/27/2024 Other hammer toe(s) (acquired), left foot (ICD-10 - M20.42) 01/27/2024 Type 2 diabetes mellitus with diabetic polyneuropathy (ICD-10 - E11.42) 07/11/2024 Other hammer toe(s) (acquired), left foot (ICD-10 - M20.42) 07/11/2024 Cellulitis of foot, left (ICD-10 - L03.116) 07/11/2024 Type 2 diabetes mellitus with diabetic polyneuropathy (ICD-10 - E11.42) 01/27/2024 Tinea unguium (ICD-10 - B35.1) 01/27/2024 Other hammer toe(s) (acquired), right foot (ICD-10 - M20.41) Patient Educated with: DIABETIC FOOT CARE INSTRUCTIONS. pdf (DIABETIC FOOT CARE INSTRUCTIONS. pdf) 07/11/2024 Tinea unguium (ICD-10 - B35.1) 01/27/2024 Amputated toe of left foot (ICD-10 - S98.132A) 07/11/2024 Other hammer toe(s) (acquired), right foot (ICD-10 - M20.41) Patient Educated with: DIABETIC FOOT CARE INSTRUCTIONS. pdf (DIABETIC FOOT CARE INSTRUCTIONS. pdf) Patient Educated with: DIABETIC FOOT CARE INSTRUCTIONS. pdf (DIABETIC FOOT CARE INSTRUCTIONS. pdf) 07/11/2024 Amputated toe of left foot (ICD-10 - S98.132A) 01/27/2024 Hallux valgus of left foot (ICD-10 - M20.12) 07/11/2024 Hallux valgus of left foot (ICD-10 - M20.12) 07/11/2024 Neuropathic ulcer of left foot with fat layer exposed (ICD-10 - L97.522) Plan Of Treatment Pending Test Test Name Order Date X ray : Foot, left 3V 06/11/2021 X ray : Foot, left 3V 07/11/2024 80217-GQAEAGP NAIL, 6 OR MORE 06/28/2020 [id number] SKIN LESIONS, 2 TO 4 06/29/19 21 Next Appt Details Provider Name:Aurelia patterson, 09/20/2024 11:00:00 AM, [address] [place], [address], Insurance Providers Payer Name Payer Address Payer Phone Subscriber Number Group Number Insured Name Patient Relationship to Insured Coverage Start Date Coverage End Date [facility] [address] [place] [address] [id number] Candelaria Saini Spouse - patient is the spouse of the insured Medical (General) History Medical History History ICD Code type II diabetes Reflux ( GERD) Back,Hip,and Knee pain High blood pressure Neuropathy Measles Joint implants/screws Surgical History Surgery Date(Month/Year) knee replacement 2015,2016 neck surgery amputation 2nd , toe 03/2023 Hospitalization History Reason Date(Month/Year) [facility] [place] Fluid around heart 05/21 wound clinic every week [facility] [place]- feet swollen -diabetic ulcer
--- OUTSIDE RECORDS SUMMARY | 2024-09-02 12:25 | XMS_ITS ---
Author Organization [facility] [address] Address [address] [facility] [place] [address] Care Team Providers Care Social Insurance Specialist Name Role Phone Lorenzo Huber Primary Care Provider Unav ailable Aurelia Otoole [phone] REASON FOR VISIT [facility] wound care Encounters Encounter Location Date Provider Diagnosis [facility] [address] [place] [address] 07/12/2024 Aurelia Otoole Plan Of Treatment Next Appt Details Provider Name:Aurelia patterson, 09/20/2024 11:00:00 AM, [address] [place], [address], Progress Notes * Colton DUNN CDOB:[birth year] (64 yo M)Acc No.[id number]:07/12/2024 Patient:?Colton DUNN :1960???Age:64 Y???Sex:Male Address:[address] [place], [address] * true * Date:? Generated for Printi ng/Faxing/eTransmitting on:?09/02/2024 12:25 PM EDT
[2024-09-09 11:46] VITALS: BMI 35.3
--- NOTE | 2024-09-12 11:08 | HO.ANESPROP2 ---
HPI - Anesthesia Eval Consult details Narrative: 64yo M for Upper Endoscopy and Colonoscopy Cardiac optimized per [facility] cardiology. Follows for uncontrolled htn, HFpEF, asc aorta dilatation, PAD PMFSH Active Problems Active Problems: All Active Problems Cellulitis (Acute) Chronic heart failure with preserved ejection fraction (Acute) Dyspnea on exertion (Acute) CHF (congestive heart failure) (Acute) Acute upper respiratory infection (Acute) Wound dehiscence (Acute) Bunion (Acute) Wound of foot (Acute) Lesion of skin of breast (Acute) Hypogonadism in male (Acute) Burn (Acute) Ascending aorta dilatation (Acute) Diastolic dysfunction (Acute) Other and unspecified hyperlipidemia (Acute) Preoperative cardiovascular examination (Acute) Grade III diastolic dysfunction (Acute) Preop testing (Acute) Osteomyelitis of foot (Acute) Low iron (Acute) HTN (hypertension) (Acute) ETOH abuse (Acute) Olecranon bursitis of right elbow (Acute) Anemia (Acute) Elevated alkaline phosphatase level (Acute) Screen for colon cancer (Acute) Erectile dysfunction associated with type 2 diabetes mellitus (Acute) Foot ulceration (Acute) Screening PSA (prostate specific antigen) (Acute) COPD (chronic obstructive pulmonary disease) (Acute) Mediastinal lymphadenopathy (Acute) Swelling of both lower extremities (Acute) Numbness (Acute) Paresthesia (Acute) Enlarged thyroid (Acute) Dilatation of aorta (Acute) Fall (Acute) Foot ulcer, left (Acute) Varicose veins of left lower extremity with inflammation (Acute) Foot infection (Acute) Pedal edema (Acute) Diabetes (Acute) Diabetes mellitus with neuropathy (Acute) MAHAD (obstructive sleep apnea) (Acute) Pulmonary nodule (Acute) Personal history of nicotine dependence (Acute) Diabetes mellitus, type 2 (Acute) Essential hypertension (Acute) Dysphagia (Acute) PAD (peripheral artery disease) (Acute) Obesity (Acute) Past Medical History Medical History Erectile dysfunction associated with type 2 diabetes mellitus Diabetes mellitus with neuropathy On beta roney at home Pulmonary nodule Diabetic foot ulcer Essential hypertension Obesity History of cervical fracture Personal history of nicotine dependence Dysphagia Neuropathy MAHAD (obstructive sleep apnea) GERD (gastroesophageal reflux disease) PAD (peripheral artery disease) Diabetes mellitus, type 2 Family History Family History Mother No problems noted. Father No problems noted. Family history of problems with anesthesia: No Surgical History Surgical History History of amputation of toe (04/06/23) History of tonsillectomy History of total left knee replacement History of fusion of cervical spine History of total right knee replacement (TKR) History of endoscopy History of colonoscopy History of left knee surgery History of Problems with Anesthesia: No Social History Social History Housing: House Are you a primary small animal caretaker to a significant other at home: No Do you presently have visiting nurse or other home services: No Alcohol intake: current Alcohol intake frequency: 3 or more drinks per day Alcohol type: hard liquor Patient Tobacco Use Status: Current everyday Tobacco user Tobacco use type: Cigarette Cigarette Packs Per Day: 1 Cigarettes Per Day: 10 Years Smoked: 25 e-Cigarette/Vaping Use: Never Used Second Hand Smoke Exposure: No service: No Current occupational status: employed Current occupation: [employer], right handed Current occupational exposures/hazards: Yes Cognitive needs: No Hearing needs: No Vision needs: No Meds Allergies Allergy/AdvReac Type Severity Reaction Status Date / Time No Known Allergies Allergy Verified 09/07/24 10:17 Exam Height,Weight and Vital Signs: Height 6 ft Weight 117.934 kg Pertinent Lab Results Pertinent Lab Results: Laboratory Tests 05/31/24 07/01/24 17:58 10:59 WBC 7.6 Hgb 12.3 L Hct 39.8 L Plt Count 213 Sodium 141 Potassium 5.0 Chloride 104 Carbon Dioxide 29 BUN 24 H Creatinine 0.84 Narrative Narrative: Per cardiology clearance: [id number] increased left ventricular size; LVEF 45-50%; moderate diastolic dysfunction with filling pressure with elevated filling pressures; increased right ventricular size; severe biatrial enlargement; moderate pulmonary hypertension. In 2022, LVEF was 68%. There was still evidence of diastolic dysfunction/increased right ventricular size as well as atrial enlargement. Mild pulmonary hypertension. Myocardial perfusion imaging study 2023-mild reversible inferior defect-mild ischemia versus artifact. Coronary CTA-2024-no evidence of hemodynamically significant coronary disease. Mild coronary artery calcification. Possible thickening of basal/mid ventricular septum. Patent foramina ovale. Ascending aortic size 4.1 cm. Assessment and Plan Assessment Anesthesia Assessment: Chart Reviewed Final Anesthetic Review Family History of Problems with Anesthesia: No History of Problems with Anesthesia: No
[2024-09-13 13:04] VITALS: BP 161/75; PULSE 62; RESP 18; TEMP 36.4; O2SAT 96; BMI 35.3
[2024-09-13 13:26] LABS: Glucose, Whole Blood 144 mg/dL (60-115)
[2024-09-13] MEDS: Lactated Ringers 1,000 ML 100 ML IVCONT (13:35)
--- NOTE | 2024-09-13 14:49 | PC.NURSE ---
report given to vangie posey rn at this time. aware that anesthesia needs to consent patient. order and 24 hour report need to be completed and 2 areas need to be signed on preop record.
--- NOTE | 2024-09-13 15:12 | MHC.SHP ---
Pre-Procedural Eval Section A - 24 Hr Update-Section A only Date of Service: 09/13/24 Section B - Complete if H&P > 30 days Chief Complaint: GERD, hx of polyps Details of Present Illness: Erectile dysfunction associated with type 2 diabetes mellitus Diabetes mellitus with neuropathy On beta roney at home Pulmonary nodule Diabetic foot ulcer Essential hypertension Obesity History of cervical fracture Personal history of nicotine dependence Dysphagia Neuropathy MAHAD (obstructive sleep apnea) GERD (gastroesophageal reflux disease) PAD (peripheral artery disease) Diabetes mellitus, type 2 Surgical History History of amputation of toe (04/06/23) History of tonsillectomy History of total left knee replacement History of fusion of cervical spine History of total right knee replacement (TKR) History of endoscopy History of colonoscopy History of left knee surgery Present Medications: see Short Stay Collaborative assessment Allergies: Allergies Allergy/AdvReac Type Severity Reaction Status Date / Time No Known Allergies Allergy Verified 09/07/24 10:17 Review of Systems Review of Systems Comment: Ten point ROS negative Exam Exam Comment: Gen appear: No acute distress HEENT: no icterus Chest: No overt resp distress Abd: soft, nontender, nondistended Psych: Stable affect, answering questions appropriately Neuro: A/Ox3 noted to move all extremities spontaneously Ext: no peripheral edema Plan Diagnosis/Plan: Unchanged I have reviewed the history and physical and performed a pertinent physical examination on my patient. No changes have occurred unless specified. Time Spent With Patient Time: Total time managing care of this patient today ____ minutes.
--- NOTE | 2024-09-13 15:18 | P.OPN-COLO_ITS ---
Colonoscopy Operative Note Operative Note Date of Service: 09/13/24 Narrative: Procedure: Upper endoscopy and colonoscopy Indication: GERD, Hx of polyps Endoscopist: Hiwot Pro MD Anesthesia Provider: Dr Vivian Lewis Anesthesia type: MAC Instrument: [id number] and [id number] EGD Procedure:?? The procedure, indications, preparation and potential complications were reviewed with the patient, who indicated understanding and gave written informed consent to proceed. The endoscope was introduced through the mouth, and advanced to the 2nd part of the duodenum. The mucosa was carefully examined on slow withdrawal of the endoscope. The patient tolerated the procedure well. There were no immediate complications.? EGD Findings:? * Esophagus:? A localized patch of heterotopic gastric mucosa noted in upper esophagus. Remaining esophageal mucosa was normal. The Z-line was at 45 cm and irregular up to 44 cm with one tongue extending to 43 cm. Cold forceps biopsies were taken from 45 and 43 cm to r/o BE. A tissue cypher will also be sent if histology is positive for Barretts esophagus. * Stomach:? Normal gastric mucosa. Retroflexion was performed in the cardia. * Duodenum:? Normal duodenal mucosa. Colonoscopy Procedure:? An abdominal binder was placed on the lower abdomen. The patient was then turned for the colonoscopy. A digital rectal exam was performed which was abnormal for external hemorrhoids? A distal attachment cap was affixed to the tip of the scope and the colonoscope was then inserted through the anus and advanced through the colon and advanced to the cecum at 75 cm and terminal ileum.? Appendiceal orifice and ileocecal valve were identified. Mucosa was carefully examined under high definition white light as the instrument was slowly withdrawn in a retrograde panoramic fashion. Retroflexion was performed in rectum. The procedure was not difficult. The quality of the prep was BBPS: 2+2+3 = adequate Withdrawal time 11 minutes Limitations: No limitations Findings: Mucosa: Normal colon and terminal ileum mucosa. Protruding lesions: * 2 sessile polyps of size 2-3 mm in transverse colon. Cold snare polypectomy was performed. The colon polyps were completely removed and retrieved. * Large internal hemorrhoids with a skin tag without stigmata of recent bleeding. Impression: 1. Inlet patch 2. Irregular SCM r/o chang's (biopsy, tissue cypher) 3. Normal stomach 4. Normal duodenum (biopsy) 5. Normal colon and terminal ileum mucosa 6. 2 polyps removed 7. Diverticulosis 8. Internal and external hemorrhoids Recommendations:?? * Follow-up path results * Repeat EGD in 5 years if chang's without dysplasia. * Repeat colonoscopy for CRC screening in 3 years due to extensive polyp burden in 2022. Can revert to routine intervals if next colonoscopy has <3 polyps.
[2024-09-13 15:59] VITALS: BP 134/70; PULSE 52; RESP 18; TEMP 36.9; O2SAT 98
[2024-09-13 16:14] VITALS: BP 146/76; PULSE 60; RESP 18; TEMP 36.6; O2SAT 94
== END 2024-09-13 16:29 | disposition home or self-care (01) ==
PROVIDERS: PCP Nurse Practitioner Family; Visit Provider Internal Medicine
PROC: (CPT 45385; principal; 2024-09-13 15:00)
DX: Z12.11 Encounter for screening for malignant neoplasm of colon (principal); D12.3 Benign neoplasm of transverse colon; K57.30 Diverticulosis of large intestine without perforation or abscess without bleeding; K64.8 Other hemorrhoids; Z86.0101 Personal history of adenomatous and serrated colon polyps; Q39.8 Other congenital malformations of esophagus; K22.89 Other specified disease of esophagus; K21.9 Gastro-esophageal reflux disease without esophagitis; E11.9 Type 2 diabetes mellitus without complications; I11.0 Hypertensive heart disease with heart failure; I50.32 Chronic diastolic (congestive) heart failure; J44.9 Chronic obstructive pulmonary disease, unspecified; D64.9 Anemia, unspecified; G47.33 Obstructive sleep apnea (adult) (pediatric); Z99.89 Dependence on other enabling machines and devices; F17.210 Nicotine dependence, cigarettes, uncomplicated; Z79.4 Long term (current) use of insulin; Z79.02 Long term (current) use of antithrombotics/antiplatelets; Z79.899 Other long term (current) drug therapy
CPT/HCPCS: 45385; 43239; 82947; 88305; 88313; J2003; J2250; J2704

== ENCOUNTER → 2024-09-13 12:55 | Outpatient (BNV) | payer BC, SELFPAY | PROVIDERS: PCP Nurse Practitioner Family; Visit Provider Internal Medicine | DX: K21.9 Gastro-esophageal reflux disease without esophagitis (principal); K22.89 Other specified disease of esophagus; Z12.11 Encounter for screening for malignant neoplasm of colon; K63.5 Polyp of colon; K57.90 Diverticulosis of intestine, part unspecified, without perforation or abscess without bleeding; K64.8 Other hemorrhoids; Z86.0100 Personal history of colon polyps, unspecified | CPT/HCPCS: 43239; 45385 ==

== ENCOUNTER → 2024-09-14 09:22 | Outpatient (BNVA) | payer BC, SELFPAY | PROVIDERS: PCP Nurse Practitioner Family; Visit Provider Internal Medicine ==

== ENCOUNTER → 2024-10-12 09:17 | Outpatient (BNVA) | payer BC, SELFPAY | PROVIDERS: PCP Nurse Practitioner Family; Visit Provider Internal Medicine ==

== ENCOUNTER 2024-11-21 12:01 | Inpatient (IN) | payer BC, SELFPAY ==
--- OUTSIDE RECORDS SUMMARY | 2024-11-15 09:30 | XMS_ITS ---
Author Organization [facility] Address [address] [place] [address] Care Team Providers Care Medical Surgery Nurse Name Role Phone Lorenzo Huber Primary Care Provider Unav ailable Ash Otooleen Unavailable [phone] Medications Medication SIG (Take, Route, Frequency, Duration) [...] Active Encounters Encounter Location Date Provider Diagnosis [facility] [address] [address] 11/15/2024 Aurelia Otoole Plan Of Treatment Next Appt Details Provider Name:Aurelia patterson, 01/27/2025 01:45:00 PM, [address] [place] [address], [phone], Progress Notes * Colton DUNN CDOB:[birth year] (64 yo M)Acc No.[id number]:11/15/2024 Progress Note Patient: Osvaldo NAJERAColton BRADY Provider: [...] Pending * Provider: Josafat Otoole DPM Date: 11/15/2024 Generated for Bev horowitz/Adali/Sandeep on: 11/21/2024 04:29 PM EDT
--- NOTE | ~2024-11-21 | MR_ITS ---
EXAM: MRI of the left foot without and with IV contrast TECHNIQUE: Multiplanar multisequence imaging performed through the left foot. Contrast: 10 mL Gadavist INDICATION: Diabetic foot infection PRIOR: X-ray performed November 13, 2024 FINDINGS: Lisfranc ligament: Intact and unremarkable. Soft tissues: There is moderate to severe fatty replacement of the musculature in the midfoot and forefoot. There is mild diffuse edema in the deep and superficial soft tissues of the foot, sparing the soft tissues along the fifth ray. After contrast, there is hyperenhancement of the thickened tendon sheath along the flexor tendons of the third ray in the forefoot. The tendons appears intact. There is also deep ulceration extending from the plantar ball of the foot to the third metatarsal head. Ulceration tracks anteriorly into the plantar medial third digit of the foot and exits the soft tissues plantar to the base of the distal phalanx of the third digit. There is a thin tract extending dorsal from aforementioned ulceration into the metatarsophalangeal joint capsule. There is hyperenhancement soft tissues around the ulceration and the MTP joint. There is also hyperenhancement of the soft tissues of the third toe and third web space. Metatarsophalangeal (MTP) joint and sesamoids of the great toe: There is severe degenerative change with multiple cartilage defects and large marginal osteophytes. There is degenerative cystic change. There is also degenerative marrow signal in the sesamoids and osteophytes involving the sesamoids. The plantar plate is degenerated and torn centrally. Plantar plates & Lesser MTP joints: Second: There is amputation of the neck of the second metatarsal. Third: There is dorsal dislocation of the third digit at the metatarsophalangeal joint. 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 There is a fissure through the central fibrocartilaginous plantar plate near the base of the proximal phalanx. Fifth MTP joint demonstrates degenerative fraying of the central articular cartilage of the plantar plate near the base of the proximal phalanx. Bones/Marrow: There is replacement of the marrow signal in the central diaphysis through the head of the third metatarsal. There is decreasing on T1 imaging, increased signal on fluid sensitive sequences, with concordant enhancement. There is an erosion involving the central plantar aspect of the third metatarsal head. There is mildly decreased T1 signal involving the proximal phalanx from the base to the neck region. There is increased fluid signal throughout the proximal phalanx. There is hyperenhancement concordant with T1 changes. There are no T1 changes in the middle and distal phalanx of third digit. There is increased signal on fluid sensitive sequences. There is mild hyperenhancement. There is hyperenhancement of the degenerative cystic changes in the plantar aspect of the first metatarsal head. There is hyperenhancement of degenerative cystic changes in the fourth metatarsal head. There is mild nonspecific hyperenhancement of the head of the fifth proximal phalanx head and the distal phalanx units of the fifth ray. MR/MR foot LT wo/w con IMPRESSION: Suspected osteomyelitis and septic arthritis and flexor tendon tenosynovitis and cellulitis involving the third ray. There is dorsal dislocation of the third digit at the MTP joint. There is ulceration plantar to the third MTP joint that extends through the plantar aspect of the third toe and exits plantar to the distal phalanx. There is also a sinus tract extending from the ulceration into the third MTP joint concerning for septic arthritis. There are marrow signal changes involving the diaphysis and head and neck of the third metatarsal consistent with osteomyelitis. Changes in the proximal phalanx are borderline but suggestive of early osteomyelitis involving the proximal phalanx, but sparing the head. Changes in the middle and distal phalanx of the third digit are probably reactive and not strongly diagnostic of osteomyelitis. There is evidence of tenosynovitis involving the flexor tendons of the third digit in the forefoot that could be septic or aseptic. There is evidence of cellulitis involving soft tissues plantar to the third MTP joint extending into the third toe and third web space. There is severe osteoarthritis involving the first MTP joint. 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 There is evidence of subacute or chronic fracture involving the neck of the fourth metatarsal with posttraumatic osteoarthritis. Electronically signed by: Gabino Noriega MD 11/22/2024 02:03 PM EDT
--- NOTE | ~2024-11-21 | US_ITS ---
EXAMINATION: US TRIPLEX LOWER EXTREMITY, LEFT CLINICAL INFORMATION: Edema and pain, left lower extremity. COMPARISON: February 07, 2021. TECHNIQUE: Color-flow triplex imaging with spectral analysis and compression Doppler were performed on the left lower extremity. FINDINGS: Respiratory variation, normal compression and augmented flow are present throughout the interrogated left common femoral vein, superficial femoral vein, profunda femoral vein, popliteal vein and midcalf peroneal and posterior tibial venous segments.. There is no Arzate's cyst. Multiple prominent with fatty hilum inguinal lymph nodes, largest measures 4.6 cm. Multiple varices, left greater saphenous vein. US/US venous duplex LE LT IMPRESSION: Acute deep venous thrombosis interrogated veins, left lower extremity. Negative for DVT. Inguinal lymphadenopathy. Varices, great saphenous vein. Electronically signed by: Arnulfo Beard MD 11/21/2024 02:00 PM EDT
--- NOTE | ~2024-11-21 | IR_ITS ---
PROCEDURE: IR INSERTION OF PICC with ultrasound and fluoroscopy. CLINICAL INFORMATION: Left foot ulcer needs long-term antibiotics. COMPARISON: None available. TECHNIQUE: Following explaining ultrasound and fluoroscopy-guided placement of right PICC catheter procedure, benefits and risk, a written consent was obtained. Patient was placed supine on fluoroscopy table and preliminary ultrasound imaging through the right arm was performed. An optimal site was selected and marked on the skin. The marked site was cleaned and draped in usual sterile manner. A tourniquet was applied above the arm. 1% lidocaine was injected at puncture site. Under ultrasound guidance a singlewall needle was advanced and a right basilar drain was punctured. After obtaining venous return a thin guidewire was advanced and placed in subclavian vein and the needle withdrawn. Over the guidewire 5 Albanian dilator with peel-away sheath sheath was advanced. After removing the guidewire and the dilator precut single lumen 5 Albanian PICC catheter was advanced through the peel-away sheath with guidewire within the catheter under fluoroscopy. The catheter was placed in proximal SVC. The peel-away sheath was removed and so was the guidewire within the catheter. A single image was obtained over the chest. The catheter was flushed with heparinized saline. Simple dressing applied at the puncture site. All elements of maximal sterile barrier technique followed including use of cap, mask, sterile gown, sterile gloves, a sterile full body drape and hand hygiene. Also followed skin preparation with 2% chlorhexidine for cutaneous antisepsis, and sterile ultrasound preparation with sterile gel and probe cover when applicable. FINDINGS: On preliminary ultrasound imaging widely patent right brachial, cephalic and basilar glands are noted. The 35 cm long 5 Albanian single-lumen PICC catheter was placed with its tip in the proximal SVC. The catheter is ready for use. IR/IR cvc insert peripheral IMPRESSION: Successful ultrasound and fluoroscopy-guided placement of a right single lumen PICC catheter with its tip in the proximal SVC. The PICC line is ready for use Fluoroscopy time: 0.5 minutes. Dose: 1.44 mGy/cm. Electronically signed by: Sukhwinder Swain MD 11/25/2024 11:48 AM EDT
--- NOTE | ~2024-11-21 | XR_ITS ---
CLINICAL HISTORY: 2nd toe purulent ulcer R O osteomyelitis 3 view left foot Comparison: CR/SR - XR FOOT 3 OR MORE VIEWS LEFT - 02/17/23 09:00 EDT Findings: Marked diffuse soft tissue swelling. Interval second distal transmetatarsal amputation. No definite erosive or resorptive bony changes to suggest acute osteomyelitis. There is dorsal and proximal dislocation of the 3rd proximal phalanx relative to the adjacent metatarsal head. No acute fracture is seen. Probable old fracture deformity in the distal 4th metatarsal. [id number] arthritic changes in the distal forefoot especially in the 1st metatarsophalangeal joint. Redemonstration of a 7 mm plantar tendon enthesophyte. No ankle effusion. No radiopaque foreign body. IMPRESSION: 1. No convincing radiographic evidence for acute osteomyelitis. 2. Dislocated 3rd metatarsophalangeal joint. No acute fracture evident. 3. Postsurgical changes in the 2nd digit. Remote posttraumatic changes in the distal 4th metatarsal. This document has been electronically signed by: Negra Rock DO on 11/21/2024 19:11:14
--- NOTE | ~2024-11-21 | XR_ITS ---
EXAMINATION: XR KNEE 4 OR MORE VIEWS LEFT HISTORY: fall COMPARISON: There are no prior studies available for comparison. FINDINGS: Four views of the left knee are submitted. The patient is status post total knee arthroplasty. The orthopedic elements are in anatomic alignment. There is no radiographic evidence of loosening. There is no fracture or dislocation. The soft tissues are unremarkable. There is no joint effusion. XR/XR knee LT 4V IMPRESSION: Status post left total knee arthroplasty. Electronically signed by: Milton Conway MD 11/23/2024 07:54 AM EDT
--- NOTE | ~2024-11-21 | XR_ITS ---
EXAMINATION: XR KNEE 4 OR MORE VIEWS RIGHT HISTORY: fall COMPARISON: Comparison is made with the prior examination dated 05/16/2017. FINDINGS: Six views of the right knee are submitted. The patient is again noted to be status post right total knee arthroplasty. The orthopedic elements are in anatomic alignment. There is no radiographic evidence of loosening. There is no fracture or dislocation. There is no joint effusion. The soft tissues are unremarkable. XR/XR knee RT 4V IMPRESSION: Status post right total knee arthroplasty. Electronically signed by: Milton Conway MD 11/23/2024 07:56 AM EDT
[2024-11-21 13:04] VITALS: BP 144/68; PULSE 55; RESP 18; TEMP 36.4; O2SAT 96; BMI 36.6
--- NOTE | 2024-11-21 13:12 | ED.GENADULT ---
HPI - General Adult General Chief complaint: Wound/Laceration Stated complaint: L foot MRSA Time Seen by Provider: 11/21/24 16:34 Source: patient Mode of arrival: ambulatory Limitations: no limitations History of Present Illness ED Provider: Dr. Abimael Tolliver HPI narrative: 64-year-old male with a history of diabetes, obstructive sleep apnea, COPD, hypertension, peripheral artery disease, left 2nd toe amputation, advanced diastolic heart failure he was referred to the emergency department for evaluation of MRSA infection of his left foot. Patient states that he had his left 2nd toe amputated 2 years ago. The patient states he is followed by the wound clinic. Two weeks prior he was told that he had a deep infection of his foot and was started on doxycycline. He has been taking doxycycline for 5 days and he states that the infection is gotten worse. He contacted the wound clinic today and they told him that he had MRSA and that she go to the emergency department for evaluation. Patient states that he has noticed swelling of his left foot, ankle and calf. His also noted a foul odor coming from his left foot in his left foot is draining fluid. That has also noticed redness to his left foot ankle and calf. The patient states he has been feeling tired and fatigued. He denied fever or chills. He denied nausea vomiting or diarrhea. The patient does smoke 1 pack of cigarettes per day times 46 years. He drinks 10 shots of honey whiskey daily. His states that he has never stopped drinking and he has never experienced withdrawal cause he drinks daily. Wound culture from 11/16/2024 grew MRSA sensitive to vancomycin; Morganella and Proteus sensitive to ciprofloxacin. Related Data Previous Rx's ?Medication ?Instructions ?Recorded flash glucose scanning reader #1 ea 09/02/21 (FreeStyle Michael 2 Canby) flash glucose sensor (FreeStyle #1 ea 09/02/21 Michael 2 Sensor kit) blood sugar diagnostic (OneTouch #300 ea 09/07/21 Verio test strips) 4x4 gauze #1 ea 04/07/23 6x6 kerlix fluffs #1 ea 04/07/23 kerlix rolls #1 ea 04/07/23 pen needle, diabetic 32 gauge x #100 ea 04/14/24 1/ pantoprazole 40 mg tablet,delayed 40 mg PO DAILY #90 tabs 05/23/24 release insulin glargine 100 unit/mL (3 24 unit (0.24 mL) subcut BEDTIME 07/31/24 mL) subcutaneous pen (Basaglar #15 mL KwikPen U-100 Insulin) atorvastatin 20 mg tablet 20 mg PO BEDTIME #90 tabs 08/11/24 glipizide 10 mg tablet 10 mg PO BID #180 tabs 08/11/24 lisinopril 40 mg tablet 40 mg PO DAILY #90 tabs 08/11/24 amlodipine 10 mg tablet 10 mg PO DAILY #30 tabs 09/05/24 carvedilol 25 mg tablet (Coreg) 25 mg PO BID #60 tabs 09/05/24 furosemide 40 mg tablet 40 mg PO QAM #30 tabs 09/05/24 doxycycline hyclate 100 mg tablet 100 mg PO BID #20 tabs 09/07/24 gabapentin 600 mg tablet 1,200 mg (2 x 600 mg) PO BID 90 09/08/24 days #360 tabs ciprofloxacin HCl 500 mg tablet 500 mg PO BID 8 days #16 tabs 09/12/24 hydralazine 25 mg tablet 25 mg PO TID #270 tabs 09/14/24 Allergies Allergy/AdvReac Type Severity Reaction Status Date / Time No Known Allergies Allergy Verified 11/21/24 13:06 Review of Systems Review of Systems: Yes all other systems are reviewed and are negative [facility] Past Medical History [facility] Narrative: Social history: The patient is . His is here in the emergency department with him. Patient smokes 1 pack of cigarettes per day times 46 years. The patient drinks 10 shots of honey whiskey daily. Patient denies drug use. Medical History (Updated 11/21/24 @ 20:15 by Abimael Tolliver MD) Barretts esophagus Erectile dysfunction associated with type 2 diabetes mellitus Diabetes mellitus with neuropathy On beta roney at home Pulmonary nodule Diabetic foot ulcer Essential hypertension Obesity History of cervical fracture Personal history of nicotine dependence Dysphagia Neuropathy MAHAD (obstructive sleep apnea) GERD (gastroesophageal reflux disease) PAD (peripheral artery disease) Diabetes mellitus, type 2 Surgical History History of amputation of toe (04/06/23) History of tonsillectomy History of total left knee replacement History of fusion of cervical spine History of total right knee replacement (TKR) History of endoscopy History of colonoscopy History of left knee surgery Family History Family History Mother No problems noted. Father No problems noted. Social History Social History Housing: House Are you a primary toddler caregiver to a significant other at home: No Do you presently have visiting nurse or other home services: No Alcohol intake: current Alcohol intake frequency: 3 or more drinks per day Alcohol type: hard liquor Patient Tobacco Use Status: Current everyday Tobacco user Tobacco use type: Cigarette Cigarette Packs Per Day: 1 Cigarettes Per Day: 10 Years Smoked: 25 Smoked in Last 30 Days: Yes e-Cigarette/Vaping Use: Never Used Second Hand Smoke Exposure: No Use of substances other than those prescribed or required for medical reasons: Yes Substance Use Type: Marijuana Substance Use Frequency: Chronic Longstanding Advance Directives: No Advance Directives Information Provided: No service: No Current occupational status: employed Current occupation: [employer], right handed Current occupational exposures/hazards: Yes Cognitive needs: No Hearing needs: No Vision needs: No Physical Exam ED Vital Signs: Vital Signs - 24 hr 11/21/24 13:04 11/21/24 17:00 Temperature 97.5 F 98.7 F Pulse Rate 55 56 Respiratory Rate 18 18 Blood Pressure 144/68 H 139/69 Pulse Oximetry 96 95 Oxygen Delivery Method Room Air Room Air BMI result Body Mass Index 36.6 Vital signs revealed an elevated blood pressure otherwise unremarkable. Exam: General: Awake, alert in no distress, 122.47 kg, elevated BMI 36.6 kg per m2 Head: Normocephalic, atraumatic EENT: PERRL, Lids normal, sclera normal, conjunctiva normal, nose normal , ears normal, throat without erythema or exudates Neck: Supple, no adenopathy Lung: breath sounds symmetric, no wheezing, rales or rhonchi Chest: symmetric movement, nontender Heart: regular rate and rhythm, normal S1, S2 no murmurs or rubs Abdomen: soft, non-tender, nondistended, normal bowel sounds Back: no vertebral tenderness, no CVAT Extremities: Left lower extremity revealed swelling of the foot, ankle and calf compared to the right, there is erythema to the foot ankle and calf which is warm to the touch. Patient has a purulent smelling discharge from his left 3rd toe with ulcers to the dorsal aspect of the 1st and 3rd MTP areas. Neuro: Awake, alert, oriented, normal speech, cranial nerves intact, moves all extremities symmetrically Psych: Pleasant, cooperative Course Course Course Narrative: This is a rapid medical exam performed by Carolina Olea NP: Additional HPI, ROS, PE not included below will be deferred to primary provider. Patient is a 64-year-old male presenting from wound care center after testing positive for MRSA, has been on doxy, LLE with increased pain and swelling. Plan: labs, U/S Medications Administered Generic Name Dose Route Start Last Admin Trade Name Freq PRN Reason Stop Dose Admin Sodium Chloride 1,000 mls @ 999 mls/hr 11/21/24 17:02 11/21/24 17:29 Ns IV 11/21/24 18:02 999 mls/hr .Q1H1M STA Administration Discontinued Medications Generic Name Dose Route Start Last Admin Trade Name Freq PRN Reason Stop Dose Admin Piperacillin Sod/Tazobactam 100 mls @ 200 mls/hr 11/21/24 17:02 11/21/24 17:29 Sod 4.5 gm/ Sodium Chloride IV 11/21/24 17:31 200 mls/hr ONCE ONE Administration Medical Decision Making Medical Decision Making [facility] Narrative: 64-year-old male with a history of diabetes, obstructive sleep apnea, COPD, hypertension, peripheral artery disease, left 2nd toe amputation, advanced diastolic heart failure he was referred to the emergency department for evaluation of MRSA infection of his left foot. Patient states that he had his left 2nd toe amputated 2 years ago. The patient states he is followed by the wound clinic. Two weeks prior he was told that he had a deep infection of his foot and was started on doxycycline. He has been taking doxycycline for 5 days and he states that the infection is gotten worse. He contacted the wound clinic today and they told him that he had MRSA and that she go to the emergency department for evaluation. Patient states that he has noticed swelling of his left foot, ankle and calf. His also noted a foul odor coming from his left foot in his left foot is draining fluid. That has also noticed redness to his left foot ankle and calf. The patient states he has been feeling tired and fatigued. He denied fever or chills. He denied nausea vomiting or diarrhea. The patient does smoke 1 pack of cigarettes per day times 46 years. He drinks 10 shots of honey whiskey daily. His states that he has never stopped drinking and he has never experienced withdrawal cause he drinks daily. Vital signs revealed elevated blood pressure otherwise unremarkable. Left foot revealed a purulent discharge from the left 3rd toe with an ulcer in the proximal 3rd toe crease as well as ulcers to the 1st and 3rd dorsal MTP areas. 18:05 Differential diagnosis: ?Includes but is not limited to diabetic foot ulcers, cellulitis, osteomyelitis, anemia, electrolyte abnormalities, 18:05 Course: 19:02 My independent interpretation patient's laboratory evaluation is as follows: Normocytic anemia with an H&H of 11 and 34. WBCs normal 6500. BUN elevated 17 with a normal creatinine of 0.9. Glucose elevated 163. LFTs were normal. CRP is pending. Lactic acid is pending. Urinalysis was negative. Microscopic revealed no bacteria. Urinalysis was positive for buprenorphine and cocaine. Wound culture from 11/16/2024 grew MRSA sensitive to vancomycin; Morganella and Proteus sensitive to ciprofloxacin. I did send a tiger text to the covering hospitalist, Dr. Jarrett to discuss admission. He signed out to Dr. Hobbs. 20:10 The patient's x-ray of his foot revealed no obvious osteomyelitis. I did discuss the patient's presentation and findings with the covering hospitalist, Dr. Hobbs. Patient will be admitted to the hospitalist service for further treatment Admission/Observation Consideration of admission/observation: Escalation of care including admission/observation considered (Yes) Lab Data 11/21/24 13:26 11/21/24 13:26 Labs: Lab Results 11/21/24 11/21/24 Range/Units 13:26 17:44 WBC 6.5 (4.8-10.8) X10*3/uL RBC 3.88 L (4.60-5.80) X10*6/uL Hgb 11.2 L (14.0-18.0) g/dl Hct 34.0 L (42.0-52.0) % MCV 87.6 (80.0-98.0) fL MCH 28.9 (27.0-33.0) pg MCHC 32.9 (31.0-36.0) g/dl RDW 12.4 (11.0-16.0) % Plt Count 299 D (160-400) X10*3/uL MPV 9.2 L (9.4-12.4) fL Immature Gran % (Auto) 0.5 H (0.0-0.4) % Neut % (Auto) 59.2 (45-73) % Lymph % (Auto) 25.3 (20-40) % [place] % (Auto) 9.3 (2-11) % Eos % (Auto) 5.1 H (0-4) % Baso % (Auto) 0.6 (0-2) % Lymph # (Auto) 1.6 (1.2-4.9) X10*3/uL [place]lands # (Auto) 0.6 (0.1-1.2) X10*3/uL Eos # (Auto) 0.3 (0.0-0.4) X10*3/uL Baso # (Auto) 0.0 (0.0-0.2) X10*3/uL Abs Immat Gran (auto) 0.03 (0.00-0.03) X10*3/uL Absolute Neuts (auto) 3.8 (2.0-8.3) x10*3/uL Absolute Nucleated RBC 0.000 (0.0-0.012) X10*3/uL Nucleated RBC % (auto) 0.0 (0.0-0.2) /100WBC Sodium 139 (135-145) mmol/L Potassium 4.3 (3.3-5.1) mmol/L Chloride 103 (96-108) mmol/L Carbon Dioxide 27 (22-29) mmol/L Anion Gap 13 (12-20) BUN 17 H (9-16) mg/dL Creatinine 0.95 (0.5-1.4) mg/dL Estim Creat Clear Calc 107.5 Estimated GFR > 60 Random Glucose 161 H (60-115) mg/dL Calcium 9.3 (8.4-10.2) mg/dL Urine Color Yellow Urine Appearance Clear Urine pH 5.5 (5.0-9.0) Ur Specific [place] <= 1.005 (1.005-1.025) Urine Protein Negative (Neg-Trace) mg/dL Urine Glucose (UA) Negative (Negative) mg/dL Urine Ketones Negative (Negative) mg/dL Urine Blood Negative (Negative) Urine Nitrite Negative (Negative) Ur Leukocyte Esterase Negative (Negative) Critical Care Time Critical Care Time Critical Care Time: Yes Total Critical Care Time: 40 Attestation: Critical Care: The patient was critically ill with a high probability of imminent or life threatening deterioration. I spent greater than 30 minutes of discontinuous time evaluating the patient,delivering critical care at the bedside, discussing and evaluating pertinent data with consultants. Critical care time does not include time spent performing separately billable procedures or teaching. Total time spent performing critical care was 40 minutes. Discharge Plan Discharge Patient Disposition: Admitted As Inpatient Print Language: Indonesian
[2024-11-21 13:35] LABS: MANUAL DIFF FLAG NO
[2024-11-21 13:44] LABS: Hematocrit 34.0 % (42.0-52.0); Hemoglobin 11.2 g/dl (14.0-18.0); Imm Gran Abs Auto 0.03 X10*3/uL (0.00-0.03); Imm Gran Pct Auto 0.5 % (0.0-0.4); Lymphocytes Absolute Auto 1.6 X10*3/uL (1.2-4.9); Mean Corpuscular HGB Conc 32.9 g/dl (31.0-36.0); Mean Corpuscular Hemoglobin 28.9 pg (27.0-33.0); Mean Corpuscular Volume 87.6 fL (80.0-98.0); NRBC Abs Auto 0.000 X10*3/uL (0.0-0.012); NRBC Pct Auto 0.0 /100WBC (0.0-0.2); Platelet Count 299 X10*3/uL (160-400); Red Blood Count 3.88 X10*6/uL (4.60-5.80); White Blood Count 6.5 X10*3/uL (4.8-10.8)
[2024-11-21 13:56] LABS: Anion Gap 13 (12-20); Blood Urea Nitrogen 17 mg/dL (9-16); Calcium 9.3 mg/dL (8.4-10.2); Carbon Dioxide 27 mmol/L (22-29); Chloride 103 mmol/L (96-108); Creatinine Clr Calc Pharmacy 107.5; Estimated Glomerular Filt Rate > 60; Potassium 4.3 mmol/L (3.3-5.1); Sodium 139 mmol/L (135-145)
--- OUTSIDE RECORDS SUMMARY | 2024-11-21 16:29 | XMS_ITS | Encounter Summary ---
Author Organization [facility] Address [address] [place] [address] [place] [address] Phone Care Team Providers Care Manager Van Name Role Phone Ben Rodriguez MD Primary Care Provider Encounter Details Date Type Department Care Team (Latest Contact Info) Description 07/17/2017 Ancillary Orders [facility] Department of Orthopaedic Surgery, Arthroplasty Service [address] [place] [address], 3rd Floor, [address] [place] [address] Dane Silver MD [address] [place] [phone] [email or web address] Arthralgia of both lower legs Social History Tobacco Use Types Packs/Day Years Used Date Smoking Tobacco: Every Day Cigarettes Smokeless Tobacco: Current Comments:electronic cigarett e in between Alcohol Use Standard Drinks/Week Comments Yes 0 (1 standard drink = 0.6 oz pur e alcohol) 15 mixed drinks/ week Sex and Gender Information Value Date Recorded Sex Assigned at Not on file Legal Sex Male 12:13 PM EDT Gender Identity Not on file Sexual Orientation Not on file documented as of this encounter Plan of Treatment Not on file documented as of this encounter Results * XR KNEE 3 VIEW (LEFT) (07/17/2017 7:54 AM EDT) Anatomical Region Laterality Modality Knee Left Radiographic Janie ging 07/17/2017 8:41 AM EDT Impressions 07/17/2017 8:46 AM EDT Bilateral total knee arthroplasties with unchanged appearance. Narrative 07/17/2017 8:46 AM EDT XR KNEE 3 VIEW (RIGHT), XR KNEE 3 VIEW (LEFT) COMPARISON: Right XR KNEE 3 VIEW (RIGHT) 05/15/2017, left XR KNEE 3 VIEW (LEFT) 05/15/2017. FINDINGS: Weightbearing AP view of both knees again demonstrates prior bilateral total knee arthroplasties. The hardware appears unchanged, including mild lucency at the bone-metal interface involving the lateral tibial tray on the left. No acute fractures identified. Volente and lateral views of both knees demonstrate persistent bilateral joint effusions. There is slight lateral patellar tilt on the right. Procedure Note Fredy Baker MD - 07/17/2017 XR KNEE 3 VIEW (RIGHT), XR KNEE 3 VIEW (LEFT) COMPARISON: Right XR KNEE 3 VIEW (RIGHT) 05/15/2017, left XR KNEE 3 VIEW(LEFT) 05/15/2017. FINDINGS: Weightbearing AP view of both knees again demonstrates prior bilateraltotal knee arthroplasties. The hardware appears unchanged, including mildlucency at the bone-metal interface involving the lateral tibial tray on the left. Noacute fractures identified. Volente and lateral views of both kneesdemonstrate persistent bilateral joint effusions. There is slight lateral patellartilt on the right. 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 Dane Silver MD IMG XR LOWER EXTREMIT Y Final Result documented in this encounter Visit Diagnoses Diagnosis Arthralgia of both lower legs Arthralgia of both lower legs documented in this encounter Care Teams Manager Van Relationship Specialty Start Date End Date Ben Rodriguez MD [address] [place] [address] [place] [address] PCP - General Internal Medicine 12/20/15 documented as of this encounter Additional Source Comments The information contained in this document represents components of the legal health record. It is not the complete legal health record.[facility]
[2024-11-21 17:00] VITALS: BP 139/69; PULSE 56; RESP 18; TEMP 37.1; O2SAT 95
--- NOTE | 2024-11-21 17:16 | PC.NURSE ---
MD at bedside discussing with patient plan of care to stay in hospital for IV antibiotics. Pt is very anxious about staying however he does agree to stay, pt at bedside also providing support. Pt is a daily drinker, has never had withdrawls before, CIWA right now 0, however pt had a shot right before coming in, pt given extensive education on when to alert staff if needed. Placed on monitor at this time, IV placed, IVF and IV antibiotics ordered.
[2024-11-21 17:54] LABS: Appearance Urine Clear; Glucose Urine UA Negative (Negative); PH 5.5 (5.0-9.0); Specific Gravity - Urine <= 1.005 (1.005-1.025)
[2024-11-21 18:05] LABS: Cannabinoid Screen Urine Not Detected (Not Detect)
[2024-11-21] MEDS: vancomycin/NS 2,000 MG/500 ML PLAST..BAG 250 MG IV (18:14)
--- NOTE | 2024-11-21 18:24 | PC.NURSE ---
MD requesting Vancomycin be paused and have the Levofoxacin given first and then to continue the Vanco infusion, pt aware, Xray currently being completed in pt room, will drying rack changer post xray.
--- NOTE | 2024-11-21 18:55 | PC.NURSE ---
Pt in agreement with current plan, IVF going per MD request at this time. On coming nurse aware of situation with IVF order.
--- NOTE | 2024-11-21 19:08 | PC.NURSE ---
this rn assumed care of pt, pt resting in stretcher, respirations even and unlabored, pt offers no complaints at this time, levoquin administering at this time
--- NOTE | 2024-11-21 20:28 | PHA.PROG ---
Admission Date/Time: November 21, 2024 20:06 Indication: Skin Weight in k.47 kg Adjusted body weight in Kg: [place] body weight in Kg: Obesity Dosing Indication % IBW: Serum Creatinine - Last 168 Hours 11/21/24 13:26 Creatinine 0.95 Estimated CrCl and GFR - Last 168 Hours 11/21/24 13:26 Estim Creat Clear Calc 107.5 Estimated GFR > 60 Vancomycin Loading Dose: 2000mg Current Vancomycin Dosing Regimen: 1250 Q12H Vancomycin Monitoring using AUC goal of 400 - 600 range with trough as surrogate marker: 496 mg/L Date and Time for next Vancomycin Level to be drawn: 10/27/24 @0600 Pharmacist Comments on Vancomycin Plan: Predicted trough of 16.3 mg/L. Vancomycin dosing will take advantage of [employer] as a clinical decision support tool that uses Bayesian modeling to calculate individual patient's pharmacokinetic parameters and forecast the patient's drug concentration time course with the target goal AUC 24 range of 400 - 600 mg/L/hr.
[2024-11-21 21:14] LABS: Glucose, Whole Blood 137 mg/dL (60-115)
[2024-11-21 21:22] VITALS: BP 138/64; PULSE 59; RESP 16; O2SAT 93
--- NOTE | 2024-11-21 21:22 | PC.NURSE ---
mri screening form completed with pt at this time and faxed to mri
--- NOTE | 2024-11-21 22:09 | PHA.MEDREC ---
Pharmacy Consult ? Medication Reconciliation Pharmacy has completed the medication reconciliation.med rec complete used pharmacy claims history and spoke to patient's , did not really know his medications but was able to confirm he takes insulin every night and she read off bottles of what was in front of her.
--- NOTE | 2024-11-21 23:40 | PM.IMHP ---
History of Present Illness Date of Service: 11/21/24 Chief Complaint: DM foot infection 64-year-old male with a past medical history of HTN, HLD, DM, COPD, MAHAD, PVD, HFpEF, history of left 2nd toe amputation; presented to the hospital today with a chief complaint of diabetic foot infection. Reports about 2 weeks he has been having ulcer on his left foot; has been having mild erythema surrounding. Denies any fevers. Denies any discharge. Went to the wound clinic today and asked him to go to the ER for further evaluation. Patient denies any chest pain or palpitations. Denies any GI or symptoms. Review of all other systems is negative except mentioned above ER course: Per ER team, patient noted to have diabetic foot ulcer without any drainage; given broad-spectrum antibiotics based on prior cultures which grew Morganella and Proteus which was sensitive to ciprofloxacin. Vancomycin for MRSA coverage. [facility] Medical History (Updated 11/21/24 @ 23:47 by Brando Hobbs MD) Barretts esophagus Erectile dysfunction associated with type 2 diabetes mellitus Diabetes mellitus with neuropathy On beta roney at home Pulmonary nodule Diabetic foot ulcer Essential hypertension Obesity History of cervical fracture Personal history of nicotine dependence Dysphagia Neuropathy MAHAD (obstructive sleep apnea) GERD (gastroesophageal reflux disease) PAD (peripheral artery disease) Diabetes mellitus, type 2 Family History Mother No problems noted. Father No problems noted. Surgical History History of amputation of toe (04/06/23) History of tonsillectomy History of total left knee replacement History of fusion of cervical spine History of total right knee replacement (TKR) History of endoscopy History of colonoscopy History of left knee surgery Social History Housing: House Are you a primary summer child caregiver to a significant other at home: No Do you presently have visiting nurse or other home services: No Alcohol intake: current Alcohol intake frequency: 3 or more drinks per day Alcohol type: hard liquor Patient Tobacco Use Status: Current everyday Tobacco user Tobacco use type: Cigarette Cigarette Packs Per Day: 1 Cigarettes Per Day: 10 Years Smoked: 25 Smoked in Last 30 Days: Yes e-Cigarette/Vaping Use: Never Used Second Hand Smoke Exposure: No Use of substances other than those prescribed or required for medical reasons: Yes Substance Use Type: Marijuana Substance Use Frequency: Chronic Longstanding Advance Directives: No Advance Directives Information Provided: No service: No Current occupational status: employed 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 Enoxaparin Sodium (Enoxaparin Sodium 40 Mg/0.4 Ml Syringe) 40 mg SUBCUT Q24H LEONOR Last Admin: 11/21/24 21:13 Dose: 40 mg Glucose (Glucose Gel 15 Gm Gel..Gram.) 15 gm PO Q15M PRN; Protocol PRN Reason: per Hypoglycemia Standing Ord. Vancomycin HCl 1,250 mg/ (Sodium Chloride) 250 mls @ 166.667 mls/hr IV Q12H [facility] Insulin Human Lispro (Insulin Lispro 100 Unit/Ml 3 Ml Vial) 0 unit SUBCUT QIDACHS [facility]; Protocol Last Admin: 11/21/24 21:11 Dose: Not Given Levofloxacin (Levofloxacin 750 Mg Tablet) 750 mg PO Q24H [facility] Magnesium Hydroxide (Milk Of Magnesia 30 Ml Oral.Susp) 30 ml PO DAILY PRN PRN Reason: Constipation Melatonin (Melatonin 3 Mg Tablet) 6 mg PO BEDTIME PRN PRN Reason: Insomnia Pharmacy Consult (Consult Rx Vancomycin Dosing) 1 each MISCELLANE DAILY PRN PRN Reason: Consult order Sodium Chloride (0.9 % Sodium Chloride Flush 3 Ml Syringe) 3 ml IVFLUSH QSHIFT [facility] Home Medications ?Medication ?Instructions ?Recorded ?Confirmed ?Last Taken ?Type furosemide 40 mg tablet 40 mg PO DAILY 11/21/24 11/21/24 Unknown History glipizide 10 mg tablet 10 mg PO BIDAC 11/21/24 11/21/24 Unknown History hydrochlorothiazide 12.5 mg tablet 12.5 mg PO DAILY 11/21/24 11/21/24 Unknown History insulin glargine-yfgn 100 unit/mL 24 unit subcut BEDTIME 11/21/24 11/21/24 Unknown History (3 mL) subcutaneous pen Physical Exam Vital Signs and Narrative: Vital Signs: Last Vital Signs Temp 98.7 F 11/21/24 17:00 Pulse 59 11/21/24 21:22 Resp 16 11/21/24 21:22 BP 138/64 11/21/24 21:22 Pulse Ox 93 11/21/24 21:22 O2 Del Method Room Air 11/21/24 21:22 BMI result Body Mass Index 36.6 Gen: Appears be in no acute distress HEENT: NCAT, Moist mucosa. Pulmonary: Vesicular breath sounds, fair air entry CVS: Normal S1-S2 Abdomen: BS+, Soft, Nontender Extremities: Warm well perfused Neuro: Alert and awake. Results Labs 11/21/24 13:26 11/21/24 13:26 Labs: Laboratory Results - last 24 hr 11/21/24 11/21/24 11/21/24 13:26 17:44 21:10 MCV 87.6 MCH 28.9 MCHC 32.9 RDW 12.4 Plt Count 299 D MPV 9.2 L Immature Gran % (Auto) 0.5 H Neut % (Auto) 59.2 Lymph % (Auto) 25.3 [place] % (Auto) 9.3 Eos % (Auto) 5.1 H Baso % (Auto) 0.6 Lymph # (Auto) 1.6 [place] # (Auto) 0.6 Eos # (Auto) 0.3 Baso # (Auto) 0.0 Abs Immat Gran (auto) 0.03 Absolute Neuts (auto) 3.8 Absolute Nucleated RBC 0.000 Nucleated RBC % (auto) 0.0 Anion Gap 13 Estim Creat Clear Calc 107.5 Estimated GFR > 60 POC Glucose 137 H Random Glucose 161 H Lactic Acid 1.2 Calcium 9.3 C-Reactive Protein 5.09 H Urine Color Yellow Urine Appearance Clear Urine pH 5.5 Ur Specific [place] <= 1.005 Urine Protein Negative Urine Glucose (UA) Negative Urine Ketones Negative Urine Blood Negative Urine Nitrite Negative Ur Leukocyte Esterase Negative Urine RBC 0-2 Urine WBC 0-5 Ur Squamous Epith Cells 0-2 Urine Bacteria None Seen Hyaline Casts 0-2 Urine Opiates Screen Not Detected Ur Buprenorphine Scrn Positive H Ur Oxycodone Screen Not Detected Urine Methadone Screen Not Detected Urine Fentanyl Screen Not Detected Ur Barbiturates Screen Not Detected Ur Phencyclidine Scrn Not Detected Ur Amphetamines Screen Not Detected U Benzodiazepines Scrn Not Detected Urine Cocaine Screen POSITIVE H U Marijuana (THC) Screen Not Detected Imaging Radiologist's Impressions: Impressions Venous Duplex 11/21/24 13:32 IMPRESSION: Acute deep venous thrombosis interrogated veins, left lower extremity. Negative for DVT. Inguinal lymphadenopathy. Varices, great saphenous vein. Electronically signed by: Arnulfo Beard MD 11/21/2024 02:00 PM EDT RP Assessment and Plan (1) Diabetic ulcer of left foot: Qualifiers: Diabetic foot ulcer location: unspecified part of foot Diabetes mellitus type: other specified (including JULIET) Non-pressure ulcer stage: with other severity Qualified Code(s): E13.621 - Other specified diabetes mellitus with foot ulcer; L97.528 - Non-pressure chronic ulcer of other part of left foot with other specified severity Status: Acute Plan 64-year-old male with a past medical history of HTN, HLD, DM, COPD, MAHAD, PVD, HFpEF, history of left 2nd toe amputation; presented to the hospital today with a chief complaint of diabetic foot infection. Left diabetic foot infection: Continue vancomycin Continue Levaquin ID consult MRI of the foot Vascular surgery follow-up HTN/HLD: Continue home amlodipine, carvedilol, statin. Hold home lisinopril, hydrochlorothiazide for now HFpEF: Continue home Lasix Neuropathy: Continue home gabapentin Diabetes: Insulin sliding scale plus Lantus 10 units. Resume home regimen eventually placed on POC glucose. DVT prophylaxis: Lovenox Code status: Full code Quality Stroke Does the patient have a stroke diagnosis?: No VTE Prior VTE?: No VTE Risk Level:: Medical - moderate - high VTE Device Contraindication: Treatment Not Indicated VTE Drug Contraindication: N/A - Med Ordered
[2024-11-22] VITALS (7 sets, daily range): BP systolic 132–175; BP diastolic 68–84; PULSE 49–62; RESP 14–20; TEMP 36.2–36.8; O2SAT 95–98; BMI 36.6
--- NOTE | 2024-11-22 00:49 | PC.NURSE ---
per hold ativan doses as CIWA=0, Per provider, document against medication at this time
[2024-11-22 03:23] LABS: MANUAL DIFF FLAG NO
[2024-11-22 03:28] LABS: Hematocrit 33.1 % (42.0-52.0); Hemoglobin 10.9 g/dl (14.0-18.0); Imm Gran Abs Auto 0.04 X10*3/uL (0.00-0.03); Imm Gran Pct Auto 0.6 % (0.0-0.4); Lymphocytes Absolute Auto 1.8 X10*3/uL (1.2-4.9); Mean Corpuscular HGB Conc 32.9 g/dl (31.0-36.0); Mean Corpuscular Hemoglobin 29.0 pg (27.0-33.0); Mean Corpuscular Volume 88.0 fL (80.0-98.0); NRBC Abs Auto 0.000 X10*3/uL (0.0-0.012); NRBC Pct Auto 0.0 /100WBC (0.0-0.2); Platelet Count 276 X10*3/uL (160-400); Red Blood Count 3.76 X10*6/uL (4.60-5.80); White Blood Count 6.6 X10*3/uL (4.8-10.8)
[2024-11-22 03:42] LABS: Anion Gap 11 (12-20); Blood Urea Nitrogen 15 mg/dL (9-16); Calcium 9.2 mg/dL (8.4-10.2); Carbon Dioxide 28 mmol/L (22-29); Chloride 106 mmol/L (96-108); Creatinine Clr Calc Pharmacy 100.1; Estimated Glomerular Filt Rate > 60; Potassium 4.8 mmol/L (3.3-5.1); Sodium 140 mmol/L (135-145)
[2024-11-22 07:12] LABS: Glucose, Whole Blood 116 mg/dL (60-115)
--- NOTE | 2024-11-22 09:00 | P.CONGS_ITS ---
History of Present Illness Consult details Consult date: 11/22/24 Reason for consult: wound care Narrative: Very pleasant 64-year-old gentleman known to us for prior history of diabetic foot ulcers. He was actually seen in my office in June of 2020 where he had a left foot ulcer it was on the plantar aspect of the foot and [facility]. He subsequently went on to have his left 2nd toe amputated. It had been doing well until recently. 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 He was on a work trip up in [place] and an ulcer began. It continued to progress. Unfortunately he finished his job and then returned back and now presents to the hospital with this nonhealing wound. Upon discussion with him he smokes between a half a pack to a pack of cigarettes a day. He has been a diabetic for over 5 years. He now presents to us for vascular evaluation. Review of Systems 2 Review of Systems: Yes all other systems are reviewed and are negative Constitutional: Constitutional: Reports no additional constitutional complaints ENT: Reports Normal hearing present Cardiovascular: Cardiovascular: Denies chest pain, Denies chest pain at rest, Denies chest pain with activity and Denies pedal edema Respiratory: Respiratory: Denies cough Gastrointestinal: Gastrointestinal: Denies abdominal pain Musculoskeletal: Musculoskeletal: Denies abnormal gait, Denies muscle cramps and Denies radiating pain into limb Integumentary/Breasts: Skin/Breast: Denies skin ulcer and Denies wounds Neurologic: Reports Normal hearing present and Denies abnormal gait Psychiatric: Psychiatric: Reports no additional psychiatric complaints [facility] Past Medical History Medical History (Updated 11/22/24 @ 09:08 by Jose Brunner MD) Barretts esophagus Erectile dysfunction associated with type 2 diabetes mellitus Diabetes mellitus with neuropathy On beta roney at home Pulmonary nodule Diabetic foot ulcer Essential hypertension Obesity History of cervical fracture Personal history of nicotine dependence Dysphagia Neuropathy MAHAD (obstructive sleep apnea) GERD (gastroesophageal reflux disease) PAD (peripheral artery disease) Diabetes mellitus, type 2 Family History Family History Mother No problems noted. Father No problems noted. Surgical History Surgical History History of amputation of toe (04/06/23) History of tonsillectomy History of total left knee replacement History of fusion of cervical spine History of total right knee replacement (TKR) History of endoscopy History of colonoscopy History of left knee surgery Social History Social History Housing: House Are you a primary pharmacy care coordinator to a significant other at home: No Do you presently have visiting nurse or other home services: No Alcohol intake: current Alcohol intake frequency: 3 or more drinks per day Alcohol type: hard liquor Patient Tobacco Use Status: Never used Tobacco Tobacco use type: Cigarette Cigarette Packs Per Day: 1 Cigarettes Per Day: 10 Years Smoked: 25 Smoked in Last 30 Days: Yes e-Cigarette/Vaping Use: Never Used Second Hand Smoke Exposure: No Use of substances other than those prescribed or required for medical reasons: Yes Substance Use Type: Marijuana Substance Use Frequency: Chronic Longstanding Advance Directives: No Advance Directives Information Provided: No Nutrition Risks: No Nutritional Risk service: No Current occupational status: employed Current occupation: [employer], right handed Current occupational exposures/hazards: Yes Cognitive needs: No Hearing needs: No Vision needs: No Meds Allergies Allergy/AdvReac Type Severity Reaction Status Date / Time No Known Allergies Allergy Verified 11/21/24 13:06 Active Medications: Current Medications Acetaminophen (Acetaminophen 325 Mg Tablet) 650 mg PO Q6H PRN PRN Reason: Pain, Mild 1-3,fever,headache Amlodipine Besylate (Amlodipine Besylate 10 Mg Tablet) 10 mg PO DAILY [facility]; Protocol Last Admin: 11/22/24 08:06 Dose: 10 mg Atorvastatin Calcium (Atorvastatin Calcium 20 Mg Tablet) 20 mg PO BEDTIME [facility] Calcium Carbonate (Calcium Carbonate 750 Mg Tab.Chew) 750 mg PO Q4H PRN PRN Reason: Heartburn Carvedilol (Carvedilol 25 Mg Tablet) 25 mg PO BIDWM [facility]; Protocol Last Admin: 11/22/24 08:06 Dose: 25 mg Dextrose (Dextrose 50 % 25 Gm/50 Ml Syringe) 25 gm IVPUSH Q15M PRN; Protocol PRN Reason: per Hypoglycemia Standing Ord. Enoxaparin Sodium (Enoxaparin Sodium 40 Mg/0.4 Ml Syringe) 40 mg SUBCUT Q24H [facility] Last Admin: 11/21/24 21:13 Dose: 40 mg Folic Acid (Folic Acid 1 Mg Tablet) 1 mg PO DAILY [facility] Stop: 11/25/24 08:59 Last Admin: 11/22/24 08:07 Dose: 1 mg Furosemide (Furosemide 40 Mg Tablet) 40 mg PO DAILY [facility]; Protocol Last Admin: 11/22/24 08:06 Dose: 40 mg Gabapentin (Gabapentin 600 Mg Tablet) 1,200 mg PO BID [facility] Last Admin: 11/22/24 08:06 Dose: 1,200 mg Glucose (Glucose Gel 15 Gm Gel..Gram.) 15 gm PO Q15M PRN; Protocol PRN Reason: per Hypoglycemia Standing Ord. Vancomycin HCl 1,250 mg/ (Sodium Chloride) 250 mls @ 166.667 mls/hr IV Q12H [facility] Last Admin: 11/22/24 08:07 Dose: 166.67 mls/hr Insulin Glargine (Insulin Glargine,Hum.Rec.Anlog 100 Unit/Ml 10 Ml Vial) 10 unit SUBCUT BEDTIME [facility] Insulin Human Lispro (Insulin Lispro 100 Unit/Ml 3 Ml Vial) 0 unit SUBCUT QIDACHS [facility]; Protocol Last Admin: 11/22/24 07:10 Dose: Not Given Levofloxacin (Levofloxacin 750 Mg Tablet) 750 mg PO Q24H [facility] Lorazepam (Lorazepam 1 Mg Tablet) 1 mg PO Q4H PRN PRN Reason: Breakthrough alcohol withdrawa Stop: 11/25/24 23:52 Lorazepam (Lorazepam 1 Mg Tablet) 1 mg PO Q4H [facility]; Taper Stop: 11/26/24 02:59 Last Admin: 11/22/24 07:11 Dose: Not Given Magnesium Hydroxide (Milk Of Magnesia 30 Ml Oral.Susp) 30 ml PO DAILY PRN PRN Reason: Constipation Melatonin (Melatonin 3 Mg Tablet) 6 mg PO BEDTIME PRN PRN Reason: Insomnia Multivitamins/Vitamin C (Multivitamin Tablet) 1 tab PO DAILY [facility] Stop: 11/25/24 08:59 Last Admin: 11/22/24 08:07 Dose: 1 tab Omeprazole (Omeprazole 20 Mg Capsule.Dr) 20 mg PO DAILY [facility] Last Admin: 11/22/24 08:07 Dose: 20 mg Pharmacy Consult (Consult Rx Vancomycin Dosing) 1 each MISCELLANE DAILY PRN PRN Reason: Consult order Sodium Chloride (0.9 % Sodium Chloride Flush 3 Ml Syringe) 3 ml IVFLUSH QSHIFT [facility] Last Admin: 11/22/24 07:10 Dose: Not Given Thiamine HCl (Thiamine Hcl 100 Mg Tablet) 100 mg PO DAILY [facility] Stop: 11/25/24 08:59 Last Admin: 11/22/24 08:07 Dose: 100 mg Home Medications ?Medication ?Instructions ?Recorded ?Confirmed ?Last Taken ?Type furosemide 40 mg tablet 40 mg PO DAILY 11/21/2410/26 Unknown History glipizide 10 mg tablet 10 mg PO BIDAC 11/21/2410/26 Unknown History hydrochlorothiazide 12.5 mg tablet 12.5 mg PO DAILY 11/21/24 Unknown History insulin glargine-yfgn 100 unit/mL 24 unit subcut BEDTI MO 11/21/24 11/21/24 Unknown History (3 mL) subcutaneous pen Physical Exam 2 Vital Signs: Vital Signs: Last Vital Signs Temp 98.2 F 11/22/24 07:05 Pulse 62 11/22/24 07:05 Resp 14 11/22/24 07:05 BP 175/76 H 11/22/24 07:05 Pulse Ox 97 11/22/24 07:05 O2 Del Method Room Air 11/22/24 07:05 BMI result Body Mass Index 36.6 Const: General: cooperative, healthy appearing and comfortable O rientation/consciousness: oriented to person, oriented to place and oriented to time HEENT: Head: Yes normal to inspection Neck: Neck: Yes normal visual inspection Carotids: no bruits Chest: Chest palpation & inspection: normal inspection of the chest Resp: Effort & Inspection: normal respiratory effort and able to speak in complete sentences Auscultation: clear to auscultation bilaterally, no crackles, no rales, no rhonchi and no wheezes Cardio: Other: Bilateral palpable dorsalis pedis pulses and posterior tibial pulses Rate: regular rate Rhythm: regular rhythm Heart sounds: S1 normal heart sound present and S2 normal heart sound present Bruits: no carotid bruits Peripheral pulses: Peripheral pulses 2+ throughout GI: Inspection: Yes normal to inspection Skin: Wounds: no wounds Hair: normal Neuro: General: oriented to person, oriented to place and oriented to time Cranial nerves: Yes CN's II-XII intact bilaterally and Yes Normal hearing present Cognition (Neuro): normal cognition Motor exam (neuro): 5/5 motor strength present throughout Extrem: Other: venous exam: No significant superficial varicosities or spider telangiectasias, minimal edema General: No clubbing, No cyanosis and No edema Psych: Appearance: grossly normal Mental Status: mental status grossly normal Speech and movement: Normal speech and movement present Results Labs 11/22/24 03:12 11/22/24 03:12 Labs: Abnormal lab results 11/21/24 11/21/24 11/21/24 Range/Units 13:26 17:44 21:10 RBC 3.88 L (4.60-5.80) X10*6/uL Hgb 11.2 L (14.0-18.0) g/dl Hct 34.0 L (42.0-52.0) % MPV 9.2 L (9.4-12.4) fL Immature Gran % (Auto) 0.5 H (0.0-0.4) % Eos % (Auto) 5.1 H (0-4) % Eos # (Auto) (0.0-0.4) X10*3/uL Abs Immat Gran (auto) (0.00-0.03) X10*3/uL Anion Gap (12-20) BUN 17 H (9-16) mg/dL POC Glucose 137 H (60-115) mg/dL Random Glucose 161 H (60-115) mg/dL C-Reactive Protein 5.09 H (< or = 0.50) mg/dL Ur Buprenorphine Scrn Positive H (Not Detect) ng/mL Urine Cocaine Screen POSITIVE H (Not Detect) 11/22/24 11/22/24 Range/Units 03:12 07:08 RBC 3.76 L (4.60-5.80) X10*6/uL Hgb 10.9 L (14.0-18.0) g/dl Hct 33.1 L (42.0-52.0) % MPV 9.2 L (9.4-12.4) fL Immature Gran % (Auto) 0.6 H (0.0-0.4) % Eos % (Auto) 7.1 H (0-4) % Eos # (Auto) 0.5 H (0.0-0.4) X10*3/uL Abs Immat Gran (auto) 0.04 H (0.00-0.03) X10*3/uL Anion Gap 11 L (12-20) BUN (9-16) mg/dL POC Glucose 116 H (60-115) mg/dL Random Glucose 149 H (60-115) mg/dL C-Reactive Protein (< or = 0.50) mg/dL Ur Buprenorphine Scrn (Not Detect) ng/mL Urine Cocaine Screen (Not Detect) Short CBC 11/21/24 11/22/24 Range/Units 13:26 03:12 WBC 6.5 6.6 (4.8-10.8) X10*3/uL Hgb 11.2 L 10.9 L (14.0-18.0) g/dl Hct 34.0 L 33.1 L (42.0-52.0) % Plt Count 299 D 276 (160-400) X10*3/uL BMP 11/21/24 11/22/24 13:26 03:12 Sodium 139 140 Potassium 4.3 4.8 Chloride 103 106 Carbon Dioxide 27 28 BUN 17 H 15 Creatinine 0.95 1.02 Calcium 9.3 9.2 Urine 11/21/24 Range/Units 17:44 Urine Color Yellow Urine Appearance Clear Urine pH 5.5 (5.0-9.0) Ur Specific [place] <= 1.005 (1.005-1.025) Urine Protein Negative (Neg-Trace) mg/dL Urine Glucose (UA) Negative (Negative) mg/dL All other labs normal. Assessment and Plan (1) Diabetic foot ulcer: Qualifiers: Diabetic foot ulcer location: toe Diabetes mellitus type: type 2 L aterality: left Non-pressure ulcer stage: unspecified non-pressure ulcer stage Qualified Code(s): E11.621 - Type 2 diabetes mellitus with foot ulcer; L97.529 - Non-pressure chronic ulcer of other part of left foot with unspecified severity Status: Acute Plan In short patient has a diabetic foot ulcer. I did review the x-ray and it was not conclusive for osteomyelitis. From an arterial perspective he does have palpable pulses. He may require MRI to better elucidate if there is underlying bony infection. At the current time would continue with local wound care. We will continue to monitor his status with you. Thank you for allowing us to assist in his care. If there are any questions or concerns please do not hesitate to contact us. Procedures Date of Service Date of Service: 11/22/24
--- NOTE | 2024-11-22 11:41 | HO.PM.IMPN ---
Subjective Subjective Date of Service: 11/22/24 Interval History: No acute nursing events overnight. Cardiovascular Cardiovascular: Reports no additional cardiovascular complaints Respiratory Respiratory: Reports no additional respiratory complaints Gastrointestinal Gastrointestinal: Reports no additional gastrointestinal complaints Genitourinary Genitourinary: Reports no additional male genitourinary complaints Physical Exam Exam: Exam: Middle-aged male lying in bed in no distress Neck supple, no JVD Regular rate and rhythm, S1-S2 heard Regular breath sounds bilaterally, no wheezing or crackles appreciated Abdomen soft nontender, no guarding, no rigidity Patient is awake, alert and oriented to self, place, time and person ; no focal motor deficit Psych: Normal mood Left foot covered in bandage Vital Signs: Vital Signs: Last Vital Signs Temp 98.2 F 11/22/24 07:05 Pulse 62 11/22/24 07:05 Resp 20 11/22/24 11:02 BP 153/71 H 11/22/24 11:02 Pulse Ox 97 11/22/24 07:05 O2 Del Method Room Air 11/22/24 07:05 BMI result Body Mass Index 36.6 Objective Data Active Medications Acetaminophen (Acetaminophen 325 Mg Tablet) 650 mg PO Q6H PRN PRN Reason: Pain, Mild 1-3,fever,headache Amlodipine Besylate (Amlodipine Besylate 10 Mg Tablet) 10 mg PO DAILY [facility]; Protocol Last Admin: 11/22/24 08:06 Dose: 10 mg Documented By: BRANDON Atorvastatin Calcium (Atorvastatin Calcium 20 Mg Tablet) 20 mg PO BEDTIME [facility] Calcium Carbonate (Calcium Carbonate 750 Mg Tab.Chew) 750 mg PO Q4H PRN PRN Reason: Heartburn Carvedilol (Carvedilol 25 Mg Tablet) 25 mg PO BIDWM [facility]; Protocol Last Admin: 11/22/24 08:06 Dose: 25 mg Documented By: BRANDON Dextrose (Dextrose 50 % 25 Gm/50 Ml Syringe) 25 gm IVPUSH Q15M PRN; Protocol PRN Reason: per Hypoglycemia Standing Ord. Enoxaparin Sodium (Enoxaparin Sodium 40 Mg/0.4 Ml Syringe) 40 mg SUBCUT Q24H [facility] Last Admin: 11/21/24 21:13 Dose: 40 mg Documented By: LUKE Folic Acid (Folic Acid 1 Mg Tablet) 1 mg PO DAILY [facility] Stop: 11/25/24 08:59 Last Admin: 11/22/24 08:07 Dose: 1 mg Documented By: BRANDON Furosemide (Furosemide 40 Mg Tablet) 40 mg PO DAILY [facility]; Protocol Last Admin: 11/22/24 08:06 Dose: 40 mg Documented By: BRANDON Gabapentin (Gabapentin 600 Mg Tablet) 1,200 mg PO BID [facility] Last Admin: 11/22/24 08:06 Dose: 1,200 mg Documented By: BRANDON Glucose (Glucose Gel 15 Gm Gel..Gram.) 15 gm PO Q15M PRN; Protocol PRN Reason: per Hypoglycemia Standing Ord. Vancomycin HCl 1,250 mg/ (Sodium Chloride) 250 mls @ 166.667 mls/hr IV Q12H [facility] Last Infusion: 11/22/24 10:00 Dose: Infused Documented By: BRANDON Insulin Glargine (Insulin Glargine,Hum.Rec.Anlog 100 Unit/Ml 10 Ml Vial) 10 unit SUBCUT BEDTIME [facility] Insulin Human Lispro (Insulin Lispro 100 Unit/Ml 3 Ml Vial) 0 unit SUBCUT QIDACHS [facility]; Protocol Last Admin: 11/22/24 07:10 Dose: Not Given Documented By: BRANDON Non-Admin Reason: No Insulin Coverage Levofloxacin (Levofloxacin 750 Mg Tablet) 750 mg PO Q24H [facility] Lorazepam (Lorazepam 1 Mg Tablet) 1 mg PO Q4H PRN PRN Reason: Breakthrough alcohol withdrawa Stop: 11/25/24 23:52 Lorazepam (Lorazepam 1 Mg Tablet) 1 mg PO Q4H [facility]; Taper Stop: 11/26/24 02:59 Last Admin: 11/22/24 07:11 Dose: Not Given Documented By: BRANDON Non-Admin Reason: ciwa 0 Magnesium Hydroxide (Milk Of Magnesia 30 Ml Oral.Susp) 30 ml PO DAILY PRN PRN Reason: Constipation Melatonin (Melatonin 3 Mg Tablet) 6 mg PO BEDTIME PRN PRN Reason: Insomnia Multivitamins/Vitamin C (Multivitamin Tablet) 1 tab PO DAILY [facility] Stop: 11/25/24 08:59 Last Admin: 11/22/24 08:07 Dose: 1 tab Documented By: BRANDON Omeprazole (Omeprazole 20 Mg Capsule.) 20 mg PO DAILY [facility] Last Admin: 11/22/24 08:07 Dose: 20 mg Documented By: BRANDON Pharmacy Consult (Consult Rx Vancomycin Dosing) 1 each MISCELLANE DAILY PRN PRN Reason: Consult order Sodium Chloride (0.9 % Sodium Chloride Flush 3 Ml Syringe) 3 ml IVFLUSH QSHIFT [facility] Last Admin: 11/22/24 07:10 Dose: Not Given Documented By: BRANDON Non-Admin Reason: See Note Thiamine HCl (Thiamine Hcl 100 Mg Tablet) 100 mg PO DAILY [facility] Stop: 11/25/24 08:59 Last Admin: 11/22/24 08:07 Dose: 100 mg Documented By: BRANDON Labs 11/22/24 03:12 11/22/24 03:12 Labs: Laboratory Results - last 24 hr 11/21/24 11/21/24 11/21/24 13:26 17:44 21:10 MCV 87.6 MCH 28.9 MCHC 32.9 RDW 12.4 Plt Count 299 D MPV 9.2 L Immature Gran % (Auto) 0.5 H Neut % (Auto) 59.2 Lymph % (Auto) 25.3 [place] % (Auto) 9.3 Eos % (Auto) 5.1 H Baso % (Auto) 0.6 Lymph # (Auto) 1.6 [place] # (Auto) 0.6 Eos # (Auto) 0.3 Baso # (Auto) 0.0 Abs Immat Gran (auto) 0.03 Absolute Neuts (auto) 3.8 Absolute Nucleated RBC 0.000 Nucleated RBC % (auto) 0.0 Anion Gap 13 Estim Creat Clear Calc 107.5 Estimated GFR > 60 POC Glucose 137 H Random Glucose 161 H Lactic Acid 1.2 Calcium 9.3 C-Reactive Protein 5.09 H Urine Color Yellow Urine Appearance Clear Urine pH 5.5 Ur Specific [place] <= 1.005 Urine Protein Negative Urine Glucose (UA) Negative Urine Ketones Negative Urine Blood Negative Urine Nitrite Negative Ur Leukocyte Esterase Negative Urine RBC 0-2 Urine WBC 0-5 Ur Squamous Epith Cells 0-2 Urine Bacteria None Seen Hyaline Casts 0-2 Urine Opiates Screen Not Detected Ur Buprenorphine Scrn Positive H Ur Oxycodone Screen Not Detected Urine Methadone Screen Not Detected Urine Fentanyl Screen Not Detected Ur Barbiturates Screen Not Detected Ur Phencyclidine Scrn Not Detected Ur Amphetamines Screen Not Detected U Benzodiazepines Scrn Not Detected Urine Cocaine Screen POSITIVE H U Marijuana (THC) Screen Not Detected 11/22/24 11/22/24 03:12 07:08 MCV 88.0 MCH 29.0 MCHC 32.9 RDW 12.4 Plt Count 276 MPV 9.2 L Immature Gran % (Auto) 0.6 H Neut % (Auto) 53.9 Lymph % (Auto) 26.9 [place] % (Auto) 10.9 Eos % (Auto) 7.1 H Baso % (Auto) 0.6 Lymph # (Auto) 1.8 [place] # (Auto) 0.7 Eos # (Auto) 0.5 H Baso # (Auto) 0.0 Abs Immat Gran (auto) 0.04 H Absolute Neuts (auto) 3.6 Absolute Nucleated RBC 0.000 Nucleated RBC % (auto) 0.0 Anion Gap 11 L Estim Creat Clear Calc 100.1 Estimated GFR > 60 POC Glucose 116 H Random Glucose 149 H Lactic Acid Calcium 9.2 C-Reactive Protein Urine Color Urine Appearance Urine pH Ur Specific [place] Urine Protein Urine Glucose (UA) Urine Ketones Urine Blood Urine Nitrite Ur Leukocyte Esterase Urine RBC Urine WBC Ur Squamous Epith Cells Urine Bacteria Hyaline Casts Urine Opiates Screen Ur Buprenorphine Scrn Ur Oxycodone Screen Urine Methadone Screen Urine Fentanyl Screen Ur Barbiturates Screen Ur Phencyclidine Scrn Ur Amphetamines Screen U Benzodiazepines Scrn Urine Cocaine Screen U Marijuana (THC) Screen Assessment and Plan (1) Diabetic ulcer of left foot: Status: Acute Plan This is a 64-year-old male with pertinent history of peripheral vascular disease status post left 2nd toe amputation, congestive heart failure with preserved ejection fraction, obstructive sleep apnea, COPD not on home oxygen, insulin-dependent diabetes mellitus, hypertension, mixed hyperlipidemia, gastroesophageal reflux disease who presented to the ER for concerns of foot infection #. Infected left foot ulcer: Continue IV vancomycin and Levaquin. Vascular surgery on board. MRI pending. Consulted Wound Care #. Insulin-dependent type 2 diabetes mellitus: On basal plus insulin regimen #. Hypertension: On amlodipine, carvedilol #. Consistent with heart failure with preserved ejection fraction: On furosemide #. Gastroesophageal reflux disease: On PPI #. Polysubstance use disorder: UDS positive for cocaine. Consulted Addiction Team DVT prophylaxis: Lovenox Full code Reason for continued hospitalization: IV antibiotics (as above), which is not possible in a lesser acute setting. Quality Stroke Does the patient have a stroke diagnosis?: No VTE Prior VTE?: No VTE Risk Level:: Medical - moderate - high VTE Device Contraindication: Treatment Not Indicated VTE Drug Contraindication: N/A - Med Ordered
[2024-11-22 12:14] LABS: Glucose, Whole Blood 156 mg/dL (60-115)
[2024-11-22 13:52] LABS: Glucose, Whole Blood 183 mg/dL (60-115)
--- NOTE | 2024-11-22 15:38 | MHC.CM.PN ---
pt lives with he is workingand independet possible vna when dc pt has own ride home dc plan home ?vna
[2024-11-22 16:27] LABS: Glucose, Whole Blood 201 mg/dL (60-115)
[2024-11-22] MEDS: 0.9 % Sodium Chloride Flush 3 ML SYRINGE IVFLUSH ×2 (16:56→20:56)
[2024-11-22 19:43] LABS: Glucose, Whole Blood 149 mg/dL (60-115)
[2024-11-22] MEDS: Insulin Glargine,Hum.rec.anlog 100 UNIT/ML 10 ML VIAL 10 UNIT SUBCUT (20:51)
--- NOTE | 2024-11-22 23:42 | W.PM.IDCN ---
History of Present Illness Data of Consult Service Date: 11/22/24 Requesting physician: Luiza Jarrett Primary Care Provider: JUAN LUIS Wong- HPI Reason for consult: OM left foot He presents with left foot swelling and pain over last two weeks. He was seeing [facility] and had deep culture on 11/16 as well as received Doxycycline for 5 days. He has no fever or chills. MRI of foot shows OM left 3rd metatarsal and SA. He has has amputation at left second metatarsal two years ago. Review of Systems Review of Systems: Yes all other systems are reviewed and are negative [facility] Past Medical History Medical History Barretts esophagus Erectile dysfunction associated with type 2 diabetes mellitus Diabetes mellitus with neuropathy On beta roney at home Pulmonary nodule Diabetic foot ulcer Essential hypertension Obesity History of cervical fracture Personal history of nicotine dependence Dysphagia Neuropathy MAHAD (obstructive sleep apnea) GERD (gastroesophageal reflux disease) PAD (peripheral artery disease) Diabetes mellitus, type 2 Family History Family History Mother No problems noted. Father No problems noted. Family history: reviewed and not pertinent Surgical History Surgical History History of amputation of toe (04/06/23) History of tonsillectomy History of total left knee replacement History of fusion of cervical spine History of total right knee replacement (TKR) History of endoscopy History of colonoscopy History of left knee surgery Social History Social History Household Members: Spouse Housing: House Are you a primary skin care technician to a significant other at home: No Do you presently have visiting nurse or other home services: No Alcohol intake: current Alcohol intake frequency: 3 or more drinks per day Alcohol type: hard liquor Patient Tobacco Use Status: Never used Tobacco Tobacco use type: Cigarette Cigarette Packs Per Day: 1 Cigarettes Per Day: 10 Years Smoked: 25 e-Cigarette/Vaping Use: Never Used Second Hand Smoke Exposure: No Substance Use Type: Marijuana service: No Current occupational status: employed Current occupation: [employer], right handed Current occupational exposures/hazards: Yes Cognitive needs: No Hearing needs: No Vision needs: No Meds Allergies Allergy/AdvReac Type Severity Reaction Status Date / Time No Known Allergies Allergy Verified 11/21/24 13:06 Active Medications: Current Medications Acetaminophen (Acetaminophen 325 Mg Tablet) 650 mg PO Q6H PRN PRN Reason: Pain, Mild 1-3,fever,headache Amlodipine Besylate (Amlodipine Besylate 10 Mg Tablet) 10 mg PO DAILY [facility]; Protocol Last Admin: 11/22/24 08:06 Dose: 10 mg Atorvastatin Calcium (Atorvastatin Calcium 20 Mg Tablet) 20 mg PO BEDTIME [facility] Last Admin: 11/22/24 20:49 Dose: 20 mg Calcium Carbonate (Calcium Carbonate 750 Mg Tab.Chew) 750 mg PO Q4H PRN PRN Reason: Heartburn Carvedilol (Carvedilol 25 Mg Tablet) 25 mg PO BIDWM [facility]; Protocol Last Admin: 11/22/24 16:52 Dose: 25 mg Dextrose (Dextrose 50 % 25 Gm/50 Ml Syringe) 25 gm IVPUSH Q15M PRN; Protocol PRN Reason: per Hypoglycemia Standing Ord. Enoxaparin Sodium (Enoxaparin Sodium 40 Mg/0.4 Ml Syringe) 40 mg SUBCUT Q24H [facility] Last Admin: 11/22/24 20:52 Dose: 40 mg Folic Acid (Folic Acid 1 Mg Tablet) 1 mg PO DAILY [facility] Stop: 11/25/24 08:59 Last Admin: 11/22/24 08:07 Dose: 1 mg Furosemide (Furosemide 40 Mg Tablet) 40 mg PO DAILY [facility]; Protocol Last Admin: 11/22/24 08:06 Dose: 40 mg Gabapentin (Gabapentin 600 Mg Tablet) 1,200 mg PO BID [facility] Last Admin: 11/22/24 20:49 Dose: 1,200 mg Glucose (Glucose Gel 15 Gm Gel..Gram.) 15 gm PO Q15M PRN; Protocol PRN Reason: per Hypoglycemia Standing Ord. Hydrochlorothiazide (Hydrochlorothiazide 12.5 Mg Tablet) 12.5 mg PO DAILY [facility]; Protocol Vancomycin HCl 1,250 mg/ (Sodium Chloride) 250 mls @ 166.667 mls/hr IV Q12H [facility] Last Infusion: 11/22/24 22:20 Dose: Infused Insulin Glargine (Insulin Glargine,Hum.Rec.Anlog 100 Unit/Ml 10 Ml Vial) 10 unit SUBCUT BEDTIME [facility] Last Admin: 11/22/24 20:51 Dose: 10 unit Insulin Human Lispro (Insulin Lispro 100 Unit/Ml 3 Ml Vial) 0 unit SUBCUT QIDACHS [facility]; Protocol Last Admin: 11/22/24 20:57 Dose: Not Given Levofloxacin (Levofloxacin 750 Mg Tablet) 750 mg PO Q24H [facility] Last Admin: 11/22/24 17:00 Dose: 750 mg Lisinopril (Lisinopril 40 Mg Tablet) 40 mg PO DAILY [facility]; Protocol Lorazepam (Lorazepam 1 Mg Tablet) 1 mg PO Q4H PRN PRN Reason: Breakthrough alcohol withdrawa Stop: 11/25/24 23:52 Lorazepam (Lorazepam 1 Mg Tablet) 1 mg PO Q4H [facility]; Taper Stop: 11/26/24 02:59 Last Admin: 11/22/24 22:25 Dose: Not Given Magnesium Hydroxide (Milk Of Magnesia 30 Ml Oral.Susp) 30 ml PO DAILY PRN PRN Reason: Constipation Melatonin (Melatonin 3 Mg Tablet) 6 mg PO BEDTIME PRN PRN Reason: Insomnia Multivitamins/Vitamin C (Multivitamin Tablet) 1 tab PO DAILY [facility] Stop: 11/25/24 08:59 Last Admin: 11/22/24 08:07 Dose: 1 tab Omeprazole (Omeprazole 20 Mg Capsule.Dr) 20 mg PO DAILY [facility] Last Admin: 11/22/24 08:07 Dose: 20 mg Pharmacy Consult (Consult Rx Vancomycin Dosing) 1 each MISCELLANE DAILY PRN PRN Reason: Consult order Sodium Chloride (0.9 % Sodium Chloride Flush 3 Ml Syringe) 3 ml IVFLUSH QSHIFT [facility] Last Admin: 11/22/24 20:56 Dose: 3 ml Thiamine HCl (Thiamine Hcl 100 Mg Tablet) 100 mg PO DAILY [facility] Stop: 11/25/24 08:59 Last Admin: 11/22/24 08:07 Dose: 100 mg Home Medications ?Medication ?Instructions ?Recorded ?Confirmed ?Last Taken ?Type furosemide 40 mg tablet 40 mg PO DAILY 11/21/24 11/21/24 Unknown History glipizide 10 mg tablet 10 mg PO BIDAC 11/21/24 11/21/24 Unknown History hydrochlorothiazide 12.5 mg tablet 12.5 mg PO DAILY 11/21/24 11/21/24 Unknown History insulin glargine-yfgn 100 unit/mL 24 unit subcut BEDTIME 11/21/24 11/21/24 Unknown History (3 mL) subcutaneous pen Physical Exam Vital Signs: Vital Signs: Last Vital Signs Temp 97.3 F 11/22/24 19:54 Pulse 52 11/22/24 19:54 Resp 18 11/22/24 19:54 BP 132/79 11/22/24 19:54 Pulse Ox 96 11/22/24 19:54 O2 Del Method Room Air 11/22/24 19:54 BMI result Body Mass Index 36.6 Const: General: cooperative HEENT: Head: Yes normal to inspection Face and sinus: Yes normal facial exam Mouth: Normal oral and palatal mucosa present Teeth and gingiva: dentition normal Eyes: General: appearance normal, both eyes and all related structures Pupils: Equal, round and reactive pupils present Resp: Effort & Inspection: normal respiratory effort Cardio: Rate: regular rate Rhythm: regular rhythm GI: Palpation (GI): Soft to palpation and nontender : General: Yes no CVA tenderness Back/Spine/Pelvis: Back: no CVA tenderness Skin: General skin exam: no rashes or lesions noted Neuro: General: moves all extremities Cranial nerves: Yes Equal, round and reactive pupils present Extrem: Other: missing 2nd left toe at metatarsal, third toe swollen Psych: Appearance: grossly normal Results Labs 11/22/24 03:12 11/22/24 03:12 Labs: Short CBC 11/22/24 Range/Units 03:12 WBC 6.6 (4.8-10.8) X10*3/uL Hgb 10.9 L (14.0-18.0) g/dl Hct 33.1 L (42.0-52.0) % Plt Count 276 (160-400) X10*3/uL BMP 11/22/24 03:12 Sodium 140 Potassium 4.8 Chloride 106 Carbon Dioxide 28 BUN 15 Creatinine 1.02 Calcium 9.2 Microbiology Microbiology Results: Microbiology 11/21/24 13:26 Blood - Venous Blood Culture - Preliminary No growth after 24 hours. 11/21/24 13:26 Blood - Venous Blood Culture - Preliminary No growth after 24 hours. Assessment and Plan (1) Osteomyelitis of foot: Qualifiers: Osteomyelitis type: chronic, with draining sinus Laterality: left Qualified Code(s): M86.472 - Chronic osteomyelitis with draining sinus, left ankle and foot Status: Acute Plan He has polymicrobial sources for OM with morganella,proteus and MRSA. Agree with IV Vancomycin and po Levaquin with six weeks likely with weekly CBC and creatinine and Vancomycin level. Po Flagyl for two weeks
--- NOTE | 2024-11-23 00:17 | PC.NURSE ---
1914-noise from patients room was heard, RN in hallway went to doorway and patient already mostly to upright position. slip was unwitnessed, on shift rounds patient was sitting in the upright chair by window, safe rounds completed, per patient he was on the hospital room phone, started to walk from chair to recliner, approx.,5- 6 feet, he turned to sit, phone cord pulled taunt, miss- judged seat and proceeded to kneel in front of the recliner. He feels maybe distracted by phone use. he was able to stand upright and that is when this engineering writer entered his room. Patient denied pain or discomforts to knees or legs, stated he did not hit his head, did not feel weak or dizzy, VSS, no redness or open skin to bilateral knees. Dr. Tran entered room on her rounds and event was told to her and she evaluated his knees. Hospitalist on duty was informed, nursing concrete block plant supervisor also. New order was noted for patient to have xrays to knees. he was transported to radiology via wheelchair at 2009, returned 2029. Will continue to monitor. Patient ambulating without difficulty. No report noted from radiology at this time.
[2024-11-23 03:21] VITALS: BP 155/71; PULSE 57; RESP 18; TEMP 36.1; O2SAT 93
[2024-11-23 06:45] LABS: Creatinine Clr Calc Pharmacy 108.7; Estimated Glomerular Filt Rate > 60
--- NOTE | 2024-11-23 07:17 | PC.NURSE ---
follow up to patient kneeling to floor, (see NN), continues with no redness, bruising, of discomfort to bilateral knees, using call sanders appropriately to alert staff.
[2024-11-23 07:38] LABS: Glucose, Whole Blood 153 mg/dL (60-115)
[2024-11-23 08:00] VITALS: BP 140/79; PULSE 50; RESP 16; TEMP 36.6; O2SAT 98
--- NOTE | 2024-11-23 08:10 | P.CDIM_ITS ---
PROVIDER RESPONSE TEXT: To clarify, the appropriate diagnosis supported by the clinical indicators: Acute osteomyelitis QUERY TEXT: PHYSICIAN'S DOCUMENTATION REQUEST Date of Query: 11/23/2024 07:47 AM EDT Patient Name: Colton Saini Admit Date: 11/22/2024 Dear Luiza Jarrett MD, A review of the medical record indicates additional documentation may be needed. Please review below and update the documentation accordingly. Clinical Indicators: MRI of foot shows OM left 3rd metatarsal and SA. IV Vancomycin and po Levaquin with six weeks likely. Suspected osteomyelitis and septic arthritis and flexor tendon tenosynovitis and cellulitis involving the third ray. Based on the above, please clarify in the Progress Notes further specificity regarding the acuity/specifics of Osteomyelitis. Acute osteomyelitis Subacute osteomyelitis Chronic osteomyelitis Chronic multifocal osteomyelitis Other (explain) Clinically unable to determine (explain) Thank you, Amna Wooten, CCS, CDIS Use of terms such as suspected, likely, concern for, or probable (associated with a specific diagnosis that is being evaluated, monitored, or treated as if it exists) are acceptable and can be coded in the inpatient setting, when documented at the time of discharge. Please use your independent medical judgment in providing your response. THIS QUERY IS PART OF THE PERMANENT MEDICAL RECORD
--- NOTE | 2024-11-23 08:10 | P.CDIM_ITS ---
PROVIDER RESPONSE TEXT: To clarify, the appropriate diagnosis supported by the clinical indicators: Diabetic neuropathy: peripheral QUERY TEXT: PHYSICIAN'S DOCUMENTATION REQUEST Date of Query: 11/23/2024 07:55 AM EDT Patient Name: Colton Saini Admit Date: 11/22/2024 Dear Luiza Jarrett MD, A review of the medical record indicates additional documentation may be needed. Please review below and update the documentation accordingly. Clinical Indicators: H&P and PMH: Neuropathy. Continue home Gabapentin. Based on the above, could you clarify any further specifics to the documented Neuropathy for this patient? Diabetic neuropathy autonomic, peripheral, polyneuropathy, mononeuropathy etc. Other specified Other (explain) Clinically unable to determine (explain) Thank you, Amna Wooten, CCS, CDIS Use of terms such as suspected, likely, concern for, or probable (associated with a specific diagnosis that is being evaluated, monitored, or treated as if it exists) are acceptable and can be coded in the inpatient setting, when documented at the time of discharge. Please use your independent medical judgment in providing your response. THIS QUERY IS PART OF THE PERMANENT MEDICAL RECORD
[2024-11-23] MEDS: 0.9 % Sodium Chloride Flush 3 ML SYRINGE IVFLUSH ×3 (08:13→20:12)
--- NOTE | 2024-11-23 09:46 | P.PNIM_ITS ---
Subjective Subjective Date of Service: 11/23/24 Interval History: No acute nursing events overnight. Patient without any acute complaints at this time Cardiovascular Cardiovascular: Reports no additional cardiovascular complaints Respiratory Respiratory: Reports no additional respiratory complaints Gastrointestinal Gastrointestinal: Reports no additional gastrointestinal complaints Genitourinary Genitourinary: Reports no additional male genitourinary complaints Physical Exam 2 Vital Signs: Vital Signs: Last Vital Signs Temp 97.9 F 11/23/24 08:00 Pulse 50 11/23/24 08:00 Resp 16 11/23/24 08:00 BP 140/79 H 11/23/24 08:00 Pulse Ox 98 11/23/24 08:00 O2 Del Method Room Air 11/23/24 08:00 BMI result Body Mass Index 36.6 Middle-aged male lying in bed in no distress Neck supple, no JVD Regular rate and rhythm, S1-S2 heard Regular breath sounds bilaterally, no wheezing or crackles appreciated Abdomen soft nontender, no guarding, no rigidity Patient is awake, alert and oriented to self, place, time and person ; no focal motor deficit Psych: Normal mood Left foot covered in bandage Objective Data Active Medications Acetaminophen (Acetaminophen 325 Mg Tablet) 650 mg PO Q6H PRN PRN Reason: Pain, Mild 1-3,fever,headache Amlodipine Besylate (Amlodipine Besylate 10 Mg Tablet) 10 mg PO DAILY [facility]; Protocol Last Admin: 11/23/24 08:11 Dose: 10 mg Documented By: KESHIA Atorvastatin Calcium (Atorvastatin Calcium 20 Mg Tablet) 20 mg PO BEDTIME [facility] Last Admin: 11/22/24 20:49 Dose: 20 mg Documented By: ROBERTA Calcium Carbonate (Calcium Carbonate 750 Mg Tab.Chew) 750 mg PO Q4H PRN PRN Reason: Heartburn Carvedilol (Carvedilol 25 Mg Tablet) 25 mg PO BIDWM [facility]; Protocol Last Admin: 11/23/24 08:11 Dose: Not Given Documented By: KESHIA Non-Admin Reason: Patient Condition Contraindication Dextrose (Dextrose 50 % 25 Gm/50 Ml Syringe) 25 gm IVPUSH Q15M PRN; Protocol PRN Reason: per Hypoglycemia Standing Ord. Enoxaparin Sodium (Enoxaparin Sodium 40 Mg/0.4 Ml Syringe) 40 mg SUBCUT Q24H [facility] Last Admin: 11/22/24 20:52 Dose: 40 mg Documented By: ROBERTA Folic Acid (Folic Acid 1 Mg Tablet) 1 mg PO DAILY [facility] Stop: 11/25/24 08:59 Last Admin: 11/23/24 08:12 Dose: 1 mg Documented By: KESHIA Furosemide (Furosemide 40 Mg Tablet) 40 mg PO DAILY [facility]; Protocol Last Admin: 11/23/24 08:10 Dose: 40 mg Documented By: KESHIA Gabapentin (Gabapentin 600 Mg Tablet) 1,200 mg PO BID [facility] Last Admin: 11/23/24 08:10 Dose: 1,200 mg Documented By: KESHIA Glucose (Glucose Gel 15 Gm Gel..Gram.) 15 gm PO Q15M PRN; Protocol PRN Reason: per Hypoglycemia Standing Ord. Hydrochlorothiazide (Hydrochlorothiazide 12.5 Mg Tablet) 12.5 mg PO DAILY [facility]; Protocol Last Admin: 11/23/24 08:12 Dose: 12.5 mg Documented By: KESHIA Vancomycin HCl 1,250 mg/ (Sodium Chloride) 250 mls @ 166.667 mls/hr IV Q12H [facility] Last Admin: 11/23/24 08:18 Dose: 166.67 mls/hr Documented By: KESHIA Insulin Glargine (Insulin Glargine,Hum.Rec.Anlog 100 Unit/Ml 10 Ml Vial) 10 unit SUBCUT BEDTIME [facility] Last Admin: 11/22/24 20:51 Dose: 10 unit Documented By: ROBERTA Insulin Human Lispro (Insulin Lispro 100 Unit/Ml 3 Ml Vial) 0 unit SUBCUT QIDACHS [facility]; Protocol Last Admin: 11/23/24 08:13 Dose: 2 unit Documented By: KESHIA Levofloxacin (Levofloxacin 750 Mg Tablet) 750 mg PO Q24H [facility] Last Admin: 11/22/24 17:00 Dose: 750 mg Documented By: GRAZMORTEZA Lisinopril (Lisinopril 40 Mg Tablet) 40 mg PO DAILY [facility]; Protocol Last Admin: 11/23/24 08:11 Dose: 40 mg Documented By: KESHIA Lorazepam (Lorazepam 1 Mg Tablet) 1 mg PO Q4H PRN PRN Reason: Breakthrough alcohol withdrawa Stop: 11/25/24 23:52 Lorazepam (Lorazepam 1 Mg Tablet) 1 mg PO Q6H [facility]; Taper Stop: 11/26/24 02:59 Last Admin: 11/23/24 08:12 Dose: 1 mg Documented By: KESHIA Magnesium Hydroxide (Milk Of Magnesia 30 Ml Oral.Susp) 30 ml PO DAILY PRN PRN Reason: Constipation Melatonin (Melatonin 3 Mg Tablet) 6 mg PO BEDTIME PRN PRN Reason: Insomnia Metronidazole (Metronidazole 500 Mg Tablet) 500 mg PO BID [facility] Last Admin: 11/23/24 08:10 Dose: 500 mg Documented By: KESHIA Multivitamins/Vitamin C (Multivitamin Tablet) 1 tab PO DAILY [facility] Stop: 11/25/24 08:59 Last Admin: 11/23/24 08:11 Dose: 1 tab Documented By: KESHIA Omeprazole (Omeprazole 20 Mg Capsule.Dr) 20 mg PO DAILY [facility] Last Admin: 11/23/24 08:11 Dose: 20 mg Documented By: KESHIA Pharmacy Consult (Consult Rx Vancomycin Dosing) 1 each MISCELLANE DAILY PRN PRN Reason: Consult order Sodium Chloride (0.9 % Sodium Chloride Flush 3 Ml Syringe) 3 ml IVFLUSH QSHIFT [facility] Last Admin: 11/23/24 08:13 Dose: 3 ml Documented By: KESHIA Thiamine HCl (Thiamine Hcl 100 Mg Tablet) 100 mg PO DAILY [facility] Stop: 11/25/24 08:59 Last Admin: 11/23/24 08:11 Dose: 100 mg Documented By: KESHIA Labs 11/22/24 03:12 11/23/24 06:07 Labs: Laboratory Results - last 24 hr 11/22/24 11/22/24 11/22/24 12:11 13:48 16:24 Hold Purple Top Estim Creat Clear Calc Estimated GFR POC Glucose 156 H 183 H 201 H Vancomycin Trough 11/22/24 11/23/24 11/23/24 19:31 06:07 07:30 Hold Purple Top SEE NOTE Estim Creat Clear Calc 108.7 Estimated GFR > 60 POC Glucose 149 H 153 H Vancomycin Trough 15.7 Microbiology Microbiology Results: Microbiology 11/21/24 13:26 Blood Culture - Preliminary Blood - Venous No growth after 24 hours. 11/21/24 13:26 Blood Culture - Preliminary Blood - Venous No growth after 24 hours. Assessment and Plan (1) Osteomyelitis: Status: Acute (2) Septic arthritis: Status: Acute (3) Suppurative tenosynovitis of flexor tendon: Status: Acute Plan This is a 64-year-old male with pertinent history of peripheral vascular disease status post left 2nd toe amputation, congestive heart failure with preserved ejection fraction, obstructive sleep apnea, COPD not on home oxygen, insulin- dependent diabetes mellitus, hypertension, mixed hyperlipidemia, gastroesophageal reflux disease who presented to the ER for concerns of foot infection #. Acute osteomyelitis, septic arthritis, flexor tendon tenosynovitis, cellulitis and infected ulcer of left foot: Continue IV vancomycin, p.o. Levaquin and p.o. Flagyl. Vascular surgery on board. Consulted Wound Care. Ortho eval. #. Insulin-dependent type 2 diabetes mellitus: On basal plus insulin regimen #. Hypertension: On amlodipine, carvedilol #. Consistent with heart failure with preserved ejection fraction: On furosemide #. Gastroesophageal reflux disease: On PPI #. Polysubstance use disorder: UDS positive for cocaine. Consulted Addiction Team DVT prophylaxis: Lovenox Full code Reason for continued hospitalization: IV antibiotics (as above), which is not possible in a lesser acute setting. Quality Stroke Does the patient have a stroke diagnosis?: No VTE Prior VTE?: No VTE Risk Level:: Medical - moderate - high VTE Device Contraindication: Treatment Not Indicated VTE Drug Contraindication: N/A - Med Ordered
[2024-11-23 11:29] LABS: Glucose, Whole Blood 153 mg/dL (60-115)
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
[2024-11-23 15:20] VITALS: PULSE 61; RESP 18; TEMP 36.7; O2SAT 98
--- NOTE | 2024-11-23 15:29 | MHC.CM.PN ---
Per MD rounds Patient will require IV ABX at discharge. Per infectious disease 6 weeks IV Vanco via PICC. PICC insertion is pending. [facility] have been referred. DP home with 6 weeks IV Vanco via PICC line. Pt's will provide transportation home.
[2024-11-23 16:01] LABS: Glucose, Whole Blood 245 mg/dL (60-115)
[2024-11-23 19:51] VITALS: BP 162/77; PULSE 53; RESP 20; TEMP 36.4; O2SAT 98
[2024-11-23 19:58] LABS: Glucose, Whole Blood 168 mg/dL (60-115)
[2024-11-23] MEDS: Insulin Glargine,Hum.rec.anlog 100 UNIT/ML 10 ML VIAL 10 UNIT SUBCUT (20:10)
--- NOTE | 2024-11-23 23:40 | PC.NURSE ---
Pt made HF d/t event last night. See NN for reference. Pt refuses all alarms and the yellow bracelet and socks. Pt's gait is steady. Pt encouraged to ring for assistance when wanting to get up and not to ambulate w/o RN or MANAGER MEDICAID present.
[2024-11-24] VITALS (9 sets, daily range): BP systolic 133–176; BP diastolic 70–84; PULSE 57–63; RESP 16–18; TEMP 36.4–36.9; O2SAT 92–98
[2024-11-24 06:25] LABS: Alanine Aminotransferase 19 U/L (0-40); Albumin Level 3.9 g/dL (3.5-5.0); Alkaline Phosphatase 118 U/L (39-117); Aspartate Amino Transferase 33 U/L (5-37); Creatinine Clr Calc Pharmacy 101.1; Estimated Glomerular Filt Rate > 60; Total Protein 7.9 g/dL (6.5-8.0)
--- NOTE | 2024-11-24 06:46 | HE.PHANOTE ---
SOBIA Changed dose to 1000mg Q12H as trough has been rising, beyond prediction. New predicted trough 14.5, AUC 440. Next trough to be drawn 11/25 @0600.
[2024-11-24 07:42] LABS: Glucose, Whole Blood 140 mg/dL (60-115)
[2024-11-24] MEDS: 0.9 % Sodium Chloride Flush 3 ML SYRINGE IVFLUSH ×3 (08:03→21:04)
[2024-11-24 11:37] LABS: Glucose, Whole Blood 234 mg/dL (60-115)
--- NOTE | 2024-11-24 11:59 | PC.NURSE ---
Patient is alert and oriented, refusing all fall protocols. Call sanders within reach, education provided about safety and hospital environment, call sanders use encouraged. Patient stated that he understood.
--- NOTE | 2024-11-24 12:27 | MHC.RECOVRN ---
Met with pt in follow up to discuss plans following discharge and provide resources on risk reduction for AUD. Written materials provided to and reviewed with pt. Discussed RANDY and multiple pathways to recovery. Pt accepted for outpatient AUD treatment appointment to be made on his behalf with the [facility]. No further questions or concerns offered at this time.
--- NOTE | 2024-11-24 14:26 | MHC.CM.PN ---
PT IS MEDICALLY CLEARED FOR DC ONCE PICC PLACED AND FIRST DOSE OF DAPTO IS GIVEN. [facility] WAS IN TO DO TEACH AND [facility] UPDATED ON PLAN. AT BEDSIDE AND WAS TAUGHT WELL.
--- NOTE | 2024-11-24 14:32 | P.PNVS_ITS ---
Subjective Subjective Date of Service: 11/24/24 Patient reports: no new complaints Interval history: Patient seen and examined. No significant events overnight for nonhealing left foot ulcer. Appears to be doing relatively well. Has PICC line placed. Appears to be doing well and eager to be discharged Physical Exam Vital Signs: Vital Signs: Last Vital Signs Temp 97.8 F 11/24/24 07:57 Pulse 62 11/24/24 07:57 Resp 18 11/24/24 07:57 BP 176/72 H 11/24/24 07:59 Pulse Ox 94 11/24/24 07:57 O2 Del Method Room Air 11/24/24 07:57 BMI result Body Mass Index 36.6 Const: General: cooperative, healthy appearing and comfortable Orientation/consciousness: oriented to person, oriented to place and oriented to time HEENT: Head: Yes normal to inspection Neck: Neck: Yes normal visual inspection Carotids: no bruits Chest: Chest palpation & inspection: normal inspection of the chest Resp: Effort & Inspection: normal respiratory effort and able to speak in complete sentences Auscultation: clear to auscultation bilaterally, no crackles, no rales, no rhonchi and no wheezes Cardio: Rate: regular rate Rhythm: regular rhythm Heart sounds: S1 normal heart sound present and S2 normal heart sound present Bruits: no carotid bruits Peripheral pulses: Peripheral pulses 2+ throughout GI: Inspection: Yes normal to inspection Skin: Other: Ulcer left 3rd toe and open ulcer on plantar aspect of foot as well Wounds: no wounds Hair: normal Neuro: General: oriented to person, oriented to place and oriented to time Cranial nerves: Yes CN's II-XII intact bilaterally and Yes Normal hearing pres ent Cognition (Neuro): normal cognition Motor exam (neuro): 5/5 motor strength present throughout Extrem: Other: venous exam: No significant superficial varicosities or spider telangiectasias, minimal edema General: No clubbing, No cyanosis and No edema Psych: Appearance: grossly normal Mental Status: mental status grossly normal Speech and movement: Normal speech and movement present Progress Note: A&P Assessment and plan (1) Osteomyelitis of foot: Status: Acute Assessment and Plan: In short patient has nonhealing ulcer of the left foot. This is diabetic with underlying osteomyelitis. He will require long-term IV antibiotics. In addition I had an extensive discussion with him and his at bedside. The importance of offloading. 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 In addition he is positive for polysubstance abuse. I did stress the importance healthy lifestyle offloading and being compliant with his antibiotics. If not he is at risk for transmetatarsal amputation. He can follow up with us as an outpatient. Thank you for allowing us to assist in his care Time Spent With Patient Time: Total time managing care of this patient today ____ minutes. Procedures Date of Service Date of Service: 11/24/24 Quality Stroke Does the patient have a stroke diagnosis?: No VTE Prior VTE?: No VTE Risk Level:: Medical - moderate - high VTE Device Contraindication: Treatment Not Indicated VTE Drug Contraindication: N/A - Med Ordered
[2024-11-24 16:02] LABS: Glucose, Whole Blood 178 mg/dL (60-115)
--- NOTE | 2024-11-24 16:16 | P.PNIM_ITS ---
Subjective Subjective Date of Service: 11/24/24 Interval History: No acute nursing events overnight. Patient without any acute complaints at this time Cardiovascular Cardiovascular: Reports no additional cardiovascular complaints Respiratory Respiratory: Reports no additional respiratory complaints Gastrointestinal Gastrointestinal: Reports no additional gastrointestinal complaints Genitourinary Genitourinary: Reports no additional male genitourinary complaints Physical Exam 2 Vital Signs: Vital Signs: Last Vital Signs Temp 97.5 F 11/24/24 15:04 Pulse 63 11/24/24 15:04 Resp 18 11/24/24 15:04 BP 133/74 11/24/24 15:04 Pulse Ox 92 11/24/24 15:04 O2 Del Method Room Air 11/24/24 15:04 BMI result Body Mass Index 36.6 Const: Other: Middle-aged male lying in bed in no distress Neck supple, no JVD Regular rate and rhythm, S1-S2 heard Regular breath sounds bilaterally, no wheezing or crackles appreciated Abdomen soft nontender, no guarding, no rigidity Patient is awake, alert and oriented to self, place, time and person ; no focal motor deficit Psych: Normal mood Left foot covered in bandage Objective Data Active Medications Acetaminophen (Acetaminophen 325 Mg Tablet) 650 mg PO Q6H PRN PRN Reason: Pain, Mild 1-3,fever,headache Amlodipine Besylate (Amlodipine Besylate 10 Mg Tablet) 10 mg PO DAILY [facility]; Protocol Last Admin: 11/24/24 07:59 Dose: 10 mg Documented By: SOLA Atorvastatin Calcium (Atorvastatin Calcium 20 Mg Tablet) 20 mg PO BEDTIME [facility] Last Admin: 11/23/24 20:09 Dose: 20 mg Documented By: MARIA ISABEL Calcium Carbonate (Calcium Carbonate 750 Mg Tab.Chew) 750 mg PO Q4H PRN PRN Reason: Heartburn Carvedilol (Carvedilol 25 Mg Tablet) 25 mg PO BIDWM [facility]; Protocol Last Admin: 11/24/24 07:55 Dose: 25 mg Documented By: SOLA Dextrose (Dextrose 50 % 25 Gm/50 Ml Syringe) 25 gm IVPUSH Q15M PRN; Protocol PRN Reason: per Hypoglycemia Standing Ord. Enoxaparin Sodium (Enoxaparin Sodium 40 Mg/0.4 Ml Syringe) 40 mg SUBCUT Q24H [facility] Last Admin: 11/23/24 20:09 Dose: 40 mg Documented By: MARIA ISABEL Folic Acid (Folic Acid 1 Mg Tablet) 1 mg PO DAILY [facility] Stop: 11/25/24 08:59 Last Admin: 11/24/24 07:58 Dose: 1 mg Documented By: SOLA Furosemide (Furosemide 40 Mg Tablet) 40 mg PO DAILY [facility]; Protocol Last Admin: 11/24/24 07:58 Dose: 40 mg Documented By: SOLA Gabapentin (Gabapentin 600 Mg Tablet) 1,200 mg PO BID [facility] Last Admin: 11/24/24 07:55 Dose: 1,200 mg Documented By: SOLA Glucose (Glucose Gel 15 Gm Gel..Gram.) 15 gm PO Q15M PRN; Protocol PRN Reason: per Hypoglycemia Standing Ord. Hydrochlorothiazide (Hydrochlorothiazide 12.5 Mg Tablet) 12.5 mg PO DAILY [facility]; Protocol Last Admin: 11/24/24 07:57 Dose: 12.5 mg Documented By: SOLA Daptomycin 950 mg/ Sodium (Chloride) 69 mls @ 92.617 mls/hr IV Q24H [facility] Insulin Glargine (Insulin Glargine,Hum.Rec.Anlog 100 Unit/Ml 10 Ml Vial) 10 unit SUBCUT BEDTIME [facility] Last Admin: 11/23/24 20:10 Dose: 10 unit Documented By: MARIA ISABEL Insulin Human Lispro (Insulin Lispro 100 Unit/Ml 3 Ml Vial) 0 unit SUBCUT QIDACHS [facility]; Protocol Last Admin: 11/24/24 11:55 Dose: 4 unit Documented By: SOLA Levofloxacin (Levofloxacin 750 Mg Tablet) 750 mg PO Q24H [facility] Last Admin: 11/23/24 17:04 Dose: 750 mg Documented By: KESHIA Lisinopril (Lisinopril 40 Mg Tablet) 40 mg PO DAILY [facility]; Protocol Last Admin: 11/24/24 07:58 Dose: 40 mg Documented By: SOLA Lorazepam (Lorazepam 1 Mg Tablet) 1 mg PO Q4H PRN PRN Reason: Breakthrough alcohol withdrawa Stop: 11/25/24 23:52 Lorazepam (Lorazepam 0.5 Mg Tablet) 1 mg PO Q4H [facility]; Taper Stop: 11/28/24 11:29 Last Admin: 11/24/24 15:07 Dose: 1 mg Documented By: SOLA Magnesium Hydroxide (Milk Of Magnesia 30 Ml Oral.Susp) 30 ml PO DAILY PRN PRN Reason: Constipation Melatonin (Melatonin 3 Mg Tablet) 6 mg PO BEDTIME PRN PRN Reason: Insomnia Last Admin: 11/24/24 01:19 Dose: 6 mg Documented By: MARIA ISABEL Metronidazole (Metronidazole 500 Mg Tablet) 500 mg PO BID [facility] Last Admin: 11/24/24 07:57 Dose: 500 mg Documented By: SOLA Multivitamins/Vitamin C (Multivitamin Tablet) 1 tab PO DAILY [facility] Stop: 11/25/24 08:59 Last Admin: 11/24/24 07:58 Dose: 1 tab Documented By: SOLA Omeprazole (Omeprazole 20 Mg Capsule.) 20 mg PO DAILY [facility] Last Admin: 11/24/24 07:57 Dose: 20 mg Documented By: SOLA Sodium Chloride (0.9 % Sodium Chloride Flush 3 Ml Syringe) 3 ml IVFLUSH QSHIFT [facility] Last Admin: 11/24/24 08:03 Dose: 3 ml Documented By: SOLA Thiamine HCl (Thiamine Hcl 100 Mg Tablet) 100 mg PO DAILY [facility] Stop: 11/25/24 08:59 Last Admin: 11/24/24 07:58 Dose: 100 mg Documented By: SOLA Labs 11/22/24 03:12 11/24/24 05:53 Labs: Laboratory Results - last 24 hr 11/23/24 11/24/24 11/24/24 19:53 05:53 07:37 Estim Creat Clear Calc 101.1 Estimated GFR > 60 POC Glucose 168 H 140 H Total Bilirubin 0.3 Direct Bilirubin 0.1 AST 33 ALT 19 Alkaline Phosphatase 118 H Total Protein 7.9 Albumin 3.9 Random Vancomycin 18.0 11/24/24 11/24/24 11:33 15:59 Estim Creat Clear Calc Estimated GFR POC Glucose 234 H 178 H Total Bilirubin Direct Bilirubin AST ALT Alkaline Phosphatase Total Protein Albumin Random Vancomycin Microbiology Microbiology Results: Microbiology 11/21/24 13:26 Blood Culture - Preliminary Blood - Venous No growth after 48 hours. 11/21/24 13:26 Blood Culture - Preliminary Blood - Venous No growth after 48 hours. Assessment and Plan (1) Osteomyelitis of foot: Status: Acute Plan This is a 64-year-old male with pertinent history of peripheral vascular disease status post left 2nd toe amputation, congestive heart failure with preserved ejection fraction, obstructive sleep apnea, COPD not on home oxygen, insulin- dependent diabetes mellitus, hypertension, mixed hyperlipidemia, gastroesophageal reflux disease who presented to the ER for concerns of foot infection #. Acute osteomyelitis, septic arthritis, flexor tendon tenosynovitis, cellulitis and infected ulcer of left foot: IV vancomycin switched to daptomycin for discharge (end date: January 03). On p.o. Levaquin (end date:January 03) and p.o. Flagyl (end date:December 07). Vascular surgery on board. Consulted Wound Care. Ortho eval. #. Insulin-dependent type 2 diabetes mellitus: On basal plus insulin regimen #. Hypertension: On amlodipine, carvedilol #. Consistent with heart failure with preserved ejection fraction: On furosemide #. Gastroesophageal reflux disease: On PPI #. Polysubstance use disorder: UDS positive for cocaine. Consulted Addiction Team DVT prophylaxis: Lovenox Full code Reason for continued hospitalization: IV antibiotics (as above), which is not possible in a lesser acute setting. Patient to get PICC line tomorrow. Anticipate discharge home tomorrow Quality Stroke Does the patient have a stroke diagnosis?: No VTE Prior VTE?: No VTE Risk Level:: Medical - moderate - high VTE Device Contraindication: Treatment Not Indicated VTE Drug Contraindication: N/A - Med Ordered
[2024-11-24 20:49] LABS: Glucose, Whole Blood 192 mg/dL (60-115)
[2024-11-24] MEDS: DAPTOmycin 950 MG in 0.9 % Sodium Chloride 50 ML 92.62 MG IV (21:02)
[2024-11-24] MEDS: Insulin Glargine,Hum.rec.anlog 100 UNIT/ML 10 ML VIAL 10 UNIT SUBCUT (21:04)
[2024-11-25 03:48] VITALS: BP 164/76; PULSE 65; RESP 18; TEMP 36.3; O2SAT 98
[2024-11-25 07:12] LABS: Glucose, Whole Blood 127 mg/dL (60-115)
[2024-11-25 07:25] VITALS: BP 130/92; PULSE 59; RESP 18; TEMP 36.4; O2SAT 97
[2024-11-25 07:40] LABS: Creatinine Clr Calc Pharmacy 106.4; Estimated Glomerular Filt Rate > 60
[2024-11-25] MEDS: 0.9 % Sodium Chloride Flush 3 ML SYRINGE IVFLUSH ×2 (07:48→14:59)
[2024-11-25 11:19] LABS: Glucose, Whole Blood 239 mg/dL (60-115)
--- NOTE | 2024-11-25 14:32 | PM.DS ---
DS: Providers Provider Date of Service: 11/25/24 Date of admission: 11/21/24 20:06 Date of discharge: 11/25/24 Primary care physician: LESLIE Wong Consults: 11/21/24 20:06 Consult to Infectious Diseases Routine Consulting Provider: [facility] Reason for consultation: DM foot infection Consult to Wound Care Routine Reason for consultation: DM foot infection 11/21/24 20:12 Consult to Vascular Surgery Routine Consulting Provider: [facility] Vascular Services Reason for consultation: DM foot infection 11/22/24 11:48 Addiction Medicine Provider Routine Consulting Provider: Addiction Covering Reason for consultation: Polysubstance use disorder DS: Diagnosis Discharge Diagnosis (1) Osteomyelitis of foot: Status: Acute DS: Summary Hospital Course Hospital Course: HPI as per admitting provider:64-year-old male with a past medical history of HTN, HLD, DM, COPD, MAHAD, PVD, HFpEF, history of left 2nd toe amputation; presented to the hospital today with a chief complaint of diabetic foot infection. Reports about 2 weeks he has been having ulcer on his left foot; has been having mild erythema surrounding. Denies any fevers. Denies any discharge. Went to the wound clinic today and asked him to go to the ER for further evaluation. Patient denies any chest pain or palpitations. Denies any GI or symptoms. Hospital course: Patient was admitted with IV antibiotics. MRI reviewed acute osteomyelitis, septic arthritis and flexor tendon synovitis of left foot. Infectious Disease was consulted who recommended 6 weeks of IV daptomycin and p.o. Levaquin and 2 weeks of p.o. Flagyl. PICC line was inserted and patient will be discharged with home infusion company for IV daptomycin. (end date December 31). Vascular surgery was consulted who recommended conservative management with offloading. Patient does have a history of polysubstance use and addiction Team was consulted during hospital course. Home medications were continued for chronic medical conditions. Time Attestation Discharge Coordination Time (in mins): Forty Quality: Safe Use of Opioids Does Pt have an Active Cancer Diagnosis on the Problem List?: No Quality: Stroke Does the patient have a stroke diagnosis?: No Physical Exam Vital Signs: Vital Signs: Last Vital Signs Temp 98.1 F 11/25/24 13:26 Pulse 82 11/25/24 13:26 Resp 16 11/25/24 13:26 BP 90/56 L 11/25/24 13:26 Pulse Ox 96 11/25/24 13:26 O2 Del Method Room Air 11/25/24 13:26 BMI result Body Mass Index 36.6 Const: Other: Middle-aged male lying in bed in no distress Neck supple, no JVD Regular rate and rhythm, S1-S2 heard Regular breath sounds bilaterally, no wheezing or crackles appreciated Abdomen soft nontender, no guarding, no rigidity Patient is awake, alert and oriented to self, place, time and person ; no focal motor deficit Psych: Normal mood Left foot covered in bandage DS: Data Data Completed and Pending Labs on day of discharge: Laboratory Results - last 24 hr 11/24/24 11/24/24 11/25/24 15:59 20:45 06:34 Hold Purple Top SEE NOTE Creatinine 0.96 Estim Creat Clear Calc 106.4 Estimated GFR > 60 POC Glucose 178 H 192 H 11/25/24 11/25/24 07:06 11:13 Hold Purple Top Creatinine Estim Creat Clear Calc Estimated GFR POC Glucose 127 H 239 H Preliminary micro results at discharge 11/21/24 13:26 Blood Culture - Preliminary Blood - Venous No growth after 48 hours. 11/21/24 13:26 Blood Culture - Preliminary Blood - Venous No growth after 48 hours. Imaging Chest x-ray: Radiologist's impression: ITS Impressions Venous Duplex 11/21/24 13:32 IMPRESSION: Acute deep venous thrombosis interrogated veins, left lower extremity. Negative for DVT. Inguinal lymphadenopathy. Varices, great saphenous vein. Electronically signed by: Arnulfo Beard MD 11/21/2024 02:00 PM EDT Foot MRI 11/22/24 12:52 IMPRESSION: Suspected osteomyelitis and septic arthritis and flexor tendon tenosynovitis and cellulitis involving the third ray. There is dorsal dislocation of the third digit at the MTP joint. There is ulceration plantar to the third MTP joint that extends through the plantar aspect of the third toe and exits plantar to the distal phalanx. There is also a sinus tract extending from the ulceration into the third MTP joint concerning for septic arthritis. There are marrow signal changes involving the diaphysis and head and neck of the third metatarsal consistent with osteomyelitis. Changes in the proximal phalanx are borderline but suggestive of early osteomyelitis involving the proximal phalanx, but sparing the head. Changes in the middle and distal phalanx of the third digit are probably reactive and not strongly diagnostic of osteomyelitis. There is evidence of tenosynovitis involving the flexor tendons of the third digit in the forefoot that could be septic or aseptic. There is evidence of cellulitis involving soft tissues plantar to the third MTP joint extending into the third toe and third web space. There is severe osteoarthritis involving the first MTP joint. 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 There is evidence of subacute or chronic fracture involving the neck of the fourth metatarsal with posttraumatic osteoarthritis. Electronically signed by: Gabino Noriega MD 11/22/2024 02:03 PM EDT RP Knee X-Ray 11/22/24 19:15 IMPRESSION: Status post right total knee arthroplasty. Electronically signed by: Milton Conway MD 11/23/2024 07:56 AM EDT RP Knee X-Ray 11/22/24 20:20 IMPRESSION: Status post left total knee arthroplasty. Electronically signed by: Milton Conway MD 11/23/2024 07:54 AM EDT RP PICC Line Insertion 11/24/24 07:31 IMPRESSION: Successful ultrasound and fluoroscopy-guided placement of a right single lumen PICC catheter with its tip in the proximal SVC. The PICC line is ready for use Fluoroscopy time: 0.5 minutes. Dose: 1.44 mGy/cm. Electronically signed by: Sukhwinder Swain MD 11/25/2024 11:48 AM EDT RP Discharge Plan Discharge Anticipated Discharge Date/Time: 11/25/24 14:24 Patient Disposition: Home Health Service Discharge Diagnosis: Acute osteomyelitis, septic arthritis, flexor tendon tenosynovitis, cellulitis and infected ulcer of left foot Referrals: [facility] [Other] - 1 Week Referral Note: HOME INFUSION SERVICES FOR IV MEDICATION AND SUPPLIES [facility] [Provider Group, Addiction Medicine] - 12/01/24 9:30 am Referral Note: Please attend your appointment at the [facility] on November at 9:30am. Jann [facility] [Outside] - 1 Week Referral Note: HOME SERVICES FOR [facility]- A NURSE WILL CALL YOU TO SET UP FIRST VISIT. Lorenzo Roberts, [employer]- [Primary Care Provider, Internal Medicine] - 1 Week Discharge Medications: New metronidazole 500 mg Tablet 500 mg PO BID 12 Days Qty: 24 0RF levofloxacin 750 mg Tablet 750 mg PO Q24H 38 Days Qty: 38 0RF Continued (DME) OneTouch Verio test strips Strip See Rx Instructions .Route Qty: 300 0RF Rx Instructions: test blood sugar TID (DME) pen needle, diabetic 32 gauge x 1/4 needle See Rx Instructions .Route Qty: 100 1RF Rx Instructions: use to inject insulin once a day atorvastatin 20 mg tablet 20 mg PO BEDTIME Qty: 90 1RF lisinopril 40 mg tablet 40 mg PO DAILY Qty: 90 1RF amlodipine 10 mg tablet 10 mg PO DAILY Qty: 30 5RF carvedilol [Coreg] 25 mg tablet 25 mg PO BID Qty: 60 5RF Rx Instructions: must administer with a meal/food gabapentin 600 mg tablet 1,200 mg PO BID 90 Days Qty: 360 0RF hydralazine 25 mg tablet 25 mg PO TID Qty: 270 3RF hydrochlorothiazide 12.5 mg tablet 12.5 mg PO DAILY furosemide 40 mg tablet 40 mg PO DAILY glipizide 10 mg tablet 10 mg PO BIDAC insulin glargine-yfgn 100 unit/mL (3 mL) insulin pen 24 unit subcut BEDTIME 30 Days Qty: 7.2 0RF (DME) FreeStyle Michael 2 Johnson Misc See Rx Instructions .Route Qty: 1 8RF Rx Instructions: tid testing (DME) FreeStyle Michael 2 Sensor Kit See Rx Instructions .Route Qty: 1 8RF Rx Instructions: TID testing (DME) 4x4 gauze 1 box See Rx Instructions .Route .MEDSUPPLY Qty: 1 2RF Rx Instructions: As directed (DME) 6x6 kerlix fluffs 1 box See Rx Instructions .Route .MEDSUPPLY Qty: 1 2RF Rx Instructions: As directed (DME) kerlix rolls 20 rolls See Rx Instructions .Route .MEDSUPPLY Qty: 1 2RF Rx Instructions: As directed pantoprazole 40 mg tablet,delayed release (DR/EC) 40 mg PO DAILY Qty: 90 2RF Rx Instructions: take one tablet half an hour before breakfast Discontinued doxycycline hyclate 100 mg tablet 100 mg PO BID Qty: 20 0RF Rx Instructions: ORDERED 11/16 PATIENT TOOK ABOUT 5 DAYS OF IT Discharge Orders: Discharge Order (Routine); Ordered 11/25/24 Ordered By: Luiza Jarrett Diet: Diabetic diet Activity on Discharge: As tolerated Stand Alone Forms: Patient Portal Discharge page Print Language: Salvadorean Care Plan Goals: Follow-up with PCP within 1 week with CMP, CK and CBC Follow-up with wound care Health Concerns: Acute osteomyelitis, septic arthritis and flexor tendon synovitis of left foot Plan of Treatment: Daptomycin IV x6 weeks (end date:January 03) Levofloxacin once daily x6 weeks (end date:January 03) Metronidazole twice daily x2 weeks (end date:December 07) Assessment: As above
--- NOTE | 2024-11-25 14:36 | P.F2F_ITS ---
Service Date Service Date: 11/25/24 Encounter Date of encounter: 11/25/24 Reasons for Services Signs and symptoms assessed: Has PICC line Reason for care home: CV/CP assess and/or care, wound care, administration of IV, SQ, or IM injection, central line care, diabetic teaching, monitoring of unstable blood sugar, medication management and medication treatment Homebound: Leaving the home is medically contraindicated at this time without the asist of a device and/or another person due th the listed conditions above and below. Reason homebound: weakness related to hospital stay Certification: Based on the above findings, I certify that this patient is confined to the home and needs intermittent care home care, physical therapy and/or speech therapy, or continues to need occupational therapy. The patient is under my care, and I have initiated the establishment of the plan of care. The patient will be followed by a physician who will periodically review the plan of care. Time Spent With Patient Time: Total time managing care of this patient today ____ minutes.
--- NOTE | 2024-11-25 14:38 | MHC.CM.PN ---
DP: PT HAS BEEN MEDICALLY CLEARED FOR DC HOME WITH [facility] FOR IV ABT RX. [facility] AND [facility] AWARE OF TODAY'S DC. PT'S WILL TRANSPORT.
[2024-11-25] MEDS: DAPTOmycin 950 MG in 0.9 % Sodium Chloride 50 ML 100 MG IV (15:00)
[2024-11-25 15:26] VITALS: BP 146/77; PULSE 65; RESP 18; TEMP 36.5; O2SAT 94
== END 2024-11-25 15:56 | disposition home health service (06) | DRG 344 ==
LOC: HO.ED 20:15 → HO.EDOVER 20:27 → HO.S3 11-22 12:41
PROVIDERS: Admitting Provider Hospitalist; Emergency Provider Emergency Medicine Emergency Medical Services; PCP Nurse Practitioner Family; Visit Provider Student in an Organized Health Care Education/Training Program
DX: E11.69 Type 2 diabetes mellitus with other specified complication (principal); M86.172 Other acute osteomyelitis, left ankle and foot; M00.9 Pyogenic arthritis, unspecified; E11.621 Type 2 diabetes mellitus with foot ulcer; E11.42 Type 2 diabetes mellitus with diabetic polyneuropathy; F10.20 Alcohol dependence, uncomplicated; F19.90 Other psychoactive substance use, unspecified, uncomplicated; I11.0 Hypertensive heart disease with heart failure; M65.972 Unspecified synovitis and tenosynovitis, left ankle and foot; I50.32 Chronic diastolic (congestive) heart failure; L97.529 Non-pressure chronic ulcer of other part of left foot with unspecified severity; Z79.4 Long term (current) use of insulin; Z79.84 Long term (current) use of oral hypoglycemic drugs; Z79.890 Hormone replacement therapy; Z79.899 Other long term (current) drug therapy
CPT/HCPCS: 36415; 36573; 73564; 73630; 73720; 80048; 80076; 80202; 80307; 81001; 82565; 82947; 83605; 85025; 86140; 87040; 93971; 99285; A9585; C1751; J0878; J1650; J1956; J2003; J2543; J3373; J3374; S9485

== ENCOUNTER → 2024-11-21 13:12 | Outpatient (BNV) | payer BC, SELFPAY | PROVIDERS: PCP Nurse Practitioner Family; Visit Provider Radiology Diagnostic Radiology | DX: I82.402 Acute embolism and thrombosis of unspecified deep veins of left lower extremity (principal); M19.072 Primary osteoarthritis, left ankle and foot | CPT/HCPCS: 73630; 93971 ==

== ENCOUNTER 2024-11-21 20:06 | Outpatient (BNV) | payer BC, SELFPAY | END 2024-11-22 12:52 | PROVIDERS: Admitting Provider Hospitalist; Emergency Provider Emergency Medicine Emergency Medical Services; PCP Nurse Practitioner Family; Visit Provider Radiology Diagnostic Radiology | DX: M25.562 Pain in left knee (principal); M25.561 Pain in right knee | CPT/HCPCS: 73564 ==

== ENCOUNTER 2024-11-21 20:06 | Outpatient (BNV) | payer BC, SELFPAY | END 2024-11-24 07:31 | PROVIDERS: Admitting Provider Hospitalist; Emergency Provider Emergency Medicine Emergency Medical Services; PCP Nurse Practitioner Family; Visit Provider Radiology Diagnostic Radiology | DX: L97.529 Non-pressure chronic ulcer of other part of left foot with unspecified severity (principal) | CPT/HCPCS: 36573 ==

== ENCOUNTER → 2024-11-21 20:06 | Outpatient (BNV) | payer BC, SELFPAY | PROVIDERS: Admitting Provider Hospitalist; Emergency Provider Emergency Medicine Emergency Medical Services; PCP Nurse Practitioner Family; Visit Provider Surgery Vascular Surgery | DX: M86.472 Chronic osteomyelitis with draining sinus, left ankle and foot (principal) | CPT/HCPCS: 99232; 99254 ==

== ENCOUNTER → 2024-11-21 20:06 | Outpatient (BNV) | payer BC, SELFPAY | PROVIDERS: Admitting Provider Hospitalist; Emergency Provider Emergency Medicine Emergency Medical Services; PCP Nurse Practitioner Family; Visit Provider Internal Medicine | DX: M86.472 Chronic osteomyelitis with draining sinus, left ankle and foot (principal) | CPT/HCPCS: 99232 ==

== ENCOUNTER → 2024-11-21 20:06 | Outpatient (BNV) | payer BC, SELFPAY | PROVIDERS: Admitting Provider Hospitalist; Emergency Provider Emergency Medicine Emergency Medical Services; PCP Nurse Practitioner Family; Visit Provider Student in an Organized Health Care Education/Training Program | DX: E13.621 Other specified diabetes mellitus with foot ulcer (principal); L97.528 Non-pressure chronic ulcer of other part of left foot with other specified severity | CPT/HCPCS: 99223; 99232 ==

== ENCOUNTER → 2024-11-21 20:06 | Outpatient (BNV) | payer BC, SELFPAY | PROVIDERS: Admitting Provider Hospitalist; Emergency Provider Emergency Medicine Emergency Medical Services; PCP Nurse Practitioner Family; Visit Provider Nurse Practitioner Psychiatric/Mental Health | DX: F10.20 Alcohol dependence, uncomplicated (principal) | CPT/HCPCS: 99232 ==

== ENCOUNTER 2024-11-28 14:00 | Outpatient (REF) | payer BC, SELFPAY ==
--- OUTSIDE RECORDS SUMMARY | 2024-11-15 09:30 | XMS_ITS ---
Author Organization [facility] [place] Address [address] [place] [address] Care Team Providers Care Insurance Agency Owner Name Role Phone Lorenzo Huber Primary Care Provider Unav ailable Ash Otooleen Unavailable [phone] Medications Medication SIG (Take, Route, Frequency, Duration) [...] Active Encounters Encounter Location Date Provider Diagnosis [facility] [address] [address] 11/15/2024 Aurelia Otoole Plan Of Treatment Next Appt Details Provider Name:Aurelia patterson, 01/27/2025 01:45:00 PM, [address] [place] [address], [phone], Progress Notes * Colton DUNN CDOB:[birth year] (64 yo M)Acc No.[id number]:11/15/2024 Progress Note Patient: Osvaldo NAJERAColton BRADY Provider: Josafat Otoole DPM :1960 A ge:64 Y S ex:Male Date:11/15/2024 Address: [facility] Pcp:ELLE Amanda Subjective: * Chief Complaints: [...] 0 11/15/2024 Generated for Bev horowitz/Adali/Sandeep on: 11/28/2024 02:57 PM EDT
--- OUTSIDE RECORDS SUMMARY | 2024-11-28 14:57 | XMS_ITS | Encounter Summary ---
Author Organization [facility] Address [address] [place] [address] [place] [phone] Phone Care Team Providers Care Oxyacetylene Welder Name Role Phone Ben Rodriguez MD Primary Care Provider Encounter Details Date Type Department Care Team (Latest Contact Info) Description 07/17/2017 Ancillary Orders [facility] Department of Orthopaedic Surgery, Arthroplasty Service [address] [place] [address], 3rd Floor, [address] [place] [address] Dane Silver MD [address] [place] [id number] [email or web address] Arthralgia of both lower legs Social [...] on the left. No acute fractures identified. [place] and lateral views of both knees demonstrate [...] tray on the left. Noacute fractures identified. [place] and lateral views of both kneesdemonstrate persistent bilateral joint effusions. There is slight lateral patellartilt on the right. 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 Dane Silver MD IMG XR LOWER EXTREMIT Y Final Result documented in this encounter Visit Diagnoses Diagnosis Arthralgia of both lower legs Arthralgia of both lower legs documented in this encounter Care Teams Oxyacetylene Welder Relationship Specialty Start Date End Date Ben Rodriguez MD [address] [place] [address] [place] [id number] PCP - General Internal Medicine 12/20/15 documented as of this encounter Additional Source Comments The information contained in this document represents components of the legal health record. It is not the complete legal health record.[facility]
[2024-11-28 16:32] LABS: MANUAL DIFF FLAG NO
[2024-11-28 16:59] LABS: Hematocrit 36.0 % (42.0-52.0); Hemoglobin 11.8 g/dl (14.0-18.0); Imm Gran Abs Auto 0.04 X10*3/uL (0.00-0.03); Imm Gran Pct Auto 0.5 % (0.0-0.4); Lymphocytes Absolute Auto 1.4 X10*3/uL (1.2-4.9); Mean Corpuscular HGB Conc 32.8 g/dl (31.0-36.0); Mean Corpuscular Hemoglobin 29.4 pg (27.0-33.0); Mean Corpuscular Volume 89.6 fL (80.0-98.0); NRBC Abs Auto 0.000 X10*3/uL (0.0-0.012); NRBC Pct Auto 0.0 /100WBC (0.0-0.2); Platelet Count 241 X10*3/uL (160-400); Red Blood Count 4.02 X10*6/uL (4.60-5.80); White Blood Count 7.3 X10*3/uL (4.8-10.8)
== END 2024-11-28 14:01 | disposition home or self-care (01) ==
LOC: HO.HVNA 14:00
PROVIDERS: Visit Provider Internal Medicine
DX: A49.02 Methicillin resistant Staphylococcus aureus infection, unspecified site (principal)
CPT/HCPCS: 36415; 80048; 82550; 85025

== ENCOUNTER 2024-12-05 13:30 | Outpatient (REF) | payer BC, SELFPAY ==
--- OUTSIDE RECORDS SUMMARY | 2024-11-15 09:30 | XMS_ITS ---
Author Organization [facility] [place] Address [address] [place] [address] Care Team Providers Care Antiquer Name Role Phone Lorenzo Huber Primary Care Provider Unav ailable Ash Otooleen Unavailable [phone] Medications Medication SIG (Take, Route, Frequency, Duration) [...] Active Encounters Encounter Location Date Provider Diagnosis [facility] [address] [address] 11/15/2024 Aurelia Otoole Plan Of Treatment Next Appt Details Provider Name:Aurelia patterson, 01/27/2025 01:45:00 PM, [address] [place] [address], [phone], Progress Notes * Colton DUNN CDOB:[birth year] (64 yo M)Acc No.[id number]:11/15/2024 Progress Note Patient: Osvaldo NAJERAColton BRADY Provider: Josafat Otoole DPM :1960 A ge:64 Y S ex:Male Date:11/15/2024 Address: [facility] Pcp:ELLE Amanda Subjective: * Chief Complaints: [...] 0 11/15/2024 Generated for Bev horowitz/Adali/Sandeep on: 12/05/2024 03:02 PM EDT
--- OUTSIDE RECORDS SUMMARY | 2024-12-05 15:03 | XMS_ITS | Encounter Summary ---
Author Organization [facility] Address [address] [place] [address] [place] [phone] Phone Care Team Providers Care Project Production Engineer Name Role Phone Ben Rodriguez MD Primary Care Provider Encounter Details Date Type Department Care Team (Latest Contact Info) Description 07/17/[address] [facility] Department of Orthopaedic Surgery, Arthroplasty Service [address] [place] [address], 3[address] Floor, [address] [place] [address] Dane Silver MD [address] [place] [phone] [email or web address] Arthralgia of both lower legs Social [...] Anatomical Region Laterality Modality Knee Left Radiographic Janei ging 07/17/2017 8:41 AM EDT Impressions 07/17/2017 [...] on the left. No acute fractures identified. [place] and lateral views of both knees demonstrate [...] tray on the left. Noacute fractures identified. [place] and lateral views of both kneesdemonstrate persistent bilateral joint effusions. There is slight lateral patellartilt on the right. 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 Dane Silver MD IMG XR LOWER EXTREMIT Y Final Result documented in this encounter Visit Diagnoses Diagnosis Arthralgia of both lower legs Arthralgia of both lower legs documented in this encounter Care Teams Project Production Engineer Relationship Specialty Start Date End Date Ben Rodriguez MD [address] [place] [address] [place] [address] PCP - General Internal Medicine 12/20/15 documented as of this encounter Additional Source Comments The information contained in this document represents components of the legal health record. It is not the complete legal health record.[facility]
[2024-12-05 16:03] LABS: MANUAL DIFF FLAG NO
[2024-12-05 16:18] LABS: Hematocrit 34.7 % (42.0-52.0); Hemoglobin 11.1 g/dl (14.0-18.0); Imm Gran Abs Auto 0.02 X10*3/uL (0.00-0.03); Imm Gran Pct Auto 0.3 % (0.0-0.4); Lymphocytes Absolute Auto 1.6 X10*3/uL (1.2-4.9); Mean Corpuscular HGB Conc 32.0 g/dl (31.0-36.0); Mean Corpuscular Hemoglobin 28.1 pg (27.0-33.0); Mean Corpuscular Volume 87.8 fL (80.0-98.0); NRBC Abs Auto 0.000 X10*3/uL (0.0-0.012); NRBC Pct Auto 0.0 /100WBC (0.0-0.2); Platelet Count 263 X10*3/uL (160-400); Red Blood Count 3.95 X10*6/uL (4.60-5.80); White Blood Count 6.5 X10*3/uL (4.8-10.8)
[2024-12-05 16:35] LABS: Anion Gap 14 (12-20); Blood Urea Nitrogen 31 mg/dL (9-16); Calcium 9.1 mg/dL (8.4-10.2); Carbon Dioxide 21 mmol/L (22-29); Chloride 108 mmol/L (96-108); Estimated Glomerular Filt Rate > 60; Potassium 4.5 mmol/L (3.3-5.1); Sodium 138 mmol/L (135-145)
== END 2024-12-05 13:31 | disposition home or self-care (01) ==
LOC: HO.HVNA 13:30
PROVIDERS: PCP Nurse Practitioner Family; Visit Provider Internal Medicine
DX: M19.90 Unspecified osteoarthritis, unspecified site (principal)
CPT/HCPCS: 36415; 80048; 82550; 85025

== ENCOUNTER 2024-12-12 13:30 | Outpatient (REF) | payer BC, SELFPAY ==
--- OUTSIDE RECORDS SUMMARY | 2024-11-15 09:30 | XMS_ITS ---
Author Organization [facility] [place] [place] Address [address] [place] [address] Care Team Providers Care Asphalt Spreader Operator Name Role Phone Lorenzo Huber Primary Care Provider Unav ailable Ash Otooleen Unavailable [phone] Medications Medication SIG (Take, Route, Frequency, Duration) [...] Active Encounters Encounter Location Date Provider Diagnosis [facility] [address] [address] 11/15/2024 Aurelia Otoole Plan Of Treatment Next Appt Details Provider Name:Aurelia patterson, 01/27/2025 01:45:00 PM, [address] [place] [address], [phone], Progress Notes * Colton DUNN CDOB:[birth year] (64 yo M)Acc No.[id number]:11/15/2024 Progress Note Patient: Osvaldo NAJERAColton BRADY Provider: Josafat Otoole DPM :1960 A ge:64 Y S ex:Male Date:11/15/2024 Address: [facility] Pcp:ELLE Amanda Subjective: * Chief Complaints: * [...] 0 11/15/2024 Generated for Bev horowitz/Adali/Sandeep on: 12/12/2024 03:07 PM EDT
--- OUTSIDE RECORDS SUMMARY | 2024-12-12 15:08 | XMS_ITS | Encounter Summary ---
Author Organization [facility] Address [address] [place] [address] [place] [phone] Phone Care Team Providers Care Technology Intern Name Role Phone Ben Rodriguez MD Primary Care Provider Encounter Details Date Type Department Care Team (Latest Contact Info) Description 07/17/2017 Ancillary Orders [facility] Department of Orthopaedic Surgery, Arthroplasty Service [address] [place] [address], 3rd Floor, [address] [place] [address] Dane Silver MD [address] [place] [phone] [email or web address] Arthralgia of both lower legs Social History [...] on the left. No acute fractures identified. [place] and lateral views of both knees demonstrate [...] tray on the left. Noacute fractures identified. [place] and lateral views of both kneesdemonstrate persistent bilateral joint effusions. There is slight lateral patellartilt on the right. 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 Dane Silver MD IMG XR LOWER EXTREMIT Y Final Result documented in this encounter Visit Diagnoses Diagnosis Arthralgia of both lower legs Arthralgia of both lower legs documented in this encounter Care Teams Technology Intern Relationship Specialty Start Date End Date Ben Rodriguez MD [address] [place] [address] [place] [address] PCP - General Internal Medicine 12/20/15 documented as of this encounter Additional Source Comments The information contained in this document represents components of the legal health record. It is not the complete legal health record.[facility]
[2024-12-12 16:17] LABS: MANUAL DIFF FLAG NO
[2024-12-12 16:53] LABS: Hematocrit 33.6 % (42.0-52.0); Hemoglobin 11.1 g/dl (14.0-18.0); Imm Gran Abs Auto 0.03 X10*3/uL (0.00-0.03); Imm Gran Pct Auto 0.4 % (0.0-0.4); Lymphocytes Absolute Auto 1.7 X10*3/uL (1.2-4.9); Mean Corpuscular HGB Conc 33.0 g/dl (31.0-36.0); Mean Corpuscular Hemoglobin 28.6 pg (27.0-33.0); Mean Corpuscular Volume 86.6 fL (80.0-98.0); NRBC Abs Auto 0.030 X10*3/uL (0.0-0.012); NRBC Pct Auto 0.4 /100WBC (0.0-0.2); Platelet Count 214 X10*3/uL (160-400); Red Blood Count 3.88 X10*6/uL (4.60-5.80); White Blood Count 7.4 X10*3/uL (4.8-10.8)
[2024-12-12 17:17] LABS: Anion Gap 16 (12-20); Blood Urea Nitrogen 27 mg/dL (9-16); Calcium 9.4 mg/dL (8.4-10.2); Carbon Dioxide 23 mmol/L (22-29); Chloride 104 mmol/L (96-108); Estimated Glomerular Filt Rate > 60; Potassium 3.7 mmol/L (3.3-5.1); Sodium 139 mmol/L (135-145)
== END 2024-12-12 13:31 | disposition home or self-care (01) ==
LOC: HO.HVNA 13:30
PROVIDERS: Visit Provider Internal Medicine
DX: M86.9 Osteomyelitis, unspecified (principal)
CPT/HCPCS: 36415; 80048; 82550; 85025

== ENCOUNTER 2024-12-19 13:33 | Outpatient (AMB) | payer BC, SELFPAY ==
--- OUTSIDE RECORDS SUMMARY | 2024-07-26 06:30 | XMS_ITS ---
Author Organization [facility] Corrine Henning Address [address] [place] [address] Care Team Providers Care Nutrition Services Worker Name Role Phone Lorenzo Huber Primary Care Provider Unav ailable Aurelia Otoole [phone] REASON FOR VISIT per Dr Otoole Encounters Encounter Location Date Provider Diagnosis [address] [address] 07/26/2024 Aurelia Otoole Plan Of Treatment Next Appt Details Provider Name:Aurelia patterson, 01/27/2025 01:45:00 PM, [address] [place] [address], [phone], Progress Notes * Colton DUNN CDOB:[birth year] (64 yo M)Acc No.[id number]:07/26/2024 Progress Notes Patient: Osvaldo Colton FERREIRA Provider: Josafat Otoole DPM :1960 A ge:64 Y S ex:Male Date:07/26/2024 Address:[address] [id number] Pcp:ELLE Amanda Subjective: * Chief Complaints: * [...] 07/26/2024 Generated for Bev horowitz/Adali/Sandeep on: 0 12/19/2024 02:50 PM EDT
--- OUTSIDE RECORDS SUMMARY | 2024-09-20 07:00 | XMS_ITS ---
Author Organization [facility] Address [address] [place] [address] Care Team Providers Care Machine Castings Plasterer Name Role Phone Lorenzo Huber Primary Care Provider Unav ailable VanessaAsh pattersonen Unavailable [phone] Medications Medication SIG (Take, Route, Frequency, Duration) Notes Start Date End Date Status OneTouch Verio w/Device as directed Not-Taking Minoxidil 2.5 MG 1 tablet Orally Once a day; Duration: 30 day(s) Not-Taking Extra Depth Orthopedic Shoes (1 Pair) with Customized Heat Molded Multidensity Innersoles (3 Pair) as directed; Amputation left 2nd toe, needs filler 2nd toe LEFT Dx: NIDDM/Polyneuropathy (E11.42), Hammertoe Foot Deformity (M20.41,M20.42), Preulcerative Skin Lesion(s) (L85.1 Active Cephalexin 500 MG 1 capsule Orally Three times a day; Duration: 10 days Active Clindamycin HCl 300 MG 1 capsule Orally every 8 hrs; Duration: 7 days 07/14/2024 Active Basaglar KwikPen 100 UNIT/ML INJECT 25 UNIT (0.25 ML) SUBCUTANEOUSLY EVERY EVENING Subcutaneous; Duration: 30 Days Active Augmentin 500-125 MG 1 tablet Orally lamin ry 8 hrs; Duration: 7 day(s) 05/28/2020 Not-Taking Clindamycin HCl 300 MG 2 capsules Orally every 8 hrs; Duration: 10 day(s) 05/31/2020 Not-Taking Lantus SoloStar 100 UNIT/ML as directed Subcutaneous Not-Taking Insulin Pen Needle 31G X 5 MM as directed Not-Taking Atorvastatin Calcium 20 MG 1 tablet Oral ly Once a day; Duration: 30 day(s) Active glipiZIDE 10 MG 1 tablet 30 minutes before breakfast Orally Twice a day Active metFORMIN HCl 1000 MG 1 tablet with a me al Orally Once a day; Duration: 30 day(s) Active hydroCHLOROthiazide 12.5 MG Oral; Durati on: 90 Days Active Metoprolol Succinate ER 100 MG Oral; Duration: 90 Days Active Lisinopril 20 MG 1 tablet Orally Once a day; Duration: 30 day(s) Active Atenolol 50 MG 1 tablet Orally Once a day; Duration: 30 day(s) Active Gabapentin 600 MG 1 capsule Orally Onc e a day Active Encounters Encounter Location Date Provider Diagnosis [facility] [address] [address] 09/20/2024 Aurelia Otoole Plan Of Treatment Next Appt Details Provider Name:Aurelia patterson, 01/27/2025 01:45:00 PM, [address] [place] [address], [phone], Progress Notes * Colton DUNN CDOB:[birth year] (64 yo M)Acc No.[id number]:09/20/2024 Progress Note Patient: Osvaldo HAYDENColton STARK Provider: Josafat Otoole DPM :1960 A ge:64 Y S ex:Male Date:09/20/2024 Address: [address] [facility] Pcp:ELLE Amanda Subjective: * Chief Complaints: * * HPI: A t Risk footcare: Pt States Last PCP Visit: Skyler ate 1 05/29/2023 * Medical History: * Medications: T aking Lisinopril 20 MG Tablet 1 tablet Orally Once a day , Taking Atenolol 50 MG Tablet 1 tablet Orally Once a day , Taking Gabapentin 600 MG Tablet 1 capsule Orally Once a day , Taking Atorvastatin Calcium 20 MG Tablet 1 tablet Orally Once a day , Taking glipiZIDE 10 MG Tablet 1 tablet 30 minutes before breakfast Orally Twice a day , Taking metFORMIN HCl 1000 MG Tablet 1 tablet with a meal Orally Once a day , Taking hydroCHLOROthiazide 12.5 MG Tablet Oral , Taking Metoprolol Succinate ER 100 MG Tablet Extended Release 24 Hour Oral , Taking Basaglar KwikPen 100 UNIT/ML Solution Pen-injector INJECT 25 UNIT (0.25 ML) SUBCUTANEOUSLY EVERY EVENING Subcutaneous , Taking Extra Depth Orthopedic Shoes (1 Pair) with Customized Heat Molded Multidensity Innersoles (3 Pair) as directed; Amputation left 2nd toe, needs filler 2nd toe LEFT Dx: NIDDM/Polyneuropathy (E11.42), Hammertoe Foot Deformity (M20.41,M20.42), Preulcerative Skin Lesion(s) (L85.1 , Taking Cephalexin 500 MG Capsule 1 capsule Orally Three times a day , Taking Clindamycin HCl 300 MG Capsule 1 capsule Orally every 8 hrs , Not-Taking/PRN Augmentin 500-125 MG Tablet 1 tablet Orally every 8 hrs , Not-Taking/PRN Clindamycin HCl 300 MG Capsule 2 capsules Orally every 8 hrs , Not-Taking/PRN Lantus SoloStar 100 UNIT/ML Solution Pen-injector as directed Subcutaneous , Not-Taking/PRN Insulin Pen Needle 31G X 5 MM Miscellaneous as directed , Not-Taking/PRN OneTouch Verio w/Device Kit as directed , Not-Taking/PRN Minoxidil 2.5 MG Tablet 1 tablet Orally Once a day Objective: * Vitals: Assessment: Plan: * Treatment: * Images: * The named appointment provid er may or may not be the originator of this progress note, and it is not deemed complete until electronically signed by the appointment provider. Sign off status: Pending * Provider: Josafat Otoole DPM Date: 0 09/20/2024 Generated for Bev horowitz/Adali/Sandeep on: 0 12/19/2024 02:50 PM EDT History and Physical Notes * HPI (History of Present Illness) Category Sub-Category Detail Notes Category Not es At Risk footcare Pt States Last PCP Visit: Date: 4
--- OUTSIDE RECORDS SUMMARY | 2024-11-15 09:30 | XMS_ITS ---
Author Organization [facility] Address [address] [place] [address] Care Team Providers Care Electrical Engineering Technician Name Role Phone Lorenzo Huber Primary Care Provider Unav ailable Ash Otooleen Unavailable [phone] Medications Medication SIG (Take, Route, Frequency, Duration) Notes Start Date End Date Status Clindamycin HCl 300 MG 2 capsules Orally every 8 hrs; Duration: 10 day(s) 05/31/2020 Not-Taking Lantus SoloStar 100 UNIT/ML as directed Subcutaneous Not-Taking Insulin Pen Needle 31G X 5 MM as directed Not-Taking OneTouch Verio w/Device as directed Not-Taking Minoxidil 2.5 MG 1 tablet Orally Once a day; Duration: 30 day(s) Not-Taking Basaglar KwikPen 100 UNIT/ML INJECT 25 UNIT (0.25 ML) SUBCUTANEOUSLY EVERY EVENING Subcutaneous; Duration: 30 Days Active Extra Depth Orthopedic Shoes (1 Pair) [...] 8 hrs; Duration: 7 days 07/14/2024 Active Augmentin 500-125 MG 1 tablet Orally lamin ry 8 hrs; Duration: 7 day(s) 05/28/2020 Not-Taking Atorvastatin Calcium 20 MG 1 tablet [...] Active Encounters Encounter Location Date Provider Diagnosis [facility] [address] [address] 11/15/2024 Aurelia Otoole Plan Of Treatment Next Appt Details Provider Name:Aurelia patterson, 01/27/2025 01:45:00 PM, [address] [place] [address], [phone], Progress Notes * Colton DUNN CDOB:[birth year] (64 yo M)Acc No.[id number]:11/15/2024 Progress Note Patient: Osvaldo NAJERAColton BRADY Provider: Josafat Otoole DPM :1960 A ge:64 Y S ex:Male Date:11/15/2024 Address: [facility] Pcp:ELLE Amanda Subjective: * Chief Complaints: * * Medical History: t ype II diabetes, Reflux ( GERD), Back,Hip,and Knee pain, High blood pressure, Neuropathy, Measles, Joint implants/screws. * Medications: T aking Lisinopril 20 MG [...] * Provider: Josafat Otoole DPM Date: 0 11/15/2024 Generated for Bev horowitz/Adali/Sandeep on: 12/19/2024 02:50 PM EDT
[2024-12-19 13:42] VITALS: BP 136/78; PULSE 66; O2SAT 96; BMI 37.2
--- NOTE | 2024-12-19 13:42 | A.OFFVIS_ITS ---
Vital Signs 3 12/19/24 13:42 Height 6 ft Weight 274 lb BMI 37.2 BP 136/78 Pulse 66 Pulse Oximetry (%) 96 Intake Visit Reasons: [facility] reff/Picc line Allergies No Known Allergies Allergy (Verified 12/19/24 13:43) HPI HPI [facility] reff/Picc line: Details: He feels well. He has no complaints. [facility] Medical History Barretts esophagus Erectile dysfunction associated with type 2 diabetes mellitus Diabetes mellitus with neuropathy On beta roney at home Pulmonary nodule Diabetic foot ulcer Essential hypertension Obesity History of cervical fracture Personal history of nicotine dependence Dysphagia Neuropathy MAHAD (obstructive sleep apnea) GERD (gastroesophageal reflux disease) PAD (peripheral artery disease) Diabetes mellitus, type 2 Surgical History History of amputation of toe (04/06/23) History of tonsillectomy History of total left knee replacement History of fusion of cervical spine History of total right knee replacement (TKR) History of endoscopy History of colonoscopy History of left knee surgery Family History Mother No problems noted. Father No problems noted. Social History Household Members: Spouse Housing: House Are you a primary managed care specialist to a significant other at home: No Do you presently have visiting nurse or other home services: No Alcohol intake: current Alcohol intake frequency: 3 or more drinks per day Alcohol type: hard liquor Comment: pt refused fall precautions Patient Tobacco Use Status: Never used Tobacco Tobacco use type: Cigarette Cigarette Packs Per Day: 1 Cigarettes Per Day: 10 Years Smoked: 25 e-Cigarette/Vaping Use: Never Used Second Hand Smoke Exposure: No Substance Use Type: Marijuana service: No Current occupational status: employed 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: [employer], right 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 Current occupational exposures/hazards: Yes Cognitive needs: No Hearing needs: No Vision needs: No Physical Exam Exam Exam: Vital Signs: Last Vital Signs Pulse 66 12/19/24 13:42 BP 136/78 12/19/24 13:42 Pulse Ox 96 12/19/24 13:42 BMI result Body Mass Index 37.2 Const Other: General: cooperative Orientation/consciousness: patient oriented x3 HEENT Head: Yes normal to inspection Mouth: Normal oral and palatal mucosa present Eyes General: appearance normal, both eyes and all related structures Pupils: Equal, round and reactive pupils present Resp Effort & Inspection: normal respiratory effort Cardio Rate: regular rate Rhythm: regular rhythm GI Palpation (GI): Soft to palpation and nontender General: Yes no CVA tenderness Back/Spine/Pelvis Back: no CVA tenderness Skin General skin exam: no rashes or lesions noted Neuro General: patient oriented x3 Cranial nerves: Yes CN's II-XII intact bilaterally and Yes Equal, round and reactive pupils present Extrem General: Yes normal to inspection Psych Appearance: grossly normal Assessment & Plan Assessment & Plan (1) Alcohol use disorder, moderate, dependence: Code(s): F10.20 - Alcohol dependence, uncomplicated Category: Medical Plan: continue current medication. See as scheduled. Orders: Orders 2 IR cvc remove any age 0812/19/24 F10.20 - Alcohol dependence, uncomplicated Medications: New 2 linezolid 600 mg PO BID 60 tabs 0RF 30 days Coding Level of Care Code Est Pt Level 3 (62741) Diagnoses Alcohol use disorder, moderate, dependence F10.20
--- OUTSIDE RECORDS SUMMARY | 2024-12-19 14:50 | XMS_ITS | Patient Health Record ---
[facility] Corrine lopez [place] Address [address] [facility] [place] [address] Care Team Providers Care Steward/Stewardess Third Name Role Phone Lorenzo Huber Primary Care Provider Unav ailable Aurelia Otoole Unavailable [phone] Allergies No Known Allergies Results Component Value [...] Referring Provider Last Name Thalia Referred Organization [facility] jennifer Juvencio Referred Provider Aurelia Otoole Referred Address [address] [place],[address], Referred Provider Specialty Podiatry Referral Priority Routine Medications Medication SIG (Take, Route, Frequency, Duration) Notes Start Date End Date Status Lisinopril 20 MG 1 tablet Orally Once a day; Duration: 30 day(s) Active Clindamycin HCl 300 MG 1 capsule Orally every 8 hrs; Duration: 7 days 07/14/2024 Active Atenolol 50 MG 1 tablet Orally Once a day; Duration: 30 day(s) Active Augmentin 500-125 MG 1 tablet Orally lamin ry 8 hrs; Duration: 7 day(s) 05/28/2020 Not-Taking Gabapentin 600 MG 1 capsule Orally Onc e a day Active Clindamycin HCl 300 MG 2 capsules Orally every 8 hrs; Duration: 10 day(s) 05/31/2020 Not-Taking Atorvastatin Calcium 20 MG 1 tablet Oral ly Once a day; Duration: 30 day(s) Active Lantus SoloStar 100 UNIT/ML as directed Subcutaneous Not-Taking glipiZIDE 10 MG 1 tablet 30 minutes before breakfast Orally Twice a day Active Insulin Pen Needle 31G X 5 MM as directed Not-Taking metFORMIN HCl 1000 MG 1 tablet with a me al Orally Once a day; Duration: 30 day(s) Active OneTouch Verio w/Device as directed Not-Taking hydroCHLOROthiazide 12.5 MG Oral; Durati on: 90 Days Active Minoxidil 2.5 MG 1 tablet Orally Once a day; Duration: 30 day(s) Not-Taking Metoprolol Succinate ER 100 MG Oral; Duration: 90 Days Active Basaglar KwikPen 100 UNIT/ML [...] times a day; Duration: 10 days Active Immunizations Vaccine Route Administration Date Status [...] Problem Status W/U Status Risk Notes Problem Information temporarily unavailable Other hammer toe(s) (acquired), right foot (M20.41) Active confirmed Problem Information temporarily unavailable Other hammer toe(s) (acquired), left foot (M20.42) Active confirmed Problem Information temporarily unavailable Type 2 diabetes mellitus with diabetic polyneuropathy (E11.42) Active confirmed Problem Information temporarily unavailable Type 2 diabetes mellitus with diabetic polyneuropathy (E11.42) Active confirmed Problem Information temporarily unavailable Type 1 diabetes mellitus with diabetic polyneuropathy (E10.42) Active confirmed Problem Information temporarily unavailable Non-pressure ulcer of left lower extremity, limited to breakdown of skin (L97.921) Active confirmed Problem Information temporarily unavailable Hammer toe of left foot (M20.42) Active confirmed Problem Information temporarily unavailable Hallux valgus of left foot (M20.12) Active confirmed Problem Information temporarily unavailable Type 2 diabetes mellitus with foot ulcer (E11.621) Active confirmed Problem Information temporarily unavailable Non-pressure ulcer of left lower extremity with fat layer exposed (L97.922) Active confirmed Problem Information temporarily unavailable Smoker (F17.200) Active confirmed Problem Information temporarily unavailable Neuropathic ulcer of left foot with fat layer exposed (L97.522) Active confirmed Problem Information temporarily unavailable Amputated toe of left foot (S98.132A) Active confirmed Vital Signs Heart Rate 51 /min 07/11/2024 Blood pressure diastolic 70 mm Hg 07/11/2024 Height 6ft in 07/11/2024 Blood pressure systolic 157 mm Hg 07/11/2024 Weight 270 lbs 07/11/2024 BMI 36.61 kg/m2 07/11/2024 Encounters Encounter Location Date Provider Diagnosis [facility] [address] [place] [address] 01/27/2024 Aurelia Otoole Type 2 diabetes mellitus with diabetic polyneuropathy E11.42 ; Other hammer toe(s) (acquired), left foot M20.42 ; Tinea unguium B35.1 ; Other hammer toe(s) (acquired), right foot M20.41 ; Amputated toe of left foot S98.132A and Hallux valgus of left foot M20.[address] [facility] [address] 07/11/2024 Aurelia Otoole Other hammer toe(s) (acquired), left foot M20.42 ; Cellulitis of foot, left L03.116 ; Type 2 diabetes mellitus with diabetic polyneuropathy E11.42 ; Tinea unguium B35.1 ; Other hammer toe(s) (acquired), right foot M20.41 ; Amputated toe of left foot S98.132A ; Hallux valgus of left foot M20.12 and Neuropathic ulcer of left foot with fat layer exposed L97.[address] [address] 04/13/2024 [facility] [address] 05/02/2024 Aurelia Otoole [address] [address] 05/25/2024 Aurelia Otoole [facility] [address] 07/11/2024 Auerlia Otoole [facility] [address] 07/11/2024 Aurelia Otoole [facility] [address] 07/12/2024 Aurelia Otoole [address] [address] 09/20/2024 [facility] [address] [address] 10/04/2024 Aurelia Otoole [facility] [address] [address] 11/14/2024 Aurelia Otoole Assessments Encounter Date Diagnosis (ICD [...] X ray : Foot, left 3V 07/11/2024 [id number] NAIL, 6 OR MORE 06/28/2020 [id number] SKIN LESIONS, 2 TO 4 06/29/19 Next Appt Details Provider Name:Aurelia Yesenia patterson, 01/27/2025 01:45:00 PM, [address] [place], [address], Insurance Providers Payer Name Payer Address Payer Phone Subscriber Number Group Number Insured Name Patient Relationship to Insured Coverage Start Date Coverage End Date [facility] [address] [place] [address] [id number] Candelaria Saini Spouse - patient is the spouse of the insured Medical (General) History Medical History History ICD Code type II diabetes Reflux ( GERD) Back,Hip,and Knee pain High blood pressure Neuropathy Measles Joint implants/screws Surgical History Surgery Date(Month/Year) knee replacement 2015,2016 neck surgery amputation 2nd , toe 03/2023 Hospital[place] History Reason Date[place] [facility] [place] clinic every [place] [facility] [place] -diabetic ulcer
== END 2024-12-19 14:15 | disposition home or self-care (01) ==
LOC: HO.HID 13:33
PROVIDERS: PCP Nurse Practitioner Family; Visit Provider Internal Medicine
DX: F10.20 Alcohol dependence, uncomplicated (principal)
CPT/HCPCS: 99213

== ENCOUNTER 2024-12-19 16:20 | Outpatient (REF) | payer BC, SELFPAY ==
[2024-12-19 16:22] LABS: MANUAL DIFF FLAG NO
[2024-12-19 16:25] LABS: Hematocrit 33.3 % (42.0-52.0); Hemoglobin 11.0 g/dl (14.0-18.0); Imm Gran Abs Auto 0.03 X10*3/uL (0.00-0.03); Imm Gran Pct Auto 0.4 % (0.0-0.4); Lymphocytes Absolute Auto 1.5 X10*3/uL (1.2-4.9); Mean Corpuscular HGB Conc 33.0 g/dl (31.0-36.0); Mean Corpuscular Hemoglobin 28.9 pg (27.0-33.0); Mean Corpuscular Volume 87.4 fL (80.0-98.0); NRBC Abs Auto 0.000 X10*3/uL (0.0-0.012); NRBC Pct Auto 0.0 /100WBC (0.0-0.2); Platelet Count 183 X10*3/uL (160-400); Red Blood Count 3.81 X10*6/uL (4.60-5.80); White Blood Count 7.4 X10*3/uL (4.8-10.8)
--- OUTSIDE RECORDS SUMMARY | 2024-12-19 18:06 | XMS_ITS | Encounter Summary ---
Author Organization [facility] Address [address] [place] [address] [place] [phone] Phone Care Team Providers Care Lapel Baster Name Role Phone Ben Rodriguez MD Primary Care Provider Encounter Details Date Type Department Care Team (Latest Contact Info) Description 05/15/2017 Ancillary Orders [facility] Department of Orthopaedic Surgery, Arthroplasty Service [address] [place] [address], 3rd Floor, [address] [place] [address] Dane Silver MD [address] [place] [id number] [email or web address] Arthralgia of both lower legs Social History [...] encounter Results * XR KNEE 3 VIEW (RIGHT) (05/15/2017 12:02 PM EST) Anatomical Region Laterality Modality Knee Right Radiographic Janie ging 05/15/2017 1:37 PM EST Impressions 05/15/2017 1:40 PM EST Bilateral total knee arthroplasties without hardware complication. Narrative 05/15/2017 1:40 PM EST XR KNEE 3 VIEW (LEFT), XR KNEE 3 VIEW (RIGHT) COMPARISON: Bilateral knee radiographs from 04/03/2017, right knee radiographs from 04/16/2017. FINDINGS: Standing radiographs of bilateral knees demonstrates bilateral total knee arthroplasties with patellar resurfacing. Hardware is intact. There is been interval removal of skin rhianna on the right, and resolution of soft tissue gas. Moderate right and small left suprapatellar joint effusions are present. There is mild right prepatellar soft tissue swelling. No fractures. Procedure Note Ronan Fermin MD - 05/15/2017 XR KNEE 3 VIEW (LEFT), XR KNEE 3 VIEW (RIGHT) COMPARISON: Bilateral knee radiographs from 04/03/2017, right kneeradiographs from 04/16/2017. FINDINGS: Standing radiographs of bilateral knees demonstrates bilateral totalknee arthroplasties with patellar resurfacing. Hardware is intact. There isbeen interval removal of skin rhianna on the right, and resolution of softtissue gas. Moderate right and small left suprapatellar joint effusions arepresent. There is mild right prepatellar soft tissue swelling. No fractures. IMPRESSION: Bilateral total knee arthroplasties without hardware complication. Dane Silver MD IMG XR LOWER EXTREMIT Y Final Result documented in this encounter Visit Diagnoses Diagnosis Arthralgia of both lower legs Arthralgia of both lower legs documented in this encounter Care Teams Lapel Baster Relationship Specialty Start Date End Date Ben Rodriguez MD [address] [place] [address] [place] [address] PCP - General Internal Medicine 12/20/15 documented as of this encounter Additional Source Comments The information contained in this document represents components of the legal health record. It is not the complete legal health record.[facility]
--- OUTSIDE RECORDS SUMMARY | 2024-12-19 18:06 | XMS_ITS | Encounter Summary ---
Author Organization [facility] Address [address] [place] [address] [place] [phone] Phone Care Team Providers Care Hypnotherapist Name Role Phone Ben Rodriguez MD Primary Care Provider Encounter Details Date Type Department Care Team (Latest Contact Info) Description 07/17/2017 Ancillary Orders [facility] Department of Orthopaedic Surgery, Arthroplasty Service [address] [place] [address], 3rd Floor, [address] [place] [address] Dane Silver MD [address] [place] [id number] [email or web address] Arthralgia of both lower legs Social [...] on the left. No acute fractures identified. Chamita and lateral views of both knees demonstrate [...] tray on the left. Noacute fractures identified. Chamita and lateral views of both kneesdemonstrate persistent bilateral joint effusions. There is slight lateral patellartilt on the right. 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 Dane Silver MD IMG XR LOWER EXTREMIT Y Final Result documented in this encounter Visit Diagnoses Diagnosis Arthralgia of both lower legs Arthralgia of both lower legs documented in this encounter Care Teams Hypnotherapist Relationship Specialty Start Date End Date Ben Rodriguez MD [address] [place] [address] [place] [id number] PCP - General Internal Medicine 12/20/15 documented as of this encounter Additional Source Comments The information contained in this document represents components of the legal health record. It is not the complete legal health record.[facility]
--- OUTSIDE RECORDS SUMMARY | 2024-12-19 18:06 | XMS_ITS | Encounter Summary ---
Author Organization [facility] Address [address] [place] [address] [place] [phone] Phone Care Team Providers Care Merchandise Flow Team Leader Name Role Phone Ben Rodriguez MD Primary Care Provider Encounter Details Date Type Department Care Team (Late st Contact Info) Description 04/28/2017 Telephone [facility] [place] of Orthopaedic Surgery, Arthroplasty Service [address] [facility], 3rd Floor, [address] [place] [address] Dane Silver MD [address] [place] [phone] [email or web address] Social History Tobacco Use Types Packs/Day Years [...] on file documented as of this encounter Visit Diagnoses Not on filedocumented in this encounter Care Teams Merchandise Flow Team Leader Relationship Specialty Start Date End Date Ben Rodriguez MD [address] [place] [address] [place] [id number] PCP - General Internal Medicine 12/20/15 documented as of this encounter Additional Source Comments The information contained in this document represents components of the legal health record. It is not the complete legal health record.[facility]
--- OUTSIDE RECORDS SUMMARY | 2024-12-19 18:06 | XMS_ITS | Clinical Summary ---
Author Organization [facility] Address [address] [place] [address] Phone Care Team Providers Care Ic Engineer Name Role Phone Ben Rodriguez MD Primary Care Provider Allergies No known active allergies Medications atenolol (TENORMIN) 25 MG tablet Take 25 mg by mouth daily. Active glipiZIDE (GLUCOTROL) 10 MG 24 hr tablet Take 10 mg by mouth 2 (two) times a day. Active lisinopril (PRINIVIL,ZESTRIL ) 20 MG tablet Take 20 mg by mouth daily. Active minoxidil (LONITEN) 2.5 MG tablet Take 2.5 mg by mouth daily. Active omeprazole (PRILOSEC) 20 MG tablet Take 20 mg by mouth as needed. Active acetaminophen (TYLENOL) 325 mg tablet Take 2 tablets (650 mg total) by mouth every 6 (six) hours. 60 tablet 7 Active enoxaparin (LOVENOX) 40 mg/0.4 mL Syrg subcutaneous syringe Inject 0.4 mL (40 mg total) under the skin every evening. 13 Syringe 7 Active docusate sodium (COLACE) 100 MG capsule Take 1 capsule (100 mg total) by mouth 2 (two) times a day. 60 capsule 7 Active senna (SENOKOT) 8.6 mg tablet Take 2 tablets by mouth nightly. 60 tablet 7 Active diazePAM (VALIUM) 5 MG tablet Take 1-2 tablets (5-10 mg total) by mouth every 8 (eight) hours as needed. 20 tablet 7 Active HYDROmorphone (DILAUDID) 2 MG tablet Take 1 tablet (2 mg total) by mouth every 6 (six) hours as needed for pain (specific location in comments) (take 325mg tylenol with each dose.). Pt may request partial fill 60 tablet 8 Active Active Problems Problem Noted Date Diagnosed Date Primary osteoarthritis of right knee 04/16/2017 Status post total left knee replacement 06/12/19 17 Social History Tobacco Use Types Packs/Day Years Used Date Smoking Tobacco: Every Day Cigarettes Smokeless Tobacco: Current Tobacco Cessation:Ready to Q uit: No; Counseling Given: Yes Comments:electronic cigarette in between Alcohol Use Standard Drinks/Week Comments Yes 0 (1 standard drink = 0.6 oz pur e alcohol) 15 mixed drinks/ week Education Answer Date Recorded Are you interested in more education? Not on alba e 08/22/2022 Are you concerned about learning? Not on file 08/22/2022 No 08/22/2022 No 08/22/2022 Digital Access Answer Date Recorded No 09/21/2022 No 09/21/2022 No 09/21/2022 Reliable internet access at home? Not on file 09/21/2022 Device with a working camera? Not on file Sex and Gender Information Value Date Recorded Sex Assigned at Not on file Legal Sex Male 12:13 PM EDT Gender Identity Not on file Sexual Orientation Not on file Last Filed Vital Signs Vital Sign Reading Time Taken Comments Blood Pressure 130/72 05/15/2017 9:57 AM EST Pulse 82 05/15/2017 9:57 AM EST Temperature 37.2 C (99 F) 05/12/2017 12:38 PM EST Respiratory Rate 18 05/12/2017 12:38 PM EST Oxygen Saturation 96% 05/05/2017 11:49 AM EST Inhaled Oxygen Concentration 21% 04/16/2017 9 :36 PM EST Weight 122.5 kg (270 lb) 04/16/2017 4:42 PM EST Height 182.9 cm (6') 04/16/2017 4:42 PM EST Body Mass Index 36.62 04/16/2017 4:42 PM EST Plan of Treatment Health Maintenance Due Date Last Done Comments Adult Td,Tdap Booster 1961 LIPID PANEL 1961 DEPRESSION SCREENING 1973 SMOKING Hx and SMOKELESS TOBACCO SCREENING 1974 HEPATITIS C SCREENING 1979 HIV ONE-TIME SCREENING (18-6 5 YEARS) 1979 PNEUMOCOCCAL VACCINES (50+ years) (1 of 2 - PCV) 1980 COLOGUARD 2006 COLONOSCOPY 2006 COLORECTAL CANCER SCREENING 2006 FIT TEST 2006 FOBT 2006 SIGMOIDOSCOPY 2006 VIRTUAL COLONOSCOPY 2006 ZOSTER VACCINES (1 of 2) 2011 CREATININE LEVEL 04/16/2018 04/16/2017, 2016, 06/13/2016 POTASSIUM LEVEL 04/16/2018 04/16/2017, 2016, 06/13/2016 COVID-19 VACCINE (3 - 2023-2 5 season) 2023 08/01/2020, 07/10/2020 RSV VACCINE (1 - 1-dose 75+ series) 2036 HEPATITIS A VACCINES Aged Out No long er eligible based on patient's age to complete this topic HIB VACCINES Aged Out No longer eligi ble based on patient's age to complete this topic MENINGOCOCCAL VACCINES (ACWY) Aged Out No longer eligible based on patient's age to complete this topic MENINGOCOCCAL VACCINES (B) Aged Out N o longer eligible based on patient's age to complete this topic Medical Devices Implanted Type Area Wax Room Supervisor Device Identifier Shelf Expiration Date Model / Serial / Lot Implant Knee 38mm Patella Oval Dome 3 Peg Pfc Sigma Ea Knee [id number] Implanted:Qty: 1 on 06/12/2016 by Dane Silver MD at [facility] STANDARD Left: Knee [employer] 03/26/2021 [id number] / / [id number] Knee 94-0026 C/R Porocoat Femur Sz6 Rt Knee [id number] Implanted:Qty: 1 on 04/16/2017 by Dane Silver MD at [facility] STANDARD Right: Femur [employer] 07/25/2025 [id number] / / [id number] Implant Knee 38mm Patella Oval Dome 3 Peg Pfc Sigma Ea Knee [id number] Implanted:Qty: 1 on 04/16/2017 by Dane Silver MD at [facility] STANDARD Right: Patella [employer] 11/24/2021 [id number] / / [id number] Plates,Screws Knee 94-0016 C/R Porocoat Femur Sz6 Lt Knee - [id number] Implanted:Qty: 1 on 06/12/2016 by Dane Silver MD at [facility] Left: Knee [employer] 03/26/2023 [id number] / / [id number] Mbt Por Tibial Tray Sz5 Implanted:Qty: 1 on 06/12/2016 by Dane Silver MD at [facility] Left: Knee J 01/24/2021 / / [id number] Description:DePuy Sigma LCR complete tibial tray rotating platform, size 5 cementless: ref# [id number] Pfc Sigmarp Cv Tb/In S6 10.0 Implanted:Qty: 1 on 06/12/2016 by Dane Silver MD at [facility] Left: Knee J 11/24/2016 / / [id number] Description:[employer] tibial ins ert rotating platform, curved, 6, 10mm: ref# [id number] Cement Bone 20gr Radiopaque Half Dose Simplex Bx/10ea - [id number] Implanted:Qty: 1 on 06/12/2016 by Dane Silver MD at [facility] Left: Patella [employer] 01/24/2017 6188-1-01 0 / / [id number] Pfc Sigmarp Cv Tb/In S6 10.0 Implanted:Qty: 1 on 04/16/2017 by Dane Silver MD at [facility] Right: Tibia J 04/26/2021 / / [id number] Description:REF: [id number] Cement Bone Simplex P Full Dose Bx/1ea - [id number] Implanted:Qty: 1 on 04/16/2017 by Dane Silver MD at [facility] Right: Patella [employer] 09/25/2019 6191-1-00 1 / / [id number] Tibial Tray Rotating Platform Implanted:Qty: 1 on 04/16/2017 by Dane Silver MD at [facility] Right: Tibia [employer] 07/15/2021 1294-32-1 50 / / [id number] Description:Sigma LCS@ Compl ete Procedures Procedure Name Priority Date/Time Associated Diagnosis Comments BASIC METABOLIC PANEL Routine 04/16/2017 7:30 PM EST from Last 3 Months or Most Recently Relevant to Health Maintenance Results * (ABNORMAL) Basic metabolic panel (04/16/2017 7:30 PM EST) SODIUM 139 135 - 145 mmol/L [facility] POTASSIUM 4.2 3.4 - 5.0 mmol/L [facility] CHLORIDE 99 98 - 108 mmol/L [facility] CO2 19(L) 23 - 32 mmol/L [facility] BUN 9 8 - 25 mg/dL [facility] CREATININE 0.96 0.60 - 1.50 mg/dL [facility] GLUCOSE 259(H) 70 - 110 mg/dL [facility] CALCIUM 9.0 8.5 - 10.5 mg/dL [facility] EGFR >60 >60 mL/min/1. 73m2 [facility] Comment:The normal range for eGFR is >60 mL/min/1.73m2. ANION GAP 21(H) 3 - 17 mmol/L [facility] Blood 04/16/2017 7:30 PM EST 04/16/2017 7:44 PM EST us Dane Silver MD LAB BLOOD ORDERABLES Final Result Performing Organization Address City/State/[facility] Co de Phone Number [address] [address] from Last 3 Months or Most Recently Relevant to Health Maintenance [facility] [place] [address] [place] [address] POS [facility] [place] [address] [place], [place] [address] [place] [address] HMO POS [facility] HMO POS [facility] HMO POS [facility] HMO POS Advance Directives For more information, please contact: [phone] (9AM - 5PM [place], Thursday-Thursday) * Full Code (Presumed) (Latest Code Status on File) Date Activated Date Inactivated Comments 04/16/2017 4:49 PM 04/18/2017 3:49 PM * Full Code (Confirmed) Date Activated Date Inactivated Comments 06/12/2016 9:14 PM 2016 2:37 PM Question Answer Comments Code Discussion Comments: patient Care Teams Ic Engineer Relationship Specialty Start Date End Date Ben Rodriguez MD [address] [place] [address] [place] [address] PCP - General Internal Medicine 12/20/15 Additional Source Comments The information contained in this document represents components of the legal health record. It is not the complete legal health record.[facility]
--- OUTSIDE RECORDS SUMMARY | 2024-12-19 18:06 | XMS_ITS | Encounter Summary ---
Author Organization [facility] Address [address] [place] [address] [place] [phone] Phone Care Team Providers Care Semiconductor Packages Platemaker Name Role Phone Ben Rodriguez MD Primary Care Provider Encounter Details Date Type Department Care Team (Latest Contact Info) Description 11/13/2017 Ancillary Orders [facility] Department of Orthopaedic Surgery, Arthroplasty Service [address] [place] [address], 3rd Floor, [address] [place] [address] Dane Silver MD [address] [place] [phone] [email or web address] Arthralgia of both lower legs Social History [...] documented as of this encounter Visit Diagnoses Diagnosis Arthralgia of both lower legs documented in this encounter Care Teams Semiconductor Packages Platemaker Relationship Specialty Start Date End Date Ben Rodriguez MD [address] [place] [address] [place] [address] PCP - General Internal Medicine 12/20/15 documented as of this encounter Additional Source Comments The information contained in this document represents components of the legal health record. It is not the complete legal health record.[facility]
--- OUTSIDE RECORDS SUMMARY | 2024-12-19 18:06 | XMS_ITS | Encounter Summary ---
Author Organization [facility] Address [facility] [employer] [facility] [address] [place] [address] Phone Care Team Providers Care Extractor Tender Raw Stock Name Role Phone Ben Rodriguez MD Primary Care Provider Encounter Details Date Type Department Care Team (Late st Contact Info) Description 04/16/2017 Procedure Pass [facility] PERIOPERATIVE DEPT [address] [place] [address] Social History Tobacco Use Types Packs/Day Years [...] on filedocumented in this encounter Care Teams Extractor Tender Raw Stock Relationship Specialty Start Date End Date Ben Rodriguez MD [address] [place] [address] [place] [address] PCP - General Internal Medicine 12/20/15 documented as of this encounter Additional Source Comments The information contained in this document represents components of the legal health record. It is not the complete legal health record.[facility]
--- OUTSIDE RECORDS SUMMARY | 2024-12-19 18:06 | XMS_ITS | Encounter Summary ---
Author Organization [facility] Address [address] [place] [address] [place] [address] Phone Care Team Providers Care Chief Mate Name Role Phone Ben Rodriguez MD Primary Care Provider Encounter Details Date Type Department Care Team (Latest Contact Info) Description 04/03/2017 Ancillary Orders [facility] Department of Orthopaedic Surgery, Arthroplasty Service [address] [place] [address], 3rd Floor, [address] [place] [address] Dane Silver MD [address] [place] [phone] [email or web address] Arthralgia of both lower legs Social [...] Results * XR KNEE 3 VIEW (LEFT) (04/03/2017 11:01 AM EST) Anatomical Region Laterality Modality Knee Left Radiographic Janie ging 04/03/2017 11:1 8 AM EST Impressions 04/03/2017 11:20 AM EST Progression in right knee arthropathy. Bilateral effusions. Narrative 04/03/2017 11:20 AM EST XR JOINT SURVEY (BILATERAL) 04/03/2017, LEFT XR KNEE 3 VIEW (LEFT) 04/03/2017, RIGHT XR KNEE 3 VIEW (RIGHT) 04/03/2017. COMPARISON: Left XR KNEE 3 VIEW (LEFT) 10/17/2016. FINDINGS: Again seen is the substantial right genu varum with severe degenerative change in the right medial compartment, likely progressed. A left total knee prosthesis is again seen. There is right medial patellofemoral degenerative change and an effusion. The left knee prosthesis shows a moderate effusion as before with mild lucency at the anterior bone prosthesis interface of the tibial tray. Degenerative changes are seen in the lower lumbar spine and SI joints. Procedure Note Lorenzo Langford MD - 04/03/2017 XR JOINT SURVEY (BILATERAL) 04/03/2017, LEFT XR KNEE 3 VIEW (LEFT)04/03/2017, RIGHT XR KNEE 3 VIEW (RIGHT) 04/03/2017. COMPARISON: Left XR KNEE 3 VIEW (LEFT) 10/17/2016. FINDINGS: Again seen is the substantial right genu varum with severe degenerativechange in the right medial compartment, likely progressed. A left total kneeprosthesis is again seen. There is right medial patellofemoral degenerative changeand an effusion. The left knee prosthesis shows a moderate effusion as beforewith mild lucency at the anterior bone prosthesis interface of the tibial tray. Degenerative changes are seen in the lower lumbar spine and SI joints. IMPRESSION: Progression in right knee arthropathy. Bilateral effusions. Dane Silver MD IMG XR LOWER EXTREMIT Y Final Result documented in this encounter Visit Diagnoses Diagnosis Arthralgia of both lower legs Arthralgia of both lower legs documented in this encounter Care Teams Chief Mate Relationship Specialty Start Date End Date Ben Rodriguez MD [address] [place] [address] [place] [address] PCP - General Internal Medicine 12/20/15 documented as of this encounter Additional Source Comments The information contained in this document represents components of the legal health record. It is not the complete legal health record.[facility]
--- OUTSIDE RECORDS SUMMARY | 2024-12-19 18:06 | XMS_ITS | Encounter Summary ---
Author Organization [facility] Address [address] [place] [address] [place] [address] Phone Care Team Providers Care Front Desk Representative Name Role Phone Ben Rodriguez MD Primary Care Provider Encounter Details Date Type Department Care Team (Latest Contact Info) Description 12/23/2017 Ancillary Orders [facility] Department of Orthopaedic Surgery, Arthroplasty Service [address] [place] [address], 3rd Floor, [address] [place] [address] Dane Silver MD [address] [place] [phone] [email or web address] Arthralgia of both lower legs Social History [...] legs documented in this encounter Care Teams Front Desk Representative Relationship Specialty Start Date End Date Ben Rodriguez MD [address] [place] [address] [place] [address] PCP - General Internal Medicine 12/20/15 documented as of this encounter Additional Source Comments The information contained in this document represents components of the legal health record. It is not the complete legal health record.[facility]
--- OUTSIDE RECORDS SUMMARY | 2024-12-19 18:07 | XMS_ITS | Encounter Summary ---
Author Organization [facility] Address [address] [place] [phone] Phone Care Team Providers Care Firearms Expert Name Role Phone Ben Rodriguez MD Primary Care Provider Encounter Details Date Type Department Care Team (Late st Contact Info) Description 06/18/2016 Telephone [facility] Orthopaedic Oncology [address] [place] [address], 3rd Floor, [address] [place] [address] Dane Silver MD [address] [place] [address] [email or web address] [email or web address] Social History Tobacco Use Types Packs/Day Years Used Date Smoking Tobacco: Every Day Cigarettes Smokeless Tobacco: Never Comments:electronic cigarett e in between Alcohol Use Standard Drinks/Week Comments Yes 0 (1 standard drink = 0.6 oz pure alcohol) couple drinks several days week Sex and Gender Information Value Date Recorded Sex Assigned at Not on file Legal Sex Male 12:13 PM EDT Gender Identity Not on file Sexual Orientation Not on file documented as of this encounter Plan of Treatment Not on file documented as of this encounter Visit Diagnoses Not on filedocumented in this encounter Care Teams Firearms Expert Relationship Specialty Start Date End Date Bne Rodriguez MD [address] [place] [address] [place] [address] PCP - General Internal Medicine 12/20/15 documented as of this encounter Additional Source Comments The information contained in this document represents components of the legal health record. It is not the complete legal health record.[facility]
--- OUTSIDE RECORDS SUMMARY | 2024-12-19 18:07 | XMS_ITS | Encounter Summary ---
Author Organization [facility] Address [facility] [employer] [facility] [address] [place] [address] Phone Care Team Providers Care Body Piercer Name Role Phone Ben Rodriguez MD Primary Care Provider Encounter Details Date Type Department Care Team (Late st Contact Info) Description 06/12/2016 Procedure Pass [facility] PERIOPERATIVE DEPT [address] [place] [address] Social History Tobacco Use Types Packs/Day Years [...] on filedocumented in this encounter Care Teams Body Piercer Relationship Specialty Start Date End Date Bne Rodriguez MD [address] [place] [address] [place] [address] PCP - General Internal Medicine 12/20/15 documented as of this encounter Additional Source Comments The information contained in this document represents components of the legal health record. It is not the complete legal health record.[facility]
[2024-12-19 18:08] LABS: Anion Gap 16 (12-20); Blood Urea Nitrogen 37 mg/dL (9-16); Calcium 9.2 mg/dL (8.4-10.2); Carbon Dioxide 25 mmol/L (22-29); Chloride 103 mmol/L (96-108); Estimated Glomerular Filt Rate 46; Potassium 3.9 mmol/L (3.3-5.1); Sodium 140 mmol/L (135-145)
== END 2024-12-19 16:21 | disposition home or self-care (01) ==
LOC: HO.HVNA 16:20
PROVIDERS: Visit Provider Internal Medicine
DX: M86.9 Osteomyelitis, unspecified (principal)
CPT/HCPCS: 36415; 80048; 82550; 85025

== ENCOUNTER 2024-12-27 13:30 | Outpatient (REF) | payer BC, SELFPAY ==
--- OUTSIDE RECORDS SUMMARY | 2024-12-27 15:57 | XMS_ITS | Encounter Summary ---
Author Organization [facility] Address [address] [place] [address] [place] [address] Phone Care Team Providers Care Cognos Developer Name Role Phone Ben Rodriguez MD Primary Care Provider Encounter Details Date Type Department Care Team (Latest Contact Info) Description 11/13/2017 Ancillary Orders [facility] Department of Orthopaedic Surgery, Arthroplasty Service [address] [place] [address], 3rd Floor, [address] [place] [address] Dane Silver MD [address] [place] [phone] [email or web address] Arthralgia of both lower legs Social History [...] legs documented in this encounter Care Teams Cognos Developer Relationship Specialty Start Date End Date Ben Rodriguez MD [address] [place] [address] [place] [address] PCP - General Internal Medicine 12/20/15 documented as of this encounter Additional Source Comments The information contained in this document represents components of the legal health record. It is not the complete legal health record.[facility]
--- OUTSIDE RECORDS SUMMARY | 2024-12-27 15:57 | XMS_ITS | Encounter Summary ---
Author Organization [facility] Address [address] [place] [address] [place] [address] Phone Care Team Providers Care Furniture Assembly Supervisor Name Role Phone Ben Rodriguez MD Primary Care Provider Encounter Details Date Type Department Care Team (Latest Contact Info) Description 05/15/2017 Ancillary Orders [facility] Department of Orthopaedic Surgery, Arthroplasty Service [address] [place] [address], 3rd Floor, [address] [place] [address] Dane Silver MD [address] [place] [phone] [email or web address] Arthralgia of both lower legs Social [...] legs documented in this encounter Care Teams Furniture Assembly Supervisor Relationship Specialty Start Date End Date Ben Rodriguez MD [address] [place] [address] [place] [address] PCP - General Internal Medicine 12/20/15 documented as of this encounter Additional Source Comments The information contained in this document represents components of the legal health record. It is not the complete legal health record.[facility]
--- OUTSIDE RECORDS SUMMARY | 2024-12-27 15:57 | XMS_ITS | Encounter Summary ---
Author Organization [facility] Address [address] [place] [address] [place] [address] Phone Care Team Providers Care Wool Carder Name Role Phone Ben Rodriguez MD Primary Care Provider Encounter Details Date Type Department Care Team (Latest Contact Info) Description 04/03/2017 Ancillary Orders [facility] Department of Orthopaedic Surgery, Arthroplasty Service [address] [place] [address], 3rd Floor, [address] [place] [address] Dane Silver MD [address] [place] [phone] [email or web address] Arthralgia of both lower legs Social [...] legs documented in this encounter Care Teams Wool Carder Relationship Specialty Start Date End Date Ben Rodriguez MD [address] [place] [address] [place] [address] PCP - General Internal Medicine 12/20/15 documented as of this encounter Additional Source Comments The information contained in this document represents components of the legal health record. It is not the complete legal health record.[facility]
--- OUTSIDE RECORDS SUMMARY | 2024-12-27 15:57 | XMS_ITS | Encounter Summary ---
Author Organization [facility] Address [address] [place] [address] [place] [phone] Phone Care Team Providers Care Topology Teacher Name Role Phone Ben Rodriguez MD Primary Care Provider Encounter Details Date Type Department Care Team (Latest Contact Info) Description 07/17/2017 Ancillary Orders [facility] Department of Orthopaedic Surgery, Arthroplasty Service [address] [place] [address], 3rd Floor, [address] [place] [address] Dane Silver MD [address] [place] [phone] [email or web address] Arthralgia of both lower legs Social [...] on the left. No acute fractures identified. [place] and lateral views of both knees demonstrate [...] tray on the left. Noacute fractures identified. [place] and lateral views of both kneesdemonstrate persistent bilateral joint effusions. There is slight lateral patellartilt on the right. 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 Dane Silver MD IMG XR LOWER EXTREMIT Y Final Result documented in this encounter Visit Diagnoses Diagnosis Arthralgia of both lower legs Arthralgia of both lower legs documented in this encounter Care Teams Topology Teacher Relationship Specialty Start Date End Date Ben Rodriguez MD [address] [place] [address] [place] [address] PCP - General Internal Medicine 12/20/15 documented as of this encounter Additional Source Comments The information contained in this document represents components of the legal health record. It is not the complete legal health record.[facility]
--- OUTSIDE RECORDS SUMMARY | 2024-12-27 15:57 | XMS_ITS | Encounter Summary ---
Author Organization [facility] Address [address] [place] [address] [place] [address] Phone Care Team Providers Care Laboratory Apparatus Glass Grinder Name Role Phone Ben Rodriguez MD Primary Care Provider Encounter Details Date Type Department Care Team (Latest Contact Info) Description 12/23/2017 Ancillary Orders [facility] Department of Orthopaedic Surgery, Arthroplasty Service [address] [place] [address], 3rd Floor, [address] [place] [address] Dane Silver MD [address] [place] [phone] [email or web address] Arthralgia of both lower legs Social [...] legs documented in this encounter Care Teams Laboratory Apparatus Glass Grinder Relationship Specialty Start Date End Date Ben Rodriguez MD [address] [place] [address] [place] [address] PCP - General Internal Medicine 12/20/15 documented as of this encounter Additional Source Comments The information contained in this document represents components of the legal health record. It is not the complete legal health record.[facility]
--- OUTSIDE RECORDS SUMMARY | 2024-12-27 15:57 | XMS_ITS | Encounter Summary ---
Author Organization [facility] Address [facility] [address] [place] [address] Phone Care Team Providers Care Ultimate Hoops Scoreboard Operator Name Role Phone Ben Rodriguez MD Primary Care Provider Encounter Details Date Type Department Care Team (Late st Contact Info) Description 04/16/2017 Procedure Pass [facility] [place] [address] [place] [address] Social History Tobacco Use Types Packs/Day Years [...] on filedocumented in this encounter Care Teams Ultimate Hoops Scoreboard Operator Relationship Specialty Start Date End Date Ben Rodriguez MD [address] [place] [address] [place] [address] PCP - General Internal Medicine 12/20/15 documented as of this encounter Additional Source Comments The information contained in this document represents components of the legal health record. It is not the complete legal health record.[facility]
--- OUTSIDE RECORDS SUMMARY | 2024-12-27 15:57 | XMS_ITS | Encounter Summary ---
Author Organization [facility] Address [address] [place] [address] [place] [address] Phone Care Team Providers Care Carpet Cleaner Name Role Phone Ben Rodriguez MD Primary Care Provider Encounter Details Date Type Department Care Team (Late st Contact Info) Description 04/28/2017 Telephone [facility] Department of Orthopaedic Surgery, Arthroplasty Service [address] [facility], 3rd Floor, [address] [place] [address] Dane Silver MD [address] [place] [phone] [email or web address] Social History Tobacco Use Types Packs/Day [...] on filedocumented in this encounter Care Teams Carpet Cleaner Relationship Specialty Start Date End Date Bne Rodriguez MD [address] [place] [address] [place] [address] PCP - General Internal Medicine 12/20/15 documented as of this encounter Additional Source Comments The information contained in this document represents components of the legal health record. It is not the complete legal health record.[facility]
--- OUTSIDE RECORDS SUMMARY | 2024-12-27 15:58 | XMS_ITS | Encounter Summary ---
Author Organization [facility] Address [facility] [employer] [facility] [address] [place] [address] Phone Care Team Providers Care Signs Sales Representative Name Role Phone Ben Rodriguez MD Primary Care Provider Encounter Details Date Type Department Care Team (Late st Contact Info) Description 06/12/2016 Procedure Pass [facility] PERIOPERATIVE DEPT [address] [place] [address] Social History Tobacco Use Types Packs/Day Years [...] on filedocumented in this encounter Care Teams Signs Sales Representative Relationship Specialty Start Date End Date Ben Rodriguez MD [address] [place] [address] [place] [address] PCP - General Internal Medicine 12/20/15 documented as of this encounter Additional Source Comments The information contained in this document represents components of the legal health record. It is not the complete legal health record.[facility]
--- OUTSIDE RECORDS SUMMARY | 2024-12-27 15:58 | XMS_ITS | Clinical Summary ---
Author Organization [facility] Address [address] [place] [address] Phone Care Team Providers Care School Based Therapist Name Role Phone Ben Rodriguez MD Primary [...] 06/13/2016 POTASSIUM LEVEL 04/16/2018 04/16/2017, 2016, 06/13/2016 INFLUENZA VACCINE (#1) 2024 COVID-19 VACCINE (3 - 2024-2 6 season) 2024 08/01/2020, 07/10/2020 RSV VACCINE (1 - 1-dose [...] this topic Medical Devices Implanted Type Area Rock Splitter Device Identifier Shelf Expiration Date Model / Serial / Lot Implant Knee 38mm Patella Oval Dome 3 Peg Pfc Sigma Ea Knee 06 - [id number] Implanted:Qty: 1 on 06/12/2016 by Dane Silver MD at [facility] STANDARD Left: Knee [employer] 03/26/2021 96-0102 / / [id number] Knee 94-0026 C/R Porocoat Femur Sz6 Rt Knee - [id number] Implanted:Qty: 1 on 04/16/2017 by Dane Silver MD at [facility] STANDARD Right: Femur [employer] 07/25/2025 [id number] / / [id number] Implant Knee 38mm Patella Oval Dome 3 Peg Pfc Sigma Ea Knee 06 - [id number] Implanted:Qty: 1 on 04/16/2017 by Dane Silver MD at [facility] STANDARD Right: Patella [employer] 11/24/2021 [id number] / / [id number] Plates,Screws Knee 94-0016 C/R Porocoat Femur Sz6 Lt Knee - [id number] Implanted:Qty: 1 on 06/12/2016 by Dane Silver MD at [facility] Left: Knee [employer] 03/26/2023 [id number] / / [id number] Mbt Por Tibial Tray Sz5 Implanted:Qty: 1 on 06/12/2016 by Dane Silver MD at [facility] Left: Knee J 01/24/2021 / / [id number] Description:DePuy Sigma LCR complete tibial tray rotating platform, size 5 cementless: ref# [id number] Pfc Sigmarp Cv Tb/In S6 10.0 Implanted:Qty: 1 on 06/12/2016 by Dane Silver MD at [facility] Left: Knee J 11/24/2016 / / [id number] Description:DePuy tibial ins ert rotating platform, curved, 6, 10mm: ref# [id number] Cement Bone 20gr Radiopaque Half Dose Simplex Bx/10ea - [id number] Implanted:Qty: 1 on 06/12/2016 by Dane Silver MD at [facility] Left: Patella [employer] 01/24/2017 6188-1-01 0 / / [id number] Pfc Sigmarp Cv Tb/In S6 10.0 Implanted:Qty: 1 on 04/16/2017 by Dane Silver MD at [facility] Right: Tibia J 04/26/2021 / / [id number] Description:REF: [id number] Cement Bone Simplex P Full Dose Bx/1ea - [id number] Implanted:Qty: 1 on 04/16/2017 by Dane Silver MD at [facility] Right: Patella [employer] 09/25/2019 6191-1-00 1 / / [id number] Tibial Tray Rotating Platform Implanted:Qty: 1 on 04/16/2017 by Dane Silver MD at [facility] Right: Tibia [employer] 07/15/2021 1294-32-1 50 / / [id number] Description:Sigma LCS@ Compl ete Procedures Procedure Name Priority Date/Time Associated Diagnosis Comments BASIC METABOLIC PANEL Routine 04/16/2017 7:30 PM EST from Last 3 Months or Most Recently Relevant to Health Maintenance Results * (ABNORMAL) Basic metabolic panel (04/16/2017 7:30 PM EST) SODIUM 139 135 - 145 mmol/L [facility] POTASSIUM 4.2 3.4 - 5.0 mmol/L [facility] CHLORIDE 99 98 - 108 mmol/L [facility] CO2 19(L) 23 - 32 mmol/L [facility] BUN 9 8 - 25 mg/dL [facility] CREATININE 0.96 0.60 - 1.50 mg/dL [facility] GLUCOSE 259(H) 70 - 110 mg/dL [facility] CALCIUM 9.0 8.5 - 10.5 mg/dL [facility] EGFR >60 >60 mL/min/1. 73m2 [facility] Comment:The normal range for eGFR is >60 mL/min/1.73m2. ANION GAP 21(H) 3 - 17 mmol/L [facility] Blood 04/16/2017 7:30 PM EST 04/16/2017 7:44 PM EST Dane Silver MD LAB BLOOD ORDERABLES Final Result [address] [address] from Last 3 Months or Most Recently Relevant to Health Maintenance [facility] [place] [address] [place] [address] [address] [place] [address]O POS [facility] HMO POS [facility] HMO POS [facility] H[facility] POS Advance Directives For more information, please contact: [phone] (9AM - 5PM María/[facility], Thursday-Thursday) * Full Code (Presumed) (Latest Code Status on File) Date Activated Date Inactivated Comments 04/16/2017 4:49 PM 04/18/2017 3:49 PM * Full Code (Confirmed) Date Activated Date Inactivated Comments 06/12/2016 9:14 PM 2016 2:37 PM Question Answer Comments Code Discussion Comments: patient Care Teams School Based Therapist Relationship Specialty Start Date End Date Ben Rodriguez MD [address] [place] [address] [place] [address] PCP - General Internal Medicine 12/20/15 Additional Source Comments The information contained in this document represents components of the legal health record. It is not the complete legal health record.[facility]
--- OUTSIDE RECORDS SUMMARY | 2024-12-27 15:58 | XMS_ITS | Encounter Summary ---
Author Organization [facility] Address [address] [place] [address] Phone Care Team Providers Care Maintenance Equipment Operator Name Role Phone Ben Rodriguez MD Primary Care Provider Encounter Details Date Type Department Care Team (Late st Contact Info) Description 06/18/2016 Telephone [facility] [place] Orthopaedic Oncology [address] [place] [address], 3rd Floor, [address] [place] [address] Dane Silver MD [address] [place] [address] [email or web address] Social History Tobacco Use Types Packs/Day Years [...] on filedocumented in this encounter Care Teams Maintenance Equipment Operator Relationship Specialty Start Date End Date Ben Rodriguez MD [address] [place] [address] [place] [address] PCP - General Internal Medicine 12/20/15 documented as of this encounter Additional Source Comments The information contained in this document represents components of the legal health record. It is not the complete legal health record.[facility]
[2024-12-27 16:17] LABS: MANUAL DIFF FLAG NO
[2024-12-27 16:22] LABS: Hematocrit 33.5 % (42.0-52.0); Hemoglobin 11.3 g/dl (14.0-18.0); Imm Gran Abs Auto 0.02 X10*3/uL (0.00-0.03); Imm Gran Pct Auto 0.3 % (0.0-0.4); Lymphocytes Absolute Auto 1.8 X10*3/uL (1.2-4.9); Mean Corpuscular HGB Conc 33.7 g/dl (31.0-36.0); Mean Corpuscular Hemoglobin 29.0 pg (27.0-33.0); Mean Corpuscular Volume 86.1 fL (80.0-98.0); NRBC Abs Auto 0.000 X10*3/uL (0.0-0.012); NRBC Pct Auto 0.0 /100WBC (0.0-0.2); Platelet Count 185 X10*3/uL (160-400); Red Blood Count 3.89 X10*6/uL (4.60-5.80); White Blood Count 7.0 X10*3/uL (4.8-10.8)
[2024-12-27 16:31] LABS: Anion Gap 15 (12-20); Blood Urea Nitrogen 25 mg/dL (9-16); Calcium 9.0 mg/dL (8.4-10.2); Carbon Dioxide 27 mmol/L (22-29); Chloride 103 mmol/L (96-108); Estimated Glomerular Filt Rate > 60; Potassium 4.0 mmol/L (3.3-5.1); Sodium 141 mmol/L (135-145)
== END 2024-12-27 13:31 | disposition home or self-care (01) ==
LOC: HO.HVNA 13:30
PROVIDERS: PCP Nurse Practitioner Family; Visit Provider Internal Medicine
DX: M86.9 Osteomyelitis, unspecified (principal)
CPT/HCPCS: 36415; 80048; 82550; 85025

== ENCOUNTER 2025-01-04 14:44 | Outpatient (AMB) | payer BC, SELFPAY ==
--- OUTSIDE RECORDS SUMMARY | 2024-05-02 09:30 | XMS_ITS ---
Author Organization [facility] [address] [place] Address [address] [place] [address] Care Team Providers Care Manga Artist Name Role Phone Armando ALMEIDA, Lorenzo Primary Care Provider Unav ailable Aurelia Otoole [phone] Encounters Encounter Location Date Provider Diagnosis [address] [address] 05/02/2024 Aurelia Otoole Plan Of Treatment Next Appt Details Provider Name:Aurelia patterson, 01/27/2025 01:45:00 PM, [address] [place], [address], Progress Notes * Colton DUNN CDOB:[birth year] (64 yo M)Acc No.[id number]:05/02/2024 Progress Note Patient: Osvaldo Colton FERREIRA Provider: Josafat Otoole DPM :1960 A ge:63 Y S ex:Male Date:05/02/2024 Address:[address] [id number] Pcp:ELLE Amanda Subjective: * Chief Complaints: * * Medical History: Objective: * Vitals: Assessment: Plan: * Treatment: * Images: * The named appointment provid er may or may not be the originator of this progress note, and it is not deemed complete until electronically signed by the appointment provider. Sign off status: Pending * Provider: Josafat Otoole DPM Date: 0 05/02/2024 Generated for Bev Santos on: 0 01/04/2025 05:58 PM EDT
--- OUTSIDE RECORDS SUMMARY | 2024-07-26 06:30 | XMS_ITS ---
Author Organization [facility] Corrine Henning Address [address] [place] [address] Care Team Providers Care Records Management Clerk Name Role Phone Lorenzo Huber Primary Care Provider Unav ailable Aurelia Otoole [phone] REASON FOR VISIT per Dr Otoole Encounters Encounter Location Date Provider Diagnosis [address] [address] 07/26/2024 Aurelia Otoole Plan Of Treatment Next Appt Details Provider Name:Aurelia patterson, 01/27/2025 01:45:00 PM, [address] [place] [address], [phone], Progress Notes * Colton DUNN CDOB:[birth year] (64 yo M)Acc No.[id number]:07/26/2024 Progress Notes Patient: Osvaldo Colton FERREIRA Provider: Josafat Otoole DPM :1960 A ge:64 Y S ex:Male Date:07/26/2024 Address:[address] [id number] Pcp:ELLE Amanda Subjective: * Chief Complaints: * [address] Otoole. * Medical History: Objective: * Vitals: Assessment: Plan: * Treatment: * Images: * The named appointment provid er may or may not be the originator of this progress note, and it is not deemed complete until electronically signed by the appointment provider. Sign off status: Pending * Provider: Josafat Otoole DPM Date: 0 07/26/2024 Generated for Bev horowitz/Adali/Sandeep on: 0 01/04/2025 05:57 PM EDT
--- OUTSIDE RECORDS SUMMARY | 2024-09-20 07:00 | XMS_ITS ---
Author Organization [facility] Address [address] [place] [address] Care Team Providers Care Pricing Consultant Name Role Phone Lorenzo Huber Primary Care Provider Unav ailable Ash Otooleen Unavailable [phone] Medications Medication SIG (Take, Route, Frequency, Duration) [...] Active Encounters Encounter Location Date Provider Diagnosis [facility] [address] [address] 09/20/2024 Aurelia Otoole Plan Of Treatment Next Appt Details Provider Name:Aurelia patterson, 01/27/2025 01:45:00 PM, [address] [place] [address], [phone], Progress Notes * Colton DUNN CDOB:[birth year] (64 yo M)Acc No.[id number]:09/20/2024 Progress Note Patient: Osvaldo HAYDENColton STARK Provider: Josafat Otoole DPM :1960 A ge:64 Y S ex:Male Date:09/20/2024 Address: [address] [facility] Pcp:ELLE Amanda Subjective: * Chief Complaints: * [...] 09/20/2024 Generated for Bev horowitz/Adali/Sandeep on: 0 01/04/2025 05:57 PM EDT History and Physical Notes * HPI (History of Present Illness) Category Sub-Category Detail Notes Category Not es At Risk footcare Pt States Last PCP Visit: Date: 4
--- OUTSIDE RECORDS SUMMARY | 2024-11-15 09:30 | XMS_ITS ---
Author Organization [facility] [place] Address [address] [place] [address] Care Team Providers Care Soft Sugar Operator Head Name Role Phone Lorenzo Huber Primary Care Provider Unav ailable Ash Otooleen Unavailable [phone] Medications Medication SIG (Take, Route, Frequency, Duration) [...] Active Encounters Encounter Location Date Provider Diagnosis [facility] [address] [address] 11/15/2024 Aurelia Otoole Plan Of Treatment Next Appt Details Provider Name:Aurelia patterson, 01/27/2025 01:45:00 PM, [address] [place] [address], [phone], Progress Notes * Colton DUNN CDOB:[birth year] (64 yo M)Acc No.[id number]:11/15/2024 Progress Note Patient: Osvaldo NAJERAColton BRADY Provider: Josafat Otoole DPM :1960 A ge:64 Y S ex:Male Date:11/15/2024 Address: [facility] Pcp:ELLE Amanda Subjective: * Chief Complaints: * [...] 0 11/15/2024 Generated for Bev horowitz/Adali/Sandeep on: 01/04/2025 05:57 PM EDT
--- NOTE | 2025-01-04 14:51 | A.OFFVIS_ITS ---
Vital Signs 01/04/25 14:52 Height 6 ft Weight 266 lb 12.149 oz BMI 36.2 BP 138/80 Blood Pressure Location Lt brachial Position Sitting Pulse 68 Pulse Source Pulse Oximeter Intake Visit Reasons: 3 mth Follow up Allergies No Known Allergies Allergy (Verified 12/19/24 13:43) Medication List - Last Reconciled 01/04/25 by Tushar Blevins MD [4x4 gauze As directed] [6x6 kerlix fluffs As directed] amlodipine 10 mg PO DAILY atorvastatin 20 mg PO BEDTIME blood sugar diagnostic (PEARL [employer] Verio test strips) test blood sugar TID carvedilol (Coreg) 25 mg PO BID flash glucose scanning reader ([employer] Systems[employer] Michael 2 Joffre) tid testing flash glucose sensor ([employer] Michael 2 Sensor kit) TID testing furosemide 40 mg PO DAILY gabapentin 1,200 mg (2 x 600 mg) PO BID 90 days glipizide 10 mg PO BIDAC hydralazine 25 mg PO TID hydrochlorothiazide 12.5 mg PO DAILY insulin glargine-yfgn 24 units (0.24 mL) subcut BEDTIME 30 days [kerlix rolls As directed] levofloxacin 750 mg PO Q24H 38 days linezolid 600 mg PO BID 30 days lisinopril 40 mg PO DAILY metronidazole 500 mg PO BID 12 days pantoprazole 40 mg PO DAILY pen needle, diabetic use to inject insulin once a day HPI Comments Details: Colton returns for follow-up. Multiple cardiovascular risk factors including hypertension, diabetes, dyslipidemia, smoking, alcohol excess, untreated sleep apnea. He is being treated for hypertension and chronic diastolic heart failure. Overall, he states he is better than before. Not short of breath and he denies any other cardiac complaints. History of smoking, daily alcohol use. Noncompliant with CPAP. [facility] Medical History Barretts esophagus Erectile dysfunction associated with type 2 diabetes mellitus Diabetes mellitus with neuropathy On beta roney at home Pulmonary nodule Diabetic foot ulcer Essential hypertension Obesity History of cervical fracture Personal history of nicotine dependence Dysphagia Neuropathy MAHAD (obstructive sleep apnea) GERD (gastroesophageal reflux disease) PAD (peripheral artery disease) Diabetes mellitus, type 2 Surgical History History of amputation of toe (04/06/23) History of tonsillectomy History of total left knee replacement History of fusion of cervical spine History of total right knee replacement (TKR) History of endoscopy History of colonoscopy History of left knee surgery Family History Mother No problems noted. Father No problems noted. Social History Household Members: Spouse Housing: House Are you a primary medicare biller to a significant other at home: No Do you presently have visiting nurse or other home services: No Alcohol intake: current Alcohol intake frequency: 3 or more drinks per day Alcohol type: hard liquor Comment: pt refused fall precautions Patient Tobacco Use Status: Never used Tobacco Tobacco use type: Cigarette Cigarette Packs Per Day: 1 Cigarettes Per Day: 10 Years Smoked: 25 e-Cigarette/Vaping Use: Never Used Second Hand Smoke Exposure: No Substance Use Type: Marijuana service: No Current occupational status: employed Current occupation: [employer], right handed Current occupational exposures/hazards: Yes Cognitive needs: No Hearing needs: No Vision needs: No Review of Systems Const Denies weakness ENT Denies dizziness Card Denies chest pain, Denies chest pain with activity, Denies syncope, Denies rapid heart rate, Denies pedal edema, Denies edema, Denies leg edema, Denies lightheadedness, Denies palpitations, Denies dyspnea, Denies dyspnea on exertion and Denies orthopnea Resp Denies cough, Denies dyspnea and Denies dyspnea on exertion GI Denies hematochezia and Denies change in stool character Musc Denies abnormal gait, Denies muscle cramps, Denies muscle weakness, Denies numbness, Denies radiating pain into limb and Denies tingling Neuro Denies abnormal gait, Denies dizziness, Denies syncope, Denies numbness, Denies tingling and Denies weakness Endo Denies palpitations Physical Exam Vital Signs: Last Vital Signs Pulse 68 01/04/25 14:52 BP 138/80 01/04/25 14:52 BMI result Body Mass Index 36.2 Const General: comfortable and no acute distress Orientation/consciousness: patient oriented x3 HEENT Other: Unremarkable Head: Yes normal to inspection Neck Neck: Yes normal visual inspection Chest Chest palpation & inspection: normal inspection of the chest Resp Auscultation: clear to auscultation bilaterally Cardio Palpation: normal PMI Heart sounds: S1 normal heart sound present, S2 normal heart sound present, no gallops, Murmur heart sound present systolic I/ and no rubs GI Palpation (GI): Soft to palpation Back/Spine/Pelvis Other: unremarkable Skin General skin exam: no rashes or lesions noted Neuro General: patient oriented x3 Extrem General: Yes normal to inspection Psych Mental Status: mental status grossly normal Assessment & Plan Assessment & Plan (1) Chronic heart failure with preserved ejection fraction: Code(s): I50.32 - Chronic diastolic (congestive) heart failure Category: Medical (2) Diastolic dysfunction: Code(s): I51.89 - Other ill-defined heart diseases Category: Medical (3) Ascending aorta dilatation: Code(s): I77.810 - Thoracic aortic ectasia Category: Medical (4) HTN (hypertension): Code(s): I10 - Essential (primary) hypertension Category: Medical Plan Cardiac studies reviewed. [id number] increased left ventricular size; LVEF 45-50%; moderate diastolic dysfunction with elevated filling pressures; increased right ventricular size; severe biatrial enlargement; moderate pulmonary hypertension. In 2022, LVEF was 68%. There was still evidence of diastolic dysfunction/increased right ventricular size as well as atrial enlargement. Mild pulmonary hypertension. Myocardial perfusion imaging study 2023-mild reversible inferior defect-mild ischemia versus artifact. Coronary CTA-2024-no evidence of hemodynamically significant coronary disease. Mild coronary artery calcification. Possible thickening of basal/mid ventricular septum. Patent foramina ovale. Ascending aortic size 4.1 cm. Overall, likely all uncontrolled hypertension contributing to diastolic heart failure and shortness of breath. He could have some COPD related to smoking. With the current regimen, blood pressure is much better than before. Still not ideal. He is already on 5 medications including carvedilol, lisinopril, amlodipine, hydralazine, hydrochlorothiazide and hence no further changes made today especially as he does not really have much insight into the medications. Other option would be adding spironolactone/increase hydralazine as needed. Otherwise, he seems to be stable from a heart failure standpoint and he is on diuretics. We could add Jardiance or Farxiga in the future but again limited insight and he does not know the names of medications either. Cut back on smoking, alcohol excess and to get the CPAP sorted out. We discussed about these today. Discussion Notes During the visit, we discussed the management of the patient's hypertension, which is currently controlled with a regimen of multiple antihypertensive medications. Patient was informed and verbally consented to the use of an ambient scribe for clinic note documentation during this visit. Patient Instructions: - Continue taking all prescribed blood pressure medications as directed. - Schedule a follow-up appointment in six months. Coding Level of Care Code Est Pt Level 4 (51288) Complex EM visit Add On G2211 Diagnoses Chronic heart failure with preserved ejection fraction I50.32 Diastolic dysfunction I51.89 Ascending aorta dilatation I77.810 HTN (hypertension) I10
[2025-01-04 14:52] VITALS: BP 138/80; PULSE 68; BMI 36.2
--- OUTSIDE RECORDS SUMMARY | 2025-01-04 17:57 | XMS_ITS | Encounter Summary ---
Author Organization [facility] Address [address] [place] [address] [place] [address] Phone Care Team Providers Care Layout Designer Name Role Phone Ben Rodriguez MD Primary Care Provider Encounter Details Date Type Department Care Team (Latest Contact Info) Description 12/23/2017 Ancillary Orders [facility] [place] of Orthopaedic Surgery, Arthroplasty Service [address] [place] [address], 3rd Floor, [address] [place] [address] Dane Silver MD [address] [place] [phone] [email or web address] Arthralgia of both lower legs Social [...] legs documented in this encounter Care Teams Layout Designer Relationship Specialty Start Date End Date Ben Rodriguez MD [address] [place] [address] [place] [address] PCP - General Internal Medicine 12/20/15 documented as of this encounter Additional Source Comments The information contained in this document represents components of the legal health record. It is not the complete legal health record.[facility]
--- OUTSIDE RECORDS SUMMARY | 2025-01-04 17:57 | XMS_ITS | Encounter Summary ---
Author Organization [facility] Address [address] [place] [address] [place] [address] Phone Care Team Providers Care Optometric Aide Name Role Phone Ben Rodriguez MD Primary Care Provider Encounter Details Date Type Department Care Team (Latest Contact Info) Description 07/17/2017 Ancillary Orders [facility] Department of Orthopaedic Surgery, Arthroplasty Service [address] [place] [address], 3rd Floor, [address] [place] [address] Dane Silver MD [address] [place] [phone] [email or web address] Arthralgia of both lower legs Social History [...] on the left. No acute fractures identified. [place] and lateral views of both knees demonstrate [...] tray on the left. Noacute fractures identified. [place] and lateral views of both kneesdemonstrate persistent bilateral joint effusions. There is slight lateral patellartilt on the right. 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 Dane Silver MD IMG XR LOWER EXTREMIT Y Final Result documented in this encounter Visit Diagnoses Diagnosis Arthralgia of both lower legs Arthralgia of both lower legs documented in this encounter Care Teams Optometric Aide Relationship Specialty Start Date End Date Ben Rodriguez MD [address] [place] [address] [place] [address] PCP - General Internal Medicine 12/20/15 documented as of this encounter Additional Source Comments The information contained in this document represents components of the legal health record. It is not the complete legal health record.[facility]
--- OUTSIDE RECORDS SUMMARY | 2025-01-04 17:57 | XMS_ITS | Encounter Summary ---
Author Organization [facility] Address [address] [place] [address] [place] [address] Phone Care Team Providers Care Vocational Horticulture Instructor Name Role Phone Ben Rodriguez MD Primary Care Provider Encounter Details Date Type Department Care Team (Latest Contact Info) Description 11/13/2017 Ancillary Orders [facility] [place] Department of Orthopaedic Surgery, Arthroplasty Service [address] [place] [address], 3rd Floor, [address] [place] [address] Dane Silver MD [address] [place] [phone] [email or web address] Arthralgia of both lower legs Social [...] legs documented in this encounter Care Teams Vocational Horticulture Instructor Relationship Specialty Start Date End Date Ben Rodriguez MD [address] [place] [address] [place] [address] PCP - General Internal Medicine 12/20/15 documented as of this encounter Additional Source Comments The information contained in this document represents components of the legal health record. It is not the complete legal health record.[facility]
--- OUTSIDE RECORDS SUMMARY | 2025-01-04 17:57 | XMS_ITS | Encounter Summary ---
Author Organization [facility] Address [address] [place] [address] [place] [address] Phone Care Team Providers Care Tier Over Name Role Phone Ben Rodriguez MD Primary Care Provider Encounter Details Date Type Department Care Team (Late st Contact Info) Description 04/28/2017 Telephone [facility] Department of Orthopaedic Surgery, Arthroplasty Service [address] [facility], 3rd Floor, [address] [place] [address] Dane Silver MD [address] [place] [address] [email or web address] Social History Tobacco Use Types Packs/Day [...] on filedocumented in this encounter Care Teams Tier Over Relationship Specialty Start Date End Date Ben Rodriguez MD [address] [place] [address] [place] [address] PCP - General Internal Medicine 12/20/15 documented as of this encounter Additional Source Comments The information contained in this document represents components of the legal health record. It is not the complete legal health record.[facility]
--- OUTSIDE RECORDS SUMMARY | 2025-01-04 17:57 | XMS_ITS | Encounter Summary ---
Author Organization [facility] Address [address] [place] [address] [place] [address] Phone Care Team Providers Care Dictating Machine Transcriber Name Role Phone Ben Rodriguez MD Primary Care Provider Encounter Details Date Type Department Care Team (Latest Contact Info) Description 05/15/2017 Ancillary Orders [facility] [place] Department of Orthopaedic Surgery, Arthroplasty Service [address] [place] [address], 3rd Floor, [address] [place] [address] Dane Silver MD [address] [place] [address] [email or web address] Arthralgia of both lower legs Social [...] legs documented in this encounter Care Teams Dictating Machine Transcriber Relationship Specialty Start Date End Date Ben Rodriguez MD [address] [place] [address] [place] [address] PCP - General Internal Medicine 12/20/15 documented as of this encounter Additional Source Comments The information contained in this document represents components of the legal health record. It is not the complete legal health record.[facility]
--- OUTSIDE RECORDS SUMMARY | 2025-01-04 17:58 | XMS_ITS | Encounter Summary ---
Author Organization [facility] Address Formerly [facility] [email or web address] [facility] [address] [place] [address] Phone Care Team Providers Care Armorer Technician Name Role Phone Ben Rodriguez MD Primary Care Provider Encounter Details Date Type Department Care Team (Late st Contact Info) Description 06/12/2016 Procedure Pass [facility] [place] PERIOPERATIVE DEPT [address] [place] [address] Social History Tobacco Use Types Packs/Day Years [...] on filedocumented in this encounter Care Teams Armorer Technician Relationship Specialty Start Date End Date Ben Rodriguez MD [address] [place] [address] [place] [address] PCP - General Internal Medicine 12/20/15 documented as of this encounter Additional Source Comments The information contained in this document represents components of the legal health record. It is not the complete legal health record.[facility]
--- OUTSIDE RECORDS SUMMARY | 2025-01-04 17:58 | XMS_ITS | Patient Health Record ---
[facility] [place] Address [address] [place] [address] Care Team Providers Care Vmware Architect Name Role Phone Lorenzo Huber Primary Care Provider Unav ailable Aurelia Otoole Unavailable [phone] Allergies No Known Allergies Results Component Value [...] Referring Provider Last Name Thalia Referred Organization [facility] jennifer Juvencio Referred Provider Aurelia Otoole Referred Address [address] [place],[address], Referred Provider Specialty Podiatry Referral Priority Routine [...] 07/11/2024 Encounters Encounter Location Date Provider Diagnosis [facility] [address] [place] [address] 01/27/2024 Aurelia Otoole Type 2 diabetes mellitus with diabetic polyneuropathy E11.42 ; Other hammer toe(s) (acquired), left foot M20.42 ; Tinea unguium B35.1 ; Other hammer toe(s) (acquired), right foot M20.41 ; Amputated toe of left foot S98.132A and Hallux valgus of left foot M20.[address] [facility] [address] 07/11/2024 Aurelia Otoole Other hammer toe(s) (acquired), left foot M20.42 ; Cellulitis of foot, left L03.116 ; Type 2 diabetes mellitus with diabetic polyneuropathy E11.42 ; Tinea unguium B35.1 ; Other hammer toe(s) (acquired), right foot M20.41 ; Amputated toe of left foot S98.132A ; Hallux valgus of left foot M20.12 and Neuropathic ulcer of left foot with fat layer exposed L97.[address] [address] 04/13/2024 [facility] [address] 05/02/2024 Aurelia Otoole [address] [address] 05/25/2024 Aurelia Otoole [facility] [address] 07/11/2024 Aurelia Otoole [facility] [address] 07/11/2024 Aurelia Otoole [facility] [address] 07/12/2024 Aurelia Otoole [address] [address] 09/20/2024 [facility] [address] [address] 10/04/2024 Aurelia Otoole [facility] [address] [address] 11/14/2024 Aurelia Otoole Assessments Encounter Date Diagnosis [...] X ray : Foot, left 3V 07/11/2024 [id number] NAIL, 6 OR MORE 06/28/2020 [id number] SKIN LESIONS, 2 TO 4 06/29/19 Next Appt Details Provider Name:Aurelia Yesenia patterson, 01/27/2025 01:45:00 PM, [address] [place], [address], Insurance Providers Payer Name Payer Address Payer Phone Subscriber Number Group Number Insured Name Patient Relationship to Insured Coverage Start Date Coverage End Date [facility] [address] [place] [address] [phone] [id number] Candelaria Saini Spouse - patient is the spouse of the insured Medical (General) History Medical History History ICD Code type II diabetes Reflux ( GERD) Back,Hip,and Knee pain High blood pressure Neuropathy Measles Joint implants/screws Surgical History Surgery Date(Month/Year) knee replacement 2015,2016 neck surgery amputation 2nd , toe 03/2023 Hospitalization History Reason Date([place] [facility] [place]21 wound clinic every [place] [facility] [place] -diabetic ulcer
--- OUTSIDE RECORDS SUMMARY | 2025-01-04 17:58 | XMS_ITS | Encounter Summary ---
Author Organization [facility] Address [address] [place] [address] [place] [address] Phone Care Team Providers Care Wedding Makeup Artist Name Role Phone Ben Rodriguez MD Primary Care Provider Encounter Details Date Type Department Care Team (Latest Contact Info) Description 04/03/2017 Ancillary Orders [facility] Department of Orthopaedic Surgery, Arthroplasty Service [address] [place] [address], 3rd Floor, [address] [place] [address] Dane Silver MD [address] [place] [address] [email or web address] Arthralgia of both lower legs Social History [...] legs documented in this encounter Care Teams Wedding Makeup Artist Relationship Specialty Start Date End Date Ben Rodriguez MD [address] [place] [address] [place] [address] PCP - General Internal Medicine 12/20/15 documented as of this encounter Additional Source Comments The information contained in this document represents components of the legal health record. It is not the complete legal health record.[facility]
--- OUTSIDE RECORDS SUMMARY | 2025-01-04 17:58 | XMS_ITS | Encounter Summary ---
Author Organization [facility] Address [address] [place] [address] Phone Care Team Providers Care Hog Slaughterer Name Role Phone Ben Rodriguez MD Primary Care Provider Encounter Details Date Type Department Care Team (Late st Contact Info) Description 06/18/2016 Telephone [facility] Orthopaedic Oncology [address] [place] [address], 3rd Floor, [address] [place] [address] Dane Silver MD [address] [place] [address] [email or web address] Social History Tobacco Use Types [...] on filedocumented in this encounter Care Teams Hog Slaughterer Relationship Specialty Start Date End Date Ben Rodriguez MD [address] [place] [address] [place] [address] PCP - General Internal Medicine 12/20/15 documented as of this encounter Additional Source Comments The information contained in this document represents components of the legal health record. It is not the complete legal health record.[facility]
--- OUTSIDE RECORDS SUMMARY | 2025-01-04 17:58 | XMS_ITS | Encounter Summary ---
Author Organization [facility] Address [facility] [employer] [facility] [address] [place] [address] Phone Care Team Providers Care Door Captain Name Role Phone Ben Rodriguez MD Primary Care Provider Encounter Details Date Type Department Care Team (Late st Contact Info) Description 04/16/2017 Procedure Pass [facility] PERIOPERATIVE DEPT [address] [place] [address] Social History Tobacco Use Types Packs/Day Years [...] on filedocumented in this encounter Care Teams Door Captain Relationship Specialty Start Date End Date Ben Rodriguez MD [address] [place] [address] [place] [address] PCP - General Internal Medicine 12/20/15 documented as of this encounter Additional Source Comments The information contained in this document represents components of the legal health record. It is not the complete legal health record.[facility]
--- OUTSIDE RECORDS SUMMARY | 2025-01-04 17:58 | XMS_ITS | Clinical Summary ---
Author Organization [facility] Address [address] [place] [address] Phone Care Team Providers Care Sizing Machine Operator Name Role Phone Ben Rodriguez MD [...] this topic Medical Devices Implanted Type Area Recycling Coordinator Device Identifier Shelf Expiration Date Model / Serial / Lot Implant Knee 38mm Patella Oval Dome 3 Peg Pfc Sigma Ea Knee 06 - [id number] Implanted:Qty: 1 on 06/12/2016 by Dane Silver MD at [facility] STANDARD Left: Knee [employer] 03/26/2021 96-0102 / / [id number] Knee 94-0026 C/R Porocoat Femur Sz6 Rt Knee - [id number] Implanted:Qty: 1 on 04/16/2017 by Dane Silver MD at [facility] STANDARD Right: Femur [employer] 07/25/2025 [id number] / / [id number] Implant Knee 38mm Patella Oval Dome 3 Peg Pfc Sigma Ea Knee 06 - [id number] Implanted:Qty: 1 on 04/16/2017 by Dane Silver MD at [facility] STANDARD Right: Patella [employer] 11/24/2021 [id number] / / [id number] Plates,Screws Knee 94-0016 C/R Porocoat Femur Sz6 Lt Knee - [id number] Implanted:Qty: 1 on 06/12/2016 by Dane Silver MD at [facility] Left: Knee [employer] 03/26/2023 [id number] / / [id number] Mbt Por Tibial Tray Sz5 Implanted:Qty: 1 on 06/12/2016 by Dane Silver MD at [facility] Left: Knee J 01/24/2021 / / [id number] Description:DePuy Sigma LCR complete tibial tray rotating platform, size 5 cementless: ref# [id number] Pfc Sigmarp Cv Tb/In S6 10.0 Implanted:Qty: 1 on 06/12/2016 by Dane Silver MD at [facility] Left: Knee J 11/24/2016 / / [id number] Description:De[employer] tibial ins ert rotating platform, curved, 6, 10mm: ref# [id number] Cement Bone 20gr Radiopaque Half Dose Simplex Bx/10ea - [id number] Implanted:Qty: 1 on 06/12/2016 by Dane Sivler MD at [facility] Left: Patella [employer] 01/24/2017 6188-1-01 0 / / [id number] Pfc Sigmarp Cv Tb/In S6 10.0 Implanted:Qty: 1 on 04/16/2017 by Dane Silver MD at [facility] Right: Tibia J 04/26/2021 / / [id number] Description:REF: [id number] Cement Bone Simplex P Full Dose Bx/1ea - [id number] Implanted:Qty: 1 on 04/16/2017 by Dane Silver MD at [facility] Right: Patella [employer] 09/25/2019 6191-1-00 1 / / [id number] Tibial Tray Rotating Platform Implanted:Qty: 1 on 04/16/2017 by Dane Silver MD at [facility] Right: Tibia [employer] 07/15/2021 1294-32-1 50 / / [id number] Description:Sigma LCS@ Compl ete Procedures Procedure Name Priority Date/Time Associated Diagnosis Comments BASIC METABOLIC PANEL Routine 04/16/2017 7:30 PM EST from Last 3 Months or Most Recently Relevant to Health Maintenance Results * (ABNORMAL) Basic metabolic panel (04/16/2017 7:30 PM EST) SODIUM 139 135 - 145 mmol/L [facility] POTASSIUM 4.2 3.4 - 5.0 mmol/L [facility] CHLORIDE 99 98 - 108 mmol/L [facility] CO2 19(L) 23 - 32 mmol/L [facility] BUN 9 8 - 25 mg/dL [facility] CREATININE 0.96 0.60 - 1.50 mg/dL [facility] GLUCOSE 259(H) 70 - 110 mg/dL [facility] CALCIUM 9.0 8.5 - 10.5 mg/dL [facility] EGFR >60 >60 mL/min/1. 73m2 [facility] Comment:The normal range for eGFR is >60 mL/min/1.73m2. ANION GAP 21(H) 3 - 17 mmol/L [facility] Blood 04/16/2017 7:30 PM EST 04/16/2017 7:44 PM EST Dane Silver MD LAB BLOOD ORDERABLES Final Result [address] [address] from Last 3 Months or Most Recently Relevant to Health Maintenance [facility] [place] [address] [place] [address] [address] [place] [address]O POS [facility] H[facility] POS [facility] POS [facility] H[facility] POS Advance Directives For more information, please contact: [phone] (9AM - 5PM Mar[facility], Thursday-Thursday) * Full Code (Presumed) (Latest Code Status on File) Date Activated Date Inactivated Comments 04/16/2017 4:49 PM 04/18/2017 3:49 PM * Full Code (Confirmed) Date Activated Date Inactivated Comments 06/12/2016 9:14 PM 2016 2:37 PM Question Answer Comments Code Discussion Comments: patient Care Teams Sizing Machine Operator Relationship Specialty Start Date End Date Ben Rodriguez MD [address] [place] [address] [place] [address] PCP - General Internal Medicine 12/20/15 Additional Source Comments The information contained in this document represents components of the legal health record. It is not the complete legal health record.[facility]
== END 2025-01-04 15:17 | disposition home or self-care (01) ==
PROVIDERS: PCP Nurse Practitioner Family; Visit Provider Internal Medicine
DX: I50.32 Chronic diastolic (congestive) heart failure (principal); I51.89 Other ill-defined heart diseases; I77.810 Thoracic aortic ectasia; I10 Essential (primary) hypertension
CPT/HCPCS: 99214

== ENCOUNTER 2025-04-07 08:51 | Outpatient (AMB) | payer BC, SELFPAY ==
[2025-04-07 08:53] VITALS: BP 156/76; PULSE 80; O2SAT 97; BMI 36.6
--- NOTE | 2025-04-07 08:53 | A.OFFVIS_ITS ---
Vital Signs 04/07/25 08:53 Height 6 ft Weight 270 lb BMI 36.6 BP 156/76 H Blood Pressure Location Rt brachial Position Sitting Pulse 80 Pulse Source Pulse Oximeter Pulse Oximetry (%) 97 Oxygen Delivery Method Room Air Intake Visit Reasons: Repeat EGD. Provider req appt. Intake Note: Est pt for mgmt of GERD. Discuss repeat EGD. CC: Pt denies any GI sx or concerns at this time. Needs repeat EGD for Chang's mgmt. Tag Press Operator Required: No Accompanied by: Self / Same As Patient Allergies No Known Allergies Allergy (Verified 04/07/25 08:55) HPI HPI Repeat EGD. Provider req appt.: Details: LAST VISIT Screen for colon cancer GERD (gastroesophageal reflux disease) Plan Portal hypertensive gastropathy found. Patient will be sent for ultrasound to evaluate portal vein and for cirrhosis. What to expect before during and after procedure discussed with patient. Stressed the importance of clear liquid diet and good bowel prep day before procedure. Patient is on insulin. Please remind patient to take half of his insulin 2 nights and 1 night before procedure. Patient will need to make an appointment with Cardiology as he has not followed up after his stress test. He will also need to be cleared to go for the procedure. Occasional shortness of breath, however patient continues to smoke cigarettes. Denies any chest pain or chest pressure. Patient will follow-up a fter the procedure, sooner on as needed basis. He is agreeable to this plan and verbalizes understanding of instructions. He was given the opportunity to ask questions and all questions answered. ? Thank you for allowing me to participate in his care Orders US abdomen complete Today R10.9 New polyethylene glycol 3350 (Miralax) As directed by gastroenterology department at [facility] 238 grams PO ONCE 238 grams 0RF Z12.11 bisacodyl (Dulcolax (bisacodyl)) take 4 tabs at noon the day before your colonoscopy 20 mg (4 x 5 mg) PO ONCE 1 day 4 tabs 0RF Z12.11 pantoprazole take one tablet half an hour before breakfast 40 mg PO DAILY 90 tabs 2RF K21.9 Discontinued omeprazole Discontinued Reason: Doctor's Order 20 mg PO DAILY 90 tabs 0RF UPPER ENDOSCOPY AND COLONOSCOPY EGD Findings:? * Esophagus:? A localized patch of heterotopic gastric mucosa noted in upper esophagus. Remaining esophageal mucosa was normal. The Z-line was at 45 cm and irregular up to 44 cm with one tongue extending to 43 cm. Cold forceps biopsies were taken from 45 and 43 cm to r/o BE. A tissue cypher will also be sent if histology is positive for Barretts esophagus. * Stomach:? Normal gastric mucosa. Retroflexion was performed in the cardia. * Duodenum:? Normal duodenal mucosa. Colonoscopy Procedure:? An abdominal binder was placed on the lower abdomen. The patient was then turned for the colonoscopy. A digital rectal exam was performed which was abnormal for external hemorrhoids? A distal attachment cap was affixed to the tip of the scope and the colonoscope was then inserted through the anus and advanced through the colon and advanced to the cecum at 75 cm and terminal ileum.? Appendiceal orifice and ileocecal valve were identified. Mucosa was carefully examined under high definition white light as the instrument was slowly withdrawn in a retrograde panoramic fashion. Retroflexion was performed in rectum. The procedure was not difficult. The quality of the prep was BBPS: 2+2+3 = adequate Withdrawal time 11 minutes Limitations: No limitations Findings: Mucosa: Normal colon and terminal ileum mucosa. Protruding lesions: * 2 sessile polyps of size 2-3 mm in transverse colon. Cold snare polypectomy was performed. The colon polyps were completely removed and retrieved. * Large internal hemorrhoids with a skin tag without stigmata of recent bleeding.Impression: 1. Inlet patch 2. Irregular SCM r/o chang's (biopsy, tissue cypher) 3. Normal stomach 4. Normal duodenum (biopsy) 5. Normal colon and terminal ileum mucosa 6. 2 polyps removed 7. Diverticulosis 8. Internal and external hemorrhoids Recommendations:?? * Follow-up path results * Repeat EGD in 5 years if chang's without dysplasia. * Repeat colonoscopy for CRC screening in 3 years due to extensive polyp burden in 2022. Can revert to routine intervals if next colonoscopy has <3 polyps. PATHOLOGY RESULTS A): Additional tissue level with AB/PAS stain is negative for intestinal metaplasia. (B): TissueCypher results: Risk Class: High Risk score: 6.6 (range 0 ? 10) 5-year probability of progression: 13% See entire scanned report in the EMR - reports/pathology section. Electronically Signed By: Corrine Westbrook 10/17/24 1011 Diagnosis A. Esophagus, at 45 cm, biopsy: Columnar mucosa with mild chronic inflammation and no intestinal metaplasia seen on initial levels; negative for dysplasia; no squamous component present. B. Esophagus, at 43 cm, biopsy: Squamocolumnar mucosa with mild chronic active inflammation and focal intestinal metaplasia consistent with Chang's mucosa; negative for dysplasia. C. Colon, transverse, polyps: Tubular adenomas, two, completely excised; negative for high-grade dysplasia and carcinoma. Comment: (A): Additional level with AB/PAS stain pending; addendum to follow. (B): TissueCypher testing pending; addendum to follow. TODAY'S VISIT Patient is here today for follow-up. Per Dr. Pro: TissueCypher has elevated risk of progression to high-grade dysplasia/esophageal cancer. With this, would recommend either direct endoscopic eradication vs repeat EGD in 6-12 months for surveillance. Discussed the results with patient and he is opting to go for another endoscopy to re-evaluate. Patient is taking omeprazole that he gets without prescription from pharmacy. Currently he is not taking pantoprazole. He reports that his script . Occasional reflux when he forgets to take medication. Patient continues to drink alcohol and smokes cigarettes. 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 Barretts esophagus Erectile dysfunction associated with type 2 diabetes mellitus Diabetes mellitus with neuropathy On beta roney at home Pulmonary nodule Diabetic foot ulcer Essential hypertension Obesity History of cervical fracture Personal history of nicotine dependence Dysphagia Neuropathy MAHAD (obstructive sleep apnea) GERD (gastroesophageal reflux disease) PAD (peripheral artery disease) Diabetes mellitus, type 2 Surgical History History of amputation of toe (04/06/23) History of tonsillectomy History of total left knee replacement History of fusion of cervical spine History of total right knee replacement (TKR) History of endoscopy History of colonoscopy History of left knee surgery Family History Mother No problems noted. Father No problems noted. Social History Household Members: Spouse Housing: House Are you a primary healthcare administration internship to a significant other at home: No Do you presently have visiting nurse or other home services: No Alcohol intake: current Alcohol intake frequency: 3 or more drinks per day Alcohol type: hard liquor Comment: pt refused fall precautions Patient Tobacco Use Status: Never used Tobacco Tobacco use type: Cigarette Cigarette Packs Per Day: 1 Cigarettes Per Day: 10 Years Smoked: 25 e-Cigarette/Vaping Use: Never Used Second Hand Smoke Exposure: No Substance Use Type: Marijuana service: No Current occupational status: employed Current occupation: [employer], right handed Current occupational exposures/hazards: Yes Cognitive needs: No Hearing needs: No Vision needs: No Review of Systems Const Denies weight gain and Denies weight loss ENT Reports no additional complaints, Denies dysphagia and Denies odynophagia Card Reports no additional complaints Resp Reports no additional complaints GI Denies abdominal pain, Denies belching, Denies melena, Denies bloating, Denies change in bowel habits, Denies dysphagia, Denies excessive flatus, Denies dyspepsia, Reports heartburn, Denies diarrhea, Denies loose stools, Denies nausea, Denies odynophagia and Denies vomiting Reports no additional complaints Musc Reports no additional complaints Neuro Reports no additional complaints Psych Reports no additional complaints Endo Reports no additional complaints Physical Exam Const General: healthy appearing, no acute distress and well developed Nutritional Appearance: well nourished Orientation/consciousness: patient oriented x3 Resp Effort & Inspection: normal respiratory effort, able to speak in complete sentences, no tracheal deviation and symmetric chest movement Auscultation: clear to auscultation bilaterally Cardio Rate: regular rate GI Inspection: Yes normal to inspection and No distended Palpation (GI): Soft to palpation, not firm, nontender and No hepatosplenomegaly present Auscultation: normal bowel sounds General: Yes no CVA tenderness Back/Spine/Pelvis Back: no CVA tenderness Skin General skin exam: elasticity normal, turgor normal and dry skin Neuro General: patient oriented x3 Psych Appearance: grossly normal Mental Status: mental status grossly normal Speech and movement: Normal speech and movement present Affect: normal affect Attitude: cooperative Assessment & Plan Assessment & Plan (1) Dysphagia: Code(s): R13.10 - Dysphagia, unspecified Category: Medical Qualifiers: Dysphagia type: esophageal phase Qualified Code(s): R13.19 - Other dysphagia (2) Chang's esophagus determined by biopsy: Code(s): K22.70 - Chang's esophagus without dysplasia Category: Medical (3) GERD (gastroesophageal reflux disease): Code(s): K21.9 - Gastro-esophageal reflux disease without esophagitis Qualifiers: Esophagitis presence: without esophagitis Qualified Code(s): K21.9 - Gastro-esophageal reflux disease without esophagitis Plan Patient will be sent for upper endoscopy. Patient was encouraged to continue pantoprazole daily. Avoid dietary triggers alcohol and smoking. I will see patient after the procedure. Patient was encouraged to call the office if he will have any GI concerning symptoms. He is agreeable to plan and verbalizes understanding instructions was given the opportunity to ask questions and all questions answered. Thank you for allowing me to participate in his care Medications: Refilled pantoprazole take one tablet half an hour before breakfast 40 mg PO DAILY 90 tabs 2RF K21.9 - Gastro-esophageal reflux disease without esophagitis Discontinued levofloxacin Discontinued Reason: Patient Completed Course 750 mg PO Q24H 38 days 38 tabs 0RF metronidazole Discontinued Reason: Patient Completed Course 500 mg PO BID 12 days 24 tabs 0RF Coding Level of Care Code Est Pt Level 4 (96073) Diagnoses Esophageal dysphagia R13.19 Dysphagia type: esophageal phase Chang's esophagus determined by biopsy K22.70 Gastroesophageal reflux disease without esophagitis K21.9 Esophagitis presence: without esophagitis Time Spent (min) 35 Comment 25 minutes spent with patient and additional 10 minutes spent reviewing his records
== END 2025-04-07 09:16 | disposition home or self-care (01) ==
LOC: HO.HGI 08:52
PROVIDERS: PCP Nurse Practitioner Family; Visit Provider Nurse Practitioner Family
DX: R13.19 Other dysphagia (principal); K22.70 Barrett's esophagus without dysplasia; K21.9 Gastro-esophageal reflux disease without esophagitis
CPT/HCPCS: 99214